=== PATIENT | female | born 1940 | race Caucasian/White ===

== ENCOUNTER 2017-08-06 11:30 | Outpatient (RCR) | payer MEDICARE, OTHER, SELFPAY ==
[2017-07-09 10:30] VITALS: BP 152/89; PULSE 90; RESP 18; TEMP 36.2; BMI 115.2
--- NOTE | 2017-07-09 13:08 | PCM.WC.HP ---
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 without evidence of necrosis Code(s): E08.621 - Diabetes mellitus due to underlying condition with foot ulcer; L97.519 - Non-pressure chronic ulcer of other part of right foot with unspecified severity (3) Infected ulcer of skin Status: Acute Current Visit: Yes Code(s): L98.499 - Non-pressure chronic ulcer of skin of other sites with unspecified severity; L08.9 - Local infection of the skin and subcutaneous tissue, unspecified (4) Edema of lower extremity Status: Acute Current Visit: Yes Code(s): R60.0 - Localized edema (5) Cellulitis and abscess of foot Status: Acute Current Visit: Yes Code(s): L03.119 - Cellulitis of unspecified part of limb; L02.619 - Cutaneous abscess of unspecified foot History of Present Illness Date of Service: 07/09/17 Chief Complaint: Follow-up right foot ulcer History of Wound: 76-year-old white female that has had a callus on the bottom of her right foot for 2 years. Has been having it pared down and monitored by podiatry. Last few months it is become infected and now a blister has appear going up towards her right great toe plantar side and she has a red streak going up her calf. Patient complains of severe pain in the leg and hard to walk on. Patient suffers from spinal stenosis is not very ambulatory and is extremely overweight she is diabetic and controlled. The abscess on the bottom of the foot is soft and fluctuant and will be I&D today with the wash of Hibiclens and then numbing with 1% with epi to the area I indeed with a #15 blade repaired and removed the abscess sac. Tolerated procedure well pack the area with iodoform gauze 1/2 inch. We will start her on oral antibiotics until cultures return of levofloxacin 751 p.o. daily and metronidazole 250 mg 1 p.o. 3 times daily ?10 days patient is to completely offload foot at this point. Patient will follow up next week with Dr. Vargas and then the following week she will return to me. Also has a growth on the left lateral lower leg that appears to be very friable and punctuated round raised fast-growing cancer that I was unable to remove because of the largeness of its circumference. 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 Galo in [place] also could follow. Past Medical History Past Medical History: Right foot DFU infected Allergies/Adverse Reactions: Allergies banana Allergy (Verified 07/09/17 11:15) Unknown biotin Adverse Reaction (Verified 07/09/17 11:15) Other wine Allergy (Uncoded 07/09/17 11:15) Unknown Home Medications: Ambulatory Orders Medication Instructions Recorded Eszopiclone [Lunesta] 2 mg PO QHS 07/09/17 Insulin Detemir [Levemir] 64 unit SQ QHS 07/09/17 Insulin Lispro [Humalog] 28 unit SQ DINNER 07/09/17 Insulin Lispro [Humalog] 55 unit SQ BREAKFAST 07/09/17 Warfarin [Coumadin ([facility])] 4 mg PO 07/09/17 Warfarin [Coumadin ([facility])] 6 mg PO 07/09/17 Lives: Spouse/ Significant Other Smoking Status: Never smoker Review of Systems Constitutional: Denies: Chills, Fever Eyes: Denies: Blurred vision, Drainage, Pain HEENT: Denies: Difficulty Hearing, Difficulty Swallowing, Sore Throat, Visual Changes Cardiovascular: Denies: Chest Pain, Palpitations, Syncope Respiratory: Denies: Cough, Shortness of Breath Gastrointestinal: Denies: Abdominal Pain, Nausea, Vomiting Genitourinary: Denies: Dysuria, Frequency Musculoskeletal: Denies: Joint Pain, Muscle pain Skin: Reports: Wounds - R Foot DFUwagner 2. Denies: Jaundice, Rash Neurological: Denies: Balance problems, Change in Speech, Difficulty swallowing, Focal weakness Psychiatric: Denies: Anxiety, Depression Endocrine: Denies: Change in Body Habitus Hematologic/ Lymphatic: Denies: Adenopathy - Physical Exam Vital Signs Temp Pulse Resp BP 97.1 F L 90 18 152/89 H 07/09/17 10:30 07/09/17 10:30 07/09/17 10:30 07/09/17 10:30 General: Oriented x3, Cooperative, Well developed HEENT: Atraumatic, PERRLA Oral: Moist Mucosa Neck: Supple, No JVD Lungs: Clear to auscultation, Normal air movement Cardiovascular: Regular rate, Regular Rhythm Abdomen: Bowel Sounds Present, Soft, Non Tender, No Hepato-splenomegaly Extremities: No clubbing, No edema Skin: - - R Foot DFU infected Wound Measurements and Assessment WC - Nurse 1 - General Ulcer Measurement Start: 07/09/17 10:28 Freq: Status: Active Protocol: Activity Type Activity Date Activity User E-Sign Co-Sign Detail Recorded Client Recorded Date Recorded By Document 07/09/17 10:30 [facility] [id number] 07/09/17 11:01 [facility] 07/09/17 10:30 Wound Center Nurse 1 [Ulcer Assessment] #2- LT CALF -Combined with other wound No -Current Size (cm) - Length 0.6 -Current Size (cm) - Width 0.7 -Current Size (cm) - Depth 0 -Total Square Cm 0.42 -Date of Last Picture (Recall this 07/09/17 field) -Photo Taken Yes -Tunneling No -Undermining/Tunneling No -Exudate Amt Small (1-33%) -Exudate Type Serous -Wound Margin Distinct, Outline Attached -Granulation Amt Large (67-100%) -Granulation Quality Hyper- granulation [place] -Slough/Fibrin No -Necrosis Amt None Present (0 %) -Structure Exposed N/A -Texture (Faby-wound Skin Appearance) Assessed -Moisture (Faby-wound Skin Appearance Dry/Scaly ) -Color (Faby-wound Skin Appearance) Assessed -Temperature (Faby-wound Skin No Abnormality Appearance) (Pt Warm) -Tenderness on Palpation (Faby-wound No Skin Appearance) -Ulcer Cleansing Rinsed/ Irrigated with Saline -Foul Odor after Cleansing No -Anesthetic Used 5% Lidocaine Gel #1- RT FOOT PLANTAR ASPECT -Combined with other wound No -Current Size (cm) - Length 0.1 -Current Size (cm) - Width 0.1 -Current Size (cm) - Depth 0.2 -Total Square Cm 0.01 -Date of Last Picture (Recall this 07/09/17 field) -Photo Taken Yes -Epithelialization None Present -Undermining/Tunneling No -Exudate Amt Small (1-33%) -Exudate Type Purulent -Granulation Amt None Present (0 %) -Slough/Fibrin Yes -Necrosis Amt Large (67-100%) -Necrotic Tissue Type Adherent Slough -Structure Exposed N/A -Texture (Faby-wound Skin Appearance) Callus Scarring -Moisture (Faby-wound Skin Appearance Dry/Scaly ) -Color (Faby-wound Skin Appearance) Assessed -Temperature (Faby-wound Skin No Abnormality Appearance) (Pt Warm) -Tenderness on Palpation (Faby-wound No Skin Appearance) -Ulcer Cleansing Rinsed/ Irrigated with Saline -Foul Odor after Cleansing No -Anesthetic Used 5% Lidocaine Gel [Edema Assessment] -Lower Limb Edema Present Yes -Right Calf (cm) 47 -Right Ankle (cm) 27.6 -Left Calf (cm) 44.6 -Left Ankle (cm) 27.1 WC - Nurse 2 - General Ulcer CM Notes Start: 07/09/17 10:28 Freq: Status: Active Protocol: Activity Type Activity Date Activity User E-Sign Co-Sign Detail Recorded Client Recorded Date Recorded By Document 07/09/17 11:39 MW [id number] 07/09/17 12:08 MW 07/09/17 11:39 Wound Center Nurse 2 [Procedure/Treatment] #2- LT CALF -Time 12:04 -Correct Patient Yes -Correct Side, Site, Position Yes -Correct Procedure Yes -Procedure Performed No -Type of Procedure Incision & Debridement -Clinical Debridement Subcutaneous -Post Debridement Size (cm) - Length 0.6 -Post Debridement Size (cm) - Width 0.7 -Post Debridement Size (cm) - Depth 0 -Total Square Cm 0.42 -Wound/Ulcer Outcome Not Healed -Ulcer Cleansing Not Cleansed -Foul Odor after Cleansing No -Bleeding Controlled with NA -Treatment Response Procedure Tolerated Well #1- RT FOOT PLANTAR ASPECT -Time 11:40 -Correct Patient Yes -Correct Side, Site, Position Yes -Correct Procedure Yes -Procedure Performed Yes -Type of Procedure Incision & Debridement -Clinical Debridement Subcutaneous -Post Debridement Size (cm) - Length 3.6 -Post Debridement Size (cm) - Width 0.7 -Post Debridement Size (cm) - Depth 0.7 -Total Square Cm 2.52 -Wound/Ulcer Outcome Not Healed -Ulcer Cleansing Rinsed/ Irrigated with Saline -Foul Odor after Cleansing No -Bioengineered Tissue No -Bleeding Controlled with Pressure -Treatment Response Procedure Tolerated Well [See Physician Procedure note for Specifics] Pain Scale: 0-10 Numeric [Pain] -Is Patient Pain Free? Yes Musculoskeletal: No Tenderness to Palpation of Joints or Extremities Lymphatic: No Cervical, Supraclavicular, or Inguinal Adenopathy Neurological: Cranial nerves II-XII grossly intact, Neuro grossly intact Psych/Mental Status: Normal Affect, Appropriate Debridement Note Post-Debridement Measurements/Treatment WC - Nurse 2 - General Ulcer CM Notes Start: 07/09/17 10:28 Freq: Status: Active Protocol: Activity Type Activity Date Activity User E-Sign Co-Sign Detail Recorded Client Recorded Date Recorded By Document 07/09/17 11:39 MW [id number] 07/09/17 12:08 MW 07/09/17 11:39 Wound Center Nurse 2 #2- LT CALF -Time 12:04 -Correct Patient Yes -Correct Side, Site, Position Yes -Correct Procedure Yes -Procedure Performed No -Type of Procedure Incision & Debridement -Clinical Debridement Subcutaneous -Post Debridement Size (cm) - Length 0.6 -Post Debridement Size (cm) - Width 0.7 -Post Debridement Size (cm) - Depth 0 -Total Square Cm 0.42 -Wound/Ulcer Outcome Not Healed -Ulcer Cleansing Not Cleansed -Foul Odor after Cleansing No -Bleeding Controlled with NA -Treatment Response Procedure Tolerated Well #1- RT FOOT PLANTAR ASPECT -Time 11:40 -Correct Patient Yes -Correct Side, Site, Position Yes -Correct Procedure Yes -Procedure Performed Yes -Type of Procedure Incision & Debridement -Clinical Debridement Subcutaneous -Post Debridement Size (cm) - Length 3.6 -Post Debridement Size (cm) - Width 0.7 -Post Debridement Size (cm) - Depth 0.7 -Total Square Cm 2.52 -Wound/Ulcer Outcome Not Healed -Ulcer Cleansing Rinsed/ Irrigated with Saline -Foul Odor after Cleansing No -Bioengineered Tissue No -Bleeding Controlled with Pressure -Treatment Response Procedure Tolerated Well Pain Scale: 0-10 Numeric Is Patient Pain Free? Yes Wound debrided: Right foot DFU Type of Debridement: Excisional debridement Anesthesia Used: 5% Lidocaine Gel Depth: Down to and including healthy tissue, in the subcutaneous layer, to muscle Percentage of wound debrided: 100 Instrument Used: #15 blade, Forceps - Nippers scissors Tissue Removed: Abscess sac devitalized tissue callus Amount of bleeding with debridement: Moderate Bleeding Controlled with: Compression and gauze Patient tolerated procedure well Right foot washed with Hibiclens numbed with lidocaine 1% with epi 15 blade incised to remove large abscess of the right forefoot plantar side of the foot. Tolerated well debrided upper blister with pus and discharge very odiferous. Bleeding under control and wound packed with iodoform gauze 1/2 inch and covered with gauze dressing to be offloaded. Operative Diagnosis: I&D of an abscess of the right foot Assessment/Plan c&S ulcer ,labs and x-ray Active Problems Diabetes 1.5, managed as type 2 (Acute) Diabetic ulcer of right foot associated with diabetes mellitus due to underlying condition (Acute) Infected ulcer of skin (Acute) Edema of lower extremity (Acute) Cellulitis and abscess of foot (Acute) Assessment: Foot DFU right. abscess right fooot. cellulitis. DM II uncontrolled. ?osteomylitis Plan: packing to the wound bed daily with 1/2 iodoform guaze. cover with thick guaze dressing and no weight bearing at all. foot x-ray to be done. prealbumin and cbc labs. cx results pending. start levofloxin 750 mg orally qd for 14 days. metronidazole 250 mg orally tid for 10 days. Follow up Tues with DR vargas then return in [facility] week to [facility] wound visit. L lat growth is cancer and needs to be removed at once by a sticker hand. Patient has her own in [facility] or [facility] in [place]
--- NOTE | 2017-07-09 13:19 | HP.PCM_ITS ---
(1) Diabetes 1.5, managed as type 2 Status: Acute Current Visit: Yes Code(s): E10.9 - Type 1 diabetes mellitus without complications (2) Diabetic ulcer of right foot associated with diabetes mellitus due to underlying condition Status: Acute Current Visit: Yes Qualifiers: Diabetic foot ulcer location: midfoot Non-pressure ulcer stage: with bone involvement without evidence of necrosis Qualified Code(s): E08.621 - Diabetes mellitus due to underlying condition with foot ulcer; L97.416 - Non- pressure chronic ulcer of right heel and midfoot with bone involvement without evidence of necrosis Code(s): E08.621 - Diabetes mellitus due to underlying condition with foot ulcer ; L97.519 - Non-pressure chronic ulcer of other part of right foot with unspecified severity (3) Infected ulcer of skin Status: Acute Current Visit: Yes Code(s): L98.499 - Non-pressure chronic ulcer of skin of other sites with unspecified severity; L08.9 - Local infection of the skin and subcutaneous tissue, unspecified (4) Edema of lower extremity Status: Acute Current Visit: Yes Code(s): R60.0 - Localized edema (5) Cellulitis and abscess of foot Status: Acute Current Visit: Yes Code(s): L03.119 - Cellulitis of unspecified part of limb; L02.619 - Cutaneous abscess of unspecified foot History of Present Illness Date of Service: 07/09/17 Chief Complaint: Follow-up right foot ulcer History of Wound: 76-year-old white female that has had a callus on the bottom of her right foot for 2 years. Has been having it pared down and monitored by podiatry. Last few months it is become infected and now a blister has appear going up towards her right great toe plantar side and she has a red streak going up her calf. Patient complains of severe pain in the leg and hard to walk on. Patient suffers from spinal stenosis is not very ambulatory and is extremely overweight she is diabetic and controlled. The abscess on the bottom of the foot is soft and fluctuant and will be I&D today with the wash of Hibiclens and then numbing with 1% with epi to the area I indeed with a #15 blade repaired and removed the abscess sac. Tolerated procedure well pack the area with iodoform gauze 1/2 inch. We will start her on oral antibiotics until cultures return of levofloxacin 751 p.o. daily and metronidazole 250 mg 1 p.o. 3 times daily ?10 days patient is to completely offload foot at this point. Patient will follow up next week with Dr. Vargas and then the following week she will return to me. Also has a growth on the left lateral lower leg that appears to be very friable and punctuated round raised fast-growing cancer that I was unable to remove because of the largeness of its circumference. 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 Galo in [place] also could follow. Past Medical History Past Medical History: Right foot DFU infected Allergies/Adverse Reactions: Allergies banana Allergy (Verified 07/09/17 11:15) Unknown biotin Adverse Reaction (Verified 07/09/17 11:15) Other wine Allergy (Uncoded 07/09/17 11:15) Unknown Home Medications: Ambulatory Orders Medication Instructions Recorded Eszopiclone [Lunesta] 2 mg PO QHS 07/09/17 Insulin Detemir [Levemir] 64 unit SQ QHS 07/09/17 Insulin Lispro [Humalog] 28 unit SQ DINNER 07/09/17 Insulin Lispro [Humalog] 55 unit SQ BREAKFAST 07/09/17 Warfarin [Coumadin (PBKC)] 4 mg PO 07/09/17 Warfarin [Coumadin (PBKC)] 6 mg PO 07/09/17 Lives: Spouse/ Significant Other Smoking Status: Never smoker Review of Systems Constitutional: Denies: Chills, Fever Eyes: Denies: Blurred vision, Drainage, Pain HEENT: Denies: Difficulty Hearing, Difficulty Swallowing, Sore Throat, Visual Changes Cardiovascular: Denies: Chest Pain, Palpitations, Syncope Respiratory: Denies: Cough, Shortness of Breath Gastrointestinal: Denies: Abdominal Pain, Nausea, Vomiting Genitourinary: Denies: Dysuria, Frequency Musculoskeletal: Denies: Joint Pain, Muscle pain Skin: Reports: Wounds - R Foot DFUwagner 2. Denies: Jaundice, Rash Neurological: Denies: Balance problems, Change in Speech, Difficulty swallowing , Focal weakness Psychiatric: Denies: Anxiety, Depression Endocrine: Denies: Change in Body Habitus Hematologic/ Lymphatic: Denies: Adenopathy - Physical Exam Vital Signs Temp Pulse Resp BP 97.1 F L 90 18 152/89 H 07/09/17 10:30 07/09/17 10:30 07/09/17 10:30 07/09/17 10:30 General: Oriented x3, Cooperative, Well developed HEENT: Atraumatic, PERRLA Oral: Moist Mucosa Neck: Supple, No JVD Lungs: Clear to auscultation, Normal air movement Cardiovascular: Regular rate, Regular Rhythm Abdomen: Bowel Sounds Present, Soft, Non Tender, No Hepato-splenomegaly Extremities: No clubbing, No edema Skin: - - R Foot DFU infected Wound Measurements and Assessment WC - Nurse 1 - General Ulcer Measurement Start: 07/09/17 10:28 Freq: Status: Active Protocol: Activity Type Activity Date Activity User E-Sign Co-Sign Detail Recorded Client Recorded Date Recorded By Document 07/09/17 10:30 [facility] [id number] 07/09/17 11:01 [facility] 07/09/17 10:30 Wound Center Nurse 1 [Ulcer Assessment] #2- LT CALF -Combined with other wound No -Current Size (cm) - Length 0.6 -Current Size (cm) - Width 0.7 -Current Size (cm) - Depth 0 -Total Square Cm 0.42 -Date of Last Picture (Recall this 07/09/17 field) -Photo Taken Yes -Tunneling No -Undermining/Tunneling No -Exudate Amt Small (1-33%) -Exudate Type Serous -Wound Margin Distinct, Outline Attached -Granulation Amt Large (67-100%) -Granulation Quality Hyper- granulation Baxley -Slough/Fibrin No -Necrosis Amt None Present (0 %) -Structure Exposed N/A -Texture (Faby-wound Skin Appearance) Assessed -Moisture (Faby-wound Skin Appearance Dry/Scaly ) -Color (Faby-wound Skin Appearance) Assessed -Temperature (Faby-wound Skin No Abnormality Appearance) (Pt Warm) -Tenderness on Palpation (Faby-wound No Skin Appearance) -Ulcer Cleansing Rinsed/ Irrigated with Saline -Foul Odor after Cleansing No -Anesthetic Used 5% Lidocaine Gel #1- RT FOOT PLANTAR ASPECT -Combined with other wound No -Current Size (cm) - Length 0.1 -Current Size (cm) - Width 0.1 -Current Size (cm) - Depth 0.2 -Total Square Cm 0.01 -Date of Last Picture (Recall this 07/09/17 field) -Photo Taken Yes -Epithelialization None Present -Undermining/Tunneling No -Exudate Amt Small (1-33%) -Exudate Type Purulent -Granulation Amt None Present (0 %) -Slough/Fibrin Yes -Necrosis Amt Large (67-100%) -Necrotic Tissue Type Adherent Slough -Structure Exposed N/A -Texture (Faby-wound Skin Appearance) Callus Scarring -Moisture (Faby-wound Skin Appearance Dry/Scaly ) -Color (Faby-wound Skin Appearance) Assessed -Temperature (Faby-wound Skin No Abnormality Appearance) (Pt Warm) -Tenderness on Palpation (Faby-wound No Skin Appearance) -Ulcer Cleansing Rinsed/ Irrigated with Saline -Foul Odor after Cleansing No -Anesthetic Used 5% Lidocaine Gel [Edema Assessment] -Lower Limb Edema Present Yes -Right Calf (cm) 47 -Right Ankle (cm) 27.6 -Left Calf (cm) 44.6 -Left Ankle (cm) 27.1 WC - Nurse 2 - General Ulcer CM Notes Start: 07/09/17 10:28 Freq: Status: Active Protocol: Activity Type Activity Date Activity User E-Sign Co-Sign Detail Recorded Client Recorded Date Recorded By Document 07/09/17 11:39 MW [id number] 07/09/17 12:08 MW 07/09/17 11:39 Wound Center Nurse 2 [Procedure/Treatment] #2- LT CALF -Time 12:04 -Correct Patient Yes -Correct Side, Site, Position Yes -Correct Procedure Yes -Procedure Performed No -Type of Procedure Incision & Debridement -Clinical Debridement Subcutaneous -Post Debridement Size (cm) - Length 0.6 -Post Debridement Size (cm) - Width 0.7 -Post Debridement Size (cm) - Depth 0 -Total Square Cm 0.42 -Wound/Ulcer Outcome Not Healed -Ulcer Cleansing Not Cleansed -Foul Odor after Cleansing No -Bleeding Controlled with NA -Treatment Response Procedure Tolerated Well #1- RT FOOT PLANTAR ASPECT -Time 11:40 -Correct Patient Yes -Correct Side, Site, Position Yes -Correct Procedure Yes -Procedure Performed Yes -Type of Procedure Incision & Debridement -Clinical Debridement Subcutaneous -Post Debridement Size (cm) - Length 3.6 -Post Debridement Size (cm) - Width 0.7 -Post Debridement Size (cm) - Depth 0.7 -Total Square Cm 2.52 -Wound/Ulcer Outcome Not Healed -Ulcer Cleansing Rinsed/ Irrigated with Saline -Foul Odor after Cleansing No -Bioengineered Tissue No -Bleeding Controlled with Pressure -Treatment Response Procedure Tolerated Well [See Physician Procedure note for Specifics] Pain Scale: 0-10 Numeric [Pain] -Is Patient Pain Free? Yes Musculoskeletal: No Tenderness to Palpation of Joints or Extremities Lymphatic: No Cervical, Supraclavicular, or Inguinal Adenopathy Neurological: Cranial nerves II-XII grossly intact, Neuro grossly intact Psych/Mental Status: Normal Affect, Appropriate Debridement Note Post-Debridement Measurements/Treatment WC - Nurse 2 - General Ulcer CM Notes Start: 07/09/17 10:28 Freq: Status: Active Protocol: Activity Type Activity Date Activity User E-Sign Co-Sign Detail Recorded Client Recorded Date Recorded By Document 07/09/17 11:39 MW [id number] 07/09/17 12:08 MW 07/09/17 11:39 Wound Center Nurse 2 #2- LT CALF -Time 12:04 -Correct Patient Yes -Correct Side, Site, Position Yes -Correct Procedure Yes -Procedure Performed No -Type of Procedure Incision & Debridement -Clinical Debridement Subcutaneous -Post Debridement Size (cm) - Length 0.6 -Post Debridement Size (cm) - Width 0.7 -Post Debridement Size (cm) - Depth 0 -Total Square Cm 0.42 -Wound/Ulcer Outcome Not Healed -Ulcer Cleansing Not Cleansed -Foul Odor after Cleansing No -Bleeding Controlled with NA -Treatment Response Procedure Tolerated Well #1- RT FOOT PLANTAR ASPECT -Time 11:40 -Correct Patient Yes -Correct Side, Site, Position Yes -Correct Procedure Yes -Procedure Performed Yes -Type of Procedure Incision & Debridement -Clinical Debridement Subcutaneous -Post Debridement Size (cm) - Length 3.6 -Post Debridement Size (cm) - Width 0.7 -Post Debridement Size (cm) - Depth 0.7 -Total Square Cm 2.52 -Wound/Ulcer Outcome Not Healed -Ulcer Cleansing Rinsed/ Irrigated with Saline -Foul Odor after Cleansing No -Bioengineered Tissue No -Bleeding Controlled with Pressure -Treatment Response Procedure Tolerated Well Pain Scale: 0-10 Numeric Is Patient Pain Free? Yes Wound debrided: Right foot DFU Type of Debridement: Excisional debridement Anesthesia Used: 5% Lidocaine Gel Depth: Down to and including healthy tissue, in the subcutaneous layer, to muscle Percentage of wound debrided: 100 Instrument Used: #15 blade, Forceps - Nippers scissors Tissue Removed: Abscess sac devitalized tissue callus Amount of bleeding with debridement: Moderate Bleeding Controlled with: Compression and gauze Patient tolerated procedure well Right foot washed with Hibiclens numbed with lidocaine 1% with epi 15 blade incised to remove large abscess of the right forefoot plantar side of the foot. Tolerated well debrided upper blister with pus and discharge very odiferous. Bleeding under control and wound packed with iodoform gauze 1/2 inch and covered with gauze dressing to be offloaded. Operative Diagnosis: I&D of an abscess of the right foot Assessment/Plan c&S ulcer ,labs and x-ray Active Problems Diabetes 1.5, managed as type 2 (Acute) Diabetic ulcer of right foot associated with diabetes mellitus due to underlying condition (Acute) Infected ulcer of skin (Acute) Edema of lower extremity (Acute) Cellulitis and abscess of foot (Acute) Assessment: Foot DFU right. abscess right fooot. cellulitis. DM II uncontrolled. ?osteomylitis Plan: packing to the wound bed daily with 1/2 iodoform guaze. cover with thick guaze dressing and no weight bearing at all. foot x-ray to be done. prealbumin and cbc labs. cx results pending. start levofloxin 750 mg orally qd for 14 days. metronidazole 250 mg orally tid for 10 days. Follow up Tues with DR vargas then return in [facility] week to [facility] wound visit. L lat growth is cancer and needs to be removed at once by a supervisor lending activities. Patient has her own in [place] or [place] in [place]
[2017-07-09 14:09] LABS: Absolute Lymphocyte Count 4.03 X10^3/ul (0.83-4.51); Absolute Neutrophil Count 11.5 X10^3/uL (2.0-7.7); Basophil# 0.05 X10^3/uL; Basophil% 0.3 % (0-1); Eosinophil# 0.15 X10^3/uL; Eosinophils% 0.9 % (0-5); Hematocrit 44.5 % (37-47); Hemoglobin 14.7 g/dl (12.0-15.0); Lymphocyte # 4.03 X10^3/ul (4.0); Lymphocyte % 24.1 % (19-41); Mean Corpuscular Hgb 29.5 pg (27.0-32.0); Mean Corpuscular Volume 89.2 fL (81-99); Mean Platelet Vol. 10.6 fl (6.2-12.0); Monocyte# 0.98 X10^3/uL; Monocyte% 5.9 % (0-10); Neutrophil # 11.48 X10^3/uL (2.7-7.7); Neutrophil % 68.6 % (47-70); Platelet Count 263 K/mm3 (150-450); RBC Distribution Width CV 15.4 % (11.6-14.6); RBC Distribution Width SD 49.1 fl (35.1-43.9); Red Blood Count 4.99 M/mm3 (4.2-5.4); White Blood Count 16.7 K/mm3 (4.4-11.0)
[2017-07-09 14:11] LABS: POSITIVE COUNT NO; POSITIVE DIFFERENTIAL NO; POSITIVE MORPHOLOGY NO
[2017-07-09 14:32] LABS: Prealbumin 25.2 mg/dL (20.0-40.0)
[2017-07-13 15:39] VITALS: BP 130/76; PULSE 78; RESP 18; TEMP 37; BMI 115.2
--- NOTE | 2017-07-13 16:33 | PCM.WC.PN ---
(1) Non-pressure chronic ulcer of other part of right foot with fat layer exposed Status: Acute Current Visit: Yes Code(s): L97.512 - Non-pressure chronic ulcer of other part of right foot with fat layer exposed (2) Type 2 diabetes mellitus with foot ulcer Status: Acute Current Visit: Yes Qualifiers: Diabetes mellitus terminologist insulin use: unspecified fci insulin use status Qualified Code(s): E11.621 - Type 2 diabetes mellitus with foot ulcer; L97.509 - Non-pressure chronic ulcer of other part of unspecified foot with unspecified severity Code(s): E11.621 - Type 2 diabetes mellitus with foot ulcer; L97.509 - Non-pressure chronic ulcer of other part of unspecified foot with unspecified severity (3) Type 2 diabetes mellitus with diabetic polyneuropathy Status: Chronic Current Visit: Yes Qualifiers: Diabetes mellitus fci insulin use: unspecified terminologist insulin use status Qualified Code(s): E11.42 - Type 2 diabetes mellitus with diabetic polyneuropathy Code(s): E11.42 - Type 2 diabetes mellitus with diabetic polyneuropathy Type of Wound Date of Service: 07/13/17 Chief Complaint: Follow-up right foot ulcer History of Wound: 76-year-old white female that has had a callus on the bottom of her right foot for 2 years. Has been having it pared down and monitored by podiatry. Last few months it is become infected and now a blister has appear going up towards her right great toe plantar side and she has a red streak going up her calf. Patient complains of severe pain in the leg and hard to walk on. Patient suffers from spinal stenosis is not very ambulatory and is extremely overweight she is diabetic and controlled. The abscess on the bottom of the foot is soft and fluctuant and will be I&D today with the wash of Hibiclens and then numbing with 1% with epi to the area I indeed with a #15 blade repaired and removed the abscess sac. Tolerated procedure well pack the area with iodoform gauze 1/2 inch. We will start her on oral antibiotics until cultures return of levofloxacin 751 p.o. daily and metronidazole 250 mg 1 p.o. 3 times daily ?10 days patient is to completely offload foot at this point. Patient will follow up next week with Dr. Serrano and then the following week she will return to me. Also has a growth on the left lateral lower leg that appears to be very friable and punctuated round raised fast-growing cancer that I was unable to remove because of the largeness of its circumference. 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 Galo in [place] also could follow. 07/13--Pt known to me from visits in my office as well as previous wound care visits at [facility] with recurrent ulceration of R forefoot (recently healed at [facility] wound center). Pt was seen last week with recurrent infected ulceration of R plantar foot. She is unsure how it re-opened. She has been taking Levaquin and Flagyl PO, being changed today to Augmentin by Varsha Serna CNP based on culture results (she is stopping Levaquin). Denies N/V/F/C. Appearance and measurements improved dramatically. Progress of Wound: improved. - Physical Exam Vital Signs Temp Pulse Resp BP 98.6 F 78 18 130/76 H 07/13/17 15:39 07/13/17 15:39 07/13/17 15:39 07/13/17 15:39 General: Alert, Oriented x3, Cooperative, No apparent distress Skin: Ulcer/ Wound - R plantar forefoot with no erythema, no malodor, no pus, no pain, no calor. No clinical signs of acute bacterial infection noted. See wound/edema assessment below. Wound Measurements and Assessment WC - Nurse 1 - General Ulcer Measurement Start: 07/09/17 10:28 Freq: Status: Active Protocol: Activity Type Activity Date Activity User E-Sign Co-Sign Detail Recorded Client Recorded Date Recorded By Document 07/13/17 15:39 [id number] 07/13/17 15:48 07/13/17 15:39 Wound Center Nurse 1 [Ulcer Assessment] #1- RT FOOT PLANTAR ASPECT -Combined with other wound No -Current Size (cm) - Length 0.8 -Current Size (cm) - Width 0.8 -Current Size (cm) - Depth 0.4 -Total Square Cm 0.64 -Photo Taken No -Epithelialization Small 1-33% -Tunneling No -Undermining/Tunneling No -Circular Undermining No -Exudate Amt Small (1-33%) -Exudate Type Serosanguineous -Wound Margin Flat & Intact -Granulation Amt Medium (34-66%) -Granulation Quality Red -Slough/Fibrin Yes -Necrosis Amt Small (1-33%) -Necrotic Tissue Type Adherent Slough -Structure Exposed N/A -Texture (Faby-wound Skin Appearance) Assessed Callus -Moisture (Faby-wound Skin Appearance Assessed ) Dry/Scaly -Color (Faby-wound Skin Appearance) Assessed -Temperature (Faby-wound Skin No Abnormality Appearance) (Pt Warm) -Tenderness on Palpation (Faby-wound No Skin Appearance) -Ulcer Cleansing Rinsed/ Irrigated with Saline -Foul Odor after Cleansing No -Anesthetic Used 4% Lidocaine Solution [Edema Assessment] -Lower Limb Edema Present Yes -Right Calf (cm) 45.6 -Right Ankle (cm) 26.3 WC - Nurse 2 - General Ulcer CM Notes Start: 07/09/17 10:28 Freq: Status: Active Protocol: Activity Type Activity Date Activity User E-Sign Co-Sign Detail Recorded Client Recorded Date Recorded By Document 07/13/17 16:03 MW [id number] 07/13/17 16:09 MW 07/13/17 16:03 Wound Center Nurse 2 [Procedure/Treatment] #1- RT FOOT PLANTAR ASPECT -Time 16:03 -Correct Patient Yes -Correct Side, Site, Position Yes -Correct Procedure Yes -Procedure Performed Yes -Type of Procedure Debridement -Clinical Debridement Subcutaneous -Post Debridement Size (cm) - Length 1.0 -Post Debridement Size (cm) - Width 0.7 -Post Debridement Size (cm) - Depth 0.5 -Total Square Cm 0.70 -Wound/Ulcer Outcome Not Healed -Ulcer Cleansing Rinsed/ Irrigated with Saline -Foul Odor after Cleansing No -Bioengineered Tissue No -Bleeding Controlled with Pressure -Treatment Response Procedure Tolerated Well [See Physician Procedure note for Specifics] Pain Scale: 0-10 Numeric [Pain] -Is Patient Pain Free? Yes Debridement Note Post-Debridement Measurements/Treatment WC - Nurse 2 - General Ulcer CM Notes Start: 07/09/17 10:28 Freq: Status: Active Protocol: Activity Type Activity Date Activity User E-Sign Co-Sign Detail Recorded Client Recorded Date Recorded By Document 07/09/17 11:39 MW [id number] 07/09/17 12:08 MW Document 07/13/17 16:03 MW [id number] 07/13/17 16:09 MW 03/02/18 03/06/18 11:39 16:03 Wound Center Nurse 2 #2- LT CALF -Time 12:04 -Correct Patient Yes -Correct Side, Site, Position Yes -Correct Procedure Yes -Procedure Performed No -Type of Procedure Incision & Debridement -Clinical Debridement Subcutaneous -Post Debridement Size (cm) - Length 0.6 -Post Debridement Size (cm) - Width 0.7 -Post Debridement Size (cm) - Depth 0 -Total Square Cm 0.42 -Wound/Ulcer Outcome Not Healed -Ulcer Cleansing Not Cleansed -Foul Odor after Cleansing No -Bleeding Controlled with NA -Treatment Response Procedure Tolerated Well #1- RT FOOT PLANTAR ASPECT -Time 11:40 16:03 -Correct Patient Yes Yes -Correct Side, Site, Position Yes Yes -Correct Procedure Yes Yes -Procedure Performed Yes Yes -Type of Procedure Incision & Debridement Debridement -Clinical Debridement Subcutaneous Subcutaneous -Post Debridement Size (cm) - Length 3.6 1.0 -Post Debridement Size (cm) - Width 0.7 0.7 -Post Debridement Size (cm) - Depth 0.7 0.5 -Total Square Cm 2.52 0.70 -Wound/Ulcer Outcome Not Healed Not Healed -Ulcer Cleansing Rinsed/ Rinsed/ Irrigated with Irrigated with Saline Saline -Foul Odor after Cleansing No No -Bioengineered Tissue No No -Bleeding Controlled with Pressure Pressure -Treatment Response Procedure Procedure Tolerated Well Tolerated Well Pain Scale: 0-10 Numeric Is Patient Pain Free? Yes Yes Wound debrided: R forefoot Laterality: Right Wound Grade/Stage: Rosales grade 1 full thickness DFU with no deep structures exposed Type of Debridement: Excisional debridement Anesthesia Used: 4% Lidocaine Solution Depth: Down to and including healthy tissue, in the subcutaneous layer Percentage of wound debrided: 100 Instrument Used: #15 blade Tissue Removed: fibrous slough, surrounding hyperkeratotic rim Severity: Fat Layer Exposed Amount of bleeding with debridement: Mild Bleeding Controlled with: Pressure, Compression and gauze Patient tolerated procedure well Assessment/Plan Active Problems Diabetes 1.5, managed as type 2 (Acute) Diabetic ulcer of right foot associated with diabetes mellitus due to underlying condition (Acute) Infected ulcer of skin (Acute) Edema of lower extremity (Acute) Cellulitis and abscess of foot (Acute) Non-pressure chronic ulcer of other part of right foot with fat layer exposed (Acute) Type 2 diabetes mellitus with foot ulcer (Acute) Type 2 diabetes mellitus with diabetic polyneuropathy (Chronic) Assessment: Foot DFU right. abscess right fooot. cellulitis. DM II uncontrolled. ?osteomylitis Plan: SQ/excisional debridement of R foot ulcer as above. Cont packing to the wound bed, decrease to every other day and swithc to rajinder. Cover with adaptic and change outer gauze dressing daily. No weight bearing at all. foot x-ray to be done -- pt had x-ray 2 months ago at [facility], nursing staff to confirm with Varsha whether or not this is sufficient. prealbumin and cbc labs pending. cx results aerobic done, anaerobic pending. atbx per Varsha Serna CNP. Return in 1 week to reg wound visit with Varsha Serna CNP. Monitor for recurrent signs of infection, and go to the ED with these. Call with questions.
--- NOTE | 2017-07-13 16:41 | PN.PCM_ITS ---
(1) Non-pressure chronic ulcer of other part of right foot with fat layer exposed Status: Acute Current Visit: Yes Code(s): L97.512 - Non-pressure chronic ulcer of other part of right foot with fat layer exposed (2) Type 2 diabetes mellitus with foot ulcer Status: Acute Current Visit: Yes Qualifiers: Diabetes mellitus terminal system operator insulin use: unspecified senior care insulin use status Qualified Code(s): E11.621 - Type 2 diabetes mellitus with foot ulcer; L97.509 - Non-pressure chronic ulcer of other part of unspecified foot with unspecified severity Code(s): E11.621 - Type 2 diabetes mellitus with foot ulcer; L97.509 - Non- pressure chronic ulcer of other part of unspecified foot with unspecified severity (3) Type 2 diabetes mellitus with diabetic polyneuropathy Status: Chronic Current Visit: Yes Qualifiers: Diabetes mellitus senior care insulin use: unspecified terminal system operator insulin use status Qualified Code(s): E11.42 - Type 2 diabetes mellitus with diabetic polyneuropathy Code(s): E11.42 - Type 2 diabetes mellitus with diabetic polyneuropathy Type of Wound Date of Service: 07/13/17 Chief Complaint: Follow-up right foot ulcer History of Wound: 76-year-old white female that has had a callus on the bottom of her right foot for 2 years. Has been having it pared down and monitored by podiatry. Last few months it is become infected and now a blister has appear going up towards her right great toe plantar side and she has a red streak going up her calf. Patient complains of severe pain in the leg and hard to walk on. Patient suffers from spinal stenosis is not very ambulatory and is extremely overweight she is diabetic and controlled. The abscess on the bottom of the foot is soft and fluctuant and will be I&D today with the wash of Hibiclens and then numbing with 1% with epi to the area I indeed with a #15 blade repaired and removed the abscess sac. Tolerated procedure well pack the area with iodoform gauze 1/2 inch. We will start her on oral antibiotics until cultures return of levofloxacin 751 p.o. daily and metronidazole 250 mg 1 p.o. 3 times daily ?10 days patient is to completely offload foot at this point. Patient will follow up next week with Dr. Serrano and then the following week she will return to me. Also has a growth on the left lateral lower leg that appears to be very friable and punctuated round raised fast-growing cancer that I was unable to remove because of the largeness of its circumference. 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 Galo in [place] also could follow. 07/13 --Pt known to me from visits in my office as well as previous wound care visits at [facility] with recurrent ulceration of R forefoot (recently healed at [facility] wound center). Pt was seen last week with recurrent infected ulceration of R plantar foot. She is unsure how it re-opened. She has been taking Levaquin and Flagyl PO, being changed today to Augmentin by Varsha Serna CNP based on culture results (she is stopping Levaquin). Denies N/V /F/C. Appearance and measurements improved dramatically. Progress of Wound: improved. - Physical Exam Vital Signs Temp Pulse Resp BP 98.6 F 78 18 130/76 H 07/13/17 15:39 07/13/17 15:39 07/13/17 15:39 07/13/17 15:39 General: Alert, Oriented x3, Cooperative, No apparent distress Skin: Ulcer/ Wound - R plantar forefoot with no erythema, no malodor, no pus, no pain, no calor. No clinical signs of acute bacterial infection noted. See wound/edema assessment below. Wound Measurements and Assessment WC - Nurse 1 - General Ulcer Measurement Start: 07/09/17 10:28 Freq: Status: Active Protocol: Activity Type Activity Date Activity User E-Sign Co-Sign Detail Recorded Client Recorded Date Recorded By Document 07/13/17 15:39 [id number] 07/13/17 15:48 07/13/17 15:39 Wound Center Nurse 1 [Ulcer Assessment] #1- RT FOOT PLANTAR ASPECT -Combined with other wound No -Current Size (cm) - Length 0.8 -Current Size (cm) - Width 0.8 -Current Size (cm) - Depth 0.4 -Total Square Cm 0.64 -Photo Taken No -Epithelialization Small 1-33% -Tunneling No -Undermining/Tunneling No -Circular Undermining No -Exudate Amt Small (1-33%) -Exudate Type Serosanguineous -Wound Margin Flat & Intact -Granulation Amt Medium (34-66%) -Granulation Quality Red -Slough/Fibrin Yes -Necrosis Amt Small (1-33%) -Necrotic Tissue Type Adherent Slough -Structure Exposed N/A -Texture (Faby-wound Skin Appearance) Assessed Callus -Moisture (Faby-wound Skin Appearance Assessed ) Dry/Scaly -Color (Faby-wound Skin Appearance) Assessed -Temperature (Faby-wound Skin No Abnormality Appearance) (Pt Warm) -Tenderness on Palpation (Faby-wound No Skin Appearance) -Ulcer Cleansing Rinsed/ Irrigated with Saline -Foul Odor after Cleansing No -Anesthetic Used 4% Lidocaine Solution [Edema Assessment] -Lower Limb Edema Present Yes -Right Calf (cm) 45.6 -Right Ankle (cm) 26.3 WC - Nurse 2 - General Ulcer CM Notes Start: 07/09/17 10:28 Freq: Status: Active Protocol: Activity Type Activity Date Activity User E-Sign Co-Sign Detail Recorded Client Recorded Date Recorded By Document 07/13/17 16:03 MW [id number] 07/13/17 16:09 MW 07/13/17 16:03 Wound Center Nurse 2 [Procedure/Treatment] #1- RT FOOT PLANTAR ASPECT -Time 16:03 -Correct Patient Yes -Correct Side, Site, Position Yes -Correct Procedure Yes -Procedure Performed Yes -Type of Procedure Debridement -Clinical Debridement Subcutaneous -Post Debridement Size (cm) - Length 1.0 -Post Debridement Size (cm) - Width 0.7 -Post Debridement Size (cm) - Depth 0.5 -Total Square Cm 0.70 -Wound/Ulcer Outcome Not Healed -Ulcer Cleansing Rinsed/ Irrigated with Saline -Foul Odor after Cleansing No -Bioengineered Tissue No -Bleeding Controlled with Pressure -Treatment Response Procedure Tolerated Well [See Physician Procedure note for Specifics] Pain Scale: 0-10 Numeric [Pain] -Is Patient Pain Free? Yes Debridement Note Post-Debridement Measurements/Treatment WC - Nurse 2 - General Ulcer CM Notes Start: 07/09/17 10:28 Freq: Status: Active Protocol: Activity Type Activity Date Activity User E-Sign Co-Sign Detail Recorded Client Recorded Date Recorded By Document 07/09/17 11:39 MW [id number] 07/09/17 12:08 MW Document 07/13/17 16:03 MW [id number] 07/13/17 16:09 MW 03/02/18 03/06/18 11:39 16:03 Wound Center Nurse 2 #2- LT CALF -Time 12:04 -Correct Patient Yes -Correct Side, Site, Position Yes -Correct Procedure Yes -Procedure Performed No -Type of Procedure Incision & Debridement -Clinical Debridement Subcutaneous -Post Debridement Size (cm) - Length 0.6 -Post Debridement Size (cm) - Width 0.7 -Post Debridement Size (cm) - Depth 0 -Total Square Cm 0.42 -Wound/Ulcer Outcome Not Healed -Ulcer Cleansing Not Cleansed -Foul Odor after Cleansing No -Bleeding Controlled with NA -Treatment Response Procedure Tolerated Well #1- RT FOOT PLANTAR ASPECT -Time 11:40 16:03 -Correct Patient Yes Yes -Correct Side, Site, Position Yes Yes -Correct Procedure Yes Yes -Procedure Performed Yes Yes -Type of Procedure Incision & Debridement Debridement -Clinical Debridement Subcutaneous Subcutaneous -Post Debridement Size (cm) - Length 3.6 1.0 -Post Debridement Size (cm) - Width 0.7 0.7 -Post Debridement Size (cm) - Depth 0.7 0.5 -Total Square Cm 2.52 0.70 -Wound/Ulcer Outcome Not Healed Not Healed -Ulcer Cleansing Rinsed/ Rinsed/ Irrigated with Irrigated with Saline Saline -Foul Odor after Cleansing No No -Bioengineered Tissue No No -Bleeding Controlled with Pressure Pressure -Treatment Response Procedure Procedure Tolerated Well Tolerated Well Pain Scale: 0-10 Numeric Is Patient Pain Free? Yes Yes Wound debrided: R forefoot Laterality: Right Wound Grade/Stage: Rosales grade 1 full thickness DFU with no deep structures exposed Type of Debridement: Excisional debridement Anesthesia Used: 4% Lidocaine Solution Depth: Down to and including healthy tissue, in the subcutaneous layer Percentage of wound debrided: 100 Instrument Used: #15 blade Tissue Removed: fibrous slough, surrounding hyperkeratotic rim Severity: Fat Layer Exposed Amount of bleeding with debridement: Mild Bleeding Controlled with: Pressure, Compression and gauze Patient tolerated procedure well Assessment/Plan Active Problems Diabetes 1.5, managed as type 2 (Acute) Diabetic ulcer of right foot associated with diabetes mellitus due to underlying condition (Acute) Infected ulcer of skin (Acute) Edema of lower extremity (Acute) Cellulitis and abscess of foot (Acute) Non-pressure chronic ulcer of other part of right foot with fat layer exposed ( Acute) Type 2 diabetes mellitus with foot ulcer (Acute) Type 2 diabetes mellitus with diabetic polyneuropathy (Chronic) Assessment: Foot DFU right. abscess right fooot. cellulitis. DM II uncontrolled. ?osteomylitis Plan: SQ/excisional debridement of R foot ulcer as above. Cont packing to the wound bed, decrease to every other day and swithc to rajinder. Cover with adaptic and change outer gauze dressing daily. No weight bearing at all. foot x-ray to be done -- pt had x-ray 2 months ago at [facility], nursing staff to confirm with Varsha whether or not this is sufficient. prealbumin and cbc labs pending. cx results aerobic done, anaerobic pending. atbx per Varsha Serna CNP. Return in 1 week to reg wound visit with Varsha Serna CNP. Monitor for recurrent signs of infection, and go to the ED with these. Call with questions.
[2017-07-23 10:58] VITALS: BP 171/93; PULSE 85; RESP 18; TEMP 36.3; BMI 115.2
--- NOTE | 2017-07-23 12:00 | PCM.WC.PN ---
(1) Diabetes 1.5, managed as type 2 Status: Acute Current Visit: Yes Code(s): E10.9 - Type 1 diabetes mellitus without complications (2) Diabetic ulcer of right foot associated with diabetes mellitus due to underlying condition Status: Acute Current Visit: Yes Qualifiers: Diabetic foot ulcer location: other Non-pressure ulcer stage: with fat layer exposed Qualified Code(s): E08.621 - Diabetes mellitus due to underlying condition with foot ulcer; L97.512 - Non-pressure chronic ulcer of other part of right foot with fat layer exposed Code(s): E08.621 - Diabetes mellitus due to underlying condition with foot ulcer; L97.519 - Non-pressure chronic ulcer of other part of right foot with unspecified severity (3) Infected ulcer of skin Status: Acute Current Visit: Yes Code(s): L98.499 - Non-pressure chronic ulcer of skin of other sites with unspecified severity; L08.9 - Local infection of the skin and subcutaneous tissue, unspecified (4) Edema of lower extremity Status: Acute Current Visit: Yes Code(s): R60.0 - Localized edema (5) Cellulitis and abscess of foot Status: Acute Current Visit: Yes Code(s): L03.119 - Cellulitis of unspecified part of limb; L02.619 - Cutaneous abscess of unspecified foot Type of Wound Date of Service: 07/23/17 Chief Complaint: Follow-up right foot ulcer History of Wound: 76-year-old white female that has had a callus on the bottom of her right foot for 2 years. Has been having it pared down and monitored by podiatry. Last few months it is become infected and now a blister has appear going up towards her right great toe plantar side and she has a red streak going up her calf. Patient complains of severe pain in the leg and hard to walk on. Patient suffers from spinal stenosis is not very ambulatory and is extremely overweight she is diabetic and controlled. The abscess on the bottom of the foot is soft and fluctuant and will be I&D today with the wash of Hibiclens and then numbing with 1% with epi to the area I indeed with a #15 blade repaired and removed the abscess sac. Tolerated procedure well pack the area with iodoform gauze 1/2 inch. We will start her on oral antibiotics until cultures return of levofloxacin 751 p.o. daily and metronidazole 250 mg 1 p.o. 3 times daily ?10 days patient is to completely offload foot at this point. Patient will follow up next week with Dr. Serrano and then the following week she will return to me. Also has a growth on the left lateral lower leg that appears to be very friable and punctuated round raised fast-growing cancer that I was unable to remove because of the largeness of its circumference. 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 Galo in [place] also could follow. 07/13--Pt known to me from visits in my office as well as previous wound care visits at [facility] with recurrent ulceration of R forefoot (recently healed at [facility] wound center). Pt was seen last week with recurrent infected ulceration of R plantar foot. She is unsure how it re-opened. She has been taking Levaquin and Flagyl PO, being changed today to Augmentin by Varsha Serna CNP based on culture results (she is stopping Levaquin). Denies N/V/F/C. Appearance and measurements improved dramatically. Progress of Wound: This week the ulcer is the third the size it previously had been when I first met her. No odor no redness. Unable to pack with the iodoform gauze. She had been changed to rajinder and doing well. has developed a callus again around the ulcer and pared it down. tolerating all well .Has developed severe thrush adn diarrhea from the augmentin. She was instructed to take schedule immodium 2 mg 2 ,3 x a day or 2 x a day to control the diarrhea but not constipate her. fluconazole 100 mg orally daily for isela oral thrush for 2 weeks ,may repeat if still there. - Physical Exam Vital Signs Temp Pulse Resp BP 97.3 F L 85 18 171/93 H 07/23/17 10:58 07/23/17 10:58 07/23/17 10:58 07/23/17 10:58 General: Oriented x3, Cooperative, Well developed HEENT: Atraumatic, PERRLA Oral: Moist Mucosa Neck: Supple, No JVD Lungs: Clear to auscultation, Normal air movement Cardiovascular: Regular rate, Regular Rhythm Abdomen: Bowel Sounds Present, Soft, Non Tender, No Hepato-splenomegaly Extremities: No clubbing, No edema Skin: - - R DFU Wound Measurements and Assessment WC - Nurse 1 - General Ulcer Measurement Start: 07/09/17 10:28 Freq: Status: Active Protocol: Activity Type Activity Date Activity User E-Sign Co-Sign Detail Recorded Client Recorded Date Recorded By Document 07/23/17 10:58 [id number] 07/23/17 11:02 07/23/17 10:58 Wound Center Nurse 1 [Ulcer Assessment] #3 left lateral LE -Combined with other wound No -Current Size (cm) - Length 0.5 -Current Size (cm) - Width 0.5 -Current Size (cm) - Depth 0.1 -Total Square Cm 0.25 -Date of Last Picture (Recall this 07/23/17 field) -Photo Taken Yes -Epithelialization None Present -Tunneling No -Undermining/Tunneling No -Circular Undermining No -Classification - Thickness Full Thickness without Exposed Support Structure -Exudate Amt Small (1-33%) -Exudate Type Serosanguineous -Wound Margin Distinct, Outline Attached -Granulation Amt None Present (0 %) -Granulation Quality N/A -Slough/Fibrin Yes -Necrosis Amt Large (67-100%) -Necrotic Tissue Type Eschar -Structure Exposed Fascia Fat Layer Exposed -Texture (Faby-wound Skin Appearance) Localized Edema -Moisture (Faby-wound Skin Appearance Dry/Scaly ) -Color (Faby-wound Skin Appearance) Erythema -Temperature (Faby-wound Skin No Abnormality Appearance) (Pt Warm) -Tenderness on Palpation (Faby-wound Yes Skin Appearance) -Ulcer Cleansing Rinsed/ Irrigated with Saline -Foul Odor after Cleansing No -Anesthetic Used 5% Lidocaine Gel #1- RT FOOT PLANTAR ASPECT -Combined with other wound No -Current Size (cm) - Length 0.8 -Current Size (cm) - Width 0.6 -Current Size (cm) - Depth 0.2 -Total Square Cm 0.48 -Photo Taken No -Epithelialization Small 1-33% -Tunneling No -Undermining/Tunneling No -Circular Undermining No -Classification - Thickness Full Thickness without Exposed Support Structure -Exudate Amt Small (1-33%) -Exudate Type Serosanguineous -Wound Margin Fibrotic Scar, Thickened Scar -Granulation Amt None Present (0 %) -Granulation Quality N/A -Slough/Fibrin Yes -Necrosis Amt Large (67-100%) -Necrotic Tissue Type Adherent Slough -Structure Exposed Fascia Fat Layer Exposed -Texture (Faby-wound Skin Appearance) Callus Scarring -Moisture (Faby-wound Skin Appearance Dry/Scaly ) -Color (Faby-wound Skin Appearance) No Abnormality Erythema -Temperature (Faby-wound Skin No Abnormality Appearance) (Pt Warm) -Tenderness on Palpation (Faby-wound No Skin Appearance) -Ulcer Cleansing Rinsed/ Irrigated with Saline -Foul Odor after Cleansing No -Anesthetic Used 5% Lidocaine Gel [Edema Assessment] -Lower Limb Edema Present Yes -Right Calf (cm) 49.8 -Right Ankle (cm) 26.0 -Left Calf (cm) 43.0 -Left Ankle (cm) 27.0 WC - Nurse 2 - General Ulcer CM Notes Start: 07/09/17 10:28 Freq: Status: Active Protocol: Activity Type Activity Date Activity User E-Sign Co-Sign Detail Recorded Client Recorded Date Recorded By Document 07/23/17 11:22 MW [id number] 07/23/17 11:30 MW 07/23/17 11:22 Wound Center Nurse 2 [Procedure/Treatment] #1- RT FOOT PLANTAR ASPECT -Time 11:23 -Correct Patient Yes -Correct Side, Site, Position Yes -Correct Procedure Yes -Procedure Performed Yes -Type of Procedure Debridement -Clinical Debridement Subcutaneous -Post Debridement Size (cm) - Length 1.0 -Post Debridement Size (cm) - Width 0.9 -Post Debridement Size (cm) - Depth 0.3 -Total Square Cm 0.90 -Wound/Ulcer Outcome Not Healed -Ulcer Cleansing Rinsed/ Irrigated with Saline -Foul Odor after Cleansing No -Bioengineered Tissue No -Bleeding Controlled with Pressure -Treatment Response Procedure Tolerated Well [See Physician Procedure note for Specifics] Pain Scale: 0-10 Numeric [Pain] -Is Patient Pain Free? Yes Musculoskeletal: No Tenderness to Palpation of Joints or Extremities Lymphatic: No Cervical, Supraclavicular, or Inguinal Adenopathy Neurological: Cranial nerves II-XII grossly intact, Neuro grossly intact Psych/Mental Status: Normal Affect, Appropriate Debridement Note Post-Debridement Measurements/Treatment WC - Nurse 2 - General Ulcer CM Notes Start: 07/09/17 10:28 Freq: Status: Active Protocol: Activity Type Activity Date Activity User E-Sign Co-Sign Detail Recorded Client Recorded Date Recorded By Document 07/09/17 11:39 MW [id number] 07/09/17 12:08 MW Document 07/13/17 16:03 MW [id number] 07/13/17 16:09 MW Document 07/23/17 11:22 MW [id number] 07/23/17 11:30 MW 07/09/17 07/13/17 07/23/17 11:39 16:03 11:22 Wound Center Nurse 2 #2- LT CALF -Time 12:04 -Correct Patient Yes -Correct Side, Site, Position Yes -Correct Procedure Yes -Procedure Performed No -Type of Procedure Incision & Debridement -Clinical Debridement Subcutaneous -Post Debridement Size (cm) - Length 0.6 -Post Debridement Size (cm) - Width 0.7 -Post Debridement Size (cm) - Depth 0 -Total Square Cm 0.42 -Wound/Ulcer Outcome Not Healed -Ulcer Cleansing Not Cleansed -Foul Odor after Cleansing No -Bleeding Controlled with NA -Treatment Response Procedure Tolerated Well #1- RT FOOT PLANTAR ASPECT -Time 11:40 16:03 11:23 -Correct Patient Yes Yes Yes -Correct Side, Site, Position Yes Yes Yes -Correct Procedure Yes Yes Yes -Procedure Performed Yes Yes Yes -Type of Procedure Incision & Debridement Debridement Debridement -Clinical Debridement Subcutaneous Subcutaneous Subcutaneous -Post Debridement Size (cm) - Length 3.6 1.0 1.0 -Post Debridement Size (cm) - Width 0.7 0.7 0.9 -Post Debridement Size (cm) - Depth 0.7 0.5 0.3 -Total Square Cm 2.52 0.70 0.90 -Wound/Ulcer Outcome Not Healed Not Healed Not Healed -Ulcer Cleansing Rinsed/ Rinsed/ Rinsed/ Irrigated with Irrigated with Irrigated with Saline Saline Saline -Foul Odor after Cleansing No No No -Bioengineered Tissue No No No -Bleeding Controlled with Pressure Pressure Pressure -Treatment Response Procedure Procedure Procedure Tolerated Well Tolerated Well Tolerated Well Pain Scale: 0-10 Numeric Is Patient Pain Free? Yes Yes Yes Wound debrided: R DFU Wound Grade/Stage: gerard 2 Type of Debridement: Excisional debridement Anesthesia Used: 5% Lidocaine Gel Depth: Down to and including healthy tissue, in the subcutaneous layer Percentage of wound debrided: 100 Instrument Used: 5mm curette Tissue Removed: Callus fibrin Severity: Limited To Skin Breakdown Amount of bleeding with debridement: Moderate Bleeding Controlled with: Compression and gauze Patient tolerated procedure well Assessment/Plan Active Problems Diabetes 1.5, managed as type 2 (Acute) Diabetic ulcer of right foot associated with diabetes mellitus due to underlying condition (Acute) Infected ulcer of skin (Acute) Edema of lower extremity (Acute) Cellulitis and abscess of foot (Acute) Non-pressure chronic ulcer of other part of right foot with fat layer exposed (Acute) Type 2 diabetes mellitus with foot ulcer (Acute) Type 2 diabetes mellitus with diabetic polyneuropathy (Chronic) Assessment: Foot DFU right. abscess right fooot. cellulitis. DM II uncontrolled. ?osteomylitis Plan: SQ/excisional debridement of R foot ulcer as above. Cont packing to the wound bed, decrease to every other day and swithc to rajinder. Cover with adaptic and change outer gauze dressing daily. No weight bearing at all. foot x-ray to be done -- pt had x-ray 2 months ago at [facility], nursing staff to confirm with Varsha whether or not this is sufficient. prealbumin and cbc labs pending. 2 new antibiotic therapy for anaerobe and bacteria. Return in 1 week. Monitor for recurrent signs of infection, and go to the ED with these. Call with questions.
--- NOTE | 2017-07-23 12:07 | PN.PCM_ITS ---
(1) Diabetes 1.5, managed as type 2 Status: Acute Current Visit: Yes Code(s): E10.9 - Type 1 diabetes mellitus without complications (2) Diabetic ulcer of right foot associated with diabetes mellitus due to underlying condition Status: Acute Current Visit: Yes Qualifiers: Diabetic foot ulcer location: other Non-pressure ulcer stage: with fat layer exposed Qualified Code(s): E08.621 - Diabetes mellitus due to underlying condition with foot ulcer; L97.512 - Non-pressure chronic ulcer of other part of right foot with fat layer exposed Code(s): E08.621 - Diabetes mellitus due to underlying condition with foot ulcer ; L97.519 - Non-pressure chronic ulcer of other part of right foot with unspecified severity (3) Infected ulcer of skin Status: Acute Current Visit: Yes Code(s): L98.499 - Non-pressure chronic ulcer of skin of other sites with unspecified severity; L08.9 - Local infection of the skin and subcutaneous tissue, unspecified (4) Edema of lower extremity Status: Acute Current Visit: Yes Code(s): R60.0 - Localized edema (5) Cellulitis and abscess of foot Status: Acute Current Visit: Yes Code(s): L03.119 - Cellulitis of unspecified part of limb; L02.619 - Cutaneous abscess of unspecified foot Type of Wound Date of Service: 07/23/17 Chief Complaint: Follow-up right foot ulcer History of Wound: 76-year-old white female that has had a callus on the bottom of her right foot for 2 years. Has been having it pared down and monitored by podiatry. Last few months it is become infected and now a blister has appear going up towards her right great toe plantar side and she has a red streak going up her calf. Patient complains of severe pain in the leg and hard to walk on. Patient suffers from spinal stenosis is not very ambulatory and is extremely overweight she is diabetic and controlled. The abscess on the bottom of the foot is soft and fluctuant and will be I&D today with the wash of Hibiclens and then numbing with 1% with epi to the area I indeed with a #15 blade repaired and removed the abscess sac. Tolerated procedure well pack the area with iodoform gauze 1/2 inch. We will start her on oral antibiotics until cultures return of levofloxacin 751 p.o. daily and metronidazole 250 mg 1 p.o. 3 times daily ?10 days patient is to completely offload foot at this point. Patient will follow up next week with Dr. Serrano and then the following week she will return to me. Also has a growth on the left lateral lower leg that appears to be very friable and punctuated round raised fast-growing cancer that I was unable to remove because of the largeness of its circumference. 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 Galo in [place] also could follow. 07/13 --Pt known to me from visits in my office as well as previous wound care visits at [facility] with recurrent ulceration of R forefoot (recently healed at [facility] wound center). Pt was seen last week with recurrent infected ulceration of R plantar foot. She is unsure how it re-opened. She has been taking Levaquin and Flagyl PO, being changed today to Augmentin by Varsha Serna CNP based on culture results (she is stopping Levaquin). Denies N/V /F/C. Appearance and measurements improved dramatically. Progress of Wound: This week the ulcer is the third the size it previously had been when I first met her. No odor no redness. Unable to pack with the iodoform gauze. She had been changed to rajinder and doing well. has developed a callus again around the ulcer and pared it down. tolerating all well .Has developed severe thrush adn diarrhea from the augmentin. She was instructed to take schedule immodium 2 mg 2 ,3 x a day or 2 x a day to control the diarrhea but not constipate her. fluconazole 100 mg orally daily for isela oral thrush for 2 weeks ,may repeat if still there. - Physical Exam Vital Signs Temp Pulse Resp BP 97.3 F L 85 18 171/93 H 07/23/17 10:58 07/23/17 10:58 07/23/17 10:58 07/23/17 10:58 General: Oriented x3, Cooperative, Well developed HEENT: Atraumatic, PERRLA Oral: Moist Mucosa Neck: Supple, No JVD Lungs: Clear to auscultation, Normal air movement Cardiovascular: Regular rate, Regular Rhythm Abdomen: Bowel Sounds Present, Soft, Non Tender, No Hepato-splenomegaly Extremities: No clubbing, No edema Skin: - - R DFU Wound Measurements and Assessment WC - Nurse 1 - General Ulcer Measurement Start: 07/09/17 10:28 Freq: Status: Active Protocol: Activity Type Activity Date Activity User E-Sign Co-Sign Detail Recorded Client Recorded Date Recorded By Document 07/23/17 10:58 [id number] 07/23/17 11:02 07/23/17 10:58 Wound Center Nurse 1 [Ulcer Assessment] #3 left lateral LE -Combined with other wound No -Current Size (cm) - Length 0.5 -Current Size (cm) - Width 0.5 -Current Size (cm) - Depth 0.1 -Total Square Cm 0.25 -Date of Last Picture (Recall this 07/23/17 field) -Photo Taken Yes -Epithelialization None Present -Tunneling No -Undermining/Tunneling No -Circular Undermining No -Classification - Thickness Full Thickness without Exposed Support Structure -Exudate Amt Small (1-33%) -Exudate Type Serosanguineous -Wound Margin Distinct, Outline Attached -Granulation Amt None Present (0 %) -Granulation Quality N/A -Slough/Fibrin Yes -Necrosis Amt Large (67-100%) -Necrotic Tissue Type Eschar -Structure Exposed Fascia Fat Layer Exposed -Texture (Faby-wound Skin Appearance) Localized Edema -Moisture (Faby-wound Skin Appearance Dry/Scaly ) -Color (Faby-wound Skin Appearance) Erythema -Temperature (Faby-wound Skin No Abnormality Appearance) (Pt Warm) -Tenderness on Palpation (Faby-wound Yes Skin Appearance) -Ulcer Cleansing Rinsed/ Irrigated with Saline -Foul Odor after Cleansing No -Anesthetic Used 5% Lidocaine Gel #1- RT FOOT PLANTAR ASPECT -Combined with other wound No -Current Size (cm) - Length 0.8 -Current Size (cm) - Width 0.6 -Current Size (cm) - Depth 0.2 -Total Square Cm 0.48 -Photo Taken No -Epithelialization Small 1-33% -Tunneling No -Undermining/Tunneling No -Circular Undermining No -Classification - Thickness Full Thickness without Exposed Support Structure -Exudate Amt Small (1-33%) -Exudate Type Serosanguineous -Wound Margin Fibrotic Scar, Thickened Scar -Granulation Amt None Present (0 %) -Granulation Quality N/A -Slough/Fibrin Yes -Necrosis Amt Large (67-100%) -Necrotic Tissue Type Adherent Slough -Structure Exposed Fascia Fat Layer Exposed -Texture (Faby-wound Skin Appearance) Callus Scarring -Moisture (Faby-wound Skin Appearance Dry/Scaly ) -Color (Faby-wound Skin Appearance) No Abnormality Erythema -Temperature (Faby-wound Skin No Abnormality Appearance) (Pt Warm) -Tenderness on Palpation (Faby-wound No Skin Appearance) -Ulcer Cleansing Rinsed/ Irrigated with Saline -Foul Odor after Cleansing No -Anesthetic Used 5% Lidocaine Gel [Edema Assessment] -Lower Limb Edema Present Yes -Right Calf (cm) 49.8 -Right Ankle (cm) 26.0 -Left Calf (cm) 43.0 -Left Ankle (cm) 27.0 WC - Nurse 2 - General Ulcer CM Notes Start: 07/09/17 10:28 Freq: Status: Active Protocol: Activity Type Activity Date Activity User E-Sign Co-Sign Detail Recorded Client Recorded Date Recorded By Document 07/23/17 11:22 MW [id number] 07/23/17 11:30 MW 07/23/17 11:22 Wound Center Nurse 2 [Procedure/Treatment] #1- RT FOOT PLANTAR ASPECT -Time 11:23 -Correct Patient Yes -Correct Side, Site, Position Yes -Correct Procedure Yes -Procedure Performed Yes -Type of Procedure Debridement -Clinical Debridement Subcutaneous -Post Debridement Size (cm) - Length 1.0 -Post Debridement Size (cm) - Width 0.9 -Post Debridement Size (cm) - Depth 0.3 -Total Square Cm 0.90 -Wound/Ulcer Outcome Not Healed -Ulcer Cleansing Rinsed/ Irrigated with Saline -Foul Odor after Cleansing No -Bioengineered Tissue No -Bleeding Controlled with Pressure -Treatment Response Procedure Tolerated Well [See Physician Procedure note for Specifics] Pain Scale: 0-10 Numeric [Pain] -Is Patient Pain Free? Yes Musculoskeletal: No Tenderness to Palpation of Joints or Extremities Lymphatic: No Cervical, Supraclavicular, or Inguinal Adenopathy Neurological: Cranial nerves II-XII grossly intact, Neuro grossly intact Psych/Mental Status: Normal Affect, Appropriate Debridement Note Post-Debridement Measurements/Treatment WC - Nurse 2 - General Ulcer CM Notes Start: 07/09/17 10:28 Freq: Status: Active Protocol: Activity Type Activity Date Activity User E-Sign Co-Sign Detail Recorded Client Recorded Date Recorded By Document 07/09/17 11:39 MW [id number] 07/09/17 12:08 MW Document 07/13/17 16:03 MW [id number] 07/13/17 16:09 MW Document 07/23/17 11:22 MW [id number] 07/23/17 11:30 MW 07/09/17 07/13/17 07/23/17 11:39 16:03 11:22 Wound Center Nurse 2 #2- LT CALF -Time 12:04 -Correct Patient Yes -Correct Side, Site, Position Yes -Correct Procedure Yes -Procedure Performed No -Type of Procedure Incision & Debridement -Clinical Debridement Subcutaneous -Post Debridement Size (cm) - Length 0.6 -Post Debridement Size (cm) - Width 0.7 -Post Debridement Size (cm) - Depth 0 -Total Square Cm 0.42 -Wound/Ulcer Outcome Not Healed -Ulcer Cleansing Not Cleansed -Foul Odor after Cleansing No -Bleeding Controlled with NA -Treatment Response Procedure Tolerated Well #1- RT FOOT PLANTAR ASPECT -Time 11:40 16:03 11:23 -Correct Patient Yes Yes Yes -Correct Side, Site, Position Yes Yes Yes -Correct Procedure Yes Yes Yes -Procedure Performed Yes Yes Yes -Type of Procedure Incision & Debridement Debridement Debridement -Clinical Debridement Subcutaneous Subcutaneous Subcutaneous -Post Debridement Size (cm) - Length 3.6 1.0 1.0 -Post Debridement Size (cm) - Width 0.7 0.7 0.9 -Post Debridement Size (cm) - Depth 0.7 0.5 0.3 -Total Square Cm 2.52 0.70 0.90 -Wound/Ulcer Outcome Not Healed Not Healed Not Healed -Ulcer Cleansing Rinsed/ Rinsed/ Rinsed/ Irrigated with Irrigated with Irrigated with Saline Saline Saline -Foul Odor after Cleansing No No No -Bioengineered Tissue No No No -Bleeding Controlled with Pressure Pressure Pressure -Treatment Response Procedure Procedure Procedure Tolerated Well Tolerated Well Tolerated Well Pain Scale: 0-10 Numeric Is Patient Pain Free? Yes Yes Yes Wound debrided: R DFU Wound Grade/Stage: gerard 2 Type of Debridement: Excisional debridement Anesthesia Used: 5% Lidocaine Gel Depth: Down to and including healthy tissue, in the subcutaneous layer Percentage of wound debrided: 100 Instrument Used: 5mm curette Tissue Removed: Callus fibrin Severity: Limited To Skin Breakdown Amount of bleeding with debridement: Moderate Bleeding Controlled with: Compression and gauze Patient tolerated procedure well Assessment/Plan Active Problems Diabetes 1.5, managed as type 2 (Acute) Diabetic ulcer of right foot associated with diabetes mellitus due to underlying condition (Acute) Infected ulcer of skin (Acute) Edema of lower extremity (Acute) Cellulitis and abscess of foot (Acute) Non-pressure chronic ulcer of other part of right foot with fat layer exposed ( Acute) Type 2 diabetes mellitus with foot ulcer (Acute) Type 2 diabetes mellitus with diabetic polyneuropathy (Chronic) Assessment: Foot DFU right. abscess right fooot. cellulitis. DM II uncontrolled. ?osteomylitis Plan: SQ/excisional debridement of R foot ulcer as above. Cont packing to the wound bed, decrease to every other day and swithc to rajinder. Cover with adaptic and change outer gauze dressing daily. No weight bearing at all. foot x-ray to be done -- pt had x-ray 2 months ago at [facility], nursing staff to confirm with Varsha whether or not this is sufficient. prealbumin and cbc labs pending. 2 new antibiotic therapy for anaerobe and bacteria. Return in 1 week. Monitor for recurrent signs of infection, and go to the ED with these. Call with questions.
[2017-07-30 10:32] VITALS: BP 163/92; PULSE 81; RESP 16; TEMP 36.2; BMI 115.2
--- NOTE | 2017-07-30 11:20 | PCM.WC.PN ---
(1) Diabetes 1.5, managed as type 2 Status: Acute Current Visit: Yes Code(s): E10.9 - Type 1 diabetes mellitus without complications (2) Diabetic ulcer of right foot associated with diabetes mellitus due to underlying condition Status: Acute Current Visit: Yes Qualifiers: Diabetic foot ulcer location: other Non-pressure ulcer stage: with fat layer exposed Qualified Code(s): E08.621 - Diabetes mellitus due to underlying condition with foot ulcer; L97.512 - Non-pressure chronic ulcer of other part of right foot with fat layer exposed Code(s): E08.621 - Diabetes mellitus due to underlying condition with foot ulcer; L97.519 - Non-pressure chronic ulcer of other part of right foot with unspecified severity (3) Infected ulcer of skin Status: Acute Current Visit: Yes Code(s): L98.499 - Non-pressure chronic ulcer of skin of other sites with unspecified severity; L08.9 - Local infection of the skin and subcutaneous tissue, unspecified (4) Edema of lower extremity Status: Acute Current Visit: Yes Code(s): R60.0 - Localized edema (5) Cellulitis and abscess of foot Status: Acute Current Visit: Yes Code(s): L03.119 - Cellulitis of unspecified part of limb; L02.619 - Cutaneous abscess of unspecified foot Type of Wound Date of Service: 07/30/17 Chief Complaint: Follow-up right foot ulcer History of Wound: 76-year-old white female that has had a callus on the bottom of her right foot for 2 years. Has been having it pared down and monitored by podiatry. Last few months it is become infected and now a blister has appear going up towards her right great toe plantar side and she has a red streak going up her calf. Patient complains of severe pain in the leg and hard to walk on. Patient suffers from spinal stenosis is not very ambulatory and is extremely overweight she is diabetic and controlled. The abscess on the bottom of the foot is soft and fluctuant and will be I&D today with the wash of Hibiclens and then numbing with 1% with epi to the area I indeed with a #15 blade repaired and removed the abscess sac. Tolerated procedure well pack the area with iodoform gauze 1/2 inch. We will start her on oral antibiotics until cultures return of levofloxacin 751 p.o. daily and metronidazole 250 mg 1 p.o. 3 times daily ?10 days patient is to completely offload foot at this point. Patient will follow up next week with Dr. Serrano and then the following week she will return to me. Also has a growth on the left lateral lower leg that appears to be very friable and punctuated round raised fast-growing cancer that I was unable to remove because of the largeness of its circumference. 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 Galo in [place] also could follow. 07/13--Pt known to me from visits in my office as well as previous wound care visits at [facility] with recurrent ulceration of R forefoot (recently healed at [facility] wound center). Pt was seen last week with recurrent infected ulceration of R plantar foot. She is unsure how it re-opened. She has been taking Levaquin and Flagyl PO, being changed today to Augmentin by Varsha Serna CNP based on culture results (she is stopping Levaquin). Denies N/V/F/C. Appearance and measurements improved dramatically. Progress of Wound: This week the ulcer is the third the size it previously had been when I first met her. No odor no redness. She had been changed to rajinder and doing well. We will now change her to promogran to finish healing her.The callus is pared down, tolerating all well . Discussed the interaction with the diflucan dand warfarin and she is on her last dose today. She was instructed to take schedule immodium 2 mg 2 ,3 x a day or 2 x a day to control the diarrhea but not constipate her - Physical Exam Vital Signs Temp Pulse Resp BP 97.1 F L 81 16 163/92 H 07/30/17 10:32 07/30/17 10:32 07/30/17 10:32 07/30/17 10:32 Wound Measurements and Assessment WC - Nurse 1 - General Ulcer Measurement Start: 07/09/17 10:28 Freq: Status: Active Protocol: Activity Type Activity Date Activity User E-Sign Co-Sign Detail Recorded Client Recorded Date Recorded By Document 07/30/17 10:32 [email or web address] [id number] 07/30/17 10:43 BMF 07/30/17 10:32 Wound Center Nurse 1 [Ulcer Assessment] #1- RT FOOT PLANTAR ASPECT -Combined with other wound No -Current Size (cm) - Length 0.9 -Current Size (cm) - Width 0.7 -Current Size (cm) - Depth 0.3 -Total Square Cm 0.63 -Photo Taken No -Epithelialization None Present -Tunneling No -Undermining/Tunneling No -Exudate Amt Small (1-33%) -Exudate Type Serous -Wound Margin Distinct, Outline Attached -Granulation Amt Large (67-100%) -Granulation Quality Pale Red -Slough/Fibrin No -Necrosis Amt None Present (0 %) -Texture (Faby-wound Skin Appearance) Callus Scarring -Moisture (Faby-wound Skin Appearance Dry/Scaly ) -Color (Faby-wound Skin Appearance) Assessed -Temperature (Faby-wound Skin No Abnormality Appearance) (Pt Warm) -Tenderness on Palpation (Faby-wound No Skin Appearance) -Ulcer Cleansing Rinsed/ Irrigated with Saline -Foul Odor after Cleansing No -Anesthetic Used 5% Lidocaine Gel WC - Nurse 2 - General Ulcer CM Notes Start: 07/09/17 10:28 Freq: Status: Active Protocol: Activity Type Activity Date Activity User E-Sign Co-Sign Detail Recorded Client Recorded Date Recorded By Document 07/30/17 10:51 MW [id number] 07/30/17 10:58 MW 07/30/17 10:51 Wound Center Nurse 2 [Procedure/Treatment] -Time 10:51 -Correct Patient Yes -Correct Side, Site, Position Yes -Correct Procedure Yes -Procedure Performed Yes -Type of Procedure Debridement -Clinical Debridement Subcutaneous -Post Debridement Size (cm) - Length 1.0 -Post Debridement Size (cm) - Width 0.8 -Post Debridement Size (cm) - Depth 0.1 -Total Square Cm 0.80 -Wound/Ulcer Outcome Not Healed -Ulcer Cleansing Rinsed/ Irrigated with Saline -Foul Odor after Cleansing No -Bioengineered Tissue No -Bleeding Controlled with Pressure -Treatment Response Procedure Tolerated Well [See Physician Procedure note for Specifics] Pain Scale: 0-10 Numeric [Pain] -Is Patient Pain Free? Yes Debridement Note Post-Debridement Measurements/Treatment WC - Nurse 2 - General Ulcer CM Notes Start: 07/09/17 10:28 Freq: Status: Active Protocol: Activity Type Activity Date Activity User E-Sign Co-Sign Detail Recorded Client Recorded Date Recorded By Document 07/09/17 11:39 MW [id number] 07/09/17 12:08 MW Document 07/13/17 16:03 MW [id number] 07/13/17 16:09 MW Document 07/23/17 11:22 MW [id number] 07/23/17 11:30 MW Document 07/30/17 10:51 MW [id number] 07/30/17 10:58 MW 07/09/17 07/13/17 07/23/17 11:39 16:03 11:22 Wound Center Nurse 2 #2- LT CALF -Time 12:04 -Correct Patient Yes -Correct Side, Site, Position Yes -Correct Procedure Yes -Procedure Performed No -Type of Procedure Incision & Debridement -Clinical Debridement Subcutaneous -Post Debridement Size (cm) - Length 0.6 -Post Debridement Size (cm) - Width 0.7 -Post Debridement Size (cm) - Depth 0 -Total Square Cm 0.42 -Wound/Ulcer Outcome Not Healed -Ulcer Cleansing Not Cleansed -Foul Odor after Cleansing No -Bleeding Controlled with NA -Treatment Response Procedure Tolerated Well #1- RT FOOT PLANTAR ASPECT -Time 11:40 16:03 11:23 -Correct Patient Yes Yes Yes -Correct Side, Site, Position Yes Yes Yes -Correct Procedure Yes Yes Yes -Procedure Performed Yes Yes Yes -Type of Procedure Incision & Debridement Debridement Debridement -Clinical Debridement Subcutaneous Subcutaneous Subcutaneous -Post Debridement Size (cm) - Length 3.6 1.0 1.0 -Post Debridement Size (cm) - Width 0.7 0.7 0.9 -Post Debridement Size (cm) - Depth 0.7 0.5 0.3 -Total Square Cm 2.52 0.70 0.90 -Wound/Ulcer Outcome Not Healed Not Healed Not Healed -Ulcer Cleansing Rinsed/ Rinsed/ Rinsed/ Irrigated with Irrigated with Irrigated with Saline Saline Saline -Foul Odor after Cleansing No No No -Bioengineered Tissue No No No -Bleeding Controlled with Pressure Pressure Pressure -Treatment Response Procedure Procedure Procedure Tolerated Well Tolerated Well Tolerated Well Pain Scale: 0-10 Numeric Is Patient Pain Free? Yes Yes Yes 07/30/17 10:51 Wound Center Nurse 2 #2- LT CALF -Time -Correct Patient -Correct Side, Site, Position -Correct Procedure -Procedure Performed -Type of Procedure -Clinical Debridement -Post Debridement Size (cm) - Length -Post Debridement Size (cm) - Width -Post Debridement Size (cm) - Depth -Total Square Cm -Wound/Ulcer Outcome -Ulcer Cleansing -Foul Odor after Cleansing -Bleeding Controlled with -Treatment Response #1- RT FOOT PLANTAR ASPECT -Time 10:51 -Correct Patient Yes -Correct Side, Site, Position Yes -Correct Procedure Yes -Procedure Performed Yes -Type of Procedure Debridement -Clinical Debridement Subcutaneous -Post Debridement Size (cm) - Length 1.0 -Post Debridement Size (cm) - Width 0.8 -Post Debridement Size (cm) - Depth 0.1 -Total Square Cm 0.80 -Wound/Ulcer Outcome Not Healed -Ulcer Cleansing Rinsed/ Irrigated with Saline -Foul Odor after Cleansing No -Bioengineered Tissue No -Bleeding Controlled with Pressure -Treatment Response Procedure Tolerated Well Pain Scale: 0-10 Numeric Is Patient Pain Free? Yes Assessment/Plan Active Problems Diabetes 1.5, managed as type 2 (Acute) Diabetic ulcer of right foot associated with diabetes mellitus due to underlying condition (Acute) Infected ulcer of skin (Acute) Edema of lower extremity (Acute) Cellulitis and abscess of foot (Acute) Non-pressure chronic ulcer of other part of right foot with fat layer exposed (Acute) Type 2 diabetes mellitus with foot ulcer (Acute) Type 2 diabetes mellitus with diabetic polyneuropathy (Chronic) Assessment: Foot DFU right. abscess right fooot. cellulitis. DM II uncontrolled. ?osteomylitis Plan: Wash the foot with Hibiclens. Promogran to base of ulcer moistened cover with Adaptic gauze and tape. Offload as much as possible. Follow-up in 1 week
--- NOTE | 2017-07-30 11:24 | PN.PCM_ITS ---
(1) Diabetes 1.5, managed as type 2 Status: Acute Current Visit: Yes Code(s): E10.9 - Type 1 diabetes mellitus without complications (2) Diabetic ulcer of right foot associated with diabetes mellitus due to underlying condition Status: Acute Current Visit: Yes Qualifiers: Diabetic foot ulcer location: other Non-pressure ulcer stage: with fat layer exposed Qualified Code(s): E08.621 - Diabetes mellitus due to underlying condition with foot ulcer; L97.512 - Non-pressure chronic ulcer of other part of right foot with fat layer exposed Code(s): E08.621 - Diabetes mellitus due to underlying condition with foot ulcer ; L97.519 - Non-pressure chronic ulcer of other part of right foot with unspecified severity (3) Infected ulcer of skin Status: Acute Current Visit: Yes Code(s): L98.499 - Non-pressure chronic ulcer of skin of other sites with unspecified severity; L08.9 - Local infection of the skin and subcutaneous tissue, unspecified (4) Edema of lower extremity Status: Acute Current Visit: Yes Code(s): R60.0 - Localized edema (5) Cellulitis and abscess of foot Status: Acute Current Visit: Yes Code(s): L03.119 - Cellulitis of unspecified part of limb; L02.619 - Cutaneous abscess of unspecified foot Type of Wound Date of Service: 07/30/17 Chief Complaint: Follow-up right foot ulcer History of Wound: 76-year-old white female that has had a callus on the bottom of her right foot for 2 years. Has been having it pared down and monitored by podiatry. Last few months it is become infected and now a blister has appear going up towards her right great toe plantar side and she has a red streak going up her calf. Patient complains of severe pain in the leg and hard to walk on. Patient suffers from spinal stenosis is not very ambulatory and is extremely overweight she is diabetic and controlled. The abscess on the bottom of the foot is soft and fluctuant and will be I&D today with the wash of Hibiclens and then numbing with 1% with epi to the area I indeed with a #15 blade repaired and removed the abscess sac. Tolerated procedure well pack the area with iodoform gauze 1/2 inch. We will start her on oral antibiotics until cultures return of levofloxacin 751 p.o. daily and metronidazole 250 mg 1 p.o. 3 times daily ?10 days patient is to completely offload foot at this point. Patient will follow up next week with Dr. Serrano and then the following week she will return to me. Also has a growth on the left lateral lower leg that appears to be very friable and punctuated round raised fast-growing cancer that I was unable to remove because of the largeness of its circumference. 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 Galo in [place] also could follow. 07/13 --Pt known to me from visits in my office as well as previous wound care visits at [facility] with recurrent ulceration of R forefoot (recently healed at [facility] wound center). Pt was seen last week with recurrent infected ulceration of R plantar foot. She is unsure how it re-opened. She has been taking Levaquin and Flagyl PO, being changed today to Augmentin by Varsha Serna CNP based on culture results (she is stopping Levaquin). Denies N/V /F/C. Appearance and measurements improved dramatically. Progress of Wound: This week the ulcer is the third the size it previously had been when I first met her. No odor no redness. She had been changed to rajinder and doing well. We will now change her to promogran to finish healing her.The callus is pared down, tolerating all well . Discussed the interaction with the diflucan dand warfarin and she is on her last dose today. She was instructed to take schedule immodium 2 mg 2 ,3 x a day or 2 x a day to control the diarrhea but not constipate her - Physical Exam Vital Signs Temp Pulse Resp BP 97.1 F L 81 16 163/92 H 07/30/17 10:32 07/30/17 10:32 07/30/17 10:32 07/30/17 10:32 Wound Measurements and Assessment WC - Nurse 1 - General Ulcer Measurement Start: 07/09/17 10:28 Freq: Status: Active Protocol: Activity Type Activity Date Activity User E-Sign Co-Sign Detail Recorded Client Recorded Date Recorded By Document 07/30/17 10:32 [facility] [id number] 07/30/17 10:43 BMF 07/30/17 10:32 Wound Center Nurse 1 [Ulcer Assessment] #1- RT FOOT PLANTAR ASPECT -Combined with other wound No -Current Size (cm) - Length 0.9 -Current Size (cm) - Width 0.7 -Current Size (cm) - Depth 0.3 -Total Square Cm 0.63 -Photo Taken No -Epithelialization None Present -Tunneling No -Undermining/Tunneling No -Exudate Amt Small (1-33%) -Exudate Type Serous -Wound Margin Distinct, Outline Attached -Granulation Amt Large (67-100%) -Granulation Quality Pale Red -Slough/Fibrin No -Necrosis Amt None Present (0 %) -Texture (Faby-wound Skin Appearance) Callus Scarring -Moisture (Faby-wound Skin Appearance Dry/Scaly ) -Color (Faby-wound Skin Appearance) Assessed -Temperature (Faby-wound Skin No Abnormality Appearance) (Pt Warm) -Tenderness on Palpation (Faby-wound No Skin Appearance) -Ulcer Cleansing Rinsed/ Irrigated with Saline -Foul Odor after Cleansing No -Anesthetic Used 5% Lidocaine Gel WC - Nurse 2 - General Ulcer CM Notes Start: 07/09/17 10:28 Freq: Status: Active Protocol: Activity Type Activity Date Activity User E-Sign Co-Sign Detail Recorded Client Recorded Date Recorded By Document 07/30/17 10:51 MW [id number] 07/30/17 10:58 MW 07/30/17 10:51 Wound Center Nurse 2 [Procedure/Treatment] -Time 10:51 -Correct Patient Yes -Correct Side, Site, Position Yes -Correct Procedure Yes -Procedure Performed Yes -Type of Procedure Debridement -Clinical Debridement Subcutaneous -Post Debridement Size (cm) - Length 1.0 -Post Debridement Size (cm) - Width 0.8 -Post Debridement Size (cm) - Depth 0.1 -Total Square Cm 0.80 -Wound/Ulcer Outcome Not Healed -Ulcer Cleansing Rinsed/ Irrigated with Saline -Foul Odor after Cleansing No -Bioengineered Tissue No -Bleeding Controlled with Pressure -Treatment Response Procedure Tolerated Well [See Physician Procedure note for Specifics] Pain Scale: 0-10 Numeric [Pain] -Is Patient Pain Free? Yes Debridement Note Post-Debridement Measurements/Treatment WC - Nurse 2 - General Ulcer CM Notes Start: 07/09/17 10:28 Freq: Status: Active Protocol: Activity Type Activity Date Activity User E-Sign Co-Sign Detail Recorded Client Recorded Date Recorded By Document 07/09/17 11:39 MW [id number] 07/09/17 12:08 MW Document 07/13/17 16:03 MW [id number] 07/13/17 16:09 MW Document 07/23/17 11:22 MW [id number] 07/23/17 11:30 MW Document 07/30/17 10:51 MW [id number] 07/30/17 10:58 MW 07/09/17 07/13/17 07/23/17 11:39 16:03 11:22 Wound Center Nurse 2 #2- LT CALF -Time 12:04 -Correct Patient Yes -Correct Side, Site, Position Yes -Correct Procedure Yes -Procedure Performed No -Type of Procedure Incision & Debridement -Clinical Debridement Subcutaneous -Post Debridement Size (cm) - Length 0.6 -Post Debridement Size (cm) - Width 0.7 -Post Debridement Size (cm) - Depth 0 -Total Square Cm 0.42 -Wound/Ulcer Outcome Not Healed -Ulcer Cleansing Not Cleansed -Foul Odor after Cleansing No -Bleeding Controlled with NA -Treatment Response Procedure Tolerated Well #1- RT FOOT PLANTAR ASPECT -Time 11:40 16:03 11:23 -Correct Patient Yes Yes Yes -Correct Side, Site, Position Yes Yes Yes -Correct Procedure Yes Yes Yes -Procedure Performed Yes Yes Yes -Type of Procedure Incision & Debridement Debridement Debridement -Clinical Debridement Subcutaneous Subcutaneous Subcutaneous -Post Debridement Size (cm) - Length 3.6 1.0 1.0 -Post Debridement Size (cm) - Width 0.7 0.7 0.9 -Post Debridement Size (cm) - Depth 0.7 0.5 0.3 -Total Square Cm 2.52 0.70 0.90 -Wound/Ulcer Outcome Not Healed Not Healed Not Healed -Ulcer Cleansing Rinsed/ Rinsed/ Rinsed/ Irrigated with Irrigated with Irrigated with Saline Saline Saline -Foul Odor after Cleansing No No No -Bioengineered Tissue No No No -Bleeding Controlled with Pressure Pressure Pressure -Treatment Response Procedure Procedure Procedure Tolerated Well Tolerated Well Tolerated Well Pain Scale: 0-10 Numeric Is Patient Pain Free? Yes Yes Yes 07/30/17 10:51 Wound Center Nurse 2 #2- LT CALF -Time -Correct Patient -Correct Side, Site, Position -Correct Procedure -Procedure Performed -Type of Procedure -Clinical Debridement -Post Debridement Size (cm) - Length -Post Debridement Size (cm) - Width -Post Debridement Size (cm) - Depth -Total Square Cm -Wound/Ulcer Outcome -Ulcer Cleansing -Foul Odor after Cleansing -Bleeding Controlled with -Treatment Response #1- RT FOOT PLANTAR ASPECT -Time 10:51 -Correct Patient Yes -Correct Side, Site, Position Yes -Correct Procedure Yes -Procedure Performed Yes -Type of Procedure Debridement -Clinical Debridement Subcutaneous -Post Debridement Size (cm) - Length 1.0 -Post Debridement Size (cm) - Width 0.8 -Post Debridement Size (cm) - Depth 0.1 -Total Square Cm 0.80 -Wound/Ulcer Outcome Not Healed -Ulcer Cleansing Rinsed/ Irrigated with Saline -Foul Odor after Cleansing No -Bioengineered Tissue No -Bleeding Controlled with Pressure -Treatment Response Procedure Tolerated Well Pain Scale: 0-10 Numeric Is Patient Pain Free? Yes Assessment/Plan Active Problems Diabetes 1.5, managed as type 2 (Acute) Diabetic ulcer of right foot associated with diabetes mellitus due to underlying condition (Acute) Infected ulcer of skin (Acute) Edema of lower extremity (Acute) Cellulitis and abscess of foot (Acute) Non-pressure chronic ulcer of other part of right foot with fat layer exposed ( Acute) Type 2 diabetes mellitus with foot ulcer (Acute) Type 2 diabetes mellitus with diabetic polyneuropathy (Chronic) Assessment: Foot DFU right. abscess right fooot. cellulitis. DM II uncontrolled. ?osteomylitis Plan: Wash the foot with Hibiclens. Promogran to base of ulcer moistened cover with Adaptic gauze and tape. Offload as much as possible. Follow-up in 1 week
[2017-08-06 12:25] VITALS: BP 149/86; PULSE 149; RESP 24; TEMP 36.7; BMI 115.2
--- NOTE | 2017-08-06 13:08 | PCM.WC.PN ---
(1) Diabetes 1.5, managed as type 2 Status: Acute Current Visit: Yes Code(s): E10.9 - Type 1 diabetes mellitus without complications (2) Diabetic ulcer of right foot associated with diabetes mellitus due to underlying condition Status: Acute Current Visit: Yes Qualifiers: Diabetic foot ulcer location: other Non-pressure ulcer stage: with fat layer exposed Qualified Code(s): E08.621 - Diabetes mellitus due to underlying condition with foot ulcer; L97.512 - Non-pressure chronic ulcer of other part of right foot with fat layer exposed Code(s): E08.621 - Diabetes mellitus due to underlying condition with foot ulcer; L97.519 - Non-pressure chronic ulcer of other part of right foot with unspecified severity (3) Infected ulcer of skin Status: Acute Current Visit: Yes Code(s): L98.499 - Non-pressure chronic ulcer of skin of other sites with unspecified severity; L08.9 - Local infection of the skin and subcutaneous tissue, unspecified (4) Edema of lower extremity Status: Acute Current Visit: Yes Code(s): R60.0 - Localized edema (5) Cellulitis and abscess of foot Status: Acute Current Visit: Yes Code(s): L03.119 - Cellulitis of unspecified part of limb; L02.619 - Cutaneous abscess of unspecified foot (6) Lumbar back pain with radiculopathy affecting right lower extremity Status: Acute Current Visit: Yes Code(s): M54.17 - Radiculopathy, lumbosacral region Type of Wound Date of Service: 08/06/17 Chief Complaint: Follow-up right foot ulcer History of Wound: 76-year-old white female that has had a callus on the bottom of her right foot for 2 years. Has been having it pared down and monitored by podiatry. Last few months it is become infected and now a blister has appear going up towards her right great toe plantar side and she has a red streak going up her calf. Patient complains of severe pain in the leg and hard to walk on. Patient suffers from spinal stenosis is not very ambulatory and is extremely overweight she is diabetic and controlled. The abscess on the bottom of the foot is soft and fluctuant and will be I&D today with the wash of Hibiclens and then numbing with 1% with epi to the area I indeed with a #15 blade repaired and removed the abscess sac. Tolerated procedure well pack the area with iodoform gauze 1/2 inch. We will start her on oral antibiotics until cultures return of levofloxacin 751 p.o. daily and metronidazole 250 mg 1 p.o. 3 times daily ?10 days patient is to completely offload foot at this point. Patient will follow up next week with Dr. Serrano and then the following week she will return to me. Also has a growth on the left lateral lower leg that appears to be very friable and punctuated round raised fast-growing cancer that I was unable to remove because of the largeness of its circumference. 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 Galo in [place] also could follow. 07/13--Pt known to me from visits in my office as well as previous wound care visits at [facility] with recurrent ulceration of R forefoot (recently healed at [facility] wound center). Pt was seen last week with recurrent infected ulceration of R plantar foot. She is unsure how it re-opened. She has been taking Levaquin and Flagyl PO, being changed today to Augmentin by Varsha Serna CNP based on culture results (she is stopping Levaquin). Denies N/V/F/C. Appearance and measurements improved dramatically. Progress of Wound: The ulcer this week is about the same size but flat no depth really she is still a 0.2 but very clean. Patient was taking a car drive for long period of time and developed sciatica and obviously has some lumbar spine pinched nerves on the right that affected the whole right leg. Patient is complaining of pain 8 out of 10 hard to walk she did go to the antibiotics and did receive her boot for her right leg. She is refusing to wear the boot because of the pain. Patient was prescribed some tramadol will run and orders on her in my office for her to get up and walk with the boot on. No odor no redness. We will now change her to promogran to finish healing her.The callus is pared down, tolerating all well . She went to the emergency room the other day and they checked her for blood clot in the right leg but did not pain medicate her or x-ray her back. Patient was checked on her INR and it was 7.3 though patient did not bleed very much at all on debridement. It could have been high because she had taken a lot of Advil prior to arrival at the hospital. - Physical Exam Vital Signs Temp Pulse Resp BP 98.1 F 149 H 24 H 149/86 H 08/06/17 12:25 08/06/17 12:25 08/06/17 12:25 08/06/17 12:25 General: Oriented x3, Cooperative, Well developed HEENT: Atraumatic, PERRLA Oral: Moist Mucosa Neck: Supple, No JVD Lungs: Clear to auscultation, Normal air movement Cardiovascular: Regular rate, Regular Rhythm Abdomen: Bowel Sounds Present, Soft, Non Tender, No Hepato-splenomegaly Extremities: No clubbing, No edema, - - Foot ulcer plantar side DFU Wound Measurements and Assessment WC - Nurse 1 - General Ulcer Measurement Start: 07/09/17 10:28 Freq: Status: Active Protocol: Activity Type Activity Date Activity User E-Sign Co-Sign Detail Recorded Client Recorded Date Recorded By Document 08/06/17 12:25 [id number] 08/06/17 12:37 MOOK 08/06/17 12:25 Wound Center Nurse 1 [Ulcer Assessment] #1- RT FOOT PLANTAR ASPECT -Combined with other wound No -Current Size (cm) - Length 1.0 -Current Size (cm) - Width 0.8 -Current Size (cm) - Depth 0.2 -Total Square Cm 0.80 -Date of Last Picture (Recall this 07/23/17 field) -Photo Taken No -Epithelialization None Present -Tunneling No -Undermining/Tunneling No -Circular Undermining No -Classification - Thickness Full Thickness without Exposed Support Structure -Exudate Amt Small (1-33%) -Exudate Type Serous -Wound Margin Distinct, Outline Attached -Granulation Amt Small (1-33%) -Granulation Quality Red -Slough/Fibrin Yes -Necrosis Amt None Present (0 %) -Necrotic Tissue Type Adherent Slough -Structure Exposed Fascia Fat Layer Exposed -Texture (Faby-wound Skin Appearance) Callus -Moisture (Faby-wound Skin Appearance No Abnormality ) -Color (Faby-wound Skin Appearance) No Abnormality -Temperature (Faby-wound Skin No Abnormality Appearance) (Pt Warm) -Tenderness on Palpation (Faby-wound No Skin Appearance) -Ulcer Cleansing Rinsed/ Irrigated with Saline -Foul Odor after Cleansing No -Anesthetic Used 5% Lidocaine Gel [Edema Assessment] -Lower Limb Edema Present Yes -Right Calf (cm) 45.5 -Right Ankle (cm) 25 WC - Nurse 2 - General Ulcer CM Notes Start: 07/09/17 10:28 Freq: Status: Active Protocol: Activity Type Activity Date Activity User E-Sign Co-Sign Detail Recorded Client Recorded Date Recorded By Document 08/06/17 12:50 MW [id number] 08/06/17 12:53 MW 08/06/17 12:50 Wound Center Nurse 2 [Procedure/Treatment] #1- RT FOOT PLANTAR ASPECT -Time 12:50 -Correct Patient Yes -Correct Side, Site, Position Yes -Correct Procedure Yes -Procedure Performed Yes -Type of Procedure Debridement -Clinical Debridement Subcutaneous -Post Debridement Size (cm) - Length 1.0 -Post Debridement Size (cm) - Width 0.9 -Post Debridement Size (cm) - Depth 0.2 -Total Square Cm 0.90 -Wound/Ulcer Outcome Not Healed -Ulcer Cleansing Rinsed/ Irrigated with Saline -Foul Odor after Cleansing No -Bioengineered Tissue No -Bleeding Controlled with Pressure -Treatment Response Procedure Tolerated Well [See Physician Procedure note for Specifics] Pain Scale: 0-10 Numeric [Pain] -Is Patient Pain Free? Yes Musculoskeletal: No Tenderness to Palpation of Joints or Extremities Lymphatic: No Cervical, Supraclavicular, or Inguinal Adenopathy Neurological: Cranial nerves II-XII grossly intact, Neuro grossly intact Psych/Mental Status: Normal Affect, Appropriate, Alert and oriented to time, place, person, mood and affect Debridement Note Post-Debridement Measurements/Treatment WC - Nurse 2 - General Ulcer CM Notes Start: 07/09/17 10:28 Freq: Status: Active Protocol: Activity Type Activity Date Activity User E-Sign Co-Sign Detail Recorded Client Recorded Date Recorded By Document 07/09/17 11:39 MW [id number] 07/09/17 12:08 MW Document 07/13/17 16:03 MW [id number] 07/13/17 16:09 MW Document 07/23/17 11:22 MW [id number] 07/23/17 11:30 MW Document 07/30/17 10:51 MW [id number] 07/30/17 10:58 MW Document 08/06/17 12:50 MW [id number] 08/06/17 12:53 MW 03/06/2707/13/17 07/23/17 11:39 16:03 11:22 Wound Center Nurse 2 #2- LT CALF -Time 12:04 -Correct Patient Yes -Correct Side, Site, Position Yes -Correct Procedure Yes -Procedure Performed No -Type of Procedure Incision & Debridement -Clinical Debridement Subcutaneous -Post Debridement Size (cm) - Length 0.6 -Post Debridement Size (cm) - Width 0.7 -Post Debridement Size (cm) - Depth 0 -Total Square Cm 0.42 -Wound/Ulcer Outcome Not Healed -Ulcer Cleansing Not Cleansed -Foul Odor after Cleansing No -Bleeding Controlled with NA -Treatment Response Procedure Tolerated Well #1- RT FOOT PLANTAR ASPECT -Time 11:40 16:03 11:23 -Correct Patient Yes Yes Yes -Correct Side, Site, Position Yes Yes Yes -Correct Procedure Yes Yes Yes -Procedure Performed Yes Yes Yes -Type of Procedure Incision & Debridement Debridement Debridement -Clinical Debridement Subcutaneous Subcutaneous Subcutaneous -Post Debridement Size (cm) - Length 3.6 1.0 1.0 -Post Debridement Size (cm) - Width 0.7 0.7 0.9 -Post Debridement Size (cm) - Depth 0.7 0.5 0.3 -Total Square Cm 2.52 0.70 0.90 -Wound/Ulcer Outcome Not Healed Not Healed Not Healed -Ulcer Cleansing Rinsed/ Rinsed/ Rinsed/ Irrigated with Irrigated with Irrigated with Saline Saline Saline -Foul Odor after Cleansing No No No -Bioengineered Tissue No No No -Bleeding Controlled with Pressure Pressure Pressure -Treatment Response Procedure Procedure Procedure Tolerated Well Tolerated Well Tolerated Well Pain Scale: 0-10 Numeric Is Patient Pain Free? Yes Yes Yes 07/30/17 08/06/17 10:51 12:50 Wound Center Nurse 2 #2- LT CALF -Time -Correct Patient -Correct Side, Site, Position -Correct Procedure -Procedure Performed -Type of Procedure -Clinical Debridement -Post Debridement Size (cm) - Length -Post Debridement Size (cm) - Width -Post Debridement Size (cm) - Depth -Total Square Cm -Wound/Ulcer Outcome -Ulcer Cleansing -Foul Odor after Cleansing -Bleeding Controlled with -Treatment Response #1- RT FOOT PLANTAR ASPECT -Time 10:51 12:50 -Correct Patient Yes Yes -Correct Side, Site, Position Yes Yes -Correct Procedure Yes Yes -Procedure Performed Yes Yes -Type of Procedure Debridement Debridement -Clinical Debridement Subcutaneous Subcutaneous -Post Debridement Size (cm) - Length 1.0 1.0 -Post Debridement Size (cm) - Width 0.8 0.9 -Post Debridement Size (cm) - Depth 0.1 0.2 -Total Square Cm 0.80 0.90 -Wound/Ulcer Outcome Not Healed Not Healed -Ulcer Cleansing Rinsed/ Rinsed/ Irrigated with Irrigated with Saline Saline -Foul Odor after Cleansing No No -Bioengineered Tissue No No -Bleeding Controlled with Pressure Pressure -Treatment Response Procedure Procedure Tolerated Well Tolerated Well Pain Scale: 0-10 Numeric Is Patient Pain Free? Yes Yes Wound debrided: DFU right foot Type of Debridement: Excisional debridement Anesthesia Used: 5% Lidocaine Gel Depth: Down to and including healthy tissue, in the subcutaneous layer Percentage of wound debrided: 100 Instrument Used: 5mm curette Tissue Removed: fibrin and callus Severity: Limited To Skin Breakdown Amount of bleeding with debridement: Mild Bleeding Controlled with: Compression and gauze Patient tolerated procedure well Assessment/Plan Active Problems Diabetes 1.5, managed as type 2 (Acute) Diabetic ulcer of right foot associated with diabetes mellitus due to underlying condition (Acute) Infected ulcer of skin (Acute) Edema of lower extremity (Acute) Cellulitis and abscess of foot (Acute) Non-pressure chronic ulcer of other part of right foot with fat layer exposed (Acute) Type 2 diabetes mellitus with foot ulcer (Acute) Type 2 diabetes mellitus with diabetic polyneuropathy (Chronic) Lumbar back pain with radiculopathy affecting right lower extremity (Acute) Assessment: Foot DFU right. abscess right fooot. cellulitis. DM II uncontrolled. ?osteomylitis Plan: Wash the foot with Hibiclens. Promogran to base of ulcer moistened cover with Adaptic gauze and tape. Offload as much as possible wear the boot when up walking. use the tramadol for the pain as needed. Follow-up in 1 week
--- NOTE | 2017-08-06 13:14 | PN.PCM_ITS ---
(1) Diabetes 1.5, managed as type 2 Status: Acute Current Visit: Yes Code(s): E10.9 - Type 1 diabetes mellitus without complications (2) Diabetic ulcer of right foot associated with diabetes mellitus due to underlying condition Status: Acute Current Visit: Yes Qualifiers: Diabetic foot ulcer location: other Non-pressure ulcer stage: with fat layer exposed Qualified Code(s): E08.621 - Diabetes mellitus due to underlying condition with foot ulcer; L97.512 - Non-pressure chronic ulcer of other part of right foot with fat layer exposed Code(s): E08.621 - Diabetes mellitus due to underlying condition with foot ulcer ; L97.519 - Non-pressure chronic ulcer of other part of right foot with unspecified severity (3) Infected ulcer of skin Status: Acute Current Visit: Yes Code(s): L98.499 - Non-pressure chronic ulcer of skin of other sites with unspecified severity; L08.9 - Local infection of the skin and subcutaneous tissue, unspecified (4) Edema of lower extremity Status: Acute Current Visit: Yes Code(s): R60.0 - Localized edema (5) Cellulitis and abscess of foot Status: Acute Current Visit: Yes Code(s): L03.119 - Cellulitis of unspecified part of limb; L02.619 - Cutaneous abscess of unspecified foot (6) Lumbar back pain with radiculopathy affecting right lower extremity Status: Acute Current Visit: Yes Code(s): M54.17 - Radiculopathy, lumbosacral region Type of Wound Date of Service: 08/06/17 Chief Complaint: Follow-up right foot ulcer History of Wound: 76-year-old white female that has had a callus on the bottom of her right foot for 2 years. Has been having it pared down and monitored by podiatry. Last few months it is become infected and now a blister has appear going up towards her right great toe plantar side and she has a red streak going up her calf. Patient complains of severe pain in the leg and hard to walk on. Patient suffers from spinal stenosis is not very ambulatory and is extremely overweight she is diabetic and controlled. The abscess on the bottom of the foot is soft and fluctuant and will be I&D today with the wash of Hibiclens and then numbing with 1% with epi to the area I indeed with a #15 blade repaired and removed the abscess sac. Tolerated procedure well pack the area with iodoform gauze 1/2 inch. We will start her on oral antibiotics until cultures return of levofloxacin 751 p.o. daily and metronidazole 250 mg 1 p.o. 3 times daily ?10 days patient is to completely offload foot at this point. Patient will follow up next week with Dr. Serrano and then the following week she will return to me. Also has a growth on the left lateral lower leg that appears to be very friable and punctuated round raised fast-growing cancer that I was unable to remove because of the largeness of its circumference. 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 07/13 --Pt known to me from visits in my office as well as previous wound care visits at [facility] with recurrent ulceration of R forefoot (recently healed at [facility] wound center). Pt was seen last week with recurrent infected ulceration of R plantar foot. She is unsure how it re-opened. She has been taking Levaquin and Flagyl PO, being changed today to Augmentin by Varsha Serna CNP based on culture results (she is stopping Levaquin). Denies N/V /F/C. Appearance and measurements improved dramatically. Progress of Wound: The ulcer this week is about the same size but flat no depth really she is still a 0.2 but very clean. Patient was taking a car drive for long period of time and developed sciatica and obviously has some lumbar spine pinched nerves on the right that affected the whole right leg. Patient is complaining of pain 8 out of 10 hard to walk she did go to the antibiotics and did receive her boot for her right leg. She is refusing to wear the boot because of the pain. Patient was prescribed some tramadol will run and orders on her in my office for her to get up and walk with the boot on. No odor no redness. We will now change her to promogran to finish healing her.The callus is pared down, tolerating all well . She went to the emergency room the other day and they checked her for blood clot in the right leg but did not pain medicate her or x-ray her back. Patient was checked on her INR and it was 7.3 though patient did not bleed very much at all on debridement. It could have been high because she had taken a lot of Advil prior to arrival at the hospital. - Physical Exam Vital Signs Temp Pulse Resp BP 98.1 F 149 H 24 H 149/86 H 08/06/17 12:25 08/06/17 12:25 08/06/17 12:25 08/06/17 12:25 General: Oriented x3, Cooperative, Well developed HEENT: Atraumatic, PERRLA Oral: Moist Mucosa Neck: Supple, No JVD Lungs: Clear to auscultation, Normal air movement Cardiovascular: Regular rate, Regular Rhythm Abdomen: Bowel Sounds Present, Soft, Non Tender, No Hepato-splenomegaly Extremities: No clubbing, No edema, - - Foot ulcer plantar side DFU Wound Measurements and Assessment WC - Nurse 1 - General Ulcer Measurement Start: 07/09/17 10:28 Freq: Status: Active Protocol: Activity Type Activity Date Activity User E-Sign Co-Sign Detail Recorded Client Recorded Date Recorded By Document 08/06/17 12:25 [id number] 08/06/17 12:37 MOOK 08/06/17 12:25 Wound Center Nurse 1 [Ulcer Assessment] #1- RT FOOT PLANTAR ASPECT -Combined with other wound No -Current Size (cm) - Length 1.0 -Current Size (cm) - Width 0.8 -Current Size (cm) - Depth 0.2 -Total Square Cm 0.80 -Date of Last Picture (Recall this 07/23/17 field) -Photo Taken No -Epithelialization None Present -Tunneling No -Undermining/Tunneling No -Circular Undermining No -Classification - Thickness Full Thickness without Exposed Support Structure -Exudate Amt Small (1-33%) -Exudate Type Serous -Wound Margin Distinct, Outline Attached -Granulation Amt Small (1-33%) -Granulation Quality Red -Slough/Fibrin Yes -Necrosis Amt None Present (0 %) -Necrotic Tissue Type Adherent Slough -Structure Exposed Fascia Fat Layer Exposed -Texture (Faby-wound Skin Appearance) Callus -Moisture (Faby-wound Skin Appearance No Abnormality ) -Color (Faby-wound Skin Appearance) No Abnormality -Temperature (Faby-wound Skin No Abnormality Appearance) (Pt Warm) -Tenderness on Palpation (Faby-wound No Skin Appearance) -Ulcer Cleansing Rinsed/ Irrigated with Saline -Foul Odor after Cleansing No -Anesthetic Used 5% Lidocaine Gel [Edema Assessment] -Lower Limb Edema Present Yes -Right Calf (cm) 45.5 -Right Ankle (cm) 25 WC - Nurse 2 - General Ulcer CM Notes Start: 07/09/17 10:28 Freq: Status: Active Protocol: Activity Type Activity Date Activity User E-Sign Co-Sign Detail Recorded Client Recorded Date Recorded By Document 08/06/17 12:50 MW [id number] 08/06/17 12:53 MW 08/06/17 12:50 Wound Center Nurse 2 [Procedure/Treatment] #1- RT FOOT PLANTAR ASPECT -Time 12:50 -Correct Patient Yes -Correct Side, Site, Position Yes -Correct Procedure Yes -Procedure Performed Yes -Type of Procedure Debridement -Clinical Debridement Subcutaneous -Post Debridement Size (cm) - Length 1.0 -Post Debridement Size (cm) - Width 0.9 -Post Debridement Size (cm) - Depth 0.2 -Total Square Cm 0.90 -Wound/Ulcer Outcome Not Healed -Ulcer Cleansing Rinsed/ Irrigated with Saline -Foul Odor after Cleansing No -Bioengineered Tissue No -Bleeding Controlled with Pressure -Treatment Response Procedure Tolerated Well [See Physician Procedure note for Specifics] Pain Scale: 0-10 Numeric [Pain] -Is Patient Pain Free? Yes Musculoskeletal: No Tenderness to Palpation of Joints or Extremities Lymphatic: No Cervical, Supraclavicular, or Inguinal Adenopathy Neurological: Cranial nerves II-XII grossly intact, Neuro grossly intact Psych/Mental Status: Normal Affect, Appropriate, Alert and oriented to time, place, person, mood and affect Debridement Note Post-Debridement Measurements/Treatment WC - Nurse 2 - General Ulcer CM Notes Start: 07/09/17 10:28 Freq: Status: Active Protocol: Activity Type Activity Date Activity User E-Sign Co-Sign Detail Recorded Client Recorded Date Recorded By Document 07/09/17 11:39 MW [id number] 07/09/17 12:08 MW Document 07/13/17 16:03 MW [id number] 07/13/17 16:09 MW Document 07/23/17 11:22 MW [id number] 07/23/17 11:30 MW Document 07/30/17 10:51 MW [id number] 07/30/17 10:58 MW Document 08/06/17 12:50 MW [id number] 08/06/17 12:53 MW 03/06/2707/13/17 07/23/17 11:39 16:03 11:22 Wound Center Nurse 2 #2- LT CALF -Time 12:04 -Correct Patient Yes -Correct Side, Site, Position Yes -Correct Procedure Yes -Procedure Performed No -Type of Procedure Incision & Debridement -Clinical Debridement Subcutaneous -Post Debridement Size (cm) - Length 0.6 -Post Debridement Size (cm) - Width 0.7 -Post Debridement Size (cm) - Depth 0 -Total Square Cm 0.42 -Wound/Ulcer Outcome Not Healed -Ulcer Cleansing Not Cleansed -Foul Odor after Cleansing No -Bleeding Controlled with NA -Treatment Response Procedure Tolerated Well #1- RT FOOT PLANTAR ASPECT -Time 11:40 16:03 11:23 -Correct Patient Yes Yes Yes -Correct Side, Site, Position Yes Yes Yes -Correct Procedure Yes Yes Yes -Procedure Performed Yes Yes Yes -Type of Procedure Incision & Debridement Debridement Debridement -Clinical Debridement Subcutaneous Subcutaneous Subcutaneous -Post Debridement Size (cm) - Length 3.6 1.0 1.0 -Post Debridement Size (cm) - Width 0.7 0.7 0.9 -Post Debridement Size (cm) - Depth 0.7 0.5 0.3 -Total Square Cm 2.52 0.70 0.90 -Wound/Ulcer Outcome Not Healed Not Healed Not Healed -Ulcer Cleansing Rinsed/ Rinsed/ Rinsed/ Irrigated with Irrigated with Irrigated with Saline Saline Saline -Foul Odor after Cleansing No No No -Bioengineered Tissue No No No -Bleeding Controlled with Pressure Pressure Pressure -Treatment Response Procedure Procedure Procedure Tolerated Well Tolerated Well Tolerated Well Pain Scale: 0-10 Numeric Is Patient Pain Free? Yes Yes Yes 07/30/17 08/06/17 10:51 12:50 Wound Center Nurse 2 #2- LT CALF -Time -Correct Patient -Correct Side, Site, Position -Correct Procedure -Procedure Performed -Type of Procedure -Clinical Debridement -Post Debridement Size (cm) - Length -Post Debridement Size (cm) - Width -Post Debridement Size (cm) - Depth -Total Square Cm -Wound/Ulcer Outcome -Ulcer Cleansing -Foul Odor after Cleansing -Bleeding Controlled with -Treatment Response #1- RT FOOT PLANTAR ASPECT -Time 10:51 12:50 -Correct Patient Yes Yes -Correct Side, Site, Position Yes Yes -Correct Procedure Yes Yes -Procedure Performed Yes Yes -Type of Procedure Debridement Debridement -Clinical Debridement Subcutaneous Subcutaneous -Post Debridement Size (cm) - Length 1.0 1.0 -Post Debridement Size (cm) - Width 0.8 0.9 -Post Debridement Size (cm) - Depth 0.1 0.2 -Total Square Cm 0.80 0.90 -Wound/Ulcer Outcome Not Healed Not Healed -Ulcer Cleansing Rinsed/ Rinsed/ Irrigated with Irrigated with Saline Saline -Foul Odor after Cleansing No No -Bioengineered Tissue No No -Bleeding Controlled with Pressure Pressure -Treatment Response Procedure Procedure Tolerated Well Tolerated Well Pain Scale: 0-10 Numeric Is Patient Pain Free? Yes Yes Wound debrided: DFU right foot Type of Debridement: Excisional debridement Anesthesia Used: 5% Lidocaine Gel Depth: Down to and including healthy tissue, in the subcutaneous layer Percentage of wound debrided: 100 Instrument Used: 5mm curette Tissue Removed: fibrin and callus Severity: Limited To Skin Breakdown Amount of bleeding with debridement: Mild Bleeding Controlled with: Compression and gauze Patient tolerated procedure well Assessment/Plan Active Problems Diabetes 1.5, managed as type 2 (Acute) Diabetic ulcer of right foot associated with diabetes mellitus due to underlying condition (Acute) Infected ulcer of skin (Acute) Edema of lower extremity (Acute) Cellulitis and abscess of foot (Acute) Non-pressure chronic ulcer of other part of right foot with fat layer exposed ( Acute) Type 2 diabetes mellitus with foot ulcer (Acute) Type 2 diabetes mellitus with diabetic polyneuropathy (Chronic) Lumbar back pain with radiculopathy affecting right lower extremity (Acute) Assessment: Foot DFU right. abscess right fooot. cellulitis. DM II uncontrolled. ?osteomylitis Plan: Wash the foot with Hibiclens. Promogran to base of ulcer moistened cover with Adaptic gauze and tape. Offload as much as possible wear the boot when up walking. use the tramadol for the pain as needed. Follow-up in 1 week
== END 2017-08-07 23:59 ==
LOC: WC 11:30
PROVIDERS: Visit Provider Nurse Practitioner
DX: E13.621 Other specified diabetes mellitus with foot ulcer (principal); L97.416 Non-pressure chronic ulcer of right heel and midfoot with bone involvement without evidence of necrosis; L08.9 Local infection of the skin and subcutaneous tissue, unspecified; R60.0 Localized edema; L84 Corns and callosities; Z79.4 Long term (current) use of insulin; Z79.01 Long term (current) use of anticoagulants; Z79.899 Other long term (current) drug therapy; E13.65 Other specified diabetes mellitus with hyperglycemia; B37.0 Candidal stomatitis; M54.16 Radiculopathy, lumbar region
CPT/HCPCS: 10060; 11042; 84134; 85025; 87070; 87075; 87077; 87186; 87205; 99203; G0463

== ENCOUNTER 2017-08-27 13:00 | Outpatient (RCR) | payer MEDICARE, OTHER, SELFPAY ==
[2017-08-08 01:05] VITALS: PULSE 149; RESP 24; TEMP 36.7
[2017-08-13 11:30] VITALS: BP 158/85; PULSE 81; RESP 18; TEMP 36.3
--- NOTE | 2017-08-13 13:09 | PCM.WC.PN ---
(1) Diabetic ulcer of right foot associated with diabetes mellitus due to underlying condition Status: Acute Current Visit: Yes Qualifiers: Diabetic foot ulcer location: midfoot Code(s): E08.621 - Diabetes mellitus due to underlying condition with foot ulcer; L97.519 - Non-pressure chronic ulcer of other part of right foot with unspecified severity (2) Edema of lower extremity Status: Acute Current Visit: Yes Code(s): R60.0 - Localized edema (3) Infected ulcer of skin Status: Acute Current Visit: Yes Code(s): L98.499 - Non-pressure chronic ulcer of skin of other sites with unspecified severity; L08.9 - Local infection of the skin and subcutaneous tissue, unspecified Type of Wound Date of Service: 08/13/17 Chief Complaint: Follow-up right foot ulcer History of Wound: 76-year-old white female that has had a callus on the bottom of her right foot for 2 years. Has been having it pared down and monitored by podiatry. Last few months it is become infected and now a blister has appear going up towards her right great toe plantar side and she has a red streak going up her calf. Patient complains of severe pain in the leg and hard to walk on. Patient suffers from spinal stenosis is not very ambulatory and is extremely overweight she is diabetic and controlled. The abscess on the bottom of the foot is soft and fluctuant and will be I&D today with the wash of Hibiclens and then numbing with 1% with epi to the area I indeed with a #15 blade repaired and removed the abscess sac. Tolerated procedure well pack the area with iodoform gauze 1/2 inch. We will start her on oral antibiotics until cultures return of levofloxacin 751 p.o. daily and metronidazole 250 mg 1 p.o. 3 times daily ?10 days patient is to completely offload foot at this point. Patient will follow up next week with Dr. Serrano and then the following week she will return to me. Also has a growth on the left lateral lower leg that appears to be very friable and punctuated round raised fast-growing cancer that I was unable to remove because of the largeness of its circumference. 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 07/13--Pt known to me from visits in my office as well as previous wound care visits at [facility] with recurrent ulceration of R forefoot (recently healed at [facility] wound center). Pt was seen last week with recurrent infected ulceration of R plantar foot. She is unsure how it re-opened. She has been taking Levaquin and Flagyl PO, being changed today to Augmentin by Varsha Serna CNP based on culture results (she is stopping Levaquin). Denies N/V/F/C. Appearance and measurements improved dramatically. Progress of Wound: The ulcer this week is about the same size but flat no depth really she is still a 0.2 but very clean. Still getting fitted for proper boot for her right leg. Patient was prescribed some tramadol will run and orders on her in my office for her to get up and walk with the boot on. No odor no redness. We will now change her to promogran to finish healing her.The callus is pared down, tolerating all well . We are applying for epi fix for the foot. - Physical Exam Vital Signs Temp Pulse Resp BP 97.3 F L 81 18 158/85 H 08/13/17 11:30 08/13/17 11:30 08/13/17 11:30 08/13/17 11:30 General: Oriented x3, Cooperative, Well developed HEENT: Atraumatic, PERRLA Oral: Moist Mucosa Neck: Supple, No JVD Lungs: Clear to auscultation, Normal air movement Cardiovascular: Regular rate, Regular Rhythm Abdomen: Bowel Sounds Present, Soft, Non Tender, No Hepato-splenomegaly Extremities: No clubbing, No edema Skin: Ulcer/ Wound - Foot Wound Measurements and Assessment WC - Nurse 1 - General Ulcer Measurement Start: 08/13/17 11:30 Freq: Status: Active Protocol: Activity Type Activity Date Activity User E-Sign Co-Sign Detail Recorded Client Recorded Date Recorded By Document 08/13/17 11:30 TM [id number] 08/13/17 11:33 08/13/17 11:30 Wound Center Nurse 1 [Ulcer Assessment] #1- RT FOOT PLANTAR ASPECT -Combined with other wound No -Current Size (cm) - Length 0.9 -Current Size (cm) - Width 0.5 -Current Size (cm) - Depth 0.2 -Total Square Cm 0.45 -Photo Taken No -Epithelialization Small 1-33% -Tunneling No -Undermining/Tunneling No -Circular Undermining No -Classification - Thickness Full Thickness without Exposed Support Structure -Exudate Amt Small (1-33%) -Exudate Type Serosanguineous -Wound Margin Distinct, Outline Attached -Granulation Amt Medium (34-66%) -Granulation Quality Pale [place] -Slough/Fibrin Yes -Necrosis Amt Medium (34-66%) -Necrotic Tissue Type Adherent Slough -Structure Exposed Fascia Fat Layer Exposed -Texture (Faby-wound Skin Appearance) Callus Scarring -Moisture (Faby-wound Skin Appearance Maceration ) -Color (Faby-wound Skin Appearance) Erythema -Temperature (Faby-wound Skin No Abnormality Appearance) (Pt Warm) -Tenderness on Palpation (Faby-wound No Skin Appearance) -Ulcer Cleansing Rinsed/ Irrigated with Saline -Foul Odor after Cleansing No -Anesthetic Used 5% Lidocaine Gel [Edema Assessment] -Lower Limb Edema Present Yes -Right Calf (cm) 44.5 -Right Ankle (cm) 25.5 WC - Nurse 2 - General Ulcer CM Notes Start: 08/13/17 11:30 Freq: Status: Active Protocol: Activity Type Activity Date Activity User E-Sign Co-Sign Detail Recorded Client Recorded Date Recorded By Document 08/13/17 12:03 MW [id number] 08/13/17 12:10 MW 08/13/17 12:03 Wound Center Nurse 2 [Procedure/Treatment] #1- RT FOOT PLANTAR ASPECT -Time 12:04 -Correct Patient Yes -Correct Side, Site, Position Yes -Correct Procedure Yes -Procedure Performed Yes -Type of Procedure Debridement -Clinical Debridement Subcutaneous -Post Debridement Size (cm) - Length 1.0 -Post Debridement Size (cm) - Width 1.0 -Post Debridement Size (cm) - Depth 0.2 -Total Square Cm 1.00 -Wound/Ulcer Outcome Not Healed -Ulcer Cleansing Rinsed/ Irrigated with Saline -Foul Odor after Cleansing No -Bioengineered Tissue No -Bleeding Controlled with Pressure -Treatment Response Procedure Tolerated Well [See Physician Procedure note for Specifics] Pain Scale: 0-10 Numeric [Pain] -Is Patient Pain Free? Yes Musculoskeletal: No Tenderness to Palpation of Joints or Extremities Lymphatic: No Cervical, Supraclavicular, or Inguinal Adenopathy Neurological: Cranial nerves II-XII grossly intact, Neuro grossly intact Psych/Mental Status: Normal Affect, Appropriate, Alert and oriented to time, place, person, mood and affect Debridement Note Post-Debridement Measurements/Treatment WC - Nurse 2 - General Ulcer CM Notes Start: 08/13/17 11:30 Freq: Status: Active Protocol: Activity Type Activity Date Activity User E-Sign Co-Sign Detail Recorded Client Recorded Date Recorded By Document 08/13/17 12:03 MW [id number] 08/13/17 12:10 MW 08/13/17 12:03 Wound Center Nurse 2 #1- RT FOOT PLANTAR ASPECT -Time 12:04 -Correct Patient Yes -Correct Side, Site, Position Yes -Correct Procedure Yes -Procedure Performed Yes -Type of Procedure Debridement -Clinical Debridement Subcutaneous -Post Debridement Size (cm) - Length 1.0 -Post Debridement Size (cm) - Width 1.0 -Post Debridement Size (cm) - Depth 0.2 -Total Square Cm 1.00 -Wound/Ulcer Outcome Not Healed -Ulcer Cleansing Rinsed/ Irrigated with Saline -Foul Odor after Cleansing No -Bioengineered Tissue No -Bleeding Controlled with Pressure -Treatment Response Procedure Tolerated Well Pain Scale: 0-10 Numeric Is Patient Pain Free? Yes Wound debrided: Right DFU Type of Debridement: Excisional debridement Anesthesia Used: 5% Lidocaine Gel Depth: Down to and including healthy tissue, in the subcutaneous layer Percentage of wound debrided: 100 Instrument Used: 3mm curette Severity: Limited To Skin Breakdown Amount of bleeding with debridement: Mild Bleeding Controlled with: Compression and gauze Patient tolerated procedure well Assessment/Plan Active Problems Diabetic ulcer of right foot associated with diabetes mellitus due to underlying condition (Acute) Infected ulcer of skin (Acute) Edema of lower extremity (Acute) Assessment: Foot DFU right. abscess right fooot. cellulitis. DM II uncontrolled. ?osteomylitis Plan: Wash the foot with Hibiclens. Promogran to base of ulcer moistened cover with Adaptic gauze and tape. Apply for epi fix for foot. Offload as much as possible wear the boot when up walking. use the tramadol for the pain as needed. Follow-up in 1 week
--- NOTE | 2017-08-13 13:13 | PN.PCM_ITS ---
(1) Diabetic ulcer of right foot associated with diabetes mellitus due to underlying condition Status: Acute Current Visit: Yes Qualifiers: Diabetic foot ulcer location: midfoot Code(s): E08.621 - Diabetes mellitus due to underlying condition with foot ulcer ; L97.519 - Non-pressure chronic ulcer of other part of right foot with unspecified severity (2) Edema of lower extremity Status: Acute Current Visit: Yes Code(s): R60.0 - Localized edema (3) Infected ulcer of skin Status: Acute Current Visit: Yes Code(s): L98.499 - Non-pressure chronic ulcer of skin of other sites with unspecified severity; L08.9 - Local infection of the skin and subcutaneous tissue, unspecified Type of Wound Date of Service: 08/13/17 Chief Complaint: Follow-up right foot ulcer History of Wound: 76-year-old white female that has had a callus on the bottom of her right foot for 2 years. Has been having it pared down and monitored by podiatry. Last few months it is become infected and now a blister has appear going up towards her right great toe plantar side and she has a red streak going up her calf. Patient complains of severe pain in the leg and hard to walk on. Patient suffers from spinal stenosis is not very ambulatory and is extremely overweight she is diabetic and controlled. The abscess on the bottom of the foot is soft and fluctuant and will be I&D today with the wash of Hibiclens and then numbing with 1% with epi to the area I indeed with a #15 blade repaired and removed the abscess sac. Tolerated procedure well pack the area with iodoform gauze 1/2 inch. We will start her on oral antibiotics until cultures return of levofloxacin 751 p.o. daily and metronidazole 250 mg 1 p.o. 3 times daily ?10 days patient is to completely offload foot at this point. Patient will follow up next week with Dr. Serrano and then the following week she will return to me. Also has a growth on the left lateral lower leg that appears to be very friable and punctuated round raised fast-growing cancer that I was unable to remove because of the largeness of its circumference. 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 Galo in [place] also could follow. 07/13 --Pt known to me from visits in my office as well as previous wound care visits at [facility] with recurrent ulceration of R forefoot (recently healed at [facility] wound center). Pt was seen last week with recurrent infected ulceration of R plantar foot. She is unsure how it re-opened. She has been taking Levaquin and Flagyl PO, being changed today to Augmentin by Varsha Serna CNP based on culture results (she is stopping Levaquin). Denies N/V /F/C. Appearance and measurements improved dramatically. Progress of Wound: The ulcer this week is about the same size but flat no depth really she is still a 0.2 but very clean. Still getting fitted for proper boot for her right leg. Patient was prescribed some tramadol will run and orders on her in my office for her to get up and walk with the boot on. No odor no redness. We will now change her to promogran to finish healing her.The callus is pared down, tolerating all well . We are applying for epi fix for the foot. - Physical Exam Vital Signs Temp Pulse Resp BP 97.3 F L 81 18 158/85 H 08/13/17 11:30 08/13/17 11:30 08/13/17 11:30 08/13/17 11:30 General: Oriented x3, Cooperative, Well developed HEENT: Atraumatic, PERRLA Oral: Moist Mucosa Neck: Supple, No JVD Lungs: Clear to auscultation, Normal air movement Cardiovascular: Regular rate, Regular Rhythm Abdomen: Bowel Sounds Present, Soft, Non Tender, No Hepato-splenomegaly Extremities: No clubbing, No edema Skin: Ulcer/ Wound - Foot Wound Measurements and Assessment WC - Nurse 1 - General Ulcer Measurement Start: 08/13/17 11:30 Freq: Status: Active Protocol: Activity Type Activity Date Activity User E-Sign Co-Sign Detail Recorded Client Recorded Date Recorded By Document 08/13/17 11:30 TM [id number] 08/13/17 11:33 08/13/17 11:30 Wound Center Nurse 1 [Ulcer Assessment] #1- RT FOOT PLANTAR ASPECT -Combined with other wound No -Current Size (cm) - Length 0.9 -Current Size (cm) - Width 0.5 -Current Size (cm) - Depth 0.2 -Total Square Cm 0.45 -Photo Taken No -Epithelialization Small 1-33% -Tunneling No -Undermining/Tunneling No -Circular Undermining No -Classification - Thickness Full Thickness without Exposed Support Structure -Exudate Amt Small (1-33%) -Exudate Type Serosanguineous -Wound Margin Distinct, Outline Attached -Granulation Amt Medium (34-66%) -Granulation Quality Pale [place] -Slough/Fibrin Yes -Necrosis Amt Medium (34-66%) -Necrotic Tissue Type Adherent Slough -Structure Exposed Fascia Fat Layer Exposed -Texture (Faby-wound Skin Appearance) Callus Scarring -Moisture (Faby-wound Skin Appearance Maceration ) -Color (Faby-wound Skin Appearance) Erythema -Temperature (Faby-wound Skin No Abnormality Appearance) (Pt Warm) -Tenderness on Palpation (Faby-wound No Skin Appearance) -Ulcer Cleansing Rinsed/ Irrigated with Saline -Foul Odor after Cleansing No -Anesthetic Used 5% Lidocaine Gel [Edema Assessment] -Lower Limb Edema Present Yes -Right Calf (cm) 44.5 -Right Ankle (cm) 25.5 WC - Nurse 2 - General Ulcer CM Notes Start: 08/13/17 11:30 Freq: Status: Active Protocol: Activity Type Activity Date Activity User E-Sign Co-Sign Detail Recorded Client Recorded Date Recorded By Document 08/13/17 12:03 MW [id number] 08/13/17 12:10 MW 08/13/17 12:03 Wound Center Nurse 2 [Procedure/Treatment] #1- RT FOOT PLANTAR ASPECT -Time 12:04 -Correct Patient Yes -Correct Side, Site, Position Yes -Correct Procedure Yes -Procedure Performed Yes -Type of Procedure Debridement -Clinical Debridement Subcutaneous -Post Debridement Size (cm) - Length 1.0 -Post Debridement Size (cm) - Width 1.0 -Post Debridement Size (cm) - Depth 0.2 -Total Square Cm 1.00 -Wound/Ulcer Outcome Not Healed -Ulcer Cleansing Rinsed/ Irrigated with Saline -Foul Odor after Cleansing No -Bioengineered Tissue No -Bleeding Controlled with Pressure -Treatment Response Procedure Tolerated Well [See Physician Procedure note for Specifics] Pain Scale: 0-10 Numeric [Pain] -Is Patient Pain Free? Yes Musculoskeletal: No Tenderness to Palpation of Joints or Extremities Lymphatic: No Cervical, Supraclavicular, or Inguinal Adenopathy Neurological: Cranial nerves II-XII grossly intact, Neuro grossly intact Psych/Mental Status: Normal Affect, Appropriate, Alert and oriented to time, place, person, mood and affect Debridement Note Post-Debridement Measurements/Treatment WC - Nurse 2 - General Ulcer CM Notes Start: 08/13/17 11:30 Freq: Status: Active Protocol: Activity Type Activity Date Activity User E-Sign Co-Sign Detail Recorded Client Recorded Date Recorded By Document 08/13/17 12:03 MW [id number] 08/13/17 12:10 MW 08/13/17 12:03 Wound Center Nurse 2 #1- RT FOOT PLANTAR ASPECT -Time 12:04 -Correct Patient Yes -Correct Side, Site, Position Yes -Correct Procedure Yes -Procedure Performed Yes -Type of Procedure Debridement -Clinical Debridement Subcutaneous -Post Debridement Size (cm) - Length 1.0 -Post Debridement Size (cm) - Width 1.0 -Post Debridement Size (cm) - Depth 0.2 -Total Square Cm 1.00 -Wound/Ulcer Outcome Not Healed -Ulcer Cleansing Rinsed/ Irrigated with Saline -Foul Odor after Cleansing No -Bioengineered Tissue No -Bleeding Controlled with Pressure -Treatment Response Procedure Tolerated Well Pain Scale: 0-10 Numeric Is Patient Pain Free? Yes Wound debrided: Right DFU Type of Debridement: Excisional debridement Anesthesia Used: 5% Lidocaine Gel Depth: Down to and including healthy tissue, in the subcutaneous layer Percentage of wound debrided: 100 Instrument Used: 3mm curette Severity: Limited To Skin Breakdown Amount of bleeding with debridement: Mild Bleeding Controlled with: Compression and gauze Patient tolerated procedure well Assessment/Plan Active Problems Diabetic ulcer of right foot associated with diabetes mellitus due to underlying condition (Acute) Infected ulcer of skin (Acute) Edema of lower extremity (Acute) Assessment: Foot DFU right. abscess right fooot. cellulitis. DM II uncontrolled. ?osteomylitis Plan: Wash the foot with Hibiclens. Promogran to base of ulcer moistened cover with Adaptic gauze and tape. Apply for epi fix for foot. Offload as much as possible wear the boot when up walking. use the tramadol for the pain as needed. Follow-up in 1 week
[2017-08-20 12:24] VITALS: BP 148/97; PULSE 90; RESP 20; TEMP 36.7
--- NOTE | 2017-08-20 14:26 | PCM.WC.PN ---
(1) Diabetic ulcer of right foot associated with diabetes mellitus due to underlying condition Status: Acute Current Visit: Yes Qualifiers: Diabetic foot ulcer location: midfoot Code(s): E08.621 - Diabetes mellitus due to underlying condition with foot ulcer; L97.519 - Non-pressure chronic ulcer of other part of right foot with unspecified severity (2) Edema of lower extremity Status: Acute Current Visit: Yes Code(s): R60.0 - Localized edema (3) Infected ulcer of skin Status: Acute Current Visit: Yes Code(s): L98.499 - Non-pressure chronic ulcer of skin of other sites with unspecified severity; L08.9 - Local infection of the skin and subcutaneous tissue, unspecified Type of Wound Date of Service: 08/20/17 Chief Complaint: Follow-up right foot ulcer History of Wound: 76-year-old white female that has had a callus on the bottom of her right foot for 2 years. Has been having it pared down and monitored by podiatry. Last few months it is become infected and now a blister has appear going up towards her right great toe plantar side and she has a red streak going up her calf. Patient complains of severe pain in the leg and hard to walk on. Patient suffers from spinal stenosis is not very ambulatory and is extremely overweight she is diabetic and controlled. The abscess on the bottom of the foot is soft and fluctuant and will be I&D today with the wash of Hibiclens and then numbing with 1% with epi to the area I indeed with a #15 blade repaired and removed the abscess sac. Tolerated procedure well pack the area with iodoform gauze 1/2 inch. We will start her on oral antibiotics until cultures return of levofloxacin 751 p.o. daily and metronidazole 250 mg 1 p.o. 3 times daily ?10 days patient is to completely offload foot at this point. Patient will follow up next week with Dr. Serrano and then the following week she will return to me. Also has a growth on the left lateral lower leg that appears to be very friable and punctuated round raised fast-growing cancer that I was unable to remove because of the largeness of its circumference. 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 Galo in [place] also could follow. 07/13--Pt known to me from visits in my office as well as previous wound care visits at [facility] with recurrent ulceration of R forefoot (recently healed at [facility] wound center). Pt was seen last week with recurrent infected ulceration of R plantar foot. She is unsure how it re-opened. She has been taking Levaquin and Flagyl PO, being changed today to Augmentin by Vasrha Serna CNP based on culture results (she is stopping Levaquin). Denies N/V/F/C. Appearance and measurements improved dramatically. Progress of Wound: The ulcer this week is about the same size but flat no depth really she is still a 0.2 but very clean. Still getting fitted for proper boot for her right leg. Patient was prescribed some tramadol will run and orders on her in my office for her to get up and walk with the boot on. No odor no redness. We will now change her to promogran to finish healing her.The callus is pared down, tolerating all well . The fix #1 applied to right foot DFU - Physical Exam Vital Signs Temp Pulse Resp BP 98.0 F 90 20 H 148/97 H 08/20/17 12:24 08/20/17 12:24 08/20/17 12:24 08/20/17 12:24 General: Oriented x3, Cooperative, Well developed HEENT: Atraumatic, PERRLA Oral: Moist Mucosa Neck: Supple, No JVD Lungs: Clear to auscultation, Normal air movement Cardiovascular: Regular rate, Regular Rhythm Abdomen: Bowel Sounds Present, Soft, Non Tender, No Hepato-splenomegaly Extremities: No clubbing, No edema Skin: Ulcer/ Wound - Right foot DFU Wound Measurements and Assessment WC - Nurse 1 - General Ulcer Measurement Start: 08/13/17 11:30 Freq: Status: Active Protocol: Activity Type Activity Date Activity User E-Sign Co-Sign Detail Recorded Client Recorded Date Recorded By Document 08/20/17 12:24 DV [id number] 08/20/17 12:27 DV 08/20/17 12:24 Wound Center Nurse 1 [Ulcer Assessment] #1- RT FOOT PLANTAR ASPECT -Combined with other wound No -Current Size (cm) - Length 1.0 -Current Size (cm) - Width 0.5 -Current Size (cm) - Depth 0.2 -Total Square Cm 0.50 -Photo Taken No -Epithelialization None Present -Tunneling No -Undermining/Tunneling No -Circular Undermining No -Classification - Thickness Full Thickness without Exposed Support Structure -Exudate Amt Small (1-33%) -Exudate Type Serosanguineous -Wound Margin Distinct, Outline Attached -Granulation Amt None Present (0 %) -Granulation Quality N/A -Slough/Fibrin Yes -Necrosis Amt Small (1-33%) -Necrotic Tissue Type Adherent Slough -Structure Exposed None/Limited to Skin Breakdown -Texture (Faby-wound Skin Appearance) Assessed -Moisture (Faby-wound Skin Appearance Assessed ) Weeping -Color (Faby-wound Skin Appearance) Assessed Erythema -Temperature (Faby-wound Skin No Abnormality Appearance) (Pt Warm) -Ulcer Cleansing Rinsed/ Irrigated with Saline -Foul Odor after Cleansing No -Anesthetic Used 5% Lidocaine Gel WC - Nurse 2 - General Ulcer CM Notes Start: 08/13/17 11:30 Freq: Status: Active Protocol: Activity Type Activity Date Activity User E-Sign Co-Sign Detail Recorded Client Recorded Date Recorded By Document 08/20/17 12:45 MW [id number] 08/20/17 12:58 MW 08/20/17 12:45 Wound Center Nurse 2 [Procedure/Treatment] -Time 12:46 -Correct Patient Yes -Correct Side, Site, Position Yes -Correct Procedure Yes -Procedure Performed Yes -Type of Procedure Debridement -Clinical Debridement Subcutaneous -Post Debridement Size (cm) - Length 1.0 -Post Debridement Size (cm) - Width 1.0 -Post Debridement Size (cm) - Depth 0.1 -Total Square Cm 1.00 -Wound/Ulcer Outcome Not Healed -Ulcer Cleansing Rinsed/ Irrigated with Saline -Foul Odor after Cleansing No -Bioengineered Tissue Yes -Type of bioengineered Tissue EPIFIX -Expiration Date 05/10/22 -Product Lot Number [id number] -Percent Used 100 -Saline Lot Number [id number] -Bleeding Controlled with Pressure -Treatment Response Procedure Tolerated Well [See Physician Procedure note for Specifics] Pain Scale: 0-10 Numeric [Pain] -Is Patient Pain Free? Yes Musculoskeletal: No Tenderness to Palpation of Joints or Extremities Lymphatic: No Cervical, Supraclavicular, or Inguinal Adenopathy Neurological: Cranial nerves II-XII grossly intact, Neuro grossly intact Psych/Mental Status: Normal Affect, Appropriate Debridement Note Post-Debridement Measurements/Treatment - Nurse 2 - General Ulcer CM Notes Start: 08/13/17 11:30 Freq: Status: Active Protocol: Activity Type Activity Date Activity User E-Sign Co-Sign Detail Recorded Client Recorded Date Recorded By Document 08/13/17 12:03 MW [id number] 08/13/17 12:10 MW Document 08/20/17 12:45 MW [id number] 08/20/17 12:58 MW 08/13/17 08/20/17 12:03 12:45 Wound Center Nurse 2 #1- RT FOOT PLANTAR ASPECT -Time 12:04 12:46 -Correct Patient Yes Yes -Correct Side, Site, Position Yes Yes -Correct Procedure Yes Yes -Procedure Performed Yes Yes -Type of Procedure Debridement Debridement -Clinical Debridement Subcutaneous Subcutaneous -Post Debridement Size (cm) - Length 1.0 1.0 -Post Debridement Size (cm) - Width 1.0 1.0 -Post Debridement Size (cm) - Depth 0.2 0.1 -Total Square Cm 1.00 1.00 -Wound/Ulcer Outcome Not Healed Not Healed -Ulcer Cleansing Rinsed/ Rinsed/ Irrigated with Irrigated with Saline Saline -Foul Odor after Cleansing No No -Bioengineered Tissue No Yes -Type of bioengineered Tissue EPIFIX -Expiration Date 05/10/22 -Product Lot Number [id number] -Percent Used 100 -Saline Lot Number [id number] -Bleeding Controlled with Pressure Pressure -Treatment Response Procedure Procedure Tolerated Well Tolerated Well Pain Scale: 0-10 Numeric Is Patient Pain Free? Yes Yes Wound debrided: DFU Type of Debridement: Excisional debridement Anesthesia Used: 5% Lidocaine Gel Depth: Down to and including healthy tissue, in the subcutaneous layer Percentage of wound debrided: 100 Instrument Used: 5mm curette, #15 blade, Forceps, - - Uppers Tissue Removed: Callus and fibrin Severity: Limited To Skin Breakdown Amount of bleeding with debridement: Moderate Bleeding Controlled with: Compression and gauze Patient tolerated procedure well Assessment/Plan Active Problems Diabetic ulcer of right foot associated with diabetes mellitus due to underlying condition (Acute) Infected ulcer of skin (Acute) Edema of lower extremity (Acute) Assessment: Foot DFU right. abscess right fooot. cellulitis. DM II uncontrolled. ?osteomylitis Plan: Fix #1 applied leave dressing alone unless is to change the outer dressing. Offload as much as possible wear the boot when up walking. use the tramadol for the pain as needed. Follow-up in 1 week
--- NOTE | 2017-08-20 14:32 | PN.PCM_ITS ---
(1) Diabetic ulcer of right foot associated with diabetes mellitus due to underlying condition Status: Acute Current Visit: Yes Qualifiers: Diabetic foot ulcer location: midfoot Code(s): E08.621 - Diabetes mellitus due to underlying condition with foot ulcer ; L97.519 - Non-pressure chronic ulcer of other part of right foot with unspecified severity (2) Edema of lower extremity Status: Acute Current Visit: Yes Code(s): R60.0 - Localized edema (3) Infected ulcer of skin Status: Acute Current Visit: Yes Code(s): L98.499 - Non-pressure chronic ulcer of skin of other sites with unspecified severity; L08.9 - Local infection of the skin and subcutaneous tissue, unspecified Type of Wound Date of Service: 08/20/17 Chief Complaint: Follow-up right foot ulcer History of Wound: 76-year-old white female that has had a callus on the bottom of her right foot for 2 years. Has been having it pared down and monitored by podiatry. Last few months it is become infected and now a blister has appear going up towards her right great toe plantar side and she has a red streak going up her calf. Patient complains of severe pain in the leg and hard to walk on. Patient suffers from spinal stenosis is not very ambulatory and is extremely overweight she is diabetic and controlled. The abscess on the bottom of the foot is soft and fluctuant and will be I&D today with the wash of Hibiclens and then numbing with 1% with epi to the area I indeed with a #15 blade repaired and removed the abscess sac. Tolerated procedure well pack the area with iodoform gauze 1/2 inch. We will start her on oral antibiotics until cultures return of levofloxacin 751 p.o. daily and metronidazole 250 mg 1 p.o. 3 times daily ?10 days patient is to completely offload foot at this point. Patient will follow up next week with Dr. Serrano and then the following week she will return to me. Also has a growth on the left lateral lower leg that appears to be very friable and punctuated round raised fast-growing cancer that I was unable to remove because of the largeness of its circumference. 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 07/13 --Pt known to me from visits in my office as well as previous wound care visits at [facility] with recurrent ulceration of R forefoot (recently healed at [facility] wound center). Pt was seen last week with recurrent infected ulceration of R plantar foot. She is unsure how it re-opened. She has been taking Levaquin and Flagyl PO, being changed today to Augmentin by Varsha Serna CNP based on culture results (she is stopping Levaquin). Denies N/V /F/C. Appearance and measurements improved dramatically. Progress of Wound: The ulcer this week is about the same size but flat no depth really she is still a 0.2 but very clean. Still getting fitted for proper boot for her right leg. Patient was prescribed some tramadol will run and orders on her in my office for her to get up and walk with the boot on. No odor no redness. We will now change her to promogran to finish healing her.The callus is pared down, tolerating all well . The fix #1 applied to right foot DFU - Physical Exam Vital Signs Temp Pulse Resp BP 98.0 F 90 20 H 148/97 H 08/20/17 12:24 08/20/17 12:24 08/20/17 12:24 08/20/17 12:24 General: Oriented x3, Cooperative, Well developed HEENT: Atraumatic, PERRLA Oral: Moist Mucosa Neck: Supple, No JVD Lungs: Clear to auscultation, Normal air movement Cardiovascular: Regular rate, Regular Rhythm Abdomen: Bowel Sounds Present, Soft, Non Tender, No Hepato-splenomegaly Extremities: No clubbing, No edema Skin: Ulcer/ Wound - Right foot DFU Wound Measurements and Assessment WC - Nurse 1 - General Ulcer Measurement Start: 08/13/17 11:30 Freq: Status: Active Protocol: Activity Type Activity Date Activity User E-Sign Co-Sign Detail Recorded Client Recorded Date Recorded By Document 08/20/17 12:24 DV [id number] 08/20/17 12:27 DV 08/20/17 12:24 Wound Center Nurse 1 [Ulcer Assessment] #1- RT FOOT PLANTAR ASPECT -Combined with other wound No -Current Size (cm) - Length 1.0 -Current Size (cm) - Width 0.5 -Current Size (cm) - Depth 0.2 -Total Square Cm 0.50 -Photo Taken No -Epithelialization None Present -Tunneling No -Undermining/Tunneling No -Circular Undermining No -Classification - Thickness Full Thickness without Exposed Support Structure -Exudate Amt Small (1-33%) -Exudate Type Serosanguineous -Wound Margin Distinct, Outline Attached -Granulation Amt None Present (0 %) -Granulation Quality N/A -Slough/Fibrin Yes -Necrosis Amt Small (1-33%) -Necrotic Tissue Type Adherent Slough -Structure Exposed None/Limited to Skin Breakdown -Texture (Faby-wound Skin Appearance) Assessed -Moisture (Faby-wound Skin Appearance Assessed ) Weeping -Color (Faby-wound Skin Appearance) Assessed Erythema -Temperature (Faby-wound Skin No Abnormality Appearance) (Pt Warm) -Ulcer Cleansing Rinsed/ Irrigated with Saline -Foul Odor after Cleansing No -Anesthetic Used 5% Lidocaine Gel WC - Nurse 2 - General Ulcer CM Notes Start: 08/13/17 11:30 Freq: Status: Active Protocol: Activity Type Activity Date Activity User E-Sign Co-Sign Detail Recorded Client Recorded Date Recorded By Document 08/20/17 12:45 MW [id number] 08/20/17 12:58 MW 08/20/17 12:45 Wound Center Nurse 2 [Procedure/Treatment] -Time 12:46 -Correct Patient Yes -Correct Side, Site, Position Yes -Correct Procedure Yes -Procedure Performed Yes -Type of Procedure Debridement -Clinical Debridement Subcutaneous -Post Debridement Size (cm) - Length 1.0 -Post Debridement Size (cm) - Width 1.0 -Post Debridement Size (cm) - Depth 0.1 -Total Square Cm 1.00 -Wound/Ulcer Outcome Not Healed -Ulcer Cleansing Rinsed/ Irrigated with Saline -Foul Odor after Cleansing No -Bioengineered Tissue Yes -Type of bioengineered Tissue EPIFIX -Expiration Date 05/10/22 -Product Lot Number [id number] -Percent Used 100 -Saline Lot Number [id number] -Bleeding Controlled with Pressure -Treatment Response Procedure Tolerated Well [See Physician Procedure note for Specifics] Pain Scale: 0-10 Numeric [Pain] -Is Patient Pain Free? Yes Musculoskeletal: No Tenderness to Palpation of Joints or Extremities Lymphatic: No Cervical, Supraclavicular, or Inguinal Adenopathy Neurological: Cranial nerves II-XII grossly intact, Neuro grossly intact Psych/Mental Status: Normal Affect, Appropriate Debridement Note Post-Debridement Measurements/Treatment - Nurse 2 - General Ulcer CM Notes Start: 08/13/17 11:30 Freq: Status: Active Protocol: Activity Type Activity Date Activity User E-Sign Co-Sign Detail Recorded Client Recorded Date Recorded By Document 08/13/17 12:03 MW [id number] 08/13/17 12:10 MW Document 08/20/17 12:45 MW [id number] 08/20/17 12:58 MW 08/13/17 08/20/17 12:03 12:45 Wound Center Nurse 2 #1- RT FOOT PLANTAR ASPECT -Time 12:04 12:46 -Correct Patient Yes Yes -Correct Side, Site, Position Yes Yes -Correct Procedure Yes Yes -Procedure Performed Yes Yes -Type of Procedure Debridement Debridement -Clinical Debridement Subcutaneous Subcutaneous -Post Debridement Size (cm) - Length 1.0 1.0 -Post Debridement Size (cm) - Width 1.0 1.0 -Post Debridement Size (cm) - Depth 0.2 0.1 -Total Square Cm 1.00 1.00 -Wound/Ulcer Outcome Not Healed Not Healed -Ulcer Cleansing Rinsed/ Rinsed/ Irrigated with Irrigated with Saline Saline -Foul Odor after Cleansing No No -Bioengineered Tissue No Yes -Type of bioengineered Tissue EPIFIX -Expiration Date 05/10/22 -Product Lot Number [id number] -Percent Used 100 -Saline Lot Number [id number] -Bleeding Controlled with Pressure Pressure -Treatment Response Procedure Procedure Tolerated Well Tolerated Well Pain Scale: 0-10 Numeric Is Patient Pain Free? Yes Yes Wound debrided: DFU Type of Debridement: Excisional debridement Anesthesia Used: 5% Lidocaine Gel Depth: Down to and including healthy tissue, in the subcutaneous layer Percentage of wound debrided: 100 Instrument Used: 5mm curette, #15 blade, Forceps, - - Uppers Tissue Removed: Callus and fibrin Severity: Limited To Skin Breakdown Amount of bleeding with debridement: Moderate Bleeding Controlled with: Compression and gauze Patient tolerated procedure well Assessment/Plan Active Problems Diabetic ulcer of right foot associated with diabetes mellitus due to underlying condition (Acute) Infected ulcer of skin (Acute) Edema of lower extremity (Acute) Assessment: Foot DFU right. abscess right fooot. cellulitis. DM II uncontrolled. ?osteomylitis Plan: Fix #1 applied leave dressing alone unless is to change the outer dressing. Offload as much as possible wear the boot when up walking. use the tramadol for the pain as needed. Follow-up in 1 week
[2017-08-27 12:50] VITALS: BP 150/99; PULSE 91; RESP 16; TEMP 36.2
--- NOTE | 2017-08-27 13:31 | PCM.WC.PN ---
(1) Diabetic ulcer of right foot associated with diabetes mellitus due to underlying condition Status: Acute Current Visit: Yes Qualifiers: Diabetic foot ulcer location: midfoot Code(s): E08.621 - Diabetes mellitus due to underlying condition with foot ulcer; L97.519 - Non-pressure chronic ulcer of other part of right foot with unspecified severity (2) Edema of lower extremity Status: Acute Current Visit: Yes Code(s): R60.0 - Localized edema (3) Infected ulcer of skin Status: Acute Current Visit: Yes Code(s): L98.499 - Non-pressure chronic ulcer of skin of other sites with unspecified severity; L08.9 - Local infection of the skin and subcutaneous tissue, unspecified Type of Wound Date of Service: 08/27/17 Chief Complaint: Follow-up right foot ulcer History of Wound: 76-year-old white female that has had a callus on the bottom of her right foot for 2 years. Has been having it pared down and monitored by podiatry. Last few months it is become infected and now a blister has appear going up towards her right great toe plantar side and she has a red streak going up her calf. Patient complains of severe pain in the leg and hard to walk on. Patient suffers from spinal stenosis is not very ambulatory and is extremely overweight she is diabetic and controlled. The abscess on the bottom of the foot is soft and fluctuant and will be I&D today with the wash of Hibiclens and then numbing with 1% with epi to the area I indeed with a #15 blade repaired and removed the abscess sac. Tolerated procedure well pack the area with iodoform gauze 1/2 inch. We will start her on oral antibiotics until cultures return of levofloxacin 751 p.o. daily and metronidazole 250 mg 1 p.o. 3 times daily ?10 days patient is to completely offload foot at this point. Patient will follow up next week with Dr. Serrano and then the following week she will return to me. Also has a growth on the left lateral lower leg that appears to be very friable and punctuated round raised fast-growing cancer that I was unable to remove because of the largeness of its circumference. 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 07/13--Pt known to me from visits in my office as well as previous wound care visits at [facility] with recurrent ulceration of R forefoot (recently healed at [facility] wound center). Pt was seen last week with recurrent infected ulceration of R plantar foot. She is unsure how it re-opened. She has been taking Levaquin and Flagyl PO, being changed today to Augmentin by Varsha Serna CNP based on culture results (she is stopping Levaquin). Denies N/V/F/C. Appearance and measurements improved dramatically. Progress of Wound: The ulcer this week is less than half the size from last week. Still developing a callus around the ulcer that has to be pared down with a 15 blade. Still getting fitted for proper boot for her right leg. Patient was prescribed some tramadol will run and orders on her in my office for her to get up and walk with the boot on. No odor no rednness. The fix #2 applied to right foot DFU - Physical Exam Vital Signs Temp Pulse Resp BP 97.1 F L 91 16 150/99 H 08/27/17 12:50 08/27/17 12:50 08/27/17 12:50 08/27/17 12:50 General: Oriented x3, Cooperative, Well developed HEENT: Atraumatic, PERRLA Oral: Moist Mucosa Neck: Supple, No JVD Lungs: Clear to auscultation, Normal air movement Cardiovascular: Regular rate, Regular Rhythm Abdomen: Bowel Sounds Present, Soft, Non Tender, No Hepato-splenomegaly Extremities: No clubbing, No edema, - - Right foot DFU Wound Measurements and Assessment WC - Nurse 1 - General Ulcer Measurement Start: 08/13/17 11:30 Freq: Status: Active Protocol: Activity Type Activity Date Activity User E-Sign Co-Sign Detail Recorded Client Recorded Date Recorded By Document 08/27/17 12:50 [facility] [id number] 08/27/17 13:01 [facility] 08/27/17 12:50 Wound Center Nurse 1 [Ulcer Assessment] #1- RT FOOT PLANTAR ASPECT -Combined with other wound No -Current Size (cm) - Length 0.7 -Current Size (cm) - Width 0.5 -Current Size (cm) - Depth 0.3 -Total Square Cm 0.35 -Photo Taken No -Epithelialization Small 1-33% -Tunneling No -Undermining/Tunneling No -Circular Undermining No -Exudate Amt Large (67-100%) -Exudate Type Serosanguineous -Wound Margin Distinct, Outline Attached -Granulation Amt Large (67-100%) -Granulation Quality Red -Slough/Fibrin Yes -Necrosis Amt None Present (0 %) -Necrotic Tissue Type Eschar -Texture (Faby-wound Skin Appearance) Callus Scarring -Moisture (Faby-wound Skin Appearance Dry/Scaly ) -Color (Faby-wound Skin Appearance) Assessed Palor -Temperature (Faby-wound Skin No Abnormality Appearance) (Pt Warm) -Tenderness on Palpation (Faby-wound No Skin Appearance) -Ulcer Cleansing Rinsed/ Irrigated with Saline -Foul Odor after Cleansing No -Anesthetic Used 5% Lidocaine Gel WC - Nurse 2 - General Ulcer CM Notes Start: 08/13/17 11:30 Freq: Status: Active Protocol: Activity Type Activity Date Activity User E-Sign Co-Sign Detail Recorded Client Recorded Date Recorded By Document 08/27/17 13:16 MW [id number] 08/27/17 13:27 MW 08/27/17 13:16 Wound Center Nurse 2 [Procedure/Treatment] -Time 13:17 -Correct Patient Yes -Correct Side, Site, Position Yes -Correct Procedure Yes -Procedure Performed Yes -Type of Procedure Debridement -Clinical Debridement Subcutaneous -Post Debridement Size (cm) - Length 0.4 -Post Debridement Size (cm) - Width 0.3 -Post Debridement Size (cm) - Depth 0.2 -Total Square Cm 0.12 -Wound/Ulcer Outcome Not Healed -Ulcer Cleansing Rinsed/ Irrigated with Saline -Foul Odor after Cleansing No -Bioengineered Tissue Yes -Type of bioengineered Tissue EPIFIX -Expiration Date 05/10/22 -Product Lot Number [id number] -Percent Used 100 -Saline Lot Number [id number] -Bleeding Controlled with Pressure -Treatment Response Procedure Tolerated Well [See Physician Procedure note for Specifics] Pain Scale: 0-10 Numeric [Pain] -Is Patient Pain Free? Yes Musculoskeletal: No Tenderness to Palpation of Joints or Extremities Lymphatic: No Cervical, Supraclavicular, or Inguinal Adenopathy Neurological: Cranial nerves II-XII grossly intact, Neuro grossly intact Psych/Mental Status: Normal Affect, Appropriate, Alert and oriented to time, place, person, mood and affect Debridement Note Post-Debridement Measurements/Treatment WC - Nurse 2 - General Ulcer CM Notes Start: 08/13/17 11:30 Freq: Status: Active Protocol: Activity Type Activity Date Activity User E-Sign Co-Sign Detail Recorded Client Recorded Date Recorded By Document 08/13/17 12:03 MW [id number] 08/13/17 12:10 MW Document 08/20/17 12:45 MW [id number] 08/20/17 12:58 MW Document 08/27/17 13:16 MW [id number] 08/27/17 13:27 MW 08/13/17 08/20/17 08/27/17 12:03 12:45 13:16 Wound Center Nurse 2 #1- RT FOOT PLANTAR ASPECT -Time 12:04 12:46 13:17 -Correct Patient Yes Yes Yes -Correct Side, Site, Position Yes Yes Yes -Correct Procedure Yes Yes Yes -Procedure Performed Yes Yes Yes -Type of Procedure Debridement Debridement Debridement -Clinical Debridement Subcutaneous Subcutaneous Subcutaneous -Post Debridement Size (cm) - Length 1.0 1.0 0.4 -Post Debridement Size (cm) - Width 1.0 1.0 0.3 -Post Debridement Size (cm) - Depth 0.2 0.1 0.2 -Total Square Cm 1.00 1.00 0.12 -Wound/Ulcer Outcome Not Healed Not Healed Not Healed -Ulcer Cleansing Rinsed/ Rinsed/ Rinsed/ Irrigated with Irrigated with Irrigated with Saline Saline Saline -Foul Odor after Cleansing No No No -Bioengineered Tissue No Yes Yes -Type of bioengineered Tissue EPIFIX EPIFIX -Expiration Date 05/10/22 05/10/22 -Product Lot Number [id number] -Percent Used 100 100 -Saline Lot Number [id number] -Bleeding Controlled with Pressure Pressure Pressure -Treatment Response Procedure Procedure Procedure Tolerated Well Tolerated Well Tolerated Well Pain Scale: 0-10 Numeric Is Patient Pain Free? Yes Yes Yes Wound debrided: DFU Type of Debridement: Excisional debridement Anesthesia Used: 5% Lidocaine Gel Depth: Down to and including healthy tissue, in the subcutaneous layer Percentage of wound debrided: 100 Instrument Used: 3mm curette, #15 blade Tissue Removed: Callus and fibrin Severity: Limited To Skin Breakdown Amount of bleeding with debridement: Moderate Bleeding Controlled with: Compression and gauze Patient tolerated procedure well Assessment/Plan Active Problems Diabetic ulcer of right foot associated with diabetes mellitus due to underlying condition (Acute) Infected ulcer of skin (Acute) Edema of lower extremity (Acute) Assessment: Foot DFU right. abscess right fooot. cellulitis. DM II uncontrolled. ?osteomylitis Plan: Fix #2 applied leave dressing alone for 1 week. And start using her gel Adaptic gauze dressing. Low up in 2 weeks. Offload as much as possible wear the boot when up walking. use the tramadol for the pain as needed
--- NOTE | 2017-08-27 13:36 | PN.PCM_ITS ---
(1) Diabetic ulcer of right foot associated with diabetes mellitus due to underlying condition Status: Acute Current Visit: Yes Qualifiers: Diabetic foot ulcer location: midfoot Code(s): E08.621 - Diabetes mellitus due to underlying condition with foot ulcer ; L97.519 - Non-pressure chronic ulcer of other part of right foot with unspecified severity (2) Edema of lower extremity Status: Acute Current Visit: Yes Code(s): R60.0 - Localized edema (3) Infected ulcer of skin Status: Acute Current Visit: Yes Code(s): L98.499 - Non-pressure chronic ulcer of skin of other sites with unspecified severity; L08.9 - Local infection of the skin and subcutaneous tissue, unspecified Type of Wound Date of Service: 08/27/17 Chief Complaint: Follow-up right foot ulcer History of Wound: 76-year-old white female that has had a callus on the bottom of her right foot for 2 years. Has been having it pared down and monitored by podiatry. Last few months it is become infected and now a blister has appear going up towards her right great toe plantar side and she has a red streak going up her calf. Patient complains of severe pain in the leg and hard to walk on. Patient suffers from spinal stenosis is not very ambulatory and is extremely overweight she is diabetic and controlled. The abscess on the bottom of the foot is soft and fluctuant and will be I&D today with the wash of Hibiclens and then numbing with 1% with epi to the area I indeed with a #15 blade repaired and removed the abscess sac. Tolerated procedure well pack the area with iodoform gauze 1/2 inch. We will start her on oral antibiotics until cultures return of levofloxacin 751 p.o. daily and metronidazole 250 mg 1 p.o. 3 times daily ?10 days patient is to completely offload foot at this point. Patient will follow up next week with Dr. Serrano and then the following week she will return to me. Also has a growth on the left lateral lower leg that appears to be very friable and punctuated round raised fast-growing cancer that I was unable to remove because of the largeness of its circumference. 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 Galo in [place] also could follow. 07/13 --Pt known to me from visits in my office as well as previous wound care visits at [facility] with recurrent ulceration of R forefoot (recently healed at [facility] wound center). Pt was seen last week with recurrent infected ulceration of R plantar foot. She is unsure how it re-opened. She has been taking Levaquin and Flagyl PO, being changed today to Augmentin by Varsha Serna CNP based on culture results (she is stopping Levaquin). Denies N/V /F/C. Appearance and measurements improved dramatically. Progress of Wound: The ulcer this week is less than half the size from last week. Still developing a callus around the ulcer that has to be pared down with a 15 blade. Still getting fitted for proper boot for her right leg. Patient was prescribed some tramadol will run and orders on her in my office for her to get up and walk with the boot on. No odor no rednness. The fix #2 applied to right foot DFU - Physical Exam Vital Signs Temp Pulse Resp BP 97.1 F L 91 16 150/99 H 08/27/17 12:50 08/27/17 12:50 08/27/17 12:50 08/27/17 12:50 General: Oriented x3, Cooperative, Well developed HEENT: Atraumatic, PERRLA Oral: Moist Mucosa Neck: Supple, No JVD Lungs: Clear to auscultation, Normal air movement Cardiovascular: Regular rate, Regular Rhythm Abdomen: Bowel Sounds Present, Soft, Non Tender, No Hepato-splenomegaly Extremities: No clubbing, No edema, - - Right foot DFU Wound Measurements and Assessment WC - Nurse 1 - General Ulcer Measurement Start: 08/13/17 11:30 Freq: Status: Active Protocol: Activity Type Activity Date Activity User E-Sign Co-Sign Detail Recorded Client Recorded Date Recorded By Document 08/27/17 12:50 [facility] [id number] 08/27/17 13:01 [facility] 08/27/17 12:50 Wound Center Nurse 1 [Ulcer Assessment] #1- RT FOOT PLANTAR ASPECT -Combined with other wound No -Current Size (cm) - Length 0.7 -Current Size (cm) - Width 0.5 -Current Size (cm) - Depth 0.3 -Total Square Cm 0.35 -Photo Taken No -Epithelialization Small 1-33% -Tunneling No -Undermining/Tunneling No -Circular Undermining No -Exudate Amt Large (67-100%) -Exudate Type Serosanguineous -Wound Margin Distinct, Outline Attached -Granulation Amt Large (67-100%) -Granulation Quality Red -Slough/Fibrin Yes -Necrosis Amt None Present (0 %) -Necrotic Tissue Type Eschar -Texture (Faby-wound Skin Appearance) Callus Scarring -Moisture (Faby-wound Skin Appearance Dry/Scaly ) -Color (Faby-wound Skin Appearance) Assessed Palor -Temperature (Faby-wound Skin No Abnormality Appearance) (Pt Warm) -Tenderness on Palpation (Faby-wound No Skin Appearance) -Ulcer Cleansing Rinsed/ Irrigated with Saline -Foul Odor after Cleansing No -Anesthetic Used 5% Lidocaine Gel WC - Nurse 2 - General Ulcer CM Notes Start: 08/13/17 11:30 Freq: Status: Active Protocol: Activity Type Activity Date Activity User E-Sign Co-Sign Detail Recorded Client Recorded Date Recorded By Document 08/27/17 13:16 MW [id number] 08/27/17 13:27 MW 08/27/17 13:16 Wound Center Nurse 2 [Procedure/Treatment] -Time 13:17 -Correct Patient Yes -Correct Side, Site, Position Yes -Correct Procedure Yes -Procedure Performed Yes -Type of Procedure Debridement -Clinical Debridement Subcutaneous -Post Debridement Size (cm) - Length 0.4 -Post Debridement Size (cm) - Width 0.3 -Post Debridement Size (cm) - Depth 0.2 -Total Square Cm 0.12 -Wound/Ulcer Outcome Not Healed -Ulcer Cleansing Rinsed/ Irrigated with Saline -Foul Odor after Cleansing No -Bioengineered Tissue Yes -Type of bioengineered Tissue EPIFIX -Expiration Date 05/10/22 -Product Lot Number [id number] -Percent Used 100 -Saline Lot Number [id number] -Bleeding Controlled with Pressure -Treatment Response Procedure Tolerated Well [See Physician Procedure note for Specifics] Pain Scale: 0-10 Numeric [Pain] -Is Patient Pain Free? Yes Musculoskeletal: No Tenderness to Palpation of Joints or Extremities Lymphatic: No Cervical, Supraclavicular, or Inguinal Adenopathy Neurological: Cranial nerves II-XII grossly intact, Neuro grossly intact Psych/Mental Status: Normal Affect, Appropriate, Alert and oriented to time, place, person, mood and affect Debridement Note Post-Debridement Measurements/Treatment WC - Nurse 2 - General Ulcer CM Notes Start: 08/13/17 11:30 Freq: Status: Active Protocol: Activity Type Activity Date Activity User E-Sign Co-Sign Detail Recorded Client Recorded Date Recorded By Document 08/13/17 12:03 MW [id number] 08/13/17 12:10 MW Document 08/20/17 12:45 MW [id number] 08/20/17 12:58 MW Document 08/27/17 13:16 MW [id number] 08/27/17 13:27 MW 08/13/17 08/20/17 08/27/17 12:03 12:45 13:16 Wound Center Nurse 2 #1- RT FOOT PLANTAR ASPECT -Time 12:04 12:46 13:17 -Correct Patient Yes Yes Yes -Correct Side, Site, Position Yes Yes Yes -Correct Procedure Yes Yes Yes -Procedure Performed Yes Yes Yes -Type of Procedure Debridement Debridement Debridement -Clinical Debridement Subcutaneous Subcutaneous Subcutaneous -Post Debridement Size (cm) - Length 1.0 1.0 0.4 -Post Debridement Size (cm) - Width 1.0 1.0 0.3 -Post Debridement Size (cm) - Depth 0.2 0.1 0.2 -Total Square Cm 1.00 1.00 0.12 -Wound/Ulcer Outcome Not Healed Not Healed Not Healed -Ulcer Cleansing Rinsed/ Rinsed/ Rinsed/ Irrigated with Irrigated with Irrigated with Saline Saline Saline -Foul Odor after Cleansing No No No -Bioengineered Tissue No Yes Yes -Type of bioengineered Tissue EPIFIX EPIFIX -Expiration Date 05/10/22 05/10/22 -Product Lot Number [id number] -Percent Used 100 100 -Saline Lot Number [id number] -Bleeding Controlled with Pressure Pressure Pressure -Treatment Response Procedure Procedure Procedure Tolerated Well Tolerated Well Tolerated Well Pain Scale: 0-10 Numeric Is Patient Pain Free? Yes Yes Yes Wound debrided: DFU Type of Debridement: Excisional debridement Anesthesia Used: 5% Lidocaine Gel Depth: Down to and including healthy tissue, in the subcutaneous layer Percentage of wound debrided: 100 Instrument Used: 3mm curette, #15 blade Tissue Removed: Callus and fibrin Severity: Limited To Skin Breakdown Amount of bleeding with debridement: Moderate Bleeding Controlled with: Compression and gauze Patient tolerated procedure well Assessment/Plan Active Problems Diabetic ulcer of right foot associated with diabetes mellitus due to underlying condition (Acute) Infected ulcer of skin (Acute) Edema of lower extremity (Acute) Assessment: Foot DFU right. abscess right fooot. cellulitis. DM II uncontrolled. ?osteomylitis Plan: Fix #2 applied leave dressing alone for 1 week. And start using her gel Adaptic gauze dressing. Low up in 2 weeks. Offload as much as possible wear the boot when up walking. use the tramadol for the pain as needed
== END 2017-09-06 23:59 ==
LOC: WC 13:00
PROVIDERS: Visit Provider Nurse Practitioner
DX: E11.621 Type 2 diabetes mellitus with foot ulcer (principal); R60.0 Localized edema; L08.9 Local infection of the skin and subcutaneous tissue, unspecified; L97.511 Non-pressure chronic ulcer of other part of right foot limited to breakdown of skin; E11.65 Type 2 diabetes mellitus with hyperglycemia
CPT/HCPCS: 11042; 15271; 15275; Q4131

== ENCOUNTER 2017-10-01 13:00 | Outpatient (RCR) | payer MEDICARE, OTHER, SELFPAY ==
[2017-09-07 00:51] VITALS: PULSE 91; RESP 16; TEMP 36.2
[2017-09-10 13:13] VITALS: BP 157/74; PULSE 79; RESP 16; TEMP 36.1
--- NOTE | 2017-09-10 14:35 | PCM.WC.PN ---
(1) Cellulitis and abscess of foot Status: Acute Current Visit: No Code(s): L03.119 - Cellulitis of unspecified part of limb; L02.619 - Cutaneous abscess of unspecified foot (2) Diabetes 1.5, managed as type 2 Status: Acute Current Visit: Yes Code(s): E10.9 - Type 1 diabetes mellitus without complications (3) Diabetic ulcer of right foot associated with diabetes mellitus due to underlying condition Status: Acute Current Visit: Yes Code(s): E08.621 - Diabetes mellitus due to underlying condition with foot ulcer; L97.519 - Non-pressure chronic ulcer of other part of right foot with unspecified severity (4) Edema of lower extremity Status: Acute Current Visit: Yes Code(s): R60.0 - Localized edema (5) Infected ulcer of skin Status: Acute Current Visit: Yes Code(s): L98.499 - Non-pressure chronic ulcer of skin of other sites with unspecified severity; L08.9 - Local infection of the skin and subcutaneous tissue, unspecified (6) Lumbar back pain with radiculopathy affecting right lower extremity Status: Acute Current Visit: Yes Code(s): M54.17 - Radiculopathy, lumbosacral region (7) Type 2 diabetes mellitus with foot ulcer Status: Acute Current Visit: Yes Code(s): E11.621 - Type 2 diabetes mellitus with foot ulcer; L97.509 - Non-pressure chronic ulcer of other part of unspecified foot with unspecified severity Type of Wound Date of Service: 09/10/17 Chief Complaint: Follow-up right foot ulcer History of Wound: 76-year-old white female that has had a callus on the bottom of her right foot for 2 years. Has been having it pared down and monitored by podiatry. Last few months it is become infected and now a blister has appear going up towards her right great toe plantar side and she has a red streak going up her calf. Patient complains of severe pain in the leg and hard to walk on. Patient suffers from spinal stenosis is not very ambulatory and is extremely overweight she is diabetic and controlled. The abscess on the bottom of the foot is soft and fluctuant and will be I&D today with the wash of Hibiclens and then numbing with 1% with epi to the area I indeed with a #15 blade repaired and removed the abscess sac. Tolerated procedure well pack the area with iodoform gauze 1/2 inch. We will start her on oral antibiotics until cultures return of levofloxacin 751 p.o. daily and metronidazole 250 mg 1 p.o. 3 times daily ?10 days patient is to completely offload foot at this point. Patient will follow up next week with Dr. Serrano and then the following week she will return to me. Also has a growth on the left lateral lower leg that appears to be very friable and punctuated round raised fast-growing cancer that I was unable to remove because of the largeness of its circumference. 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 07/13--Pt known to me from visits in my office as well as previous wound care visits at [facility] with recurrent ulceration of R forefoot (recently healed at [facility] wound center). Pt was seen last week with recurrent infected ulceration of R plantar foot. She is unsure how it re-opened. She has been taking Levaquin and Flagyl PO, being changed today to Augmentin by Varsha Serna CNP based on culture results (she is stopping Levaquin). Denies N/V/F/C. Appearance and measurements improved dramatically. Progress of Wound: The ulcer this week is callused and still has some depth. Paring down around the callus a good 0.3 mm brings the wound more flat. Bleeding was very prominent use surgery gel to control. Applied epi fix #3 to the ulcer. Will try using flatfoot shoe that we can adjust to get her more offloaded off that top of the foot. She still has an appointment Wednesday for the boot that they have been playing around with that never fits her calf. r Patient was prescribed some tramadol developed a urinary tract infection when she takes it and is no longer able to take tramadol. - Physical Exam Vital Signs Temp Pulse Resp BP 96.9 F L 79 16 157/74 H 09/10/17 13:13 09/10/17 13:13 09/10/17 13:13 09/10/17 13:13 General: Oriented x3, Cooperative, Well developed HEENT: Atraumatic, PERRLA Oral: Moist Mucosa Neck: Supple, No JVD Lungs: Clear to auscultation, Normal air movement Cardiovascular: Regular rate, Regular Rhythm Abdomen: Bowel Sounds Present, Soft, Non Tender, No Hepato-splenomegaly Extremities: No clubbing, No edema, - - Foot DFU Wound Measurements and Assessment WC - Nurse 1 - General Ulcer Measurement Start: 09/10/17 13:13 Freq: Status: Active Protocol: Activity Type Activity Date Activity User E-Sign Co-Sign Detail Recorded Client Recorded Date Recorded By Document 09/10/17 13:13 [facility] [id number] 09/10/17 13:22 [facility] 09/10/17 13:13 Wound Center Nurse 1 [Ulcer Assessment] #1- RT FOOT PLANTAR ASPECT -Combined with other wound No -Current Size (cm) - Length 0.8 -Current Size (cm) - Width 0.3 -Current Size (cm) - Depth 0.2 -Total Square Cm 0.24 -Photo Taken No -Epithelialization None Present -Tunneling No -Undermining/Tunneling No -Circular Undermining No -Exudate Amt Small (1-33%) -Exudate Type Serous -Wound Margin Distinct, Outline Attached -Granulation Amt Large (67-100%) -Granulation Quality [place] -Slough/Fibrin No -Necrosis Amt None Present (0 %) -Texture (Faby-wound Skin Appearance) Callus -Moisture (Faby-wound Skin Appearance Maceration ) -Color (Faby-wound Skin Appearance) Palor -Temperature (Faby-wound Skin No Abnormality Appearance) (Pt Warm) -Tenderness on Palpation (Faby-wound No Skin Appearance) -Ulcer Cleansing Rinsed/ Irrigated with Saline -Foul Odor after Cleansing No -Anesthetic Used 5% Lidocaine Gel Musculoskeletal: No Tenderness to Palpation of Joints or Extremities Lymphatic: No Cervical, Supraclavicular, or Inguinal Adenopathy Neurological: Cranial nerves II-XII grossly intact, Neuro grossly intact Psych/Mental Status: Normal Affect, Appropriate, Alert and oriented to time, place, person, mood and affect Debridement Note Wound debrided: Right foot ulcer Type of Debridement: Excisional debridement Anesthesia Used: 5% Lidocaine Gel Depth: Down to and including healthy tissue, in the subcutaneous layer Percentage of wound debrided: 100 Instrument Used: 7mm curette, #15 blade, - - nippers Tissue Removed: Callus and fibrin Severity: Limited To Skin Breakdown Amount of bleeding with debridement: Moderate Bleeding Controlled with: Gel Foam Patient tolerated procedure well Assessment/Plan Active Problems Diabetes 1.5, managed as type 2 (Acute) Diabetic ulcer of right foot associated with diabetes mellitus due to underlying condition (Acute) Infected ulcer of skin (Acute) Edema of lower extremity (Acute) Type 2 diabetes mellitus with foot ulcer (Acute) Lumbar back pain with radiculopathy affecting right lower extremity (Acute) Assessment: Foot DFU right. abscess right fooot. cellulitis. DM II uncontrolled. ?osteomylitis Plan: Fix #3applied leave dressing alone for. Offload as much as possible wear the boot when up walking. Stopped the tramadol use. Follow-up in 1 week
--- NOTE | 2017-09-10 14:42 | PN.PCM_ITS ---
(1) Cellulitis and abscess of foot Status: Acute Current Visit: No Code(s): L03.119 - Cellulitis of unspecified part of limb; L02.619 - Cutaneous abscess of unspecified foot (2) Diabetes 1.5, managed as type 2 Status: Acute Current Visit: Yes Code(s): E10.9 - Type 1 diabetes mellitus without complications (3) Diabetic ulcer of right foot associated with diabetes mellitus due to underlying condition Status: Acute Current Visit: Yes Code(s): E08.621 - Diabetes mellitus due to underlying condition with foot ulcer; L97.519 - Non-pressure chronic ulcer of other part of right foot with unspecified severity (4) Edema of lower extremity Status: Acute Current Visit: Yes Code(s): R60.0 - Localized edema (5) Infected ulcer of skin Status: Acute Current Visit: Yes Code(s): L98.499 - Non-pressure chronic ulcer of skin of other sites with unspecified severity; L08.9 - Local infection of the skin and subcutaneous tissue, unspecified (6) Lumbar back pain with radiculopathy affecting right lower extremity Status: Acute Current Visit: Yes Code(s): M54.17 - Radiculopathy, lumbosacral region (7) Type 2 diabetes mellitus with foot ulcer Status: Acute Current Visit: Yes Code(s): E11.621 - Type 2 diabetes mellitus with foot ulcer; L97.509 - Non-pressure chronic ulcer of other part of unspecified foot with unspecified severity Type of Wound Date of Service: 09/10/17 Chief Complaint: Follow-up right foot ulcer History of Wound: 76-year-old white female that has had a callus on the bottom of her right foot for 2 years. Has been having it pared down and monitored by podiatry. Last few months it is become infected and now a blister has appear going up towards her right great toe plantar side and she has a red streak going up her calf. Patient complains of severe pain in the leg and hard to walk on. Patient suffers from spinal stenosis is not very ambulatory and is extremely overweight she is diabetic and controlled. The abscess on the bottom of the foot is soft and fluctuant and will be I&D today with the wash of Hibiclens and then numbing with 1% with epi to the area I indeed with a #15 blade repaired and removed the abscess sac. Tolerated procedure well pack the area with iodoform gauze 1/2 inch. We will start her on oral antibiotics until cultures return of levofloxacin 751 p.o. daily and metronidazole 250 mg 1 p.o. 3 times daily ?10 days patient is to completely offload foot at this point. Patient will follow up next week with Dr. Serrano and then the following week she will return to me. Also has a growth on the left lateral lower leg that appears to be very friable and punctuated round raised fast-growing cancer that I was unable to remove because of the largeness of its circumference. 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 07/13 --Pt known to me from visits in my office as well as previous wound care visits at [facility] with recurrent ulceration of R forefoot (recently healed at [facility] wound center). Pt was seen last week with recurrent infected ulceration of R plantar foot. She is unsure how it re-opened. She has been taking Levaquin and Flagyl PO, being changed today to Augmentin by Varsha Serna CNP based on culture results (she is stopping Levaquin). Denies N/V /F/C. Appearance and measurements improved dramatically. Progress of Wound: The ulcer this week is callused and still has some depth. Paring down around the callus a good 0.3 mm brings the wound more flat. Bleeding was very prominent use surgery gel to control. Applied epi fix #3 to the ulcer. Will try using flatfoot shoe that we can adjust to get her more offloaded off that top of the foot. She still has an appointment Wednesday for the boot that they have been playing around with that never fits her calf. r Patient was prescribed some tramadol developed a urinary tract infection when she takes it and is no longer able to take tramadol. - Physical Exam Vital Signs Temp Pulse Resp BP 96.9 F L 79 16 157/74 H 09/10/17 13:13 09/10/17 13:13 09/10/17 13:13 09/10/17 13:13 General: Oriented x3, Cooperative, Well developed HEENT: Atraumatic, PERRLA Oral: Moist Mucosa Neck: Supple, No JVD Lungs: Clear to auscultation, Normal air movement Cardiovascular: Regular rate, Regular Rhythm Abdomen: Bowel Sounds Present, Soft, Non Tender, No Hepato-splenomegaly Extremities: No clubbing, No edema, - - Foot DFU Wound Measurements and Assessment WC - Nurse 1 - General Ulcer Measurement Start: 09/10/17 13:13 Freq: Status: Active Protocol: Activity Type Activity Date Activity User E-Sign Co-Sign Detail Recorded Client Recorded Date Recorded By Document 09/10/17 13:13 [facility] [id number] 09/10/17 13:22 [facility] 09/10/17 13:13 Wound Center Nurse 1 [Ulcer Assessment] #1- RT FOOT PLANTAR ASPECT -Combined with other wound No -Current Size (cm) - Length 0.8 -Current Size (cm) - Width 0.3 -Current Size (cm) - Depth 0.2 -Total Square Cm 0.24 -Photo Taken No -Epithelialization None Present -Tunneling No -Undermining/Tunneling No -Circular Undermining No -Exudate Amt Small (1-33%) -Exudate Type Serous -Wound Margin Distinct, Outline Attached -Granulation Amt Large (67-100%) -Granulation Quality [place] -Slough/Fibrin No -Necrosis Amt None Present (0 %) -Texture (Faby-wound Skin Appearance) Callus -Moisture (Faby-wound Skin Appearance Maceration ) -Color (Faby-wound Skin Appearance) Palor -Temperature (Faby-wound Skin No Abnormality Appearance) (Pt Warm) -Tenderness on Palpation (Faby-wound No Skin Appearance) -Ulcer Cleansing Rinsed/ Irrigated with Saline -Foul Odor after Cleansing No -Anesthetic Used 5% Lidocaine Gel Musculoskeletal: No Tenderness to Palpation of Joints or Extremities Lymphatic: No Cervical, Supraclavicular, or Inguinal Adenopathy Neurological: Cranial nerves II-XII grossly intact, Neuro grossly intact Psych/Mental Status: Normal Affect, Appropriate, Alert and oriented to time, place, person, mood and affect Debridement Note Wound debrided: Right foot ulcer Type of Debridement: Excisional debridement Anesthesia Used: 5% Lidocaine Gel Depth: Down to and including healthy tissue, in the subcutaneous layer Percentage of wound debrided: 100 Instrument Used: 7mm curette, #15 blade, - - nippers Tissue Removed: Callus and fibrin Severity: Limited To Skin Breakdown Amount of bleeding with debridement: Moderate Bleeding Controlled with: Gel Foam Patient tolerated procedure well Assessment/Plan Active Problems Diabetes 1.5, managed as type 2 (Acute) Diabetic ulcer of right foot associated with diabetes mellitus due to underlying condition (Acute) Infected ulcer of skin (Acute) Edema of lower extremity (Acute) Type 2 diabetes mellitus with foot ulcer (Acute) Lumbar back pain with radiculopathy affecting right lower extremity (Acute) Assessment: Foot DFU right. abscess right fooot. cellulitis. DM II uncontrolled. ?osteomylitis Plan: Fix #3applied leave dressing alone for. Offload as much as possible wear the boot when up walking. Stopped the tramadol use. Follow-up in 1 week
[2017-09-17 13:35] VITALS: BP 167/89; PULSE 81; RESP 18; TEMP 5318.8; TEMP 9606
--- NOTE | 2017-09-17 15:11 | PCM.WC.PN ---
(1) Ulcer of right foot with fat layer exposed Status: Chronic Current Visit: Yes Code(s): L97.512 - Non-pressure chronic ulcer of other part of right foot with fat layer exposed (2) Hammer toe of right foot Status: Chronic Current Visit: Yes Code(s): M20.41 - Other hammer toe(s) (acquired), right foot (3) Edema of lower extremity Status: Chronic Current Visit: Yes Code(s): R60.0 - Localized edema (4) Type 2 diabetes mellitus with diabetic polyneuropathy Status: Chronic Current Visit: Yes Qualifiers: Diabetes mellitus nursing home insulin use: unspecified nursing home insulin use status Qualified Code(s): E11.42 - Type 2 diabetes mellitus with diabetic polyneuropathy Code(s): E11.42 - Type 2 diabetes mellitus with diabetic polyneuropathy Type of Wound Date of Service: 09/17/17 Chief Complaint: Follow-up right foot ulcer History of Wound: 76-year-old white female that has had a callus on the bottom of her right foot for 2 years. She reports her current wound has been present for about 3 months. She was not able to tolerate her cam walker boot previously provided to take pressure off of this wound site. She now wears a diabetic shoe with protective liner. Her she was very tight and she has extreme pain each time she puts her shoe on. She denies fever, chill, nausea, vomiting. She has multiple sclerosis and spinal stenosis which contribute to gait impairments and ongoing pain. She had a previous infection and was treated with Levaquin and Flagyl and later Augmentin. This has resolved. She denies redness or odor. She is with her today. She had an issue with her previous nutritional supplement because of the vitamin K and her Coumadin use. She asked if there are other nutritional supplements that do not have vitamin K. She is currently being treated for urinary tract infection (e.coli). She denies new wounds or drainage today. Progress of Wound: The ulcer this week is callused and still has some depth. Paring down around the callus a good 0.3 mm brings the wound more flat. Bleeding was very prominent use surgery gel to control. Applied epi fix #3 to the ulcer. Will try using flatfoot shoe that we can adjust to get her more offloaded off that top of the foot. She still has an appointment Wednesday for the boot that they have been playing around with that never fits her calf. r Patient was prescribed some tramadol developed a urinary tract infection when she takes it and is no longer able to take tramadol. - Physical Exam Vital Signs Temp Pulse Resp BP 9606 F H 81 18 167/89 H 09/17/17 13:35 09/17/17 13:35 09/17/17 13:35 09/17/17 13:35 General: Alert, Oriented x3, Cooperative HEENT: Atraumatic Extremities: No cyanosis, Capillary Refill Less than 3 Seconds, No Calf Tenderness - Negative [place] and Aguiar sign bilateral, Diminished Peripheral Pulses, Edema Skin: Ulcer/ Wound - No purulence, no erythema, streaking, no odor, no acute infection. There is significant maceration to the subsecond metatarsal head ulcer site of the right foot with centralize granulation tissue and spares intermixed fibrous tissue. There is no exposed bone or capsule noted., - - The skin is atrophic and hairless right lower extremity Wound Measurements and Assessment WC - Nurse 1 - General Ulcer Measurement Start: 09/10/17 13:13 Freq: Status: Active Protocol: Activity Type Activity Date Activity User E-Sign Co-Sign Detail Recorded Client Recorded Date Recorded By Document 09/17/17 13:35 [id number] 09/17/17 13:39 09/17/17 13:35 Wound Center Nurse 1 [Ulcer Assessment] #1- RT FOOT PLANTAR ASPECT -Combined with other wound No -Current Size (cm) - Length 3.0 -Current Size (cm) - Width 2.0 -Current Size (cm) - Depth 0.3 -Total Square Cm 6.00 -Photo Taken No -Epithelialization None Present -Tunneling No -Undermining/Tunneling Yes -Undermining/Tunneling Starts (O' 5 clock) -Undermining/Tunneling Ends (O'clock) 12 -Maximum Distance (cm) 0.4 -Circular Undermining No -Classification - Thickness Full Thickness without Exposed Support Structure -Exudate Amt Medium (34-66%) -Exudate Type Serosanguineous -Wound Margin Indistinct, Non -Visible -Granulation Amt None Present (0 %) -Granulation Quality N/A -Slough/Fibrin Yes -Necrosis Amt Large (67-100%) -Necrotic Tissue Type Eschar -Structure Exposed Fascia Fat Layer Exposed -Texture (Faby-wound Skin Appearance) Friable Localized Edema Scarring -Moisture (Faby-wound Skin Appearance Maceration ) -Color (Faby-wound Skin Appearance) No Abnormality -Temperature (Faby-wound Skin No Abnormality Appearance) (Pt Warm) -Tenderness on Palpation (Faby-wound No Skin Appearance) -Ulcer Cleansing Rinsed/ Irrigated with Saline -Foul Odor after Cleansing No -Anesthetic Used 4% Lidocaine Solution [Edema Assessment] -Lower Limb Edema Present Yes -Right Calf (cm) 40.0 -Right Ankle (cm) 26.0 WC - Nurse 2 - General Ulcer CM Notes Start: 09/10/17 13:13 Freq: Status: Active Protocol: Activity Type Activity Date Activity User E-Sign Co-Sign Detail Recorded Client Recorded Date Recorded By Document 09/17/17 14:04 [id number] 09/17/17 14:28 09/17/17 14:04 Wound Center Nurse 2 [Procedure/Treatment] #1- RT FOOT PLANTAR ASPECT -Time 14:05 -Correct Patient Yes -Correct Side, Site, Position Yes -Correct Procedure Yes -Procedure Performed Yes -Type of Procedure Debridement -Clinical Debridement Subcutaneous -Post Debridement Size (cm) - Length 3.1 -Post Debridement Size (cm) - Width 2.1 -Post Debridement Size (cm) - Depth 0.3 -Total Square Cm 6.51 -Wound/Ulcer Outcome Not Healed -Ulcer Cleansing Rinsed/ Irrigated with Saline -Foul Odor after Cleansing No -Bioengineered Tissue Yes -Type of bioengineered Tissue EPIFIX -Expiration Date 07/08/22 -Product Lot Number [id number] -Percent Used 100 -Saline Lot Number [id number] -Topical Lidocaine (%) 4 -Bleeding Controlled with Pressure -Treatment Response Procedure Tolerated Well [See Physician Procedure note for Specifics] Pain Scale: 0-10 Numeric [Pain] -Is Patient Pain Free? Yes Musculoskeletal: No Tenderness to Palpation of Joints or Extremities, Muscle Wasting, Tenderness - Mild wound manipulation pain, - - Dorsal contraction of lesser toes remains rigid to the right foot with very prominent second metatarsal head. The compartments of the right lower extremity remain soft. Neurological: - - Lack of epicritic sensation light touch right lower extremity Psych/Mental Status: Normal Affect, Appropriate Debridement Note Post-Debridement Measurements/Treatment WC - Nurse 2 - General Ulcer CM Notes Start: 09/10/17 13:13 Freq: Status: Active Protocol: Activity Type Activity Date Activity User E-Sign Co-Sign Detail Recorded Client Recorded Date Recorded By Document 09/17/17 14:04 [id number] 09/17/17 14:28 09/17/17 14:04 Wound Center Nurse 2 #1- RT FOOT PLANTAR ASPECT -Time 14:05 -Correct Patient Yes -Correct Side, Site, Position Yes -Correct Procedure Yes -Procedure Performed Yes -Type of Procedure Debridement -Clinical Debridement Subcutaneous -Post Debridement Size (cm) - Length 3.1 -Post Debridement Size (cm) - Width 2.1 -Post Debridement Size (cm) - Depth 0.3 -Total Square Cm 6.51 -Wound/Ulcer Outcome Not Healed -Ulcer Cleansing Rinsed/ Irrigated with Saline -Foul Odor after Cleansing No -Bioengineered Tissue Yes -Type of bioengineered Tissue EPIFIX -Expiration Date 07/08/22 -Product Lot Number [id number] -Percent Used 100 -Saline Lot Number [id number] -Topical Lidocaine (%) 4 -Bleeding Controlled with Pressure -Treatment Response Procedure Tolerated Well Pain Scale: 0-10 Numeric Is Patient Pain Free? Yes Wound debrided: sub 2 metatarsal head Laterality: Right Wound Grade/Stage: grade 1 Type of Debridement: Excisional debridement Anesthesia Used: 5% Lidocaine Gel Depth: in the subcutaneous layer Percentage of wound debrided: 100 Instrument Used: #15 blade Tissue Removed: fibrous, devitalized subcutaneous, biofilm, slough, callous Severity: Fat Layer Exposed Amount of bleeding with debridement: Mild Bleeding Controlled with: Pressure Patient tolerated procedure well Assessment/Plan Active Problems Diabetes 1.5, managed as type 2 (Acute) Diabetic ulcer of right foot associated with diabetes mellitus due to underlying condition (Acute) Infected ulcer of skin (Acute) Edema of lower extremity (Chronic) Type 2 diabetes mellitus with foot ulcer (Acute) Type 2 diabetes mellitus with diabetic polyneuropathy (Chronic) Lumbar back pain with radiculopathy affecting right lower extremity (Acute) Hammer toe of right foot (Chronic) Ulcer of right foot with fat layer exposed (Chronic) Assessment: Foot DFU right - grade 1. abscess right foot - resolved. cellulitis - resolved. DM II uncontrolled with neuropathy. Right foot hammertoe. Suspected malnutrition. Plan: I reviewed and discussed her case today with the patient and her . I reviewed her previous wound care center notes. Her ulcer site was debrided as noted in the clinical panel. Pressure was applied to maintain hemostasis. Her fourth epi fix was applied today according to standard protocol. The indications, and anticipated healing time and management were discussed in detail. Verbal consent was obtained and she tolerated this well. This was secured in place with Steri-Strips and wound veil. A secondary dressing was applied. We discussed the need for improved compliance with offloading to move towards wound healing. She has not been able tolerate a cam walker in the past. I offered her a prescription for an offloading surgical shoe with dual density Plastizote liners with accommodative pockets. To continue to use the walker and avoid placing pressure on her forefoot. Her daughter is mailing her offloading device and she wants to try that first. I recommended the patient bring this in for evaluation to make sure it is appropriate. I recommended an advanced nutritional supplement, Yomi which is not complete obtain vitamin K. A prescription was provided. She was reassured there are no signs of acute infection. To return to the wound care center 1 week or call sooner if she has any questions or concerns. I answered all her questions. She defers a shower bag prescription today.
--- NOTE | 2017-09-17 15:18 | PN.PCM_ITS ---
(1) Ulcer of right foot with fat layer exposed Status: Chronic Current Visit: Yes Code(s): L97.512 - Non-pressure chronic ulcer of other part of right foot with fat layer exposed (2) Hammer toe of right foot Status: Chronic Current Visit: Yes Code(s): M20.41 - Other hammer toe(s) ( acquired), right foot (3) Edema of lower extremity Status: Chronic Current Visit: Yes Code(s): R60.0 - Localized edema (4) Type 2 diabetes mellitus with diabetic polyneuropathy Status: Chronic Current Visit: Yes Qualifiers: Diabetes mellitus termite inspector insulin use: unspecified intermediate insulin use status Qualified Code(s): E11.42 - Type 2 diabetes mellitus with diabetic polyneuropathy Code(s): E11.42 - Type 2 diabetes mellitus with diabetic polyneuropathy Type of Wound Date of Service: 09/17/17 Chief Complaint: Follow-up right foot ulcer History of Wound: 76-year-old white female that has had a callus on the bottom of her right foot for 2 years. She reports her current wound has been present for about 3 months. She was not able to tolerate her cam walker boot previously provided to take pressure off of this wound site. She now wears a diabetic shoe with protective liner. Her she was very tight and she has extreme pain each time she puts her shoe on. She denies fever, chill, nausea, vomiting. She has multiple sclerosis and spinal stenosis which contribute to gait impairments and ongoing pain. She had a previous infection and was treated with Levaquin and Flagyl and later Augmentin. This has resolved. She denies redness or odor. She is with her today. She had an issue with her previous nutritional supplement because of the vitamin K and her Coumadin use. She asked if there are other nutritional supplements that do not have vitamin K. She is currently being treated for urinary tract infection (e.coli) . She denies new wounds or drainage today. Progress of Wound: The ulcer this week is callused and still has some depth. Paring down around the callus a good 0.3 mm brings the wound more flat. Bleeding was very prominent use surgery gel to control. Applied epi fix #3 to the ulcer. Will try using flatfoot shoe that we can adjust to get her more offloaded off that top of the foot. She still has an appointment Wednesday for the boot that they have been playing around with that never fits her calf. r Patient was prescribed some tramadol developed a urinary tract infection when she takes it and is no longer able to take tramadol. - Physical Exam Vital Signs Temp Pulse Resp BP 9606 F H 81 18 167/89 H 09/17/17 13:35 09/17/17 13:35 09/17/17 13:35 09/17/17 13:35 General: Alert, Oriented x3, Cooperative HEENT: Atraumatic Extremities: No cyanosis, Capillary Refill Less than 3 Seconds, No Calf Tenderness - Negative [place] and Aguiar sign bilateral, Diminished Peripheral Pulses, Edema Skin: Ulcer/ Wound - No purulence, no erythema, streaking, no odor, no acute infection. There is significant maceration to the subsecond metatarsal head ulcer site of the right foot with centralize granulation tissue and spares intermixed fibrous tissue. There is no exposed bone or capsule noted., - - The skin is atrophic and hairless right lower extremity Wound Measurements and Assessment WC - Nurse 1 - General Ulcer Measurement Start: 09/10/17 13:13 Freq: Status: Active Protocol: Activity Type Activity Date Activity User E-Sign Co-Sign Detail Recorded Client Recorded Date Recorded By Document 09/17/17 13:35 [id number] 09/17/17 13:39 09/17/17 13:35 Wound Center Nurse 1 [Ulcer Assessment] #1- RT FOOT PLANTAR ASPECT -Combined with other wound No -Current Size (cm) - Length 3.0 -Current Size (cm) - Width 2.0 -Current Size (cm) - Depth 0.3 -Total Square Cm 6.00 -Photo Taken No -Epithelialization None Present -Tunneling No -Undermining/Tunneling Yes -Undermining/Tunneling Starts (O' 5 clock) -Undermining/Tunneling Ends (O'clock) 12 -Maximum Distance (cm) 0.4 -Circular Undermining No -Classification - Thickness Full Thickness without Exposed Support Structure -Exudate Amt Medium (34-66%) -Exudate Type Serosanguineous -Wound Margin Indistinct, Non -Visible -Granulation Amt None Present (0 %) -Granulation Quality N/A -Slough/Fibrin Yes -Necrosis Amt Large (67-100%) -Necrotic Tissue Type Eschar -Structure Exposed Fascia Fat Layer Exposed -Texture (Faby-wound Skin Appearance) Friable Localized Edema Scarring -Moisture (Faby-wound Skin Appearance Maceration ) -Color (Faby-wound Skin Appearance) No Abnormality -Temperature (Faby-wound Skin No Abnormality Appearance) (Pt Warm) -Tenderness on Palpation (Faby-wound No Skin Appearance) -Ulcer Cleansing Rinsed/ Irrigated with Saline -Foul Odor after Cleansing No -Anesthetic Used 4% Lidocaine Solution [Edema Assessment] -Lower Limb Edema Present Yes -Right Calf (cm) 40.0 -Right Ankle (cm) 26.0 WC - Nurse 2 - General Ulcer CM Notes Start: 09/10/17 13:13 Freq: Status: Active Protocol: Activity Type Activity Date Activity User E-Sign Co-Sign Detail Recorded Client Recorded Date Recorded By Document 09/17/17 14:04 [id number] 09/17/17 14:28 09/17/17 14:04 Wound Center Nurse 2 [Procedure/Treatment] #1- RT FOOT PLANTAR ASPECT -Time 14:05 -Correct Patient Yes -Correct Side, Site, Position Yes -Correct Procedure Yes -Procedure Performed Yes -Type of Procedure Debridement -Clinical Debridement Subcutaneous -Post Debridement Size (cm) - Length 3.1 -Post Debridement Size (cm) - Width 2.1 -Post Debridement Size (cm) - Depth 0.3 -Total Square Cm 6.51 -Wound/Ulcer Outcome Not Healed -Ulcer Cleansing Rinsed/ Irrigated with Saline -Foul Odor after Cleansing No -Bioengineered Tissue Yes -Type of bioengineered Tissue EPIFIX -Expiration Date 07/08/22 -Product Lot Number [id number] -Percent Used 100 -Saline Lot Number [id number] -Topical Lidocaine (%) 4 -Bleeding Controlled with Pressure -Treatment Response Procedure Tolerated Well [See Physician Procedure note for Specifics] Pain Scale: 0-10 Numeric [Pain] -Is Patient Pain Free? Yes Musculoskeletal: No Tenderness to Palpation of Joints or Extremities, Muscle Wasting, Tenderness - Mild wound manipulation pain, - - Dorsal contraction of lesser toes remains rigid to the right foot with very prominent second metatarsal head. The compartments of the right lower extremity remain soft. Neurological: - - Lack of epicritic sensation light touch right lower extremity Psych/Mental Status: Normal Affect, Appropriate Debridement Note Post-Debridement Measurements/Treatment WC - Nurse 2 - General Ulcer CM Notes Start: 09/10/17 13:13 Freq: Status: Active Protocol: Activity Type Activity Date Activity User E-Sign Co-Sign Detail Recorded Client Recorded Date Recorded By Document 09/17/17 14:04 [id number] 09/17/17 14:28 09/17/17 14:04 Wound Center Nurse 2 #1- RT FOOT PLANTAR ASPECT -Time 14:05 -Correct Patient Yes -Correct Side, Site, Position Yes -Correct Procedure Yes -Procedure Performed Yes -Type of Procedure Debridement -Clinical Debridement Subcutaneous -Post Debridement Size (cm) - Length 3.1 -Post Debridement Size (cm) - Width 2.1 -Post Debridement Size (cm) - Depth 0.3 -Total Square Cm 6.51 -Wound/Ulcer Outcome Not Healed -Ulcer Cleansing Rinsed/ Irrigated with Saline -Foul Odor after Cleansing No -Bioengineered Tissue Yes -Type of bioengineered Tissue EPIFIX -Expiration Date 07/08/22 -Product Lot Number [id number] -Percent Used 100 -Saline Lot Number [id number] -Topical Lidocaine (%) 4 -Bleeding Controlled with Pressure -Treatment Response Procedure Tolerated Well Pain Scale: 0-10 Numeric Is Patient Pain Free? Yes Wound debrided: sub 2 metatarsal head Laterality: Right Wound Grade/Stage: grade 1 Type of Debridement: Excisional debridement Anesthesia Used: 5% Lidocaine Gel Depth: in the subcutaneous layer Percentage of wound debrided: 100 Instrument Used: #15 blade Tissue Removed: fibrous, devitalized subcutaneous, biofilm, slough, callous Severity: Fat Layer Exposed Amount of bleeding with debridement: Mild Bleeding Controlled with: Pressure Patient tolerated procedure well Assessment/Plan Active Problems Diabetes 1.5, managed as type 2 (Acute) Diabetic ulcer of right foot associated with diabetes mellitus due to underlying condition (Acute) Infected ulcer of skin (Acute) Edema of lower extremity (Chronic) Type 2 diabetes mellitus with foot ulcer (Acute) Type 2 diabetes mellitus with diabetic polyneuropathy (Chronic) Lumbar back pain with radiculopathy affecting right lower extremity (Acute) Hammer toe of right foot (Chronic) Ulcer of right foot with fat layer exposed (Chronic) Assessment: Foot DFU right - grade 1. abscess right foot - resolved. cellulitis - resolved. DM II uncontrolled with neuropathy. Right foot hammertoe. Suspected malnutrition. Plan: I reviewed and discussed her case today with the patient and her . I reviewed her previous wound care center notes. Her ulcer site was debrided as noted in the clinical panel. Pressure was applied to maintain hemostasis. Her fourth epi fix was applied today according to standard protocol. The indications, and anticipated healing time and management were discussed in detail. Verbal consent was obtained and she tolerated this well. This was secured in place with Steri-Strips and wound veil. A secondary dressing was applied. We discussed the need for improved compliance with offloading to move towards wound healing. She has not been able tolerate a cam walker in the past. I offered her a prescription for an offloading surgical shoe with dual density Plastizote liners with accommodative pockets. To continue to use the walker and avoid placing pressure on her forefoot. Her daughter is mailing her offloading device and she wants to try that first. I recommended the patient bring this in for evaluation to make sure it is appropriate. I recommended an advanced nutritional supplement, Yomi which is not complete obtain vitamin K. A prescription was provided. She was reassured there are no signs of acute infection. To return to the wound care center 1 week or call sooner if she has any questions or concerns. I answered all her questions. She defers a shower bag prescription today.
[2017-09-24 14:06] VITALS: BP 148/71; PULSE 80; RESP 18; TEMP 36.4
--- NOTE | 2017-09-27 10:05 | PCM.WC.PN ---
(1) Cellulitis and abscess of foot Status: Acute Code(s): L03.119 - Cellulitis of unspecified part of limb; L02.619 - Cutaneous abscess of unspecified foot (2) Diabetes 1.5, managed as type 2 Status: Acute Code(s): E10.9 - Type 1 diabetes mellitus without complications (3) Diabetic ulcer of right foot associated with diabetes mellitus due to underlying condition Status: Acute Code(s): E08.621 - Diabetes mellitus due to underlying condition with foot ulcer; L97.519 - Non-pressure chronic ulcer of other part of right foot with unspecified severity (4) Edema of lower extremity Status: Chronic Code(s): R60.0 - Localized edema (5) Infected ulcer of skin Status: Acute Code(s): L98.499 - Non-pressure chronic ulcer of skin of other sites with unspecified severity; L08.9 - Local infection of the skin and subcutaneous tissue, unspecified (6) Lumbar back pain with radiculopathy affecting right lower extremity Status: Chronic Code(s): M54.17 - Radiculopathy, lumbosacral region (7) Type 2 diabetes mellitus with foot ulcer Status: Chronic Code(s): E11.621 - Type 2 diabetes mellitus with foot ulcer; L97.509 - Non-pressure chronic ulcer of other part of unspecified foot with unspecified severity (8) Multiple sclerosis Status: Chronic Code(s): G35 - Multiple sclerosis Type of Wound Date of Service: 10/01/17 Chief Complaint: Follow-up right foot ulcer History of Wound: 76-year-old white female that has had a callus on the bottom of her right foot for 2 years. She reports her current wound has been present for about 3 months. She was not able to tolerate her cam walker boot previously provided to take pressure off of this wound site. She now wears a diabetic shoe with protective liner. Her she was very tight and she has extreme pain each time she puts her shoe on. She denies fever, chill, nausea, vomiting. She has multiple sclerosis and spinal stenosis which contribute to gait impairments and ongoing pain. She had a previous infection and was treated with Levaquin and Flagyl and later Augmentin. This has resolved. She denies redness or odor. She is with her today. She had an issue with her previous nutritional supplement because of the vitamin K and her Coumadin use. She asked if there are other nutritional supplements that do not have vitamin K. She is currently being treated for urinary tract infection (e.coli). She denies new wounds or drainage today. Progress of Wound: The ulcer this week is callused and still has some depth. Paring down around the callus a good 0.3 mm brings the wound more flat. Bleeding was very prominent use surgery gel to control. Applied epi fix #4 to the ulcer. Will try using flatfoot shoe that we can adjust to get her more offloaded off that top of the foot. She still has an appointment Wednesday for the boot that they have been playing around with that never fits her calf. r Patient was prescribed some tramadol developed a urinary tract infection when she takes it and is no longer able to take tramadol. Patient has MS and has a lot of comorbities whick makes her heal slowly - Physical Exam Vital Signs Temp Pulse Resp BP 97.5 F L 80 18 148/71 H 09/24/17 14:06 09/24/17 14:06 09/24/17 14:06 09/24/17 14:06 General: Oriented x3, Cooperative, Well developed HEENT: Atraumatic, PERRLA Oral: Moist Mucosa Neck: Supple, No JVD Lungs: Clear to auscultation, Normal air movement Cardiovascular: Regular rate, Regular Rhythm Abdomen: Bowel Sounds Present, Soft, Non Tender, No Hepato-splenomegaly Extremities: No clubbing, No edema, - - L foot callus and open ulcer Skin: Ulcer/ Wound Wound Measurements and Assessment WC - Nurse 1 - General Ulcer Measurement Start: 09/10/17 13:13 Freq: Status: Active Protocol: Activity Type Activity Date Activity User E-Sign Co-Sign Detail Recorded Client Recorded Date Recorded By Document 09/24/17 14:06 MOOK [id number] 09/24/17 14:20 MOOK 09/24/17 14:06 Wound Center Nurse 1 [Ulcer Assessment] #1- RT FOOT PLANTAR ASPECT -Combined with other wound No -Current Size (cm) - Length 0.7 -Current Size (cm) - Width 0.3 -Current Size (cm) - Depth 0.1 -Total Square Cm 0.21 -Date of Last Picture (Recall this 09/24/17 field) -Photo Taken Yes -Epithelialization None Present -Tunneling No -Undermining/Tunneling No -Circular Undermining No -Classification - Thickness Full Thickness without Exposed Support Structure -Exudate Amt Small (1-33%) -Exudate Type Serosanguineous -Wound Margin Distinct, Outline Attached -Granulation Amt None Present (0 %) -Granulation Quality N/A -Slough/Fibrin Yes -Necrosis Amt None Present (0 %) -Necrotic Tissue Type Adherent Slough -Structure Exposed Fascia Fat Layer Exposed -Texture (Faby-wound Skin Appearance) Callus -Moisture (Faby-wound Skin Appearance Maceration ) -Color (Faby-wound Skin Appearance) No Abnormality -Temperature (Faby-wound Skin No Abnormality Appearance) (Pt Warm) -Tenderness on Palpation (Faby-wound No Skin Appearance) -Ulcer Cleansing Rinsed/ Irrigated with Saline -Foul Odor after Cleansing No -Anesthetic Used 4% Lidocaine Solution WC - Nurse 2 - General Ulcer CM Notes Start: 09/10/17 13:13 Freq: Status: Active Protocol: Activity Type Activity Date Activity User E-Sign Co-Sign Detail Recorded Client Recorded Date Recorded By Document 09/24/17 14:53 [id number] 09/24/17 15:01 09/24/17 14:53 Wound Center Nurse 2 [Procedure/Treatment] -Time 14:53 -Correct Patient Yes -Correct Side, Site, Position Yes -Correct Procedure Yes -Procedure Performed Yes -Type of Procedure Debridement -Clinical Debridement Subcutaneous -Post Debridement Size (cm) - Length 0.8 -Post Debridement Size (cm) - Width 0.3 -Post Debridement Size (cm) - Depth 0.2 -Total Square Cm 0.24 -Wound/Ulcer Outcome Not Healed -Ulcer Cleansing Rinsed/ Irrigated with Saline -Foul Odor after Cleansing No -Bioengineered Tissue Yes -Type of bioengineered Tissue EPIFIX -Expiration Date 05/12/22 -Product Lot Number [id number] -Percent Used 100 -Saline Lot Number [id number] -Topical Lidocaine (%) 4 -Lidocaine (ml) 5 -Bleeding Controlled with NA -Treatment Response Procedure Tolerated Well [See Physician Procedure note for Specifics] Pain Scale: 0-10 Numeric [Pain] -Is Patient Pain Free? Yes Musculoskeletal: No Tenderness to Palpation of Joints or Extremities Lymphatic: No Cervical, Supraclavicular, or Inguinal Adenopathy Neurological: Cranial nerves II-XII grossly intact, Neuro grossly intact Psych/Mental Status: Normal Affect, Appropriate Debridement Note Post-Debridement Measurements/Treatment WC - Nurse 2 - General Ulcer CM Notes Start: 09/10/17 13:13 Freq: Status: Active Protocol: Activity Type Activity Date Activity User E-Sign Co-Sign Detail Recorded Client Recorded Date Recorded By Document 09/17/17 14:04 TM [id number] 09/17/17 14:28 Document 09/24/17 14:53 [id number] 09/24/17 15:01 09/17/17 09/24/17 14:04 14:53 Wound Center Nurse 2 #1- RT FOOT PLANTAR ASPECT -Time 14:05 14:53 -Correct Patient Yes Yes -Correct Side, Site, Position Yes Yes -Correct Procedure Yes Yes -Procedure Performed Yes Yes -Type of Procedure Debridement Debridement -Clinical Debridement Subcutaneous Subcutaneous -Post Debridement Size (cm) - Length 3.1 0.8 -Post Debridement Size (cm) - Width 2.1 0.3 -Post Debridement Size (cm) - Depth 0.3 0.2 -Total Square Cm 6.51 0.24 -Wound/Ulcer Outcome Not Healed Not Healed -Ulcer Cleansing Rinsed/ Rinsed/ Irrigated with Irrigated with Saline Saline -Foul Odor after Cleansing No No -Bioengineered Tissue Yes Yes -Type of bioengineered Tissue EPIFIX EPIFIX -Expiration Date 07/08/22 05/12/22 -Product Lot Number [id number] -Percent Used 100 100 -Saline Lot Number [id number] -Topical Lidocaine (%) 4 4 -Lidocaine (ml) 5 -Bleeding Controlled with Pressure NA -Treatment Response Procedure Procedure Tolerated Well Tolerated Well Pain Scale: 0-10 Numeric Is Patient Pain Free? Yes Yes Wound debrided: L DFU Wound Grade/Stage: mikael 2 Type of Debridement: Excisional debridement Anesthesia Used: 5% Lidocaine Gel Depth: Down to and including healthy tissue Percentage of wound debrided: 100 Instrument Used: 7mm curette, #15 blade Tissue Removed: callus and fibrin Severity: Limited To Skin Breakdown Amount of bleeding with debridement: Moderate Bleeding Controlled with: Compression and gauze Patient tolerated procedure well Assessment/Plan Assessment: Foot DFU right - grade 2. abscess right foot - resolved. cellulitis - resolved. DM II uncontrolled with neuropathy. Right foot hammertoe. Suspected malnutrition. Plan: I reviewed and discussed her case today with the patient and her . I reviewed her previous wound care center notes. Her ulcer site was debrided as noted in the clinical panel. Pressure was applied to maintain hemostasis. Her 5th epi fix was applied today according to standard protocol. The indications, and anticipated healing time and management were discussed in detail. Verbal consent was obtained and she tolerated this well. This was secured in place with Steri-Strips and wound veil. A secondary dressing was applied. They have obtained a special shoe to help with offloading of the area and it is making a difference the callus is so much better . We discussed the need for improved compliance with offloading to move towards wound healing. She has not been able tolerate a cam walker in the past. To continue to use the walker and avoid placing pressure on her forefoot. I recommended the patient bring this in for evaluation to make sure it is appropriate. I recommended an advanced nutritional supplement, Yomi which is not complete obtain vitamin K. A prescription was provided. She was reassured there are no signs of acute infection. To return to the wound care center 1 week or call sooner if she has any questions or concerns. I answered all her questions. She defers a shower bag prescription today.
--- NOTE | 2017-09-27 10:16 | PN.PCM_ITS ---
(1) Cellulitis and abscess of foot Status: Acute Code(s): L03.119 - Cellulitis of unspecified part of limb; L02.619 - Cutaneous abscess of unspecified foot (2) Diabetes 1.5, managed as type 2 Status: Acute Code(s): E10.9 - Type 1 diabetes mellitus without complications (3) Diabetic ulcer of right foot associated with diabetes mellitus due to underlying condition Status: Acute Code(s): E08.621 - Diabetes mellitus due to underlying condition with foot ulcer; L97.519 - Non-pressure chronic ulcer of other part of right foot with unspecified severity (4) Edema of lower extremity Status: Chronic Code(s): R60.0 - Localized edema (5) Infected ulcer of skin Status: Acute Code(s): L98.499 - Non-pressure chronic ulcer of skin of other sites with unspecified severity; L08.9 - Local infection of the skin and subcutaneous tissue, unspecified (6) Lumbar back pain with radiculopathy affecting right lower extremity Status: Chronic Code(s): M54.17 - Radiculopathy, lumbosacral region (7) Type 2 diabetes mellitus with foot ulcer Status: Chronic Code(s): E11.621 - Type 2 diabetes mellitus with foot ulcer; L97.509 - Non-pressure chronic ulcer of other part of unspecified foot with unspecified severity (8) Multiple sclerosis Status: Chronic Code(s): G35 - Multiple sclerosis Type of Wound Date of Service: 10/01/17 Chief Complaint: Follow-up right foot ulcer History of Wound: 76-year-old white female that has had a callus on the bottom of her right foot for 2 years. She reports her current wound has been present for about 3 months. She was not able to tolerate her cam walker boot previously provided to take pressure off of this wound site. She now wears a diabetic shoe with protective liner. Her she was very tight and she has extreme pain each time she puts her shoe on. She denies fever, chill, nausea, vomiting. She has multiple sclerosis and spinal stenosis which contribute to gait impairments and ongoing pain. She had a previous infection and was treated with Levaquin and Flagyl and later Augmentin. This has resolved. She denies redness or odor. She is with her today. She had an issue with her previous nutritional supplement because of the vitamin K and her Coumadin use. She asked if there are other nutritional supplements that do not have vitamin K. She is currently being treated for urinary tract infection (e.coli) . She denies new wounds or drainage today. Progress of Wound: The ulcer this week is callused and still has some depth. Paring down around the callus a good 0.3 mm brings the wound more flat. Bleeding was very prominent use surgery gel to control. Applied epi fix #4 to the ulcer. Will try using flatfoot shoe that we can adjust to get her more offloaded off that top of the foot. She still has an appointment Wednesday for the boot that they have been playing around with that never fits her calf. r Patient was prescribed some tramadol developed a urinary tract infection when she takes it and is no longer able to take tramadol. Patient has MS and has a lot of comorbities whick makes her heal slowly - Physical Exam Vital Signs Temp Pulse Resp BP 97.5 F L 80 18 148/71 H 09/24/17 14:06 09/24/17 14:06 09/24/17 14:06 09/24/17 14:06 General: Oriented x3, Cooperative, Well developed HEENT: Atraumatic, PERRLA Oral: Moist Mucosa Neck: Supple, No JVD Lungs: Clear to auscultation, Normal air movement Cardiovascular: Regular rate, Regular Rhythm Abdomen: Bowel Sounds Present, Soft, Non Tender, No Hepato-splenomegaly Extremities: No clubbing, No edema, - - L foot callus and open ulcer Skin: Ulcer/ Wound Wound Measurements and Assessment WC - Nurse 1 - General Ulcer Measurement Start: 09/10/17 13:13 Freq: Status: Active Protocol: Activity Type Activity Date Activity User E-Sign Co-Sign Detail Recorded Client Recorded Date Recorded By Document 09/24/17 14:06 MOOK [id number] 09/24/17 14:20 MOOK 09/24/17 14:06 Wound Center Nurse 1 [Ulcer Assessment] #1- RT FOOT PLANTAR ASPECT -Combined with other wound No -Current Size (cm) - Length 0.7 -Current Size (cm) - Width 0.3 -Current Size (cm) - Depth 0.1 -Total Square Cm 0.21 -Date of Last Picture (Recall this 09/24/17 field) -Photo Taken Yes -Epithelialization None Present -Tunneling No -Undermining/Tunneling No -Circular Undermining No -Classification - Thickness Full Thickness without Exposed Support Structure -Exudate Amt Small (1-33%) -Exudate Type Serosanguineous -Wound Margin Distinct, Outline Attached -Granulation Amt None Present (0 %) -Granulation Quality N/A -Slough/Fibrin Yes -Necrosis Amt None Present (0 %) -Necrotic Tissue Type Adherent Slough -Structure Exposed Fascia Fat Layer Exposed -Texture (Faby-wound Skin Appearance) Callus -Moisture (Faby-wound Skin Appearance Maceration ) -Color (Faby-wound Skin Appearance) No Abnormality -Temperature (Faby-wound Skin No Abnormality Appearance) (Pt Warm) -Tenderness on Palpation (Faby-wound No Skin Appearance) -Ulcer Cleansing Rinsed/ Irrigated with Saline -Foul Odor after Cleansing No -Anesthetic Used 4% Lidocaine Solution WC - Nurse 2 - General Ulcer CM Notes Start: 09/10/17 13:13 Freq: Status: Active Protocol: Activity Type Activity Date Activity User E-Sign Co-Sign Detail Recorded Client Recorded Date Recorded By Document 09/24/17 14:53 [id number] 09/24/17 15:01 09/24/17 14:53 Wound Center Nurse 2 [Procedure/Treatment] -Time 14:53 -Correct Patient Yes -Correct Side, Site, Position Yes -Correct Procedure Yes -Procedure Performed Yes -Type of Procedure Debridement -Clinical Debridement Subcutaneous -Post Debridement Size (cm) - Length 0.8 -Post Debridement Size (cm) - Width 0.3 -Post Debridement Size (cm) - Depth 0.2 -Total Square Cm 0.24 -Wound/Ulcer Outcome Not Healed -Ulcer Cleansing Rinsed/ Irrigated with Saline -Foul Odor after Cleansing No -Bioengineered Tissue Yes -Type of bioengineered Tissue EPIFIX -Expiration Date 05/12/22 -Product Lot Number [id number] -Percent Used 100 -Saline Lot Number [id number] -Topical Lidocaine (%) 4 -Lidocaine (ml) 5 -Bleeding Controlled with NA -Treatment Response Procedure Tolerated Well [See Physician Procedure note for Specifics] Pain Scale: 0-10 Numeric [Pain] -Is Patient Pain Free? Yes Musculoskeletal: No Tenderness to Palpation of Joints or Extremities Lymphatic: No Cervical, Supraclavicular, or Inguinal Adenopathy Neurological: Cranial nerves II-XII grossly intact, Neuro grossly intact Psych/Mental Status: Normal Affect, Appropriate Debridement Note Post-Debridement Measurements/Treatment WC - Nurse 2 - General Ulcer CM Notes Start: 09/10/17 13:13 Freq: Status: Active Protocol: Activity Type Activity Date Activity User E-Sign Co-Sign Detail Recorded Client Recorded Date Recorded By Document 09/17/17 14:04 TM [id number] 09/17/17 14:28 Document 09/24/17 14:53 [id number] 09/24/17 15:01 09/17/17 09/24/17 14:04 14:53 Wound Center Nurse 2 #1- RT FOOT PLANTAR ASPECT -Time 14:05 14:53 -Correct Patient Yes Yes -Correct Side, Site, Position Yes Yes -Correct Procedure Yes Yes -Procedure Performed Yes Yes -Type of Procedure Debridement Debridement -Clinical Debridement Subcutaneous Subcutaneous -Post Debridement Size (cm) - Length 3.1 0.8 -Post Debridement Size (cm) - Width 2.1 0.3 -Post Debridement Size (cm) - Depth 0.3 0.2 -Total Square Cm 6.51 0.24 -Wound/Ulcer Outcome Not Healed Not Healed -Ulcer Cleansing Rinsed/ Rinsed/ Irrigated with Irrigated with Saline Saline -Foul Odor after Cleansing No No -Bioengineered Tissue Yes Yes -Type of bioengineered Tissue EPIFIX EPIFIX -Expiration Date 07/08/22 05/12/22 -Product Lot Number [id number] -Percent Used 100 100 -Saline Lot Number [id number] -Topical Lidocaine (%) 4 4 -Lidocaine (ml) 5 -Bleeding Controlled with Pressure NA -Treatment Response Procedure Procedure Tolerated Well Tolerated Well Pain Scale: 0-10 Numeric Is Patient Pain Free? Yes Yes Wound debrided: L DFU Wound Grade/Stage: mikael 2 Type of Debridement: Excisional debridement Anesthesia Used: 5% Lidocaine Gel Depth: Down to and including healthy tissue Percentage of wound debrided: 100 Instrument Used: 7mm curette, #15 blade Tissue Removed: callus and fibrin Severity: Limited To Skin Breakdown Amount of bleeding with debridement: Moderate Bleeding Controlled with: Compression and gauze Patient tolerated procedure well Assessment/Plan Assessment: Foot DFU right - grade 2. abscess right foot - resolved. cellulitis - resolved. DM II uncontrolled with neuropathy. Right foot hammertoe. Suspected malnutrition. Plan: I reviewed and discussed her case today with the patient and her . I reviewed her previous wound care center notes. Her ulcer site was debrided as noted in the clinical panel. Pressure was applied to maintain hemostasis. Her 5th epi fix was applied today according to standard protocol. The indications, and anticipated healing time and management were discussed in detail. Verbal consent was obtained and she tolerated this well. This was secured in place with Steri-Strips and wound veil. A secondary dressing was applied. They have obtained a special shoe to help with offloading of the area and it is making a difference the callus is so much better . We discussed the need for improved compliance with offloading to move towards wound healing. She has not been able tolerate a cam walker in the past. To continue to use the walker and avoid placing pressure on her forefoot. I recommended the patient bring this in for evaluation to make sure it is appropriate. I recommended an advanced nutritional supplement, Yomi which is not complete obtain vitamin K. A prescription was provided. She was reassured there are no signs of acute infection. To return to the wound care center 1 week or call sooner if she has any questions or concerns. I answered all her questions. She defers a shower bag prescription today.
[2017-10-01 13:20] VITALS: BP 149/79; PULSE 91; RESP 20; TEMP 36.6
--- NOTE | 2017-10-01 14:52 | PCM.WC.PN ---
(1) Cellulitis and abscess of foot Status: Acute Current Visit: Yes Code(s): L03.119 - Cellulitis of unspecified part of limb; L02.619 - Cutaneous abscess of unspecified foot (2) Diabetes 1.5, managed as type 2 Status: Acute Current Visit: Yes Code(s): E10.9 - Type 1 diabetes mellitus without complications (3) Diabetic ulcer of right foot associated with diabetes mellitus due to underlying condition Status: Acute Current Visit: Yes Code(s): E08.621 - Diabetes mellitus due to underlying condition with foot ulcer; L97.519 - Non-pressure chronic ulcer of other part of right foot with unspecified severity (4) Edema of lower extremity Status: Chronic Current Visit: Yes Code(s): R60.0 - Localized edema (5) Infected ulcer of skin Status: Acute Current Visit: Yes Code(s): L98.499 - Non-pressure chronic ulcer of skin of other sites with unspecified severity; L08.9 - Local infection of the skin and subcutaneous tissue, unspecified (6) Lumbar back pain with radiculopathy affecting right lower extremity Status: Chronic Current Visit: Yes Code(s): M54.17 - Radiculopathy, lumbosacral region (7) Type 2 diabetes mellitus with foot ulcer Status: Chronic Current Visit: Yes Code(s): E11.621 - Type 2 diabetes mellitus with foot ulcer; L97.509 - Non-pressure chronic ulcer of other part of unspecified foot with unspecified severity (8) Multiple sclerosis Status: Chronic Current Visit: Yes Code(s): G35 - Multiple sclerosis Type of Wound Date of Service: 10/01/17 Chief Complaint: Follow-up right foot ulcer History of Wound: 76-year-old white female that has had a callus on the bottom of her right foot for 2 years. She reports her current wound has been present for about 3 months. She was not able to tolerate her cam walker boot previously provided to take pressure off of this wound site. She now wears a diabetic shoe with protective liner. Her she was very tight and she has extreme pain each time she puts her shoe on. She denies fever, chill, nausea, vomiting. She has multiple sclerosis and spinal stenosis which contribute to gait impairments and ongoing pain. She had a previous infection and was treated with Levaquin and Flagyl and later Augmentin. This has resolved. She denies redness or odor. She is with her today. She had an issue with her previous nutritional supplement because of the vitamin K and her Coumadin use. She asked if there are other nutritional supplements that do not have vitamin K. She is currently being treated for urinary tract infection (e.coli). She denies new wounds or drainage today. Progress of Wound: The ulcer this week is callused and small with some depth. Paring down around the callus a good 0.3 mm brings the wound more flat. Epi-fix this week we will go back to Promogran to finish her off. Has bought a Darco shoe that the has offloaded by taking out certain areas in the sole of her foot to make a indentation we tried to get him to open up more of a hole so she has less pressure and callus building. She has MS and her comorbidities makes it very difficult to treat her only because she is unable to tolerate most treatments and medications. - Physical Exam Vital Signs Temp Pulse Resp BP 97.8 F 91 20 H 149/79 H 10/01/17 13:20 10/01/17 13:20 10/01/17 13:20 10/01/17 13:20 General: Oriented x3, Cooperative, Well developed HEENT: Atraumatic, PERRLA Oral: Moist Mucosa Neck: Supple, No JVD Lungs: Clear to auscultation, Normal air movement Cardiovascular: Regular rate, Regular Rhythm Abdomen: Bowel Sounds Present, Soft, Non Tender, No Hepato-splenomegaly Extremities: No clubbing, No edema, - - Right foot DFU Wound Measurements and Assessment WC - Nurse 1 - General Ulcer Measurement Start: 09/10/17 13:13 Freq: Status: Active Protocol: Activity Type Activity Date Activity User E-Sign Co-Sign Detail Recorded Client Recorded Date Recorded By Document 10/01/17 13:20 [id number] 10/01/17 13:36 MOOK 10/01/17 13:20 Wound Center Nurse 1 [Ulcer Assessment] #1- RT FOOT PLANTAR ASPECT -Combined with other wound No -Current Size (cm) - Length 0.6 -Current Size (cm) - Width 0.1 -Current Size (cm) - Depth 0.3 -Total Square Cm 0.06 -Date of Last Picture (Recall this 10/01/17 field) -Photo Taken Yes -Epithelialization None Present -Tunneling No -Undermining/Tunneling No -Circular Undermining No -Classification - Thickness Full Thickness without Exposed Support Structure -Exudate Amt Small (1-33%) -Exudate Type Serosanguineous -Wound Margin Distinct, Outline Attached -Granulation Amt None Present (0 %) -Granulation Quality N/A -Slough/Fibrin Yes -Necrosis Amt None Present (0 %) -Necrotic Tissue Type Adherent Slough -Structure Exposed Fascia Fat Layer Exposed -Texture (Faby-wound Skin Appearance) Callus -Moisture (Faby-wound Skin Appearance Maceration ) -Color (Faby-wound Skin Appearance) No Abnormality -Temperature (Faby-wound Skin No Abnormality Appearance) (Pt Warm) -Tenderness on Palpation (Faby-wound No Skin Appearance) -Ulcer Cleansing Rinsed/ Irrigated with Saline -Foul Odor after Cleansing No -Anesthetic Used 4% Lidocaine Solution 5% Lidocaine Gel [Edema Assessment] -Lower Limb Edema Present NA WC - Nurse 2 - General Ulcer CM Notes Start: 09/10/17 13:13 Freq: Status: Active Protocol: Activity Type Activity Date Activity User E-Sign Co-Sign Detail Recorded Client Recorded Date Recorded By Document 10/01/17 14:21 DV [id number] 10/01/17 14:26 DV 10/01/17 14:21 Wound Center Nurse 2 [Procedure/Treatment] #1- RT FOOT PLANTAR ASPECT -Time 14:22 -Correct Patient Yes -Correct Side, Site, Position Yes -Correct Procedure Yes -Procedure Performed Yes -Type of Procedure Debridement -Clinical Debridement Subcutaneous -Post Debridement Size (cm) - Length 0.7 -Post Debridement Size (cm) - Width 0.3 -Post Debridement Size (cm) - Depth 0.2 -Total Square Cm 0.21 -Wound/Ulcer Outcome Not Healed -Ulcer Cleansing Rinsed/ Irrigated with Saline -Foul Odor after Cleansing No -Bioengineered Tissue No -Bleeding Controlled with Pressure -Treatment Response Procedure Tolerated Well [See Physician Procedure note for Specifics] Pain Scale: 0-10 Numeric [Pain] -Is Patient Pain Free? Yes Musculoskeletal: No Tenderness to Palpation of Joints or Extremities Lymphatic: No Cervical, Supraclavicular, or Inguinal Adenopathy Neurological: Cranial nerves II-XII grossly intact, Neuro grossly intact Psych/Mental Status: Normal Affect, Appropriate Debridement Note Post-Debridement Measurements/Treatment WC - Nurse 2 - General Ulcer CM Notes Start: 09/10/17 13:13 Freq: Status: Active Protocol: Activity Type Activity Date Activity User E-Sign Co-Sign Detail Recorded Client Recorded Date Recorded By Document 09/17/17 14:04 TM [id number] 09/17/17 14:28 TM Document 09/24/17 14:53 JS [id number] 09/24/17 15:01 JS Document 10/01/17 14:21 DV [id number] 10/01/17 14:26 DV 09/17/17 09/24/17 10/01/17 14:04 14:53 14:21 Wound Center Nurse 2 #1- RT FOOT PLANTAR ASPECT -Time 14:05 14:53 14:22 -Correct Patient Yes Yes Yes -Correct Side, Site, Position Yes Yes Yes -Correct Procedure Yes Yes Yes -Procedure Performed Yes Yes Yes -Type of Procedure Debridement Debridement Debridement -Clinical Debridement Subcutaneous Subcutaneous Subcutaneous -Post Debridement Size (cm) - Length 3.1 0.8 0.7 -Post Debridement Size (cm) - Width 2.1 0.3 0.3 -Post Debridement Size (cm) - Depth 0.3 0.2 0.2 -Total Square Cm 6.51 0.24 0.21 -Wound/Ulcer Outcome Not Healed Not Healed Not Healed -Ulcer Cleansing Rinsed/ Rinsed/ Rinsed/ Irrigated with Irrigated with Irrigated with Saline Saline Saline -Foul Odor after Cleansing No No No -Bioengineered Tissue Yes Yes No -Type of bioengineered Tissue EPIFIX EPIFIX -Expiration Date 07/08/22 05/12/22 -Product Lot Number [id number] -Percent Used 100 100 -Saline Lot Number [id number] -Topical Lidocaine (%) 4 4 -Lidocaine (ml) 5 -Bleeding Controlled with Pressure NA Pressure -Treatment Response Procedure Procedure Procedure Tolerated Well Tolerated Well Tolerated Well Pain Scale: 0-10 Numeric Is Patient Pain Free? Yes Yes Yes Wound debrided: Foot DFU Laterality: Right Type of Debridement: Excisional debridement Anesthesia Used: 5% Lidocaine Gel Depth: Down to and including healthy tissue, in the subcutaneous layer Percentage of wound debrided: 100 Instrument Used: 5mm curette Tissue Removed: Callus and fibrin Severity: Limited To Skin Breakdown Amount of bleeding with debridement: Mild Bleeding Controlled with: Compression and gauze Patient tolerated procedure well Assessment/Plan Active Problems Diabetes 1.5, managed as type 2 (Acute) Diabetic ulcer of right foot associated with diabetes mellitus due to underlying condition (Acute) Infected ulcer of skin (Acute) Edema of lower extremity (Chronic) Cellulitis and abscess of foot (Acute) Type 2 diabetes mellitus with foot ulcer (Chronic) Lumbar back pain with radiculopathy affecting right lower extremity (Chronic) Multiple sclerosis (Chronic) Assessment: Foot DFU right - grade 2. abscess right foot - resolved. cellulitis - resolved. DM II uncontrolled with neuropathy. Right foot hammertoe. Suspected malnutrition. MS. Plan: Promogran to the ulcer on the bottom of the foot moistened with Adaptic and gauze and tape. Darco shoe with increased area offloading. Follow up 1 week
--- NOTE | 2017-10-01 15:00 | PN.PCM_ITS ---
(1) Cellulitis and abscess of foot Status: Acute Current Visit: Yes Code(s): L03.119 - Cellulitis of unspecified part of limb; L02.619 - Cutaneous abscess of unspecified foot (2) Diabetes 1.5, managed as type 2 Status: Acute Current Visit: Yes Code(s): E10.9 - Type 1 diabetes mellitus without complications (3) Diabetic ulcer of right foot associated with diabetes mellitus due to underlying condition Status: Acute Current Visit: Yes Code(s): E08.621 - Diabetes mellitus due to underlying condition with foot ulcer; L97.519 - Non-pressure chronic ulcer of other part of right foot with unspecified severity (4) Edema of lower extremity Status: Chronic Current Visit: Yes Code(s): R60.0 - Localized edema (5) Infected ulcer of skin Status: Acute Current Visit: Yes Code(s): L98.499 - Non-pressure chronic ulcer of skin of other sites with unspecified severity; L08.9 - Local infection of the skin and subcutaneous tissue, unspecified (6) Lumbar back pain with radiculopathy affecting right lower extremity Status: Chronic Current Visit: Yes Code(s): M54.17 - Radiculopathy, lumbosacral region (7) Type 2 diabetes mellitus with foot ulcer Status: Chronic Current Visit: Yes Code(s): E11.621 - Type 2 diabetes mellitus with foot ulcer; L97.509 - Non-pressure chronic ulcer of other part of unspecified foot with unspecified severity (8) Multiple sclerosis Status: Chronic Current Visit: Yes Code(s): G35 - Multiple sclerosis Type of Wound Date of Service: 10/01/17 Chief Complaint: Follow-up right foot ulcer History of Wound: 76-year-old white female that has had a callus on the bottom of her right foot for 2 years. She reports her current wound has been present for about 3 months. She was not able to tolerate her cam walker boot previously provided to take pressure off of this wound site. She now wears a diabetic shoe with protective liner. Her she was very tight and she has extreme pain each time she puts her shoe on. She denies fever, chill, nausea, vomiting. She has multiple sclerosis and spinal stenosis which contribute to gait impairments and ongoing pain. She had a previous infection and was treated with Levaquin and Flagyl and later Augmentin. This has resolved. She denies redness or odor. She is with her today. She had an issue with her previous nutritional supplement because of the vitamin K and her Coumadin use. She asked if there are other nutritional supplements that do not have vitamin K. She is currently being treated for urinary tract infection (e.coli) . She denies new wounds or drainage today. Progress of Wound: The ulcer this week is callused and small with some depth. Paring down around the callus a good 0.3 mm brings the wound more flat. Epi- fix this week we will go back to Promogran to finish her off. Has bought a Darco shoe that the has offloaded by taking out certain areas in the sole of her foot to make a indentation we tried to get him to open up more of a hole so she has less pressure and callus building. She has MS and her comorbidities makes it very difficult to treat her only because she is unable to tolerate most treatments and medications. - Physical Exam Vital Signs Temp Pulse Resp BP 97.8 F 91 20 H 149/79 H 10/01/17 13:20 10/01/17 13:20 10/01/17 13:20 10/01/17 13:20 General: Oriented x3, Cooperative, Well developed HEENT: Atraumatic, PERRLA Oral: Moist Mucosa Neck: Supple, No JVD Lungs: Clear to auscultation, Normal air movement Cardiovascular: Regular rate, Regular Rhythm Abdomen: Bowel Sounds Present, Soft, Non Tender, No Hepato-splenomegaly Extremities: No clubbing, No edema, - - Right foot DFU Wound Measurements and Assessment WC - Nurse 1 - General Ulcer Measurement Start: 09/10/17 13:13 Freq: Status: Active Protocol: Activity Type Activity Date Activity User E-Sign Co-Sign Detail Recorded Client Recorded Date Recorded By Document 10/01/17 13:20 [id number] 10/01/17 13:36 MOOK 10/01/17 13:20 Wound Center Nurse 1 [Ulcer Assessment] #1- RT FOOT PLANTAR ASPECT -Combined with other wound No -Current Size (cm) - Length 0.6 -Current Size (cm) - Width 0.1 -Current Size (cm) - Depth 0.3 -Total Square Cm 0.06 -Date of Last Picture (Recall this 10/01/17 field) -Photo Taken Yes -Epithelialization None Present -Tunneling No -Undermining/Tunneling No -Circular Undermining No -Classification - Thickness Full Thickness without Exposed Support Structure -Exudate Amt Small (1-33%) -Exudate Type Serosanguineous -Wound Margin Distinct, Outline Attached -Granulation Amt None Present (0 %) -Granulation Quality N/A -Slough/Fibrin Yes -Necrosis Amt None Present (0 %) -Necrotic Tissue Type Adherent Slough -Structure Exposed Fascia Fat Layer Exposed -Texture (Faby-wound Skin Appearance) Callus -Moisture (Faby-wound Skin Appearance Maceration ) -Color (Faby-wound Skin Appearance) No Abnormality -Temperature (Faby-wound Skin No Abnormality Appearance) (Pt Warm) -Tenderness on Palpation (Faby-wound No Skin Appearance) -Ulcer Cleansing Rinsed/ Irrigated with Saline -Foul Odor after Cleansing No -Anesthetic Used 4% Lidocaine Solution 5% Lidocaine Gel [Edema Assessment] -Lower Limb Edema Present NA WC - Nurse 2 - General Ulcer CM Notes Start: 09/10/17 13:13 Freq: Status: Active Protocol: Activity Type Activity Date Activity User E-Sign Co-Sign Detail Recorded Client Recorded Date Recorded By Document 10/01/17 14:21 DV [id number] 10/01/17 14:26 DV 10/01/17 14:21 Wound Center Nurse 2 [Procedure/Treatment] #1- RT FOOT PLANTAR ASPECT -Time 14:22 -Correct Patient Yes -Correct Side, Site, Position Yes -Correct Procedure Yes -Procedure Performed Yes -Type of Procedure Debridement -Clinical Debridement Subcutaneous -Post Debridement Size (cm) - Length 0.7 -Post Debridement Size (cm) - Width 0.3 -Post Debridement Size (cm) - Depth 0.2 -Total Square Cm 0.21 -Wound/Ulcer Outcome Not Healed -Ulcer Cleansing Rinsed/ Irrigated with Saline -Foul Odor after Cleansing No -Bioengineered Tissue No -Bleeding Controlled with Pressure -Treatment Response Procedure Tolerated Well [See Physician Procedure note for Specifics] Pain Scale: 0-10 Numeric [Pain] -Is Patient Pain Free? Yes Musculoskeletal: No Tenderness to Palpation of Joints or Extremities Lymphatic: No Cervical, Supraclavicular, or Inguinal Adenopathy Neurological: Cranial nerves II-XII grossly intact, Neuro grossly intact Psych/Mental Status: Normal Affect, Appropriate Debridement Note Post-Debridement Measurements/Treatment WC - Nurse 2 - General Ulcer CM Notes Start: 09/10/17 13:13 Freq: Status: Active Protocol: Activity Type Activity Date Activity User E-Sign Co-Sign Detail Recorded Client Recorded Date Recorded By Document 09/17/17 14:04 TM [id number] 09/17/17 14:28 TM Document 09/24/17 14:53 JS [id number] 09/24/17 15:01 JS Document 10/01/17 14:21 DV [id number] 10/01/17 14:26 DV 09/17/17 09/24/17 10/01/17 14:04 14:53 14:21 Wound Center Nurse 2 #1- RT FOOT PLANTAR ASPECT -Time 14:05 14:53 14:22 -Correct Patient Yes Yes Yes -Correct Side, Site, Position Yes Yes Yes -Correct Procedure Yes Yes Yes -Procedure Performed Yes Yes Yes -Type of Procedure Debridement Debridement Debridement -Clinical Debridement Subcutaneous Subcutaneous Subcutaneous -Post Debridement Size (cm) - Length 3.1 0.8 0.7 -Post Debridement Size (cm) - Width 2.1 0.3 0.3 -Post Debridement Size (cm) - Depth 0.3 0.2 0.2 -Total Square Cm 6.51 0.24 0.21 -Wound/Ulcer Outcome Not Healed Not Healed Not Healed -Ulcer Cleansing Rinsed/ Rinsed/ Rinsed/ Irrigated with Irrigated with Irrigated with Saline Saline Saline -Foul Odor after Cleansing No No No -Bioengineered Tissue Yes Yes No -Type of bioengineered Tissue EPIFIX EPIFIX -Expiration Date 07/08/22 05/12/22 -Product Lot Number [id number] -Percent Used 100 100 -Saline Lot Number [id number] -Topical Lidocaine (%) 4 4 -Lidocaine (ml) 5 -Bleeding Controlled with Pressure NA Pressure -Treatment Response Procedure Procedure Procedure Tolerated Well Tolerated Well Tolerated Well Pain Scale: 0-10 Numeric Is Patient Pain Free? Yes Yes Yes Wound debrided: Foot DFU Laterality: Right Type of Debridement: Excisional debridement Anesthesia Used: 5% Lidocaine Gel Depth: Down to and including healthy tissue, in the subcutaneous layer Percentage of wound debrided: 100 Instrument Used: 5mm curette Tissue Removed: Callus and fibrin Severity: Limited To Skin Breakdown Amount of bleeding with debridement: Mild Bleeding Controlled with: Compression and gauze Patient tolerated procedure well Assessment/Plan Active Problems Diabetes 1.5, managed as type 2 (Acute) Diabetic ulcer of right foot associated with diabetes mellitus due to underlying condition (Acute) Infected ulcer of skin (Acute) Edema of lower extremity (Chronic) Cellulitis and abscess of foot (Acute) Type 2 diabetes mellitus with foot ulcer (Chronic) Lumbar back pain with radiculopathy affecting right lower extremity (Chronic) Multiple sclerosis (Chronic) Assessment: Foot DFU right - grade 2. abscess right foot - resolved. cellulitis - resolved. DM II uncontrolled with neuropathy. Right foot hammertoe. Suspected malnutrition. MS. Plan: Promogran to the ulcer on the bottom of the foot moistened with Adaptic and gauze and tape. Darco shoe with increased area offloading. Follow up 1 week
== END 2017-10-07 23:59 ==
LOC: WC 13:00
PROVIDERS: Visit Provider Nurse Practitioner
DX: E11.621 Type 2 diabetes mellitus with foot ulcer (principal); M54.17 Radiculopathy, lumbosacral region; R60.0 Localized edema; L08.9 Local infection of the skin and subcutaneous tissue, unspecified; L97.511 Non-pressure chronic ulcer of other part of right foot limited to breakdown of skin; E11.65 Type 2 diabetes mellitus with hyperglycemia; M20.41 Other hammer toe(s) (acquired), right foot; E11.42 Type 2 diabetes mellitus with diabetic polyneuropathy; L84 Corns and callosities; G35 Multiple sclerosis
CPT/HCPCS: 11042; 15275; Q4131

== ENCOUNTER 2017-10-29 11:30 | Outpatient (RCR) | payer MEDICARE, OTHER, SELFPAY ==
[2017-10-08 00:44] VITALS: BP 149/79; PULSE 91; RESP 20; TEMP 36.6
[2017-10-08 11:43] VITALS: BP 156/89; PULSE 81; RESP 20; TEMP 35.6
--- NOTE | 2017-10-08 13:55 | PCM.WC.PN ---
(1) Cellulitis and abscess of foot Status: Acute Current Visit: No Code(s): L03.119 - Cellulitis of unspecified part of limb; L02.619 - Cutaneous abscess of unspecified foot (2) Diabetes 1.5, managed as type 2 Status: Acute Current Visit: Yes Code(s): E10.9 - Type 1 diabetes mellitus without complications (3) Diabetic ulcer of right foot associated with diabetes mellitus due to underlying condition Status: Acute Current Visit: Yes Code(s): E08.621 - Diabetes mellitus due to underlying condition with foot ulcer; L97.519 - Non-pressure chronic ulcer of other part of right foot with unspecified severity (4) Infected ulcer of skin Status: Acute Current Visit: No Code(s): L98.499 - Non-pressure chronic ulcer of skin of other sites with unspecified severity; L08.9 - Local infection of the skin and subcutaneous tissue, unspecified (5) Edema of lower extremity Status: Chronic Current Visit: Yes Code(s): R60.0 - Localized edema (6) Hammer toe of right foot Status: Chronic Current Visit: Yes Code(s): M20.41 - Other hammer toe(s) (acquired), right foot (7) Lumbar back pain with radiculopathy affecting right lower extremity Status: Chronic Current Visit: Yes Code(s): M54.17 - Radiculopathy, lumbosacral region Type of Wound Date of Service: 10/08/17 Chief Complaint: Follow-up right foot ulcer History of Wound: 76-year-old white female that has had a callus on the bottom of her right foot for 2 years. She reports her current wound has been present for about 3 months. She was not able to tolerate her cam walker boot previously provided to take pressure off of this wound site. She now wears a diabetic shoe with protective liner. Her she was very tight and she has extreme pain each time she puts her shoe on. She denies fever, chill, nausea, vomiting. She has multiple sclerosis and spinal stenosis which contribute to gait impairments and ongoing pain. She had a previous infection and was treated with Levaquin and Flagyl and later Augmentin. This has resolved. She denies redness or odor. She is with her today. She had an issue with her previous nutritional supplement because of the vitamin K and her Coumadin use. She asked if there are other nutritional supplements that do not have vitamin K. She is currently being treated for urinary tract infection (e.coli). She denies new wounds or drainage today. Progress of Wound: The ulcer this week is callused and small with some depth. Paring down around the callus a good 0.3 mm brings the wound more flat.Re started Promogran to finish her off. Has bought a Darco shoe that the has offloaded by taking out certain areas in the sole of her foot to make a indentation we tried to get him to open up more of a hole so she has less pressure and callus building. Week we applied stasis pads double thickness on either side of the ulcer to give her more room for offloading. She has MS and her comorbidities makes it very difficult to treat her only because she is unable to tolerate most treatments and medications. - Physical Exam Vital Signs Temp Pulse Resp BP 96.0 F L 81 20 H 156/89 H 10/08/17 11:43 10/08/17 11:43 10/08/17 11:43 10/08/17 11:43 General: Oriented x3, Cooperative, Well developed HEENT: Atraumatic, PERRLA Oral: Moist Mucosa Neck: Supple, No JVD Lungs: Clear to auscultation, Normal air movement Cardiovascular: Regular rate, Regular Rhythm Abdomen: Bowel Sounds Present, Soft, Non Tender, No Hepato-splenomegaly Extremities: No clubbing, No edema, - - Foot ulcer Wound Measurements and Assessment WC - Nurse 1 - General Ulcer Measurement Start: 10/08/17 11:26 Freq: Status: Active Protocol: Activity Type Activity Date Activity User E-Sign Co-Sign Detail Recorded Client Recorded Date Recorded By Document 10/08/17 11:43 [id number] 10/08/17 11:56 MOOK 10/08/17 11:43 Wound Center Nurse 1 [Ulcer Assessment] #1- RT FOOT PLANTAR ASPECT -Combined with other wound No -Current Size (cm) - Length 0.9 -Current Size (cm) - Width 0.4 -Current Size (cm) - Depth 0.3 -Total Square Cm 0.36 -Date of Last Picture (Recall this 10/08/17 field) -Photo Taken Yes -Epithelialization None Present -Tunneling No -Undermining/Tunneling No -Circular Undermining No -Classification - Thickness Full Thickness without Exposed Support Structure -Exudate Amt Small (1-33%) -Exudate Type Serosanguineous -Wound Margin Distinct, Outline Attached -Granulation Amt None Present (0 %) -Granulation Quality N/A -Slough/Fibrin Yes -Necrosis Amt None Present (0 %) -Necrotic Tissue Type Adherent Slough -Structure Exposed Fascia Fat Layer Exposed -Texture (Faby-wound Skin Appearance) Callus -Moisture (Afby-wound Skin Appearance Maceration ) -Color (Faby-wound Skin Appearance) No Abnormality -Temperature (Faby-wound Skin No Abnormality Appearance) (Pt Warm) -Tenderness on Palpation (Faby-wound No Skin Appearance) -Ulcer Cleansing Rinsed/ Irrigated with Saline -Foul Odor after Cleansing No -Anesthetic Used 4% Lidocaine Solution [Edema Assessment] -Lower Limb Edema Present Yes -Right Calf (cm) 47.0 -Right Ankle (cm) 26.5 WC - Nurse 2 - General Ulcer CM Notes Start: 10/08/17 11:26 Freq: Status: Active Protocol: Activity Type Activity Date Activity User E-Sign Co-Sign Detail Recorded Client Recorded Date Recorded By Document 10/08/17 12:32 FRANCESCA [id number] 10/08/17 12:36 FRANCESCA 10/08/17 12:32 Wound Center Nurse 2 [Procedure/Treatment] #1- RT FOOT PLANTAR ASPECT -Time 12:32 -Correct Patient Yes -Correct Side, Site, Position Yes -Correct Procedure Yes -Procedure Performed Yes -Type of Procedure Debridement -Clinical Debridement Subcutaneous -Post Debridement Size (cm) - Length 0.8 -Post Debridement Size (cm) - Width 0.2 -Post Debridement Size (cm) - Depth 0.2 -Total Square Cm 0.16 -Wound/Ulcer Outcome Not Healed -Ulcer Cleansing Rinsed/ Irrigated with Saline -Foul Odor after Cleansing No -Bioengineered Tissue No -Bleeding Controlled with Pressure -Treatment Response Procedure Tolerated Well [See Physician Procedure note for Specifics] Pain Scale: 0-10 Numeric [Pain] -Is Patient Pain Free? Yes Musculoskeletal: No Tenderness to Palpation of Joints or Extremities Lymphatic: No Cervical, Supraclavicular, or Inguinal Adenopathy Neurological: Cranial nerves II-XII grossly intact, Neuro grossly intact Psych/Mental Status: Normal Affect, Appropriate Debridement Note Post-Debridement Measurements/Treatment WC - Nurse 2 - General Ulcer CM Notes Start: 10/08/17 11:26 Freq: Status: Active Protocol: Activity Type Activity Date Activity User E-Sign Co-Sign Detail Recorded Client Recorded Date Recorded By Document 10/08/17 12:32 FRANCESCA [id number] 10/08/17 12:36 FRANCESCA 10/08/17 12:32 Wound Center Nurse 2 #1- RT FOOT PLANTAR ASPECT -Time 12:32 -Correct Patient Yes -Correct Side, Site, Position Yes -Correct Procedure Yes -Procedure Performed Yes -Type of Procedure Debridement -Clinical Debridement Subcutaneous -Post Debridement Size (cm) - Length 0.8 -Post Debridement Size (cm) - Width 0.2 -Post Debridement Size (cm) - Depth 0.2 -Total Square Cm 0.16 -Wound/Ulcer Outcome Not Healed -Ulcer Cleansing Rinsed/ Irrigated with Saline -Foul Odor after Cleansing No -Bioengineered Tissue No -Bleeding Controlled with Pressure -Treatment Response Procedure Tolerated Well Pain Scale: 0-10 Numeric Is Patient Pain Free? Yes Wound debrided: Foot ulcer Laterality: Right Type of Debridement: Excisional debridement Anesthesia Used: 5% Lidocaine Gel Depth: Down to and including healthy tissue, in the subcutaneous layer Percentage of wound debrided: 100 Instrument Used: 5mm curette, - - nippers Tissue Removed: callus fibrin Severity: Limited To Skin Breakdown Amount of bleeding with debridement: Mild Bleeding Controlled with: Compression and gauze Patient tolerated procedure well Assessment/Plan Active Problems Diabetes 1.5, managed as type 2 (Acute) Diabetic ulcer of right foot associated with diabetes mellitus due to underlying condition (Acute) Edema of lower extremity (Chronic) Lumbar back pain with radiculopathy affecting right lower extremity (Chronic) Hammer toe of right foot (Chronic) Assessment: Foot DFU right - grade 2. abscess right foot - resolved. cellulitis - resolved. DM II uncontrolled with neuropathy. Right foot hammertoe. Suspected malnutrition. MS. Plan: Promogran to the ulcer on the bottom of the foot moistened with Adaptic and gauze and tape stasis pads around edge double thickness. Darco shoe with increased area offloading. Follow up 1 week
--- NOTE | 2017-10-08 13:59 | PN.PCM_ITS ---
(1) Cellulitis and abscess of foot Status: Acute Current Visit: No Code(s): L03.119 - Cellulitis of unspecified part of limb; L02.619 - Cutaneous abscess of unspecified foot (2) Diabetes 1.5, managed as type 2 Status: Acute Current Visit: Yes Code(s): E10.9 - Type 1 diabetes mellitus without complications (3) Diabetic ulcer of right foot associated with diabetes mellitus due to underlying condition Status: Acute Current Visit: Yes Code(s): E08.621 - Diabetes mellitus due to underlying condition with foot ulcer; L97.519 - Non-pressure chronic ulcer of other part of right foot with unspecified severity (4) Infected ulcer of skin Status: Acute Current Visit: No Code(s): L98.499 - Non-pressure chronic ulcer of skin of other sites with unspecified severity; L08.9 - Local infection of the skin and subcutaneous tissue, unspecified (5) Edema of lower extremity Status: Chronic Current Visit: Yes Code(s): R60.0 - Localized edema (6) Hammer toe of right foot Status: Chronic Current Visit: Yes Code(s): M20.41 - Other hammer toe(s) ( acquired), right foot (7) Lumbar back pain with radiculopathy affecting right lower extremity Status: Chronic Current Visit: Yes Code(s): M54.17 - Radiculopathy, lumbosacral region Type of Wound Date of Service: 10/08/17 Chief Complaint: Follow-up right foot ulcer History of Wound: 76-year-old white female that has had a callus on the bottom of her right foot for 2 years. She reports her current wound has been present for about 3 months. She was not able to tolerate her cam walker boot previously provided to take pressure off of this wound site. She now wears a diabetic shoe with protective liner. Her she was very tight and she has extreme pain each time she puts her shoe on. She denies fever, chill, nausea, vomiting. She has multiple sclerosis and spinal stenosis which contribute to gait impairments and ongoing pain. She had a previous infection and was treated with Levaquin and Flagyl and later Augmentin. This has resolved. She denies redness or odor. She is with her today. She had an issue with her previous nutritional supplement because of the vitamin K and her Coumadin use. She asked if there are other nutritional supplements that do not have vitamin K. She is currently being treated for urinary tract infection (e.coli) . She denies new wounds or drainage today. Progress of Wound: The ulcer this week is callused and small with some depth. Paring down around the callus a good 0.3 mm brings the wound more flat.Re started Promogran to finish her off. Has bought a Darco shoe that the has offloaded by taking out certain areas in the sole of her foot to make a indentation we tried to get him to open up more of a hole so she has less pressure and callus building. Week we applied stasis pads double thickness on either side of the ulcer to give her more room for offloading. She has MS and her comorbidities makes it very difficult to treat her only because she is unable to tolerate most treatments and medications. - Physical Exam Vital Signs Temp Pulse Resp BP 96.0 F L 81 20 H 156/89 H 10/08/17 11:43 10/08/17 11:43 10/08/17 11:43 10/08/17 11:43 General: Oriented x3, Cooperative, Well developed HEENT: Atraumatic, PERRLA Oral: Moist Mucosa Neck: Supple, No JVD Lungs: Clear to auscultation, Normal air movement Cardiovascular: Regular rate, Regular Rhythm Abdomen: Bowel Sounds Present, Soft, Non Tender, No Hepato-splenomegaly Extremities: No clubbing, No edema, - - Foot ulcer Wound Measurements and Assessment WC - Nurse 1 - General Ulcer Measurement Start: 10/08/17 11:26 Freq: Status: Active Protocol: Activity Type Activity Date Activity User E-Sign Co-Sign Detail Recorded Client Recorded Date Recorded By Document 10/08/17 11:43 [id number] 10/08/17 11:56 MOOK 10/08/17 11:43 Wound Center Nurse 1 [Ulcer Assessment] #1- RT FOOT PLANTAR ASPECT -Combined with other wound No -Current Size (cm) - Length 0.9 -Current Size (cm) - Width 0.4 -Current Size (cm) - Depth 0.3 -Total Square Cm 0.36 -Date of Last Picture (Recall this 10/08/17 field) -Photo Taken Yes -Epithelialization None Present -Tunneling No -Undermining/Tunneling No -Circular Undermining No -Classification - Thickness Full Thickness without Exposed Support Structure -Exudate Amt Small (1-33%) -Exudate Type Serosanguineous -Wound Margin Distinct, Outline Attached -Granulation Amt None Present (0 %) -Granulation Quality N/A -Slough/Fibrin Yes -Necrosis Amt None Present (0 %) -Necrotic Tissue Type Adherent Slough -Structure Exposed Fascia Fat Layer Exposed -Texture (Faby-wound Skin Appearance) Callus -Moisture (Faby-wound Skin Appearance Maceration ) -Color (Faby-wound Skin Appearance) No Abnormality -Temperature (Faby-wound Skin No Abnormality Appearance) (Pt Warm) -Tenderness on Palpation (Faby-wound No Skin Appearance) -Ulcer Cleansing Rinsed/ Irrigated with Saline -Foul Odor after Cleansing No -Anesthetic Used 4% Lidocaine Solution [Edema Assessment] -Lower Limb Edema Present Yes -Right Calf (cm) 47.0 -Right Ankle (cm) 26.5 WC - Nurse 2 - General Ulcer CM Notes Start: 10/08/17 11:26 Freq: Status: Active Protocol: Activity Type Activity Date Activity User E-Sign Co-Sign Detail Recorded Client Recorded Date Recorded By Document 10/08/17 12:32 [email or web address] [id number] 10/08/17 12:36 FRANCESCA 10/08/17 12:32 Wound Center Nurse 2 [Procedure/Treatment] #1- RT FOOT PLANTAR ASPECT -Time 12:32 -Correct Patient Yes -Correct Side, Site, Position Yes -Correct Procedure Yes -Procedure Performed Yes -Type of Procedure Debridement -Clinical Debridement Subcutaneous -Post Debridement Size (cm) - Length 0.8 -Post Debridement Size (cm) - Width 0.2 -Post Debridement Size (cm) - Depth 0.2 -Total Square Cm 0.16 -Wound/Ulcer Outcome Not Healed -Ulcer Cleansing Rinsed/ Irrigated with Saline -Foul Odor after Cleansing No -Bioengineered Tissue No -Bleeding Controlled with Pressure -Treatment Response Procedure Tolerated Well [See Physician Procedure note for Specifics] Pain Scale: 0-10 Numeric [Pain] -Is Patient Pain Free? Yes Musculoskeletal: No Tenderness to Palpation of Joints or Extremities Lymphatic: No Cervical, Supraclavicular, or Inguinal Adenopathy Neurological: Cranial nerves II-XII grossly intact, Neuro grossly intact Psych/Mental Status: Normal Affect, Appropriate Debridement Note Post-Debridement Measurements/Treatment WC - Nurse 2 - General Ulcer CM Notes Start: 10/08/17 11:26 Freq: Status: Active Protocol: Activity Type Activity Date Activity User E-Sign Co-Sign Detail Recorded Client Recorded Date Recorded By Document 10/08/17 12:32 [email or web address] [id number] 10/08/17 12:36 FRANCESCA 10/08/17 12:32 Wound Center Nurse 2 #1- RT FOOT PLANTAR ASPECT -Time 12:32 -Correct Patient Yes -Correct Side, Site, Position Yes -Correct Procedure Yes -Procedure Performed Yes -Type of Procedure Debridement -Clinical Debridement Subcutaneous -Post Debridement Size (cm) - Length 0.8 -Post Debridement Size (cm) - Width 0.2 -Post Debridement Size (cm) - Depth 0.2 -Total Square Cm 0.16 -Wound/Ulcer Outcome Not Healed -Ulcer Cleansing Rinsed/ Irrigated with Saline -Foul Odor after Cleansing No -Bioengineered Tissue No -Bleeding Controlled with Pressure -Treatment Response Procedure Tolerated Well Pain Scale: 0-10 Numeric Is Patient Pain Free? Yes Wound debrided: Foot ulcer Laterality: Right Type of Debridement: Excisional debridement Anesthesia Used: 5% Lidocaine Gel Depth: Down to and including healthy tissue, in the subcutaneous layer Percentage of wound debrided: 100 Instrument Used: 5mm curette, - - nippers Tissue Removed: callus fibrin Severity: Limited To Skin Breakdown Amount of bleeding with debridement: Mild Bleeding Controlled with: Compression and gauze Patient tolerated procedure well Assessment/Plan Active Problems Diabetes 1.5, managed as type 2 (Acute) Diabetic ulcer of right foot associated with diabetes mellitus due to underlying condition (Acute) Edema of lower extremity (Chronic) Lumbar back pain with radiculopathy affecting right lower extremity (Chronic) Hammer toe of right foot (Chronic) Assessment: Foot DFU right - grade 2. abscess right foot - resolved. cellulitis - resolved. DM II uncontrolled with neuropathy. Right foot hammertoe. Suspected malnutrition. MS. Plan: Promogran to the ulcer on the bottom of the foot moistened with Adaptic and gauze and tape stasis pads around edge double thickness. Darco shoe with increased area offloading. Follow up 1 week
[2017-10-29 12:18] VITALS: BP 149/75; PULSE 84; RESP 20; TEMP 36.1
--- NOTE | 2017-10-29 14:16 | PCM.WC.PN ---
(1) Cellulitis and abscess of foot Status: Acute Current Visit: No Code(s): L03.119 - Cellulitis of unspecified part of limb; L02.619 - Cutaneous abscess of unspecified foot (2) Diabetes 1.5, managed as type 2 Status: Acute Current Visit: Yes Code(s): E10.9 - Type 1 diabetes mellitus without complications (3) Diabetic ulcer of right foot associated with diabetes mellitus due to underlying condition Status: Acute Current Visit: Yes Code(s): E08.621 - Diabetes mellitus due to underlying condition with foot ulcer; L97.519 - Non-pressure chronic ulcer of other part of right foot with unspecified severity (4) Infected ulcer of skin Status: Acute Current Visit: No Code(s): L98.499 - Non-pressure chronic ulcer of skin of other sites with unspecified severity; L08.9 - Local infection of the skin and subcutaneous tissue, unspecified (5) Edema of lower extremity Status: Chronic Current Visit: Yes Code(s): R60.0 - Localized edema (6) Hammer toe of right foot Status: Chronic Current Visit: Yes Code(s): M20.41 - Other hammer toe(s) (acquired), right foot (7) Lumbar back pain with radiculopathy affecting right lower extremity Status: Chronic Current Visit: Yes Code(s): M54.17 - Radiculopathy, lumbosacral region Type of Wound Date of Service: 10/29/17 Chief Complaint: Follow-up right foot ulcer History of Wound: 76-year-old white female that has had a callus on the bottom of her right foot for 2 years. She reports her current wound has been present for about 3 months. She was not able to tolerate her cam walker boot previously provided to take pressure off of this wound site. She now wears a diabetic shoe with protective liner. Her she was very tight and she has extreme pain each time she puts her shoe on. She denies fever, chill, nausea, vomiting. She has multiple sclerosis and spinal stenosis which contribute to gait impairments and ongoing pain. She had a previous infection and was treated with Levaquin and Flagyl and later Augmentin. This has resolved. She denies redness or odor. She is with her today. She had an issue with her previous nutritional supplement because of the vitamin K and her Coumadin use. She asked if there are other nutritional supplements that do not have vitamin K. She is currently being treated for urinary tract infection (e.coli). She denies new wounds or drainage today. Progress of Wound: May we debrided some of the callus that has formed than usual because of her special shoe. The ulcer itself has healed and he has a small thin epithelialization occurring patient can continue Promogran at home and continue wearing the shoe special shoe and I suggested buying a microfine grader to keep her callus and check at home. Patient is to follow-up with Dr. Gumaro Muñiz for any further problems patient was also advised to follow-up with a educational therapist up at [place] for her hydradenitis - Physical Exam Vital Signs Temp Pulse Resp BP 96.9 F L 84 20 H 149/75 H 10/29/17 12:18 10/29/17 12:18 10/29/17 12:18 10/29/17 12:18 General: Oriented x3, Cooperative, Well developed HEENT: Atraumatic, PERRLA Oral: Moist Mucosa Neck: Supple, No JVD Lungs: Clear to auscultation, Normal air movement Cardiovascular: Regular rate, Regular Rhythm Abdomen: Bowel Sounds Present, Soft, Non Tender, No Hepato-splenomegaly Extremities: No clubbing, No edema Skin: Ulcer/ Wound - Foot ulcer Wound Measurements and Assessment WC - Nurse 1 - General Ulcer Measurement Start: 10/08/17 11:26 Freq: Status: Active Protocol: Activity Type Activity Date Activity User E-Sign Co-Sign Detail Recorded Client Recorded Date Recorded By Document 10/29/17 12:18 DL [id number] 10/29/17 12:25 DL 10/29/17 12:18 Wound Center Nurse 1 [Ulcer Assessment] #1- RT FOOT PLANTAR ASPECT -Current Size (cm) - Length 0.7 -Current Size (cm) - Width 0.3 -Current Size (cm) - Depth 0.3 -Total Square Cm 0.21 -Photo Taken No -Exudate Amt Small (1-33%) -Exudate Type Serosanguineous -Wound Margin Thickened -Granulation Amt Small (1-33%) -Granulation Quality Red -Necrosis Amt Small (1-33%) -Necrotic Tissue Type Adherent Slough -Structure Exposed N/A -Texture (Faby-wound Skin Appearance) Callus -Moisture (Faby-wound Skin Appearance Dry/Scaly ) -Color (Faby-wound Skin Appearance) No Abnormality -Temperature (Faby-wound Skin No Abnormality Appearance) (Pt Warm) -Ulcer Cleansing Rinsed/ Irrigated with Saline -Foul Odor after Cleansing No -Anesthetic Used 4% Lidocaine Solution - Nurse 2 - General Ulcer CM Notes Start: 10/08/17 11:26 Freq: Status: Active Protocol: Activity Type Activity Date Activity User E-Sign Co-Sign Detail Recorded Client Recorded Date Recorded By Document 10/29/17 12:35 DV [id number] 10/29/17 12:43 DV 10/29/17 12:35 Wound Center Nurse 2 [Procedure/Treatment] -Time 12:36 -Correct Patient Yes -Correct Side, Site, Position Yes -Correct Procedure Yes -Procedure Performed Yes -Type of Procedure Debridement -Clinical Debridement Subcutaneous -Post Debridement Size (cm) - Length 0.6 -Post Debridement Size (cm) - Width 0.4 -Post Debridement Size (cm) - Depth 0.1 -Total Square Cm 0.24 -Wound/Ulcer Outcome Not Healed -Ulcer Cleansing Rinsed/ Irrigated with Saline -Foul Odor after Cleansing No -Bioengineered Tissue No -Bleeding Controlled with Pressure -Treatment Response Procedure Tolerated Well [See Physician Procedure note for Specifics] Pain Scale: 0-10 Numeric [Pain] -Is Patient Pain Free? Yes Musculoskeletal: No Tenderness to Palpation of Joints or Extremities Lymphatic: No Cervical, Supraclavicular, or Inguinal Adenopathy Neurological: Cranial nerves II-XII grossly intact, Neuro grossly intact Psych/Mental Status: Normal Affect, Appropriate Debridement Note Post-Debridement Measurements/Treatment - Nurse 2 - General Ulcer CM Notes Start: 10/08/17 11:26 Freq: Status: Active Protocol: Activity Type Activity Date Activity User E-Sign Co-Sign Detail Recorded Client Recorded Date Recorded By Document 10/08/17 12:32 [id number] 10/08/17 12:36 Document 10/29/17 12:35 [id number] 10/29/17 12:43 DV 10/08/17 10/29/17 12:32 12:35 Wound Center Nurse 2 #1- RT FOOT PLANTAR ASPECT -Time 12:32 12:36 -Correct Patient Yes Yes -Correct Side, Site, Position Yes Yes -Correct Procedure Yes Yes -Procedure Performed Yes Yes -Type of Procedure Debridement Debridement -Clinical Debridement Subcutaneous Subcutaneous -Post Debridement Size (cm) - Length 0.8 0.6 -Post Debridement Size (cm) - Width 0.2 0.4 -Post Debridement Size (cm) - Depth 0.2 0.1 -Total Square Cm 0.16 0.24 -Wound/Ulcer Outcome Not Healed Not Healed -Ulcer Cleansing Rinsed/ Rinsed/ Irrigated with Irrigated with Saline Saline -Foul Odor after Cleansing No No -Bioengineered Tissue No No -Bleeding Controlled with Pressure Pressure -Treatment Response Procedure Procedure Tolerated Well Tolerated Well Pain Scale: 0-10 Numeric Is Patient Pain Free? Yes Yes Wound debrided: Foot ulcer Type of Debridement: Excisional debridement Anesthesia Used: 5% Lidocaine Gel Depth: Down to and including healthy tissue Percentage of wound debrided: 100 Instrument Used: 3mm curette, - - nippers Tissue Removed: Callus Severity: Limited To Skin Breakdown Amount of bleeding with debridement: None Bleeding Controlled with: Pressure Patient tolerated procedure well Assessment/Plan Active Problems Diabetes 1.5, managed as type 2 (Acute) Diabetic ulcer of right foot associated with diabetes mellitus due to underlying condition (Acute) Edema of lower extremity (Chronic) Lumbar back pain with radiculopathy affecting right lower extremity (Chronic) Hammer toe of right foot (Chronic) Assessment: Foot DFU right - grade 2. abscess right foot - resolved. cellulitis - resolved. DM II uncontrolled with neuropathy. Right foot hammertoe. Suspected malnutrition. MS. Plan: Discharge from the wound center follow-up as needed. 2 new using the Darco shoe with increased area offloading
--- NOTE | 2017-10-29 14:19 | PN.PCM_ITS ---
(1) Cellulitis and abscess of foot Status: Acute Current Visit: No Code(s): L03.119 - Cellulitis of unspecified part of limb; L02.619 - Cutaneous abscess of unspecified foot (2) Diabetes 1.5, managed as type 2 Status: Acute Current Visit: Yes Code(s): E10.9 - Type 1 diabetes mellitus without complications (3) Diabetic ulcer of right foot associated with diabetes mellitus due to underlying condition Status: Acute Current Visit: Yes Code(s): E08.621 - Diabetes mellitus due to underlying condition with foot ulcer; L97.519 - Non-pressure chronic ulcer of other part of right foot with unspecified severity (4) Infected ulcer of skin Status: Acute Current Visit: No Code(s): L98.499 - Non-pressure chronic ulcer of skin of other sites with unspecified severity; L08.9 - Local infection of the skin and subcutaneous tissue, unspecified (5) Edema of lower extremity Status: Chronic Current Visit: Yes Code(s): R60.0 - Localized edema (6) Hammer toe of right foot Status: Chronic Current Visit: Yes Code(s): M20.41 - Other hammer toe(s) ( acquired), right foot (7) Lumbar back pain with radiculopathy affecting right lower extremity Status: Chronic Current Visit: Yes Code(s): M54.17 - Radiculopathy, lumbosacral region Type of Wound Date of Service: 10/29/17 Chief Complaint: Follow-up right foot ulcer History of Wound: 76-year-old white female that has had a callus on the bottom of her right foot for 2 years. She reports her current wound has been present for about 3 months. She was not able to tolerate her cam walker boot previously provided to take pressure off of this wound site. She now wears a diabetic shoe with protective liner. Her she was very tight and she has extreme pain each time she puts her shoe on. She denies fever, chill, nausea, vomiting. She has multiple sclerosis and spinal stenosis which contribute to gait impairments and ongoing pain. She had a previous infection and was treated with Levaquin and Flagyl and later Augmentin. This has resolved. She denies redness or odor. She is with her today. She had an issue with her previous nutritional supplement because of the vitamin K and her Coumadin use. She asked if there are other nutritional supplements that do not have vitamin K. She is currently being treated for urinary tract infection (e.coli) . She denies new wounds or drainage today. Progress of Wound: May we debrided some of the callus that has formed than usual because of her special shoe. The ulcer itself has healed and he has a small thin epithelialization occurring patient can continue Promogran at home and continue wearing the shoe special shoe and I suggested buying a microfine grader to keep her callus and check at home. Patient is to follow-up with Dr. Gumaro Muñiz for any further problems patient was also advised to follow-up with a calender supervisor up at [place] for her hydradenitis - Physical Exam Vital Signs Temp Pulse Resp BP 96.9 F L 84 20 H 149/75 H 10/29/17 12:18 10/29/17 12:18 10/29/17 12:18 10/29/17 12:18 General: Oriented x3, Cooperative, Well developed HEENT: Atraumatic, PERRLA Oral: Moist Mucosa Neck: Supple, No JVD Lungs: Clear to auscultation, Normal air movement Cardiovascular: Regular rate, Regular Rhythm Abdomen: Bowel Sounds Present, Soft, Non Tender, No Hepato-splenomegaly Extremities: No clubbing, No edema Skin: Ulcer/ Wound - Foot ulcer Wound Measurements and Assessment WC - Nurse 1 - General Ulcer Measurement Start: 10/08/17 11:26 Freq: Status: Active Protocol: Activity Type Activity Date Activity User E-Sign Co-Sign Detail Recorded Client Recorded Date Recorded By Document 10/29/17 12:18 DL [id number] 10/29/17 12:25 DL 10/29/17 12:18 Wound Center Nurse 1 [Ulcer Assessment] #1- RT FOOT PLANTAR ASPECT -Current Size (cm) - Length 0.7 -Current Size (cm) - Width 0.3 -Current Size (cm) - Depth 0.3 -Total Square Cm 0.21 -Photo Taken No -Exudate Amt Small (1-33%) -Exudate Type Serosanguineous -Wound Margin Thickened -Granulation Amt Small (1-33%) -Granulation Quality Red -Necrosis Amt Small (1-33%) -Necrotic Tissue Type Adherent Slough -Structure Exposed N/A -Texture (Faby-wound Skin Appearance) Callus -Moisture (Faby-wound Skin Appearance Dry/Scaly ) -Color (Faby-wound Skin Appearance) No Abnormality -Temperature (Faby-wound Skin No Abnormality Appearance) (Pt Warm) -Ulcer Cleansing Rinsed/ Irrigated with Saline -Foul Odor after Cleansing No -Anesthetic Used 4% Lidocaine Solution - Nurse 2 - General Ulcer CM Notes Start: 10/08/17 11:26 Freq: Status: Active Protocol: Activity Type Activity Date Activity User E-Sign Co-Sign Detail Recorded Client Recorded Date Recorded By Document 10/29/17 12:35 DV [id number] 10/29/17 12:43 DV 10/29/17 12:35 Wound Center Nurse 2 [Procedure/Treatment] -Time 12:36 -Correct Patient Yes -Correct Side, Site, Position Yes -Correct Procedure Yes -Procedure Performed Yes -Type of Procedure Debridement -Clinical Debridement Subcutaneous -Post Debridement Size (cm) - Length 0.6 -Post Debridement Size (cm) - Width 0.4 -Post Debridement Size (cm) - Depth 0.1 -Total Square Cm 0.24 -Wound/Ulcer Outcome Not Healed -Ulcer Cleansing Rinsed/ Irrigated with Saline -Foul Odor after Cleansing No -Bioengineered Tissue No -Bleeding Controlled with Pressure -Treatment Response Procedure Tolerated Well [See Physician Procedure note for Specifics] Pain Scale: 0-10 Numeric [Pain] -Is Patient Pain Free? Yes Musculoskeletal: No Tenderness to Palpation of Joints or Extremities Lymphatic: No Cervical, Supraclavicular, or Inguinal Adenopathy Neurological: Cranial nerves II-XII grossly intact, Neuro grossly intact Psych/Mental Status: Normal Affect, Appropriate Debridement Note Post-Debridement Measurements/Treatment - Nurse 2 - General Ulcer CM Notes Start: 10/08/17 11:26 Freq: Status: Active Protocol: Activity Type Activity Date Activity User E-Sign Co-Sign Detail Recorded Client Recorded Date Recorded By Document 10/08/17 12:32 [id number] 10/08/17 12:36 Document 10/29/17 12:35 [id number] 10/29/17 12:43 DV 10/08/17 10/29/17 12:32 12:35 Wound Center Nurse 2 #1- RT FOOT PLANTAR ASPECT -Time 12:32 12:36 -Correct Patient Yes Yes -Correct Side, Site, Position Yes Yes -Correct Procedure Yes Yes -Procedure Performed Yes Yes -Type of Procedure Debridement Debridement -Clinical Debridement Subcutaneous Subcutaneous -Post Debridement Size (cm) - Length 0.8 0.6 -Post Debridement Size (cm) - Width 0.2 0.4 -Post Debridement Size (cm) - Depth 0.2 0.1 -Total Square Cm 0.16 0.24 -Wound/Ulcer Outcome Not Healed Not Healed -Ulcer Cleansing Rinsed/ Rinsed/ Irrigated with Irrigated with Saline Saline -Foul Odor after Cleansing No No -Bioengineered Tissue No No -Bleeding Controlled with Pressure Pressure -Treatment Response Procedure Procedure Tolerated Well Tolerated Well Pain Scale: 0-10 Numeric Is Patient Pain Free? Yes Yes Wound debrided: Foot ulcer Type of Debridement: Excisional debridement Anesthesia Used: 5% Lidocaine Gel Depth: Down to and including healthy tissue Percentage of wound debrided: 100 Instrument Used: 3mm curette, - - nippers Tissue Removed: Callus Severity: Limited To Skin Breakdown Amount of bleeding with debridement: None Bleeding Controlled with: Pressure Patient tolerated procedure well Assessment/Plan Active Problems Diabetes 1.5, managed as type 2 (Acute) Diabetic ulcer of right foot associated with diabetes mellitus due to underlying condition (Acute) Edema of lower extremity (Chronic) Lumbar back pain with radiculopathy affecting right lower extremity (Chronic) Hammer toe of right foot (Chronic) Assessment: Foot DFU right - grade 2. abscess right foot - resolved. cellulitis - resolved. DM II uncontrolled with neuropathy. Right foot hammertoe. Suspected malnutrition. MS. Plan: Discharge from the wound center follow-up as needed. 2 new using the Darco shoe with increased area offloading
== END 2017-11-06 23:59 ==
LOC: WC 11:30
PROVIDERS: Visit Provider Nurse Practitioner
DX: E11.621 Type 2 diabetes mellitus with foot ulcer (principal); E11.65 Type 2 diabetes mellitus with hyperglycemia; R60.0 Localized edema; M20.41 Other hammer toe(s) (acquired), right foot; L97.511 Non-pressure chronic ulcer of other part of right foot limited to breakdown of skin; M54.17 Radiculopathy, lumbosacral region; G35 Multiple sclerosis; E11.40 Type 2 diabetes mellitus with diabetic neuropathy, unspecified
CPT/HCPCS: 11042; 99212; G0463

== ENCOUNTER → 2017-11-29 13:44 | Outpatient (CLI) | payer MEDICARE, OTHER, SELFPAY ==
--- NOTE | 2017-11-29 14:10 | RAD_ITS ---
STUDY: X-RAY - RIGHT FOOT CLINICAL: Female, 76 years old. Soft tissue ulcer. TECHNIQUE: 3 view(s) of the foot. COMPARISON: None. FINDINGS: No acute fracture, dislocation, or focal destructive process of the bones. Severe diffuse demineralization. Moderate hallux valgus. Degenerative changes of the first metatarsophalangeal joint. Chronic subluxations of the second and third metatarsal phalangeal joints. Diffuse soft tissue swelling. RAD/Foot min 3 Views IMPRESSION: Degenerative changes. No acute fractures, dislocations, or focal destructive lesions of the bones. Electronically Signed: Tutu Cox MD at 19:47 EDT , Service support ,
[2017-11-29 14:54] LABS: Basophil# 0.06 X10^3/uL; Basophil% 0.4 % (0-1); Eosinophil# 0.22 X10^3/uL; Eosinophils% 1.6 % (0-5); Hematocrit 43.7 % (37-47); Hemoglobin 14.1 g/dl (12.0-15.0); Lymphocyte % 32.6 % (19-41); Mean Corp Hgb Conc 32.3 g/gl (32-36); Mean Corpuscular Hgb 29.2 pg (27.0-32.0); Mean Corpuscular Volume 90.5 fL (81-99); Mean Platelet Vol. 10.6 fl (6.2-12.0); Monocyte# 0.79 X10^3/uL; Monocyte% 5.9 % (0-10); Neutrophil # 8.01 X10^3/uL (2.7-7.7); Neutrophil % 59.4 % (47-70); Platelet Count 238 K/mm3 (150-450); RBC Distribution Width CV 14.2 % (11.6-14.6); Red Blood Count 4.83 M/mm3 (4.2-5.4); White Blood Count 13.5 K/mm3 (4.4-11.0)
[2017-11-29 15:03] LABS: POSITIVE COUNT NO; POSITIVE DIFFERENTIAL NO; POSITIVE MORPHOLOGY NO
[2017-11-29 15:14] LABS: Anion Gap 11 (5-15); BUN 14 mg/dL (7-18); BUN/Creat Ratio 16.2 RATIO (10-20); Calcium,Total 9.3 mg/dL (8.5-10.1); Chloride 103 mmol/L (98-107); Creatinine, Serum 0.87 mg/dL (0.55-1.02); EST Glomerular Filtration Rate 68 mL/min (>60); Est Glom Filt Rate - Afr Amer 82 mL/min (>60); Glucose 223 mg/dL (74-106); Potassium 4.4 mmol/L (3.5-5.1); Sodium Level 140 mmol/L (136-145)
[2017-11-29 15:24] LABS: Hemoglobin A1c 9.3 % (4.2-6.3)
[2017-11-29 20:19] LABS: M R Staph aureus DNA By PCR Negative (Negative); Probe Check PASS; Staph aureus DNA By PCR POSITIVE (Negative)
== END ==
PROVIDERS: Visit Provider Podiatrist
DX: E11.9 Type 2 diabetes mellitus without complications (principal); M86.9 Osteomyelitis, unspecified; L97.512 Non-pressure chronic ulcer of other part of right foot with fat layer exposed; M20.41 Other hammer toe(s) (acquired), right foot
CPT/HCPCS: 36415; 73630; 80048; 83036; 85025; 87070; 87205; 87640

== ENCOUNTER 2018-03-04 11:06 | Outpatient (RCR) | payer MEDICARE, OTHER, SELFPAY ==
[2018-03-04 11:24] VITALS: BP 152/78; PULSE 81; RESP 16; TEMP 36.3
--- NOTE | 2018-03-04 12:35 | PN.PCM_ITS ---
(1) Diabetes 1.5, managed as type 2 Status: Acute Current Visit: Yes Code(s): E10.9 - Type 1 diabetes mellitus without complications (2) Diabetic ulcer of right foot associated with diabetes mellitus due to underlying condition Status: Acute Current Visit: Yes Code(s): E08.621 - Diabetes mellitus due to underlying condition with foot ulcer; L97.519 - Non-pressure chronic ulcer of other part of right foot with unspecified severity (3) Hammer toe of right foot Status: Chronic Current Visit: Yes Code(s): M20.41 - Other hammer toe(s) (acquired), right foot (4) Multiple sclerosis Status: Chronic Current Visit: Yes Code(s): G35 - Multiple sclerosis (5) Type 2 diabetes mellitus with diabetic polyneuropathy Status: Chronic Current Visit: Yes Code(s): E11.42 - Type 2 diabetes mellitus with diabetic polyneuropathy (6) Type 2 diabetes mellitus with foot ulcer Status: Chronic Current Visit: Yes Code(s): E11.621 - Type 2 diabetes mellitus with foot ulcer; L97.509 - Non-pressure chronic ulcer of other part of unspecified foot with unspecified severity (7) Ulcer of right foot with fat layer exposed Status: Chronic Current Visit: No Code(s): L97.512 - Non-pressure chronic ulcer of other part of right foot with fat layer exposed Type of Wound Chief Complaint: Follow-up right foot ulcer History of Wound: 76-year-old white female that has had a callus on the bottom of her right foot for 2 years. She reports her current wound has been present for about 3 months. She was not able to tolerate her cam walker boot previously provided to take pressure off of this wound site. She now wears a diabetic shoe with protective liner. Her she was very tight and she has extreme pain each time she puts her shoe on. She denies fever, chill, nausea, vomiting. She has multiple sclerosis and spinal stenosis which contribute to gait impairments and ongoing pain. She had a previous infection in December sepsis from a urinary tract infection typical with MS patients. She denies redness or odor. She is with her today. She had an issue with her previous nutritional supplement because of the vitamin K and her Coumadin use. She asked if there are other nutritional supplements that do not have vitamin K. The ulcer today is punctuated with callus and then clean open tissue coming out. Try to nitro sticks the the punctuated skin area and using nippers will clear up some of the callus. Applied aperture padding to the inner side of the ulcer where she develops like a crease and a valley there. Patient has not been wearing her offloading shoes because she feels unstable on them so we have suggested may be a's wrapping the foot to the ankle to give her ankle more stability. This should be worn during the day and off at night. Progress of Wound: As stated above the became concerned after he noticed that it was not getting better and he felt like it was getting worse. - Physical Exam Vital Signs Temp Pulse Resp BP 97.4 F L 81 16 152/78 H 03/04/18 11:24 03/04/18 11:24 03/04/18 11:24 03/04/18 11:24 General: Oriented x3, Cooperative, Well developed HEENT: Atraumatic, PERRLA Oral: Moist Mucosa Neck: Supple, No JVD Lungs: Clear to auscultation, Normal air movement Cardiovascular: Regular rate, Regular Rhythm Abdomen: Bowel Sounds Present, Soft, Non Tender, No Hepato-splenomegaly Extremities: No clubbing, No edema, - - Right foot DFU Wound Measurements and Assessment WC - Nurse 1 - General Ulcer Measurement Start: 03/04/18 11:24 Freq: Status: Active Protocol: Activity Type Activity Date Activity User E-Sign Co-Sign Detail Recorded Client Recorded Date Recorded By Document 03/04/18 11:24 [facility] [id number] 03/04/18 11:38 [facility] 03/04/18 11:24 Wound Center Nurse 1 [Ulcer Assessment] #4- RT FOOT PLANTAR ASPECT -Combined with other wound No -Current Size (cm) - Length 0.9 -Current Size (cm) - Width 0.6 -Current Size (cm) - Depth 0.4 -Total Square Cm 0.54 -Date of Last Picture (Recall this 03/04/18 field) -Photo Taken Yes -Epithelialization None Present -Tunneling No -Undermining/Tunneling Yes -Undermining/Tunneling Starts (O' 1 clock) -Undermining/Tunneling Ends (O'clock) 4 -Maximum Distance (cm) 0.5 -Circular Undermining No -Exudate Amt Small (1-33%) -Exudate Type Serous -Wound Margin Thickened & Rolled Under -Granulation Amt Small (1-33%) -Granulation Quality Red -Slough/Fibrin Yes -Necrosis Amt Large (67-100%) -Necrotic Tissue Type Adherent Slough -Texture (Faby-wound Skin Appearance) Callus Scarring -Moisture (Faby-wound Skin Appearance Dry/Scaly ) -Color (Faby-wound Skin Appearance) Assessed -Temperature (Faby-wound Skin No Abnormality Appearance) (Pt Warm) -Tenderness on Palpation (Faby-wound No Skin Appearance) -Ulcer Cleansing Rinsed/ Irrigated with Saline -Foul Odor after Cleansing No -Anesthetic Used 5% Lidocaine Gel [Edema Assessment] -Lower Limb Edema Present Yes -Right Calf (cm) 45.4 -Right Ankle (cm) 26 WC - Nurse 2 - General Ulcer CM Notes Start: 03/04/18 11:24 Freq: Status: Active Protocol: Activity Type Activity Date Activity User E-Sign Co-Sign Detail Recorded Client Recorded Date Recorded By Document 03/04/18 11:49 MW [id number] 03/04/18 12:03 MW 03/04/18 11:49 Wound Center Nurse 2 [Procedure/Treatment] #4- RT FOOT PLANTAR ASPECT -Time 11:50 -Correct Patient Yes -Correct Side, Site, Position Yes -Correct Procedure Yes -Procedure Performed Yes -Type of Procedure Debridement -Clinical Debridement Subcutaneous -Post Debridement Size (cm) - Length 0.5 -Post Debridement Size (cm) - Width 0.8 -Post Debridement Size (cm) - Depth 0.2 -Total Square Cm 0.40 -Wound/Ulcer Outcome Not Healed -Ulcer Cleansing Wound Cleanser -Foul Odor after Cleansing No -Bioengineered Tissue No -Bleeding Controlled with Pressure Silver Nitrate -Treatment Response Procedure Tolerated Well [See Physician Procedure note for Specifics] Pain Scale: 0-10 Numeric [Pain] -Is Patient Pain Free? Yes Musculoskeletal: No Tenderness to Palpation of Joints or Extremities Lymphatic: No Cervical, Supraclavicular, or Inguinal Adenopathy Neurological: Cranial nerves II-XII grossly intact, Neuro grossly intact Psych/Mental Status: Normal Affect, Appropriate Debridement Note Post-Debridement Measurements/Treatment WC - Nurse 2 - General Ulcer CM Notes Start: 03/04/18 11:24 Freq: Status: Active Protocol: Activity Type Activity Date Activity User E-Sign Co-Sign Detail Recorded Client Recorded Date Recorded By Document 03/04/18 11:49 MW [id number] 03/04/18 12:03 MW 03/04/18 11:49 Wound Center Nurse 2 #4- RT FOOT PLANTAR ASPECT -Time 11:50 -Correct Patient Yes -Correct Side, Site, Position Yes -Correct Procedure Yes -Procedure Performed Yes -Type of Procedure Debridement -Clinical Debridement Subcutaneous -Post Debridement Size (cm) - Length 0.5 -Post Debridement Size (cm) - Width 0.8 -Post Debridement Size (cm) - Depth 0.2 -Total Square Cm 0.40 -Wound/Ulcer Outcome Not Healed -Ulcer Cleansing Wound Cleanser -Foul Odor after Cleansing No -Bioengineered Tissue No -Bleeding Controlled with Pressure Silver Nitrate -Treatment Response Procedure Tolerated Well Pain Scale: 0-10 Numeric Is Patient Pain Free? Yes Wound debrided: DFU Laterality: Right Wound Grade/Stage: Stage III Type of Debridement: Excisional debridement Anesthesia Used: 5% Lidocaine Gel Depth: Down to and including healthy tissue, in the subcutaneous layer Percentage of wound debrided: 100 Instrument Used: 7mm curette, - - Nippers Tissue Removed: Fibrin and callus Severity: Limited To Skin Breakdown Amount of bleeding with debridement: Mild Bleeding Controlled with: Compression and gauze Patient tolerated procedure well Assessment/Plan Active Problems Diabetes 1.5, managed as type 2 (Acute) Diabetic ulcer of right foot associated with diabetes mellitus due to underlying condition (Acute) Type 2 diabetes mellitus with foot ulcer (Chronic) Type 2 diabetes mellitus with diabetic polyneuropathy (Chronic) Hammer toe of right foot (Chronic) Multiple sclerosis (Chronic) Assessment: Foot DFU right - grade 2. MS. DM II uncontrolled with neuropathy. Right foot hammertoe. Suspected malnutrition. Plan: wash right foot with Hibiclens.'s Then Starting Wednesday Pl., Promogran in the wound base cover with gauze aperture on the inner perimeter of the ulcer. Cover with gauze and Jony wrap 4 inch foot to mid calf. Continue to wear her Darco shoe. Follow up 1 week
== END 2018-03-09 23:59 ==
LOC: WC 11:06
PROVIDERS: Family Provider Family Medicine; PCP Family Medicine; Visit Provider Nurse Practitioner
DX: E11.621 Type 2 diabetes mellitus with foot ulcer (principal); E11.42 Type 2 diabetes mellitus with diabetic polyneuropathy; G35 Multiple sclerosis; M20.41 Other hammer toe(s) (acquired), right foot; L84 Corns and callosities; E11.65 Type 2 diabetes mellitus with hyperglycemia; L97.511 Non-pressure chronic ulcer of other part of right foot limited to breakdown of skin
CPT/HCPCS: 11042; 99213; G0463

== ENCOUNTER 2018-04-08 11:00 | Outpatient (RCR) | payer MEDICARE, OTHER, SELFPAY ==
[2018-03-10 02:08] VITALS: BP 152/78; PULSE 81; RESP 16; TEMP 36.3
[2018-03-11 11:27] VITALS: BP 161/80; PULSE 83; RESP 18; TEMP 36.7
--- NOTE | 2018-03-11 12:26 | PCM.WC.PN ---
(1) Diabetes 1.5, managed as type 2 Status: Acute Current Visit: No Code(s): E10.9 - Type 1 diabetes mellitus without complications (2) Diabetic ulcer of right foot associated with diabetes mellitus due to underlying condition Status: Acute Current Visit: Yes Qualifiers: Diabetic foot ulcer location: midfoot Non-pressure ulcer stage: with fat layer exposed Qualified Code(s): E08.621 - Diabetes mellitus due to underlying condition with foot ulcer; L97.412 - Non-pressure chronic ulcer of right heel and midfoot with fat layer exposed Code(s): E08.621 - Diabetes mellitus due to underlying condition with foot ulcer; L97.519 - Non-pressure chronic ulcer of other part of right foot with unspecified severity (3) Non-pressure chronic ulcer of other part of right foot with fat layer exposed Status: Acute Current Visit: Yes Code(s): L97.512 - Non-pressure chronic ulcer of other part of right foot with fat layer exposed (4) Edema of lower extremity Status: Chronic Current Visit: Yes Code(s): R60.0 - Localized edema (5) Hammer toe of right foot Status: Chronic Current Visit: Yes Code(s): M20.41 - Other hammer toe(s) (acquired), right foot (6) Multiple sclerosis Status: Chronic Current Visit: Yes Code(s): G35 - Multiple sclerosis (7) Type 2 diabetes mellitus with diabetic polyneuropathy Status: Chronic Current Visit: Yes Code(s): E11.42 - Type 2 diabetes mellitus with diabetic polyneuropathy (8) Ulcer of right foot with fat layer exposed Status: Acute Current Visit: Yes Code(s): L97.512 - Non-pressure chronic ulcer of other part of right foot with fat layer exposed Type of Wound Chief Complaint: Follow-up right foot ulcer History of Wound: 76-year-old white female that has had a callus on the bottom of her right foot for 2 years. She reports her current wound has been present for about 3 months. She was not able to tolerate her cam walker boot previously provided to take pressure off of this wound site. She now wears a diabetic shoe with protective liner. Her she was very tight and she has extreme pain each time she puts her shoe on. She denies fever, chill, nausea, vomiting. She has multiple sclerosis and spinal stenosis which contribute to gait impairments and ongoing pain. She had a previous infection in December sepsis from a urinary tract infection typical with MS patients. She denies redness or odor. She is with her today. She had an issue with her previous nutritional supplement because of the vitamin K and her Coumadin use. She asked if there are other nutritional supplements that do not have vitamin K. The ulcer today is punctuated with callus and then clean open tissue coming out. Try to nitro sticks the the punctuated skin area and using nippers will clear up some of the callus. Applied aperture padding to the inner side of the ulcer where she develops like a crease and a valley there. Patient has not been wearing her offloading shoes because she feels unstable on them so we have suggested may be a's wrapping the foot to the ankle to give her ankle more stability. This should be worn during the day and off at night. Progress of Wound: The ulcer on the bottom of the right foot looks much better. Pared down the callus its developed. The ulcer is clean. Patient did get her new shoe and they are going to cut out that one section so she can offload. Complains of pain on top of her foot I suggested a ABD on top of the foot so the strap does not cut into the foot. - Physical Exam Vital Signs Temp Pulse Resp BP 98.0 F 83 18 161/80 H 03/11/18 11:27 03/11/18 11:27 03/11/18 11:27 03/11/18 11:27 General: Oriented x3, Cooperative, Well developed HEENT: Atraumatic, PERRLA Oral: Moist Mucosa Neck: Supple, No JVD Lungs: Clear to auscultation, Normal air movement Cardiovascular: Regular rate, Regular Rhythm Abdomen: Bowel Sounds Present, Soft, Non Tender, No Hepato-splenomegaly Extremities: No clubbing, No edema Skin: - - Right foot ulcer Wound Measurements and Assessment WC - Nurse 1 - General Ulcer Measurement Start: 03/11/18 11:26 Freq: Status: Active Protocol: Activity Type Activity Date Activity User E-Sign Co-Sign Detail Recorded Client Recorded Date Recorded By Document 03/11/18 11:27 AN [id number] 03/11/18 11:42 AN 03/11/18 11:27 Wound Center Nurse 1 [Ulcer Assessment] #4- RT FOOT PLANTAR ASPECT -Combined with other wound No -Current Size (cm) - Length 0.4 -Current Size (cm) - Width 0.5 -Current Size (cm) - Depth 0.1 -Total Square Cm 0.20 -Date of Last Picture (Recall this 03/04/18 field) -Photo Taken No -Epithelialization None Present -Tunneling No -Undermining/Tunneling No -Circular Undermining No -Classification - Thickness Full Thickness without Exposed Support Structure -Change in Wound Grade/Stage No Query Text:If change please identify the Stage/Grade in the comment (ie. S2 G3) -Exudate Amt Small (1-33%) -Exudate Type Serosanguineous -Wound Margin Distinct, Outline Attached -Granulation Amt None Present (0 %) -Granulation Quality N/A -Slough/Fibrin Yes -Necrosis Amt None Present (0 %) -Necrotic Tissue Type Adherent Slough -Structure Exposed None/Limited to Skin Breakdown -Texture (Faby-wound Skin Appearance) Callus -Color (Faby-wound Skin Appearance) No Abnormality -Temperature (Faby-wound Skin No Abnormality Appearance) (Pt Warm) -Tenderness on Palpation (Faby-wound No Skin Appearance) -Ulcer Cleansing Rinsed/ Irrigated with Saline -Foul Odor after Cleansing No -Anesthetic Used 5% Lidocaine Gel [Edema Assessment] -Lower Limb Edema Present No WC - Nurse 2 - General Ulcer CM Notes Start: 03/11/18 11:26 Freq: Status: Active Protocol: Activity Type Activity Date Activity User E-Sign Co-Sign Detail Recorded Client Recorded Date Recorded By Document 03/11/18 12:01 MW [id number] 03/11/18 12:07 MW 03/11/18 12:01 Wound Center Nurse 2 [Procedure/Treatment] #4- RT FOOT PLANTAR ASPECT -Time 12:01 -Correct Patient Yes -Correct Side, Site, Position Yes -Correct Procedure Yes -Procedure Performed Yes -Type of Procedure Debridement -Clinical Debridement Subcutaneous -Post Debridement Size (cm) - Length 0.4 -Post Debridement Size (cm) - Width 0.7 -Post Debridement Size (cm) - Depth 0.1 -Total Square Cm 0.28 -Wound/Ulcer Outcome Not Healed -Ulcer Cleansing Rinsed/ Irrigated with Saline -Foul Odor after Cleansing No -Bioengineered Tissue No -Bleeding Controlled with Pressure -Treatment Response Procedure Tolerated Well [See Physician Procedure note for Specifics] Pain Scale: 0-10 Numeric [Pain] -Is Patient Pain Free? Yes Musculoskeletal: No Tenderness to Palpation of Joints or Extremities Lymphatic: No Cervical, Supraclavicular, or Inguinal Adenopathy Neurological: Cranial nerves II-XII grossly intact, Neuro grossly intact Psych/Mental Status: Normal Affect, Appropriate Debridement Note Post-Debridement Measurements/Treatment WC - Nurse 2 - General Ulcer CM Notes Start: 03/11/18 11:26 Freq: Status: Active Protocol: Activity Type Activity Date Activity User E-Sign Co-Sign Detail Recorded Client Recorded Date Recorded By Document 03/11/18 12:01 MW [id number] 03/11/18 12:07 MW 03/11/18 12:01 Wound Center Nurse 2 #4- RT FOOT PLANTAR ASPECT -Time 12:01 -Correct Patient Yes -Correct Side, Site, Position Yes -Correct Procedure Yes -Procedure Performed Yes -Type of Procedure Debridement -Clinical Debridement Subcutaneous -Post Debridement Size (cm) - Length 0.4 -Post Debridement Size (cm) - Width 0.7 -Post Debridement Size (cm) - Depth 0.1 -Total Square Cm 0.28 -Wound/Ulcer Outcome Not Healed -Ulcer Cleansing Rinsed/ Irrigated with Saline -Foul Odor after Cleansing No -Bioengineered Tissue No -Bleeding Controlled with Pressure -Treatment Response Procedure Tolerated Well Pain Scale: 0-10 Numeric Is Patient Pain Free? Yes Wound debrided: Right foot DFU Type of Debridement: Excisional debridement Anesthesia Used: 4% Lidocaine Solution Percentage of wound debrided: 100 Instrument Used: 7mm curette, #15 blade Tissue Removed: Callus and fibrin Severity: Limited To Skin Breakdown Amount of bleeding with debridement: Moderate Bleeding Controlled with: Compression and gauze Patient tolerated procedure well Assessment/Plan Active Problems Diabetic ulcer of right foot associated with diabetes mellitus due to underlying condition (Acute) Edema of lower extremity (Chronic) Non-pressure chronic ulcer of other part of right foot with fat layer exposed (Acute) Type 2 diabetes mellitus with diabetic polyneuropathy (Chronic) Hammer toe of right foot (Chronic) Ulcer of right foot with fat layer exposed (Acute) Multiple sclerosis (Chronic) Assessment: Foot DFU right - grade 2. MS. DM II uncontrolled with neuropathy. Right foot hammertoe. Suspected malnutrition. Plan: wash right foot with Hibiclens.'s Then Start Promogran in the wound base cover with gauze aperture on the inner perimeter of the ulcer every other day. Cover with gauze abd to top of foot. Continue to wear her Darco shoe. Follow up 1 week
[2018-03-18 11:18] VITALS: BP 168/97; PULSE 83; RESP 18; TEMP 36.4
--- NOTE | 2018-03-18 12:13 | PN.PCM_ITS ---
(1) Diabetes 1.5, managed as type 2 Status: Acute Current Visit: No Code(s): E10.9 - Type 1 diabetes mellitus without complications (2) Diabetic ulcer of right foot associated with diabetes mellitus due to underlying condition Status: Acute Current Visit: Yes Qualifiers: Diabetic foot ulcer location: midfoot Non-pressure ulcer stage: with fat layer exposed Qualified Code(s): E08.621 - Diabetes mellitus due to underlying condition with foot ulcer; L97.412 - Non-pressure chronic ulcer of right heel and midfoot with fat layer exposed Code(s): E08.621 - Diabetes mellitus due to underlying condition with foot ulcer; L97.519 - Non-pressure chronic ulcer of other part of right foot with unspecified severity (3) Non-pressure chronic ulcer of other part of right foot with fat layer exposed Status: Acute Current Visit: Yes Code(s): L97.512 - Non-pressure chronic ulcer of other part of right foot with fat layer exposed (4) Edema of lower extremity Status: Chronic Current Visit: Yes Code(s): R60.0 - Localized edema (5) Hammer toe of right foot Status: Chronic Current Visit: Yes Code(s): M20.41 - Other hammer toe(s) (acquired), right foot (6) Multiple sclerosis Status: Chronic Current Visit: Yes Code(s): G35 - Multiple sclerosis (7) Type 2 diabetes mellitus with diabetic polyneuropathy Status: Chronic Current Visit: Yes Code(s): E11.42 - Type 2 diabetes mellitus with diabetic polyneuropathy (8) Ulcer of right foot with fat layer exposed Status: Acute Current Visit: Yes Code(s): L97.512 - Non-pressure chronic ulcer of other part of right foot with fat layer exposed Type of Wound Chief Complaint: Follow-up right foot ulcer History of Wound: 76-year-old white female that has had a callus on the bottom of her right foot for 2 years. She reports her current wound has been present for about 3 months. She was not able to tolerate her cam walker boot previously provided to take pressure off of this wound site. She now wears a diabetic shoe with protective liner. Her she was very tight and she has extreme pain each time she puts her shoe on. She denies fever, chill, nausea, vomiting. She has multiple sclerosis and spinal stenosis which contribute to gait impairments and ongoing pain. She had a previous infection in December sepsis from a urinary tract infection typical with MS patients. She denies redness or odor. She is with her today. She had an issue with her previous nutritional supplement because of the vitamin K and her Coumadin use. She asked if there are other nutritional supplements that do not have vitamin K. The ulcer today is punctuated with callus and then clean open tissue coming out. Try to nitro sticks the the punctuated skin area and using nippers will clear up some of the callus. Applied aperture padding to the inner side of the ulcer where she develops like a crease and a valley there. Patient has not been wearing her offloading shoes because she feels unstable on them so we have suggested may be a's wrapping the foot to the ankle to give her ankle more stability. This should be worn during the day and off at night. Progress of Wound: The ulcer on the bottom of the right foot looks much better. Pared down the callus its developed. The ulcer is clean. Patient did get her new shoe and they are going to cut out that one section so she can offload. Complains of pain on top of her foot I suggested a ABD on top of the foot so the strap does not cut into the foot. - Physical Exam Vital Signs Temp Pulse Resp BP 97.5 F L 83 18 168/97 H 03/18/18 11:18 03/18/18 11:18 03/18/18 11:18 03/18/18 11:18 General: Oriented x3, Cooperative, Well developed HEENT: Atraumatic, PERRLA Oral: Moist Mucosa Neck: Supple, No JVD Lungs: Clear to auscultation, Normal air movement Cardiovascular: Regular rate, Regular Rhythm Abdomen: Bowel Sounds Present, Soft, Non Tender, No Hepato-splenomegaly Extremities: No clubbing, No edema Skin: Ulcer/ Wound - Right foot DFU ulcer Wound Measurements and Assessment WC - Nurse 1 - General Ulcer Measurement Start: 03/11/18 11:26 Freq: Status: Active Protocol: Activity Type Activity Date Activity User E-Sign Co-Sign Detail Recorded Client Recorded Date Recorded By Document 03/18/18 11:18 [facility] [id number] 03/18/18 11:22 [facility] 03/18/18 11:18 Wound Center Nurse 1 [Ulcer Assessment] #4- RT FOOT PLANTAR ASPECT -Combined with other wound No -Current Size (cm) - Length 0.3 -Current Size (cm) - Width 0.6 -Current Size (cm) - Depth 0.2 -Total Square Cm 0.18 -Photo Taken No -Epithelialization None Present -Tunneling No -Undermining/Tunneling No -Circular Undermining No -Exudate Amt Small (1-33%) -Exudate Type Serosanguineous -Wound Margin Distinct, Outline Attached -Granulation Amt Large (67-100%) -Granulation Quality [place] -Slough/Fibrin No -Necrosis Amt None Present (0 %) -Texture (Faby-wound Skin Appearance) Callus Scarring -Moisture (Faby-wound Skin Appearance Dry/Scaly ) -Color (Faby-wound Skin Appearance) Assessed -Temperature (Faby-wound Skin No Abnormality Appearance) (Pt Warm) -Tenderness on Palpation (Faby-wound No Skin Appearance) -Ulcer Cleansing Rinsed/ Irrigated with Saline -Anesthetic Used 5% Lidocaine Gel WC - Nurse 2 - General Ulcer CM Notes Start: 03/11/18 11:26 Freq: Status: Active Protocol: Activity Type Activity Date Activity User E-Sign Co-Sign Detail Recorded Client Recorded Date Recorded By Document 03/18/18 11:38 MW [id number] 03/18/18 11:47 MW 03/18/18 11:38 Wound Center Nurse 2 [Procedure/Treatment] -Time 11:38 -Correct Patient Yes -Correct Side, Site, Position Yes -Correct Procedure Yes -Procedure Performed Yes -Type of Procedure Debridement -Clinical Debridement Subcutaneous -Post Debridement Size (cm) - Length 0.9 -Post Debridement Size (cm) - Width 1.0 -Post Debridement Size (cm) - Depth 0.1 -Total Square Cm 0.90 -Wound/Ulcer Outcome Not Healed -Ulcer Cleansing Rinsed/ Irrigated with Saline -Foul Odor after Cleansing No -Bioengineered Tissue No -Bleeding Controlled with Pressure -Treatment Response Procedure Tolerated Well [See Physician Procedure note for Specifics] Pain Scale: 0-10 Numeric [Pain] -Is Patient Pain Free? Yes Musculoskeletal: No Tenderness to Palpation of Joints or Extremities Lymphatic: No Cervical, Supraclavicular, or Inguinal Adenopathy Neurological: Cranial nerves II-XII grossly intact, Neuro grossly intact Psych/Mental Status: Normal Affect, Appropriate Debridement Note Post-Debridement Measurements/Treatment WC - Nurse 2 - General Ulcer CM Notes Start: 03/11/18 11:26 Freq: Status: Active Protocol: Activity Type Activity Date Activity User E-Sign Co-Sign Detail Recorded Client Recorded Date Recorded By Document 03/11/18 12:01 MW [id number] 03/11/18 12:07 MW Document 03/18/18 11:38 MW [id number] 03/18/18 11:47 MW 03/11/18 03/18/18 12:01 11:38 Wound Center Nurse 2 #4- RT FOOT PLANTAR ASPECT -Time 12:01 11:38 -Correct Patient Yes Yes -Correct Side, Site, Position Yes Yes -Correct Procedure Yes Yes -Procedure Performed Yes Yes -Type of Procedure Debridement Debridement -Clinical Debridement Subcutaneous Subcutaneous -Post Debridement Size (cm) - Length 0.4 0.9 -Post Debridement Size (cm) - Width 0.7 1.0 -Post Debridement Size (cm) - Depth 0.1 0.1 -Total Square Cm 0.28 0.90 -Wound/Ulcer Outcome Not Healed Not Healed -Ulcer Cleansing Rinsed/ Rinsed/ Irrigated with Irrigated with Saline Saline -Foul Odor after Cleansing No No -Bioengineered Tissue No No -Bleeding Controlled with Pressure Pressure -Treatment Response Procedure Procedure Tolerated Well Tolerated Well Pain Scale: 0-10 Numeric Is Patient Pain Free? Yes Yes Laterality: Right Type of Debridement: Excisional debridement Anesthesia Used: 5% Lidocaine Gel Depth: Down to and including healthy tissue Percentage of wound debrided: 100 Instrument Used: 7mm curette, #15 blade Tissue Removed: Fibrin and callus Severity: Limited To Skin Breakdown Amount of bleeding with debridement: Mild Bleeding Controlled with: Compression and gauze Assessment/Plan Active Problems Diabetic ulcer of right foot associated with diabetes mellitus due to underlying condition (Acute) Edema of lower extremity (Chronic) Non-pressure chronic ulcer of other part of right foot with fat layer exposed (Acute) Type 2 diabetes mellitus with diabetic polyneuropathy (Chronic) Hammer toe of right foot (Chronic) Ulcer of right foot with fat layer exposed (Acute) Multiple sclerosis (Chronic) Assessment: Foot DFU right - grade 2. MS. DM II uncontrolled with neuropathy. Right foot hammertoe. Suspected malnutrition. Plan: wash right foot with Hibiclens.'s Then Start Promogran in the wound base cover with gauze aperture on the inner perimeter of the ulcer every other day. Cover with gauze abd to top of foot. Continue to wear her Darco shoe. Follow up 1 week
[2018-03-25 10:48] VITALS: BP 170/69; PULSE 80; RESP 18; TEMP 36.3
--- NOTE | 2018-03-25 11:22 | PCM.WC.PN ---
(1) Diabetes 1.5, managed as type 2 Status: Chronic Current Visit: Yes Code(s): E10.9 - Type 1 diabetes mellitus without complications (2) Diabetic ulcer of right foot associated with diabetes mellitus due to underlying condition Status: Acute Current Visit: Yes Qualifiers: Diabetic foot ulcer location: midfoot Non-pressure ulcer stage: with fat layer exposed Qualified Code(s): E08.621 - Diabetes mellitus due to underlying condition with foot ulcer; L97.412 - Non-pressure chronic ulcer of right heel and midfoot with fat layer exposed Code(s): E08.621 - Diabetes mellitus due to underlying condition with foot ulcer; L97.519 - Non-pressure chronic ulcer of other part of right foot with unspecified severity (3) Non-pressure chronic ulcer of other part of right foot with fat layer exposed Status: Acute Current Visit: Yes Code(s): L97.512 - Non-pressure chronic ulcer of other part of right foot with fat layer exposed (4) Edema of lower extremity Status: Chronic Current Visit: Yes Code(s): R60.0 - Localized edema (5) Hammer toe of right foot Status: Chronic Current Visit: Yes Code(s): M20.41 - Other hammer toe(s) (acquired), right foot (6) Multiple sclerosis Status: Chronic Current Visit: Yes Code(s): G35 - Multiple sclerosis (7) Type 2 diabetes mellitus with diabetic polyneuropathy Status: Chronic Current Visit: Yes Code(s): E11.42 - Type 2 diabetes mellitus with diabetic polyneuropathy (8) Ulcer of right foot with fat layer exposed Status: Acute Current Visit: Yes Code(s): L97.512 - Non-pressure chronic ulcer of other part of right foot with fat layer exposed Type of Wound Chief Complaint: Follow-up right foot ulcer History of Wound: 76-year-old white female that has had a callus on the bottom of her right foot for 2 years. She reports her current wound has been present for about 3 months. She was not able to tolerate her cam walker boot previously provided to take pressure off of this wound site. She now wears a diabetic shoe with protective liner. Her she was very tight and she has extreme pain each time she puts her shoe on. She denies fever, chill, nausea, vomiting. She has multiple sclerosis and spinal stenosis which contribute to gait impairments and ongoing pain. She had a previous infection in December sepsis from a urinary tract infection typical with MS patients. She denies redness or odor. She is with her today. She had an issue with her previous nutritional supplement because of the vitamin K and her Coumadin use. She asked if there are other nutritional supplements that do not have vitamin K. The ulcer today is punctuated with callus and then clean open tissue coming out. Try to nitro sticks the the punctuated skin area and using nippers will clear up some of the callus. Applied aperture padding to the inner side of the ulcer where she develops like a crease and a valley there. Patient has not been wearing her offloading shoes because she feels unstable on them so we have suggested may be a's wrapping the foot to the ankle to give her ankle more stability. This should be worn during the day and off at night. Progress of Wound: The ulcer on the bottom of the right foot looks much better. Pared down the callus its developed. The ulcer is clean. Patient did get her new shoe and they are going to cut out that one section so she can offload. Complains of pain on top of her foot I suggested a ABD on top of the foot so the strap does not cut into the foot. - Physical Exam Vital Signs Temp Pulse Resp BP 97.3 F L 80 18 170/69 H 03/25/18 10:48 03/25/18 10:48 03/25/18 10:48 03/25/18 10:48 General: Oriented x3, Cooperative, Well developed HEENT: Atraumatic, PERRLA Oral: Moist Mucosa Neck: Supple, No JVD Lungs: Clear to auscultation, Normal air movement Cardiovascular: Regular rate, Regular Rhythm Abdomen: Bowel Sounds Present, Soft, Non Tender, No Hepato-splenomegaly Extremities: No clubbing, No edema Skin: Ulcer/ Wound - Diabetic foot ulcer Wound Measurements and Assessment WC - Nurse 1 - General Ulcer Measurement Start: 03/11/18 11:26 Freq: Status: Active Protocol: Activity Type Activity Date Activity User E-Sign Co-Sign Detail Recorded Client Recorded Date Recorded By Document 03/25/18 10:48 [id number] 03/25/18 10:56 03/25/18 10:48 Wound Center Nurse 1 [Ulcer Assessment] #4- RT FOOT PLANTAR ASPECT -Combined with other wound No -Current Size (cm) - Length 1.2 -Current Size (cm) - Width 2 -Current Size (cm) - Depth 0.2 -Total Square Cm 2.4 -Photo Taken No -Tunneling No -Undermining/Tunneling No -Circular Undermining No -Exudate Amt Small (1-33%) -Exudate Type Serosanguineous -Wound Margin Distinct, Outline Attached -Granulation Amt Medium (34-66%) -Granulation Quality Red -Slough/Fibrin Yes -Necrosis Amt None Present (0 %) -Necrotic Tissue Type Adherent Slough -Structure Exposed None/Limited to Skin Breakdown -Texture (Faby-wound Skin Appearance) Callus -Moisture (Faby-wound Skin Appearance No Abnormality ) Assessed -Color (Faby-wound Skin Appearance) No Abnormality Assessed -Temperature (Faby-wound Skin No Abnormality Appearance) (Pt Warm) -Tenderness on Palpation (Faby-wound No Skin Appearance) -Ulcer Cleansing Rinsed/ Irrigated with Saline -Foul Odor after Cleansing No -Anesthetic Used 4% Lidocaine Solution [Edema Assessment] -Lower Limb Edema Present NA WC - Nurse 2 - General Ulcer CM Notes Start: 03/11/18 11:26 Freq: Status: Active Protocol: Activity Type Activity Date Activity User E-Sign Co-Sign Detail Recorded Client Recorded Date Recorded By Document 03/25/18 11:09 MW [id number] 03/25/18 11:13 MW 03/25/18 11:09 Wound Center Nurse 2 [Procedure/Treatment] #4- RT FOOT PLANTAR ASPECT -Time 11:09 -Correct Patient Yes -Correct Side, Site, Position Yes -Correct Procedure Yes -Procedure Performed Yes -Type of Procedure Debridement -Clinical Debridement Subcutaneous -Post Debridement Size (cm) - Length 0.5 -Post Debridement Size (cm) - Width 0.4 -Post Debridement Size (cm) - Depth 0.1 -Total Square Cm 0.20 -Wound/Ulcer Outcome Not Healed -Ulcer Cleansing Rinsed/ Irrigated with Saline -Foul Odor after Cleansing No -Bioengineered Tissue No -Bleeding Controlled with Pressure -Treatment Response Procedure Tolerated Well [See Physician Procedure note for Specifics] Pain Scale: 0-10 Numeric [Pain] -Is Patient Pain Free? Yes Musculoskeletal: No Tenderness to Palpation of Joints or Extremities Lymphatic: No Cervical, Supraclavicular, or Inguinal Adenopathy Neurological: Cranial nerves II-XII grossly intact, Neuro grossly intact Psych/Mental Status: Normal Affect, Appropriate Debridement Note Post-Debridement Measurements/Treatment WC - Nurse 2 - General Ulcer CM Notes Start: 03/11/18 11:26 Freq: Status: Active Protocol: Activity Type Activity Date Activity User E-Sign Co-Sign Detail Recorded Client Recorded Date Recorded By Document 03/11/18 12:01 MW [id number] 03/11/18 12:07 MW Document 03/18/18 11:38 MW [id number] 03/18/18 11:47 MW Document 03/25/18 11:09 MW [id number] 03/25/18 11:13 MW 03/11/18 03/18/18 03/25/18 12:01 11:38 11:09 Wound Center Nurse 2 #4- RT FOOT PLANTAR ASPECT -Time 12:01 11:38 11:09 -Correct Patient Yes Yes Yes -Correct Side, Site, Position Yes Yes Yes -Correct Procedure Yes Yes Yes -Procedure Performed Yes Yes Yes -Type of Procedure Debridement Debridement Debridement -Clinical Debridement Subcutaneous Subcutaneous Subcutaneous -Post Debridement Size (cm) - Length 0.4 0.9 0.5 -Post Debridement Size (cm) - Width 0.7 1.0 0.4 -Post Debridement Size (cm) - Depth 0.1 0.1 0.1 -Total Square Cm 0.28 0.90 0.20 -Wound/Ulcer Outcome Not Healed Not Healed Not Healed -Ulcer Cleansing Rinsed/ Rinsed/ Rinsed/ Irrigated with Irrigated with Irrigated with Saline Saline Saline -Foul Odor after Cleansing No No No -Bioengineered Tissue No No No -Bleeding Controlled with Pressure Pressure Pressure -Treatment Response Procedure Procedure Procedure Tolerated Well Tolerated Well Tolerated Well Pain Scale: 0-10 Numeric Is Patient Pain Free? Yes Yes Yes Wound debrided: Diabetic foot ulcer Laterality: Right Anesthesia Used: 5% Lidocaine Gel Depth: Down to and including healthy tissue, in the subcutaneous layer Percentage of wound debrided: 100 Instrument Used: 7mm curette, #15 blade Tissue Removed: Callus and fibrin Severity: Limited To Skin Breakdown Amount of bleeding with debridement: Mild Bleeding Controlled with: Pressure Assessment/Plan Active Problems Diabetes 1.5, managed as type 2 (Chronic) Diabetic ulcer of right foot associated with diabetes mellitus due to underlying condition (Acute) Edema of lower extremity (Chronic) Non-pressure chronic ulcer of other part of right foot with fat layer exposed (Acute) Type 2 diabetes mellitus with diabetic polyneuropathy (Chronic) Hammer toe of right foot (Chronic) Ulcer of right foot with fat layer exposed (Acute) Multiple sclerosis (Chronic) Assessment: Foot DFU right - grade 2. MS. DM II uncontrolled with neuropathy. Right foot hammertoe. Suspected malnutrition. Plan: wash right foot with Hibiclens.'s Then Start Promogran in the wound base cover with gauze aperture on the inner perimeter of the ulcer every other day. Cover with gauze abd to top of foot. Continue to wear her Darco shoe. Follow up 2 week
[2018-04-08 10:58] VITALS: BP 151/78; PULSE 86; RESP 18; TEMP 36.3
--- NOTE | 2018-04-08 12:13 | PCM.WC.PN ---
(1) Diabetes 1.5, managed as type 2 Status: Chronic Current Visit: Yes Code(s): E10.9 - Type 1 diabetes mellitus without complications (2) Diabetic ulcer of right foot associated with diabetes mellitus due to underlying condition Status: Acute Current Visit: Yes Qualifiers: Diabetic foot ulcer location: midfoot Non-pressure ulcer stage: with fat layer exposed Qualified Code(s): E08.621 - Diabetes mellitus due to underlying condition with foot ulcer; L97.412 - Non-pressure chronic ulcer of right heel and midfoot with fat layer exposed Code(s): E08.621 - Diabetes mellitus due to underlying condition with foot ulcer; L97.519 - Non-pressure chronic ulcer of other part of right foot with unspecified severity (3) Non-pressure chronic ulcer of other part of right foot with fat layer exposed Status: Acute Current Visit: Yes Code(s): L97.512 - Non-pressure chronic ulcer of other part of right foot with fat layer exposed (4) Edema of lower extremity Status: Chronic Current Visit: Yes Code(s): R60.0 - Localized edema (5) Hammer toe of right foot Status: Chronic Current Visit: Yes Code(s): M20.41 - Other hammer toe(s) (acquired), right foot (6) Multiple sclerosis Status: Chronic Current Visit: Yes Code(s): G35 - Multiple sclerosis (7) Type 2 diabetes mellitus with diabetic polyneuropathy Status: Chronic Current Visit: Yes Code(s): E11.42 - Type 2 diabetes mellitus with diabetic polyneuropathy (8) Ulcer of right foot with fat layer exposed Status: Acute Current Visit: Yes Code(s): L97.512 - Non-pressure chronic ulcer of other part of right foot with fat layer exposed Type of Wound Chief Complaint: Follow-up right foot ulcer History of Wound: 76-year-old white female that has had a callus on the bottom of her right foot for 2 years. She reports her current wound has been present for about 3 months. She was not able to tolerate her cam walker boot previously provided to take pressure off of this wound site. She now wears a diabetic shoe with protective liner. Her she was very tight and she has extreme pain each time she puts her shoe on. She denies fever, chill, nausea, vomiting. She has multiple sclerosis and spinal stenosis which contribute to gait impairments and ongoing pain. She had a previous infection in December sepsis from a urinary tract infection typical with MS patients. She denies redness or odor. She is with her today. She had an issue with her previous nutritional supplement because of the vitamin K and her Coumadin use. She asked if there are other nutritional supplements that do not have vitamin K. The ulcer today is punctuated with callus and then clean open tissue coming out. Try to nitro sticks the the punctuated skin area and using nippers will clear up some of the callus. Applied aperture padding to the inner side of the ulcer where she develops like a crease and a valley there. Patient has not been wearing her offloading shoes because she feels unstable on them so we have suggested may be a's wrapping the foot to the ankle to give her ankle more stability. This should be worn during the day and off at night. Progress of Wound: The ulcer on the bottom of the right foot looks much better. Pared down the callus its developed. The ulcer is clean. And mostly healed. Patient did get her new shoe and they are going to cut out that one section so she can offload. Complains of pain on top of her foot I suggested a ABD on top of the foot so the strap does not cut into the foot. - Physical Exam Vital Signs Temp Pulse Resp BP 97.3 F L 86 18 151/78 H 04/08/18 10:58 04/08/18 10:58 04/08/18 10:58 04/08/18 10:58 General: Oriented x3, Cooperative, Well developed HEENT: Atraumatic, PERRLA Oral: Moist Mucosa Neck: Supple, No JVD Lungs: Clear to auscultation, Normal air movement Cardiovascular: Regular rate, Regular Rhythm Abdomen: Bowel Sounds Present, Soft, Non Tender, No Hepato-splenomegaly Extremities: No clubbing, No edema, - - Right foot DFU ulcer Wound Measurements and Assessment WC - Nurse 1 - General Ulcer Measurement Start: 03/11/18 11:26 Freq: Status: Active Protocol: Activity Type Activity Date Activity User E-Sign Co-Sign Detail Recorded Client Recorded Date Recorded By Document 04/08/18 10:58 [id number] 04/08/18 11:00 04/08/18 10:58 Wound Center Nurse 1 [Ulcer Assessment] #4- RT FOOT PLANTAR ASPECT -Combined with other wound No -Current Size (cm) - Length 1 -Current Size (cm) - Width 1.1 -Current Size (cm) - Depth 0.1 -Total Square Cm 1.1 -Photo Taken No -Epithelialization None Present -Tunneling No -Undermining/Tunneling No -Circular Undermining No -Exudate Amt None Present (0 %) -Wound Margin Thickened -Granulation Amt None Present (0 %) -Granulation Quality N/A -Slough/Fibrin No -Necrosis Amt Small (1-33%) -Necrotic Tissue Type Eschar -Structure Exposed None/Limited to Skin Breakdown -Texture (Faby-wound Skin Appearance) Callus -Moisture (Faby-wound Skin Appearance Assessed ) -Color (Faby-wound Skin Appearance) Assessed -Temperature (Faby-wound Skin No Abnormality Appearance) (Pt Warm) -Tenderness on Palpation (Faby-wound No Skin Appearance) -Ulcer Cleansing Rinsed/ Irrigated with Saline -Foul Odor after Cleansing No -Anesthetic Used 5% Lidocaine Gel [Edema Assessment] -Lower Limb Edema Present NA WC - Nurse 2 - General Ulcer CM Notes Start: 03/11/18 11:26 Freq: Status: Active Protocol: Activity Type Activity Date Activity User E-Sign Co-Sign Detail Recorded Client Recorded Date Recorded By Document 04/08/18 11:27 MW [id number] 04/08/18 11:33 MW 04/08/18 11:27 Wound Center Nurse 2 [Procedure/Treatment] #4- RT FOOT PLANTAR ASPECT -Time 11:28 -Correct Patient Yes -Correct Side, Site, Position Yes -Correct Procedure Yes -Procedure Performed Yes -Type of Procedure Debridement -Clinical Debridement Subcutaneous -Post Debridement Size (cm) - Length 0.3 -Post Debridement Size (cm) - Width 0.3 -Post Debridement Size (cm) - Depth 0.2 -Total Square Cm 0.09 -Wound/Ulcer Outcome Not Healed -Ulcer Cleansing Rinsed/ Irrigated with Saline -Foul Odor after Cleansing No -Bioengineered Tissue No -Bleeding Controlled with Pressure -Other felt pad to lateral side of ulcer -Offloading Yes -Type of Offloading Surgical Shoe [See Physician Procedure note for Specifics] Pain Scale: 0-10 Numeric [Pain] -Is Patient Pain Free? Yes Musculoskeletal: No Tenderness to Palpation of Joints or Extremities Lymphatic: No Cervical, Supraclavicular, or Inguinal Adenopathy Neurological: Cranial nerves II-XII grossly intact, Neuro grossly intact Psych/Mental Status: Normal Affect, Appropriate Debridement Note Post-Debridement Measurements/Treatment WC - Nurse 2 - General Ulcer CM Notes Start: 03/11/18 11:26 Freq: Status: Active Protocol: Activity Type Activity Date Activity User E-Sign Co-Sign Detail Recorded Client Recorded Date Recorded By Document 03/11/18 12:01 MW [id number] 03/11/18 12:07 MW Document 03/18/18 11:38 MW [id number] 03/18/18 11:47 MW Document 03/25/18 11:09 MW [id number] 03/25/18 11:13 MW Document 04/08/18 11:27 MW [id number] 04/08/18 11:33 MW 03/11/18 03/18/18 03/25/18 12:01 11:38 11:09 Wound Center Nurse 2 #4- RT FOOT PLANTAR ASPECT -Time 12:01 11:38 11:09 -Correct Patient Yes Yes Yes -Correct Side, Site, Position Yes Yes Yes -Correct Procedure Yes Yes Yes -Procedure Performed Yes Yes Yes -Type of Procedure Debridement Debridement Debridement -Clinical Debridement Subcutaneous Subcutaneous Subcutaneous -Post Debridement Size (cm) - Length 0.4 0.9 0.5 -Post Debridement Size (cm) - Width 0.7 1.0 0.4 -Post Debridement Size (cm) - Depth 0.1 0.1 0.1 -Total Square Cm 0.28 0.90 0.20 -Wound/Ulcer Outcome Not Healed Not Healed Not Healed -Ulcer Cleansing Rinsed/ Rinsed/ Rinsed/ Irrigated with Irrigated with Irrigated with Saline Saline Saline -Foul Odor after Cleansing No No No -Bioengineered Tissue No No No -Bleeding Controlled with Pressure Pressure Pressure -Other -Offloading -Type of Offloading -Treatment Response Procedure Procedure Procedure Tolerated Well Tolerated Well Tolerated Well Pain Scale: 0-10 Numeric Is Patient Pain Free? Yes Yes Yes 04/08/18 11:27 Wound Center Nurse 2 #4- RT FOOT PLANTAR ASPECT -Time 11:28 -Correct Patient Yes -Correct Side, Site, Position Yes -Correct Procedure Yes -Procedure Performed Yes -Type of Procedure Debridement -Clinical Debridement Subcutaneous -Post Debridement Size (cm) - Length 0.3 -Post Debridement Size (cm) - Width 0.3 -Post Debridement Size (cm) - Depth 0.2 -Total Square Cm 0.09 -Wound/Ulcer Outcome Not Healed -Ulcer Cleansing Rinsed/ Irrigated with Saline -Foul Odor after Cleansing No -Bioengineered Tissue No -Bleeding Controlled with Pressure -Other felt pad to lateral side of ulcer -Offloading Yes -Type of Offloading Surgical Shoe -Treatment Response Pain Scale: 0-10 Numeric Is Patient Pain Free? Yes Wound debrided: Right foot DFU ulcer Type of Debridement: Excisional debridement Anesthesia Used: 5% Lidocaine Gel Depth: Down to and including healthy tissue, in the subcutaneous layer Instrument Used: 3mm curette, - - Nippers Tissue Removed: Callus and fibrin Assessment/Plan Active Problems Diabetes 1.5, managed as type 2 (Chronic) Diabetic ulcer of right foot associated with diabetes mellitus due to underlying condition (Acute) Edema of lower extremity (Chronic) Non-pressure chronic ulcer of other part of right foot with fat layer exposed (Acute) Type 2 diabetes mellitus with diabetic polyneuropathy (Chronic) Hammer toe of right foot (Chronic) Ulcer of right foot with fat layer exposed (Acute) Multiple sclerosis (Chronic) Assessment: Foot DFU right - grade 2. MS. DM II uncontrolled with neuropathy. Right foot hammertoe. Suspected malnutrition. Plan: wash right foot with Hibiclens.'s Then Start Promogran in the wound base cover ball of foot wilth thick pad with gauze on the inner perimeter of the ulcer every other day. Cover with gauze abd to top of foot. Continue to wear her Darco shoe. Follow up 1 week
== END 2018-04-08 23:59 ==
LOC: WC 11:00
PROVIDERS: Family Provider Family Medicine; PCP Family Medicine; Visit Provider Nurse Practitioner
DX: E11.621 Type 2 diabetes mellitus with foot ulcer (principal); M20.41 Other hammer toe(s) (acquired), right foot; G35 Multiple sclerosis; E11.42 Type 2 diabetes mellitus with diabetic polyneuropathy; L97.511 Non-pressure chronic ulcer of other part of right foot limited to breakdown of skin
CPT/HCPCS: 11042

== ENCOUNTER 2018-04-29 11:30 | Outpatient (RCR) | payer MEDICARE, OTHER, SELFPAY ==
[2018-04-09 01:41] VITALS: BP 151/78; PULSE 86; RESP 18; TEMP 36.3
[2018-04-15 11:21] VITALS: BP 137/111; PULSE 93; RESP 16; TEMP 36
--- NOTE | 2018-04-15 12:40 | PN.PCM_ITS ---
(1) Diabetic ulcer of right foot associated with diabetes mellitus due to underlying condition Status: Chronic Current Visit: Yes Qualifiers: Code(s): E08.621 - Diabetes mellitus due to underlying condition with foot ulcer; L97.519 - Non-pressure chronic ulcer of other part of right foot with unspecified severity (2) Non-pressure chronic ulcer of other part of right foot with fat layer exposed Status: Chronic Current Visit: Yes Code(s): L97.512 - Non-pressure chronic ulcer of other part of right foot with fat layer exposed (3) Ulcer of right foot with fat layer exposed Status: Acute Current Visit: Yes Code(s): L97.512 - Non-pressure chronic ulcer of other part of right foot with fat layer exposed (4) Diabetes 1.5, managed as type 2 Status: Chronic Current Visit: Yes Code(s): E10.9 - Type 1 diabetes mellitus without complications (5) Edema of lower extremity Status: Chronic Current Visit: Yes Code(s): R60.0 - Localized edema (6) Hammer toe of right foot Status: Chronic Current Visit: Yes Code(s): M20.41 - Other hammer toe(s) (acquired), right foot (7) Lumbar back pain with radiculopathy affecting right lower extremity Status: Chronic Current Visit: Yes Code(s): M54.17 - Radiculopathy, lumbosacral region (8) Multiple sclerosis Status: Chronic Current Visit: Yes Code(s): G35 - Multiple sclerosis Type of Wound Chief Complaint: Follow-up right foot ulcer History of Wound: 76-year-old white female that has had a callus on the bottom of her right foot for 2 years. She reports her current wound has been present for about 3 months. She was not able to tolerate her cam walker boot previously provided to take pressure off of this wound site. She now wears a diabetic shoe with protective liner. Her she was very tight and she has extreme pain each time she puts her shoe on. She denies fever, chill, nausea, vomiting. She has multiple sclerosis and spinal stenosis which contribute to gait impairments and ongoing pain. She had a previous infection in December sepsis from a urinary tract infection typical with MS patients. She denies redness or odor. She is with her today. She had an issue with her previous nutritional supplement because of the vitamin K and her Coumadin use. She asked if there are other nutritional supplements that do not have vitamin K. The ulcer today is punctuated with callus and then clean open tissue coming out. Try to nitro sticks the the punctuated skin area and using nippers will clear up some of the callus. Applied aperture padding to the inner side of the ulcer where she dev elops like a crease and a valley there. Patient has not been wearing her offloading shoes because she feels unstable on them so we have suggested may be a's wrapping the foot to the ankle to give her ankle more stability. This should be worn during the day and off at night. Progress of Wound: The ulcer on the bottom of the right foot looks much better. Pared down the callus its developed. The ulcer is clean. And mostly healed. Patient did get her new shoe and they are going to cut out that one section so she can offload. Complains of pain on top of her foot I suggested a ABD on top of the foot so the strap does not cut into the foot. - Physical Exam Vital Signs Temp Pulse Resp BP 96.8 F L 93 16 137/111 H 04/15/18 11:21 04/15/18 11:21 04/15/18 11:21 04/15/18 11:21 General: Oriented x3, Cooperative, Well developed HEENT: Atraumatic, PERRLA Oral: Moist Mucosa Neck: Supple, No JVD Lungs: Clear to auscultation, Normal air movement Cardiovascular: Regular rate, Regular Rhythm Abdomen: Bowel Sounds Present, Soft, Non Tender, No Hepato-splenomegaly Extremities: No clubbing, No edema, - Wound Measurements and Assessment WC - Nurse 1 - General Ulcer Measurement Start: 04/15/18 11:21 Freq: Status: Active Protocol: Activity Type Activity Date Activity User E-Sign Co-Sign Detail Recorded Client Recorded Date Recorded By Document 04/15/18 11:21 [facility] [id number] 04/15/18 11:30 [facility] 04/15/18 11:21 Wound Center Nurse 1 [Ulcer Assessment] #4- RT FOOT PLANTAR ASPECT -Combined with other wound No -Current Size (cm) - Length 0.1 -Current Size (cm) - Width 0.1 -Current Size (cm) - Depth 0.1 -Total Square Cm 0.01 -Photo Taken No -Tunneling No -Undermining/Tunneling No -Circular Undermining No -Exudate Amt Small (1-33%) -Exudate Type Serosanguineous -Texture (Faby-wound Skin Appearance) Callus Scarring -Moisture (Faby-wound Skin Appearance Dry/Scaly ) -Color (Faby-wound Skin Appearance) Assessed -Temperature (Faby-wound Skin No Abnormality Appearance) (Pt Warm) -Tenderness on Palpation (Faby-wound No Skin Appearance) -Ulcer Cleansing Rinsed/ Irrigated with Saline -Foul Odor after Cleansing No -Anesthetic Used 4% Lidocaine Solution - Nurse 2 - General Ulcer CM Notes Start: 04/15/18 11:21 Freq: Status: Active Protocol: Activity Type Activity Date Activity User E-Sign Co-Sign Detail Recorded Client Recorded Date Recorded By Document 04/15/18 11:51 MW [id number] 04/15/18 11:57 MW 04/15/18 11:51 Wound Center Nurse 2 [Procedure/Treatment] -Time 11:51 -Correct Patient Yes -Correct Side, Site, Position Yes -Correct Procedure Yes -Procedure Performed Yes -Type of Procedure Debridement -Clinical Debridement Subcutaneous -Post Debridement Size (cm) - Length 0.5 -Post Debridement Size (cm) - Width 0.7 -Post Debridement Size (cm) - Depth 0.1 -Total Square Cm 0.35 -Wound/Ulcer Outcome Not Healed -Ulcer Cleansing Rinsed/ Irrigated with Saline -Foul Odor after Cleansing No -Bioengineered Tissue No -Bleeding Controlled with Pressure -Other FELT PAD AROUND WOUND -Offloading Yes -Treatment Response Procedure Tolerated Well [See Physician Procedure note for Specifics] Pain Scale: 0-10 Numeric [Pain] -Is Patient Pain Free? Yes Musculoskeletal: No Tenderness to Palpation of Joints or Extremities Lymphatic: No Cervical, Supraclavicular, or Inguinal Adenopathy Neurological: Cranial nerves II-XII grossly intact, Neuro grossly intact Psych/Mental Status: Normal Affect, Appropriate Debridement Note Post-Debridement Measurements/Treatment - Nurse 2 - General Ulcer CM Notes Start: 04/15/18 11:21 Freq: Status: Active Protocol: Activity Type Activity Date Activity User E-Sign Co-Sign Detail Recorded Client Recorded Date Recorded By Document 04/15/18 11:51 MW [id number] 04/15/18 11:57 MW 04/15/18 11:51 Wound Center Nurse 2 #4- RT FOOT PLANTAR ASPECT -Time 11:51 -Correct Patient Yes -Correct Side, Site, Position Yes -Correct Procedure Yes -Procedure Performed Yes -Type of Procedure Debridement -Clinical Debridement Subcutaneous -Post Debridement Size (cm) - Length 0.5 -Post Debridement Size (cm) - Width 0.7 -Post Debridement Size (cm) - Depth 0.1 -Total Square Cm 0.35 -Wound/Ulcer Outcome Not Healed -Ulcer Cleansing Rinsed/ Irrigated with Saline -Foul Odor after Cleansing No -Bioengineered Tissue No -Bleeding Controlled with Pressure -Other FELT PAD AROUND WOUND -Offloading Yes -Treatment Response Procedure Tolerated Well Pain Scale: 0-10 Numeric Is Patient Pain Free? Yes Wound debrided: Right foot DFU Type of Debridement: Excisional debridement Anesthesia Used: 5% Lidocaine Gel Depth: Down to and including healthy tissue, in the subcutaneous layer Percentage of wound debrided: 100 Instrument Used: 7mm curette, #15 blade Tissue Removed: Callus and fibrin Severity: Limited To Skin Breakdown Amount of bleeding with debridement: Mild Bleeding Controlled with: Compression and gauze Patient tolerated procedure well Assessment/Plan Active Problems Diabetes 1.5, managed as type 2 (Chronic) Diabetic ulcer of right foot associated with diabetes mellitus due to underlying condition (Chronic) Edema of lower extremity (Chronic) Non-pressure chronic ulcer of other part of right foot with fat layer exposed (Chronic) Lumbar back pain with radiculopathy affecting right lower extremity (Chronic) Hammer toe of right foot (Chronic) Ulcer of right foot with fat layer exposed (Acute) Multiple sclerosis (Chronic) Assessment: Foot DFU right - grade 2. MS. DM II uncontrolled with neuropathy. Right foot hammertoe. Suspected malnutrition. Plan: wash right foot with Hibiclens.'s Then Start Promogran in the wound base cover ball of foot wilth thick pad with gauze on the inner perimeter of the ulcer every other day. Cover with gauze abd to top of foot. Continue to wear her Darco shoe. Follow up 1 week
--- NOTE | 2018-04-29 11:50 | PCM.WC.PN ---
(1) Diabetic ulcer of right foot associated with diabetes mellitus due to underlying condition Status: Chronic Current Visit: Yes Qualifiers: Code(s): E08.621 - Diabetes mellitus due to underlying condition with foot ulcer; L97.519 - Non-pressure chronic ulcer of other part of right foot with unspecified severity (2) Non-pressure chronic ulcer of other part of right foot with fat layer exposed Status: Chronic Current Visit: Yes Code(s): L97.512 - Non-pressure chronic ulcer of other part of right foot with fat layer exposed (3) Ulcer of right foot with fat layer exposed Status: Acute Current Visit: Yes Code(s): L97.512 - Non-pressure chronic ulcer of other part of right foot with fat layer exposed (4) Diabetes 1.5, managed as type 2 Status: Chronic Current Visit: Yes Code(s): E10.9 - Type 1 diabetes mellitus without complications (5) Edema of lower extremity Status: Chronic Current Visit: Yes Code(s): R60.0 - Localized edema (6) Hammer toe of right foot Status: Chronic Current Visit: Yes Code(s): M20.41 - Other hammer toe(s) (acquired), right foot (7) Lumbar back pain with radiculopathy affecting right lower extremity Status: Chronic Current Visit: Yes Code(s): M54.17 - Radiculopathy, lumbosacral region (8) Multiple sclerosis Status: Chronic Current Visit: Yes Code(s): G35 - Multiple sclerosis Type of Wound Chief Complaint: Follow-up right foot ulcer History of Wound: 76-year-old white female that has had a callus on the bottom of her right foot for 2 years. She reports her current wound has been present for about 3 months. She was not able to tolerate her cam walker boot previously provided to take pressure off of this wound site. She now wears a diabetic shoe with protective liner. Her she was very tight and she has extreme pain each time she puts her shoe on. She denies fever, chill, nausea, vomiting. She has multiple sclerosis and spinal stenosis which contribute to gait impairments and ongoing pain. She had a previous infection in December sepsis from a urinary tract infection typical with MS patients. She denies redness or odor. She is with her today. She had an issue with her previous nutritional supplement because of the vitamin K and her Coumadin use. She asked if there are other nutritional supplements that do not have vitamin K. The ulcer today is punctuated with callus and then clean open tissue coming out. Try to nitro sticks the the punctuated skin area and using nippers will clear up some of the callus. Applied aperture padding to the inner side of the ulcer where she develops like a crease and a valley there. Patient has not been wearing her offloading shoes because she feels unstable on them so we have suggested may be a's wrapping the foot to the ankle to give her ankle more stability. This should be worn during the day and off at night. Progress of Wound: The ulcer on the bottom of the right foot looks much better. Pared down the callus its developed. The ulcer is clean. And mostly healed. Patient did get her new shoe and they are going to cut out that one section so she can offload. Complains of pain on top of her foot I suggested a ABD on top of the foot so the strap does not cut into the foot. - Physical Exam Vital Signs Temp Pulse Resp BP 96.8 F L 93 16 137/111 H 04/15/18 11:21 04/15/18 11:21 04/15/18 11:21 04/15/18 11:21 Wound Measurements and Assessment WC - Nurse 1 - General Ulcer Measurement Start: 04/15/18 11:21 Freq: Status: Active Protocol: Activity Type Activity Date Activity User E-Sign Co-Sign Detail Recorded Client Recorded Date Recorded By Document 04/29/18 11:26 [facility] [id number] 04/29/18 11:34 [facility] 04/29/18 11:26 Wound Center Nurse 1 [Ulcer Assessment] #4- RT FOOT PLANTAR ASPECT -Combined with other wound No -Current Size (cm) - Length 0.1 -Current Size (cm) - Width 0.1 -Current Size (cm) - Depth 0.2 -Total Square Cm 0.01 -Photo Taken No -Epithelialization None Present -Tunneling No -Undermining/Tunneling No -Circular Undermining No -Exudate Amt Small (1-33%) -Exudate Type Serosanguineous -Wound Margin Distinct, Outline Attached -Granulation Amt None Present (0 %) -Slough/Fibrin Yes -Necrosis Amt Large (67-100%) -Necrotic Tissue Type Adherent Slough -Texture (Faby-wound Skin Appearance) Callus Scarring -Moisture (Faby-wound Skin Appearance Dry/Scaly ) -Color (Faby-wound Skin Appearance) Assessed -Temperature (Faby-wound Skin No Abnormality Appearance) (Pt Warm) -Tenderness on Palpation (Faby-wound No Skin Appearance) -Ulcer Cleansing Rinsed/ Irrigated with Saline -Foul Odor after Cleansing No -Anesthetic Used 5% Lidocaine Gel - Nurse 2 - General Ulcer Notes Start: 04/15/18 11:21 Freq: Status: Active Protocol: Activity Type Activity Date Activity User E-Sign Co-Sign Detail Recorded Client Recorded Date Recorded By Document 04/29/18 11:43 MW [id number] 04/29/18 11:44 MW 04/29/18 11:43 Wound Center Nurse 2 [Procedure/Treatment] -Time 11:43 -Correct Patient Yes -Correct Side, Site, Position Yes -Correct Procedure Yes -Procedure Performed No -Wound/Ulcer Outcome Healed- Epithelialized -Ulcer Cleansing Rinsed/ Irrigated with Saline -Foul Odor after Cleansing No -Bioengineered Tissue No -Bleeding Controlled with NA -Offloading No -Treatment Response Procedure Tolerated Well [See Physician Procedure note for Specifics] Pain Scale: 0-10 Numeric [Pain] -Is Patient Pain Free? Yes Debridement Note Post-Debridement Measurements/Treatment - Nurse 2 - General Ulcer Notes Start: 04/15/18 11:21 Freq: Status: Active Protocol: Activity Type Activity Date Activity User E-Sign Co-Sign Detail Recorded Client Recorded Date Recorded By Document 04/15/18 11:51 MW [id number] 04/15/18 11:57 MW Document 04/29/18 11:43 MW [id number] 04/29/18 11:44 MW 04/15/18 04/29/18 11:51 11:43 Wound Center Nurse 2 #4- RT FOOT PLANTAR ASPECT -Time 11:51 11:43 -Correct Patient Yes Yes -Correct Side, Site, Position Yes Yes -Correct Procedure Yes Yes -Procedure Performed Yes No -Type of Procedure Debridement -Clinical Debridement Subcutaneous -Post Debridement Size (cm) - Length 0.5 -Post Debridement Size (cm) - Width 0.7 -Post Debridement Size (cm) - Depth 0.1 -Total Square Cm 0.35 -Wound/Ulcer Outcome Not Healed Healed- Epithelialized -Ulcer Cleansing Rinsed/ Rinsed/ Irrigated with Irrigated with Saline Saline -Foul Odor after Cleansing No No -Bioengineered Tissue No No -Bleeding Controlled with Pressure NA -Other FELT PAD AROUND WOUND -Offloading Yes No -Treatment Response Procedure Procedure Tolerated Well Tolerated Well Pain Scale: 0-10 Numeric Is Patient Pain Free? Yes Yes Assessment/Plan Active Problems Diabetes 1.5, managed as type 2 (Chronic) Diabetic ulcer of right foot associated with diabetes mellitus due to underlying condition (Chronic) Edema of lower extremity (Chronic) Non-pressure chronic ulcer of other part of right foot with fat layer exposed (Chronic) Lumbar back pain with radiculopathy affecting right lower extremity (Chronic) Hammer toe of right foot (Chronic) Ulcer of right foot with fat layer exposed (Acute) Multiple sclerosis (Chronic) Assessment: Foot DFU right - grade 2. MS. DM II uncontrolled with neuropathy. Right foot hammertoe. Suspected malnutrition. Plan: wash right foot with Hibiclens.'s Then Start Promogran in the wound base cover ball of foot wilth thick pad with gauze on the inner perimeter of the ulcer every other day. Cover with gauze abd to top of foot. Continue to wear her Darco shoe. Follow up 1 week
--- NOTE | 2018-04-29 12:11 | PN.PCM_ITS ---
(1) Diabetic ulcer of right foot associated with diabetes mellitus due to underlying condition Status: Chronic Current Visit: Yes Qualifiers: Code(s): E08.621 - Diabetes mellitus due to underlying condition with foot ulcer; L97.519 - Non-pressure chronic ulcer of other part of right foot with unspecified severity (2) Non-pressure chronic ulcer of other part of right foot with fat layer exposed Status: Chronic Current Visit: Yes Code(s): L97.512 - Non-pressure chronic ulcer of other part of right foot with fat layer exposed (3) Ulcer of right foot with fat layer exposed Status: Acute Current Visit: Yes Code(s): L97.512 - Non-pressure chronic ulcer of other part of right foot with fat layer exposed (4) Diabetes 1.5, managed as type 2 Status: Chronic Current Visit: Yes Code(s): E10.9 - Type 1 diabetes mellitus without complications (5) Edema of lower extremity Status: Chronic Current Visit: Yes Code(s): R60.0 - Localized edema (6) Hammer toe of right foot Status: Chronic Current Visit: Yes Code(s): M20.41 - Other hammer toe(s) (acquired), right foot (7) Lumbar back pain with radiculopathy affecting right lower extremity Status: Chronic Current Visit: Yes Code(s): M54.17 - Radiculopathy, lumbosacral region (8) Multiple sclerosis Status: Chronic Current Visit: Yes Code(s): G35 - Multiple sclerosis Type of Wound Chief Complaint: Follow-up right foot ulcer History of Wound: 76-year-old white female that has had a callus on the bottom of her right foot for 2 years. She reports her current wound has been present for about 3 months. She was not able to tolerate her cam walker boot previously provided to take pressure off of this wound site. She now wears a diabetic shoe with protective liner. Her she was very tight and she has extreme pain each time she puts her shoe on. She denies fever, chill, nausea, vomiting. She has multiple sclerosis and spinal stenosis which contribute to gait impairments and ongoing pain. She had a previous infection in December sepsis from a urinary tract infection typical with MS patients. She denies redness or odor. She is with her today. She had an issue with her previous nutritional supplement because of the vitamin K and her Coumadin use. She asked if there are other nutritional supplements that do not have vitamin K. The ulcer today is punctuated with callus and then clean open tissue coming out. Try to nitro sticks the the punctuated skin area and using nippers will clear up some of the callus. Applied aperture padding to the inner side of the ulcer where she dev elops like a crease and a valley there. Patient has not been wearing her offloading shoes because she feels unstable on them so we have suggested may be a's wrapping the foot to the ankle to give her ankle more stability. This should be worn during the day and off at night. Progress of Wound: The ulcer on the bottom of the right foot looks much better. Pared down the callus its developed. The ulcer is clean. And mostly healed. Patient did get her new shoe and they are going to cut out that one section so she can offload. Complains of pain on top of her foot I suggested a ABD on top of the foot so the strap does not cut into the foot. - Physical Exam Vital Signs Temp Pulse Resp BP 96.8 F L 93 16 137/111 H 04/15/18 11:21 04/15/18 11:21 04/15/18 11:21 04/15/18 11:21 Wound Measurements and Assessment WC - Nurse 1 - General Ulcer Measurement Start: 04/15/18 11:21 Freq: Status: Active Protocol: Activity Type Activity Date Activity User E-Sign Co-Sign Detail Recorded Client Recorded Date Recorded By Document 04/29/18 11:26 [facility] [id number] 04/29/18 11:34 [facility] 04/29/18 11:26 Wound Center Nurse 1 [Ulcer Assessment] #4- RT FOOT PLANTAR ASPECT -Combined with other wound No -Current Size (cm) - Length 0.1 -Current Size (cm) - Width 0.1 -Current Size (cm) - Depth 0.2 -Total Square Cm 0.01 -Photo Taken No -Epithelialization None Present -Tunneling No -Undermining/Tunneling No -Circular Undermining No -Exudate Amt Small (1-33%) -Exudate Type Serosanguineous -Wound Margin Distinct, Outline Attached -Granulation Amt None Present (0 %) -Slough/Fibrin Yes -Necrosis Amt Large (67-100%) -Necrotic Tissue Type Adherent Slough -Texture (Faby-wound Skin Appearance) Callus Scarring -Moisture (Faby-wound Skin Appearance Dry/Scaly ) -Color (Faby-wound Skin Appearance) Assessed -Temperature (Faby-wound Skin No Abnormality Appearance) (Pt Warm) -Tenderness on Palpation (Faby-wound No Skin Appearance) -Ulcer Cleansing Rinsed/ Irrigated with Saline -Foul Odor after Cleansing No -Anesthetic Used 5% Lidocaine Gel - Nurse 2 - General Ulcer Notes Start: 04/15/18 11:21 Freq: Status: Active Protocol: Activity Type Activity Date Activity User E-Sign Co-Sign Detail Recorded Client Recorded Date Recorded By Document 04/29/18 11:43 MW [id number] 04/29/18 11:44 MW 04/29/18 11:43 Wound Center Nurse 2 [Procedure/Treatment] -Time 11:43 -Correct Patient Yes -Correct Side, Site, Position Yes -Correct Procedure Yes -Procedure Performed No -Wound/Ulcer Outcome Healed- Epithelialized -Ulcer Cleansing Rinsed/ Irrigated with Saline -Foul Odor after Cleansing No -Bioengineered Tissue No -Bleeding Controlled with NA -Offloading No -Treatment Response Procedure Tolerated Well [See Physician Procedure note for Specifics] Pain Scale: 0-10 Numeric [Pain] -Is Patient Pain Free? Yes Debridement Note Post-Debridement Measurements/Treatment - Nurse 2 - General Ulcer Notes Start: 04/15/18 11:21 Freq: Status: Active Protocol: Activity Type Activity Date Activity User E-Sign Co-Sign Detail Recorded Client Recorded Date Recorded By Document 04/15/18 11:51 MW [id number] 04/15/18 11:57 MW Document 04/29/18 11:43 MW [id number] 04/29/18 11:44 MW 04/15/18 04/29/18 11:51 11:43 Wound Center Nurse 2 #4- RT FOOT PLANTAR ASPECT -Time 11:51 11:43 -Correct Patient Yes Yes -Correct Side, Site, Position Yes Yes -Correct Procedure Yes Yes -Procedure Performed Yes No -Type of Procedure Debridement -Clinical Debridement Subcutaneous -Post Debridement Size (cm) - Length 0.5 -Post Debridement Size (cm) - Width 0.7 -Post Debridement Size (cm) - Depth 0.1 -Total Square Cm 0.35 -Wound/Ulcer Outcome Not Healed Healed- Epithelialized -Ulcer Cleansing Rinsed/ Rinsed/ Irrigated with Irrigated with Saline Saline -Foul Odor after Cleansing No No -Bioengineered Tissue No No -Bleeding Controlled with Pressure NA -Other FELT PAD AROUND WOUND -Offloading Yes No -Treatment Response Procedure Procedure Tolerated Well Tolerated Well Pain Scale: 0-10 Numeric Is Patient Pain Free? Yes Yes Assessment/Plan Active Problems Diabetes 1.5, managed as type 2 (Chronic) Diabetic ulcer of right foot associated with diabetes mellitus due to underlying condition (Chronic) Edema of lower extremity (Chronic) Non-pressure chronic ulcer of other part of right foot with fat layer exposed (Chronic) Lumbar back pain with radiculopathy affecting right lower extremity (Chronic) Hammer toe of right foot (Chronic) Ulcer of right foot with fat layer exposed (Acute) Multiple sclerosis (Chronic) Assessment: Foot DFU right - grade 2. MS. DM II uncontrolled with neuropathy. Right foot hammertoe. Suspected malnutrition. Plan: wash right foot with Hibiclens.'s Then Start Promogran in the wound base cover ball of foot wilth thick pad with gauze on the inner perimeter of the ulcer every other day. Cover with gauze abd to top of foot. Continue to wear her Darco shoe. Follow up 1 week
== END 2018-05-09 23:59 ==
LOC: WC 11:30
PROVIDERS: Family Provider Family Medicine; PCP Family Medicine; Visit Provider Nurse Practitioner
DX: E13.621 Other specified diabetes mellitus with foot ulcer (principal); L97.511 Non-pressure chronic ulcer of other part of right foot limited to breakdown of skin; G35 Multiple sclerosis; R60.0 Localized edema; M54.17 Radiculopathy, lumbosacral region; M20.41 Other hammer toe(s) (acquired), right foot; E13.65 Other specified diabetes mellitus with hyperglycemia; E13.40 Other specified diabetes mellitus with diabetic neuropathy, unspecified
CPT/HCPCS: 11042; 99212; G0463

== ENCOUNTER 2018-06-09 14:07 | Outpatient (RCR) | payer MEDICARE, OTHER, SELFPAY ==
[2018-05-10 01:09] VITALS: BP 137/111; PULSE 93; RESP 16; TEMP 36
--- NOTE | 2018-06-09 16:44 | PCM.WC.HP ---
(1) Diabetic ulcer of right foot associated with diabetes mellitus due to underlying condition Status: Chronic Current Visit: Yes Qualifiers: Code(s): E08.621 - Diabetes mellitus due to underlying condition with foot ulcer; L97.519 - Non-pressure chronic ulcer of other part of right foot with unspecified severity Comment: gerard 2 right plantar surface (2) Edema of lower extremity Status: Chronic Current Visit: Yes Code(s): R60.0 - Localized edema (3) Hammer toe of right foot Status: Chronic Current Visit: Yes Code(s): M20.41 - Other hammer toe(s) (acquired), right foot (4) Multiple sclerosis Status: Chronic Current Visit: Yes Code(s): G35 - Multiple sclerosis (5) Type 2 diabetes mellitus with diabetic polyneuropathy Status: Chronic Current Visit: Yes Code(s): E11.42 - Type 2 diabetes mellitus with diabetic polyneuropathy (6) Decreased pedal pulses Status: Acute Current Visit: Yes Code(s): R09.89 - Other specified symptoms and signs involving the circulatory and respiratory systems History of Present Illness Date of Service: 06/09/18 Chief Complaint: right foot ulcer History of Wound: This is a 77-year-old white female who presents to the wound healing center today with an ongoing complaint of a ulcer and callus on her right foot that has been intermittently reopening for the past 3 years. She was previously seen in April 2018 for the diabetic ulcer of the right foot which had healed. 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 The patient states that her foot ulceration opened up about 10 days after being discharged in April 2018. She has been utilizing leftover Payton to the site and foam dressing as well. She has diabetic shoes and an offloading Darco shoe and an offloading boot, however she remains noncompliant with offloading therapy. She has compression stockings at home as well, however is noncompliant with compression as well. She denies any use of protein supplementation. She has noted a foul smell and some serosanguineous drainage coming from the site. Otherwise denies any signs and symptoms of systemic infection such as fever, chills, nausea, vomiting, malaise fatigue. The patient otherwise denies any fever, chills, nausea, vomiting, shortness of breath, chest pain or pressure, palpitations, orthopnea, lower extremity edema, syncope or presyncopal episodes. 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) Type 2 diabetes mellitus with foot ulcer (Chronic) Type 2 diabetes mellitus with diabetic polyneuropathy (Chronic) Lumbar back pain with radiculopathy affecting right lower extremity (Chronic) Hammer toe of right foot (Chronic) Multiple sclerosis (Chronic) Allergies/Adverse Reactions: Allergies banana Allergy (Verified 07/09/17 11:15) Unknown clindamycin Allergy (Verified 06/09/18 14:52) Diarrhea biotin Adverse Reaction (Verified 07/09/17 11:15) Other wine Allergy (Uncoded 07/09/17 11:15) Unknown Home Medications: Ambulatory Orders Medication Instructions Recorded Warfarin [Coumadin ([facility])] 4 mg PO SUTUWETHSA 07/09/17 Warfarin [Coumadin ([facility])] 6 mg PO MOFR 07/09/17 Spironolactone [Aldactone] 50 mg PO DAILY 03/04/18 traMADol [Ultram (G)] 50 mg PO Q4H PRN PRN 03/04/18 Eszopiclone [Lunesta] 2 mg PO UD 06/09/18 Insulin Detemir [Levemir] 64 unit SQ QHS 06/09/18 Insulin Lispro [Humalog] 55 unit SQ UD 06/09/18 Smoking Status: Never smoker Review of Systems Constitutional: Denies: Chills, Fever, Weight Change Eyes: Denies: Pain, Vision Change HEENT: Denies: Difficulty Hearing, Difficulty Swallowing, Sinus Congestion Cardiovascular: Denies: Chest Pain, Palpitations Respiratory: Denies: Cough, Shortness of Breath Gastrointestinal: Denies: Diarrhea, Nausea, Vomiting Genitourinary: Denies: Dysuria, Hematuria Skin: Reports: Wounds - See HPI Endocrine: Denies: Heat/ Cold Intolerance, Polydipsia, Polyuria Hematologic/ Lymphatic: Denies: Easy Bruising, Easy Bleeding - Physical Exam Vital Signs Temp Pulse Resp BP 96.8 F L 93 16 137/111 H 05/10/18 01:09 05/10/18 01:09 05/10/18 01:09 05/10/18 01:09 General: Alert, Oriented x3, Cooperative, No apparent distress HEENT: PERRLA, EOMI Oral: Moist Mucosa Lungs: Clear to auscultation, Normal air movement, No rhonchi, No wheeze, No rales Cardiovascular: Regular rate, Regular Rhythm, Normal S1, Normal S2, No murmurs Abdomen: Soft, Non Tender, Obese Extremities: No clubbing, No cyanosis, Diminished Peripheral Pulses - Diminished bilateral dorsal pedis pulses, Edema - Generalized bilateral lower extremity edema with varicosities present bilateral lower extremities Skin: Ulcer/ Wound - Janee grade 2 diabetic foot ulcer present right plantar surface with callused wound edges and undermining from 3-6 x 1.1 cm, slight foul smell present on exam. No discharge, redness, streaking, or tenderness on exam. Decreased neurovascular sensation present to bilateral lower extremities. Wound Measurements and Assessment WC - Nurse 1 - General Ulcer Measurement Start: 06/09/18 14:35 Freq: Status: Active Protocol: Activity Type Activity Date Activity User E-Sign Co-Sign Detail Recorded Client Recorded Date Recorded By Document 06/09/18 14:45 [email or web address] [id number] 06/09/18 14:51 FRANCESCA 06/09/18 14:45 Wound Center Nurse 1 [Ulcer Assessment] 5-right plantar foot -Combined with other wound No -Current Size (cm) - Length 0.5 -Current Size (cm) - Width 0.9 -Current Size (cm) - Depth 0.5 -Total Square Cm 0.45 -Photo Taken Yes -Epithelialization Small 1-33% -Tunneling No -Undermining/Tunneling No -Circular Undermining No -Exudate Amt Small -Exudate Type Serosanguineous -Wound Margin Flat & Intact -Granulation Amt Small (1-33%) -Granulation Quality [place] -Slough/Fibrin Yes -Necrosis Amt Large (67-100%) -Necrotic Tissue Type Adherent Slough -Structure Exposed N/A -Texture (Faby-wound Skin Appearance) Assessed Callus Friable -Moisture (Faby-wound Skin Appearance Assessed ) Dry/Scaly -Color (Faby-wound Skin Appearance) Assessed -Temperature (Faby-wound Skin No Abnormality Appearance) (Pt Warm) -Tenderness on Palpation (Faby-wound No Skin Appearance) -Ulcer Cleansing Rinsed/ Irrigated with Saline -Foul Odor after Cleansing No -Anesthetic Used 4% Lidocaine Solution [Edema Assessment] -Lower Limb Edema Present Yes -Right Calf (cm) 45.5 -Right Ankle (cm) 26.2 -Left Calf (cm) 44.2 -Left Ankle (cm) 26.5 WC - Nurse 2 - General Ulcer CM Notes Start: 06/09/18 14:35 Freq: Status: Active Protocol: Activity Type Activity Date Activity User E-Sign Co-Sign Detail Recorded Client Recorded Date Recorded By Document 06/09/18 15:11 MW [id number] 06/09/18 15:25 MW 06/09/18 15:11 Wound Center Nurse 2 [Procedure/Treatment] 5-right plantar foot -Time 15:11 -Correct Patient Yes -Correct Side, Site, Position Yes -Correct Procedure Yes -Procedure Performed Yes -Type of Procedure Debridement -Clinical Debridement Subcutaneous -Post Debridement Size (cm) - Length 1.3 -Post Debridement Size (cm) - Width 1.0 -Post Debridement Size (cm) - Depth 0.8 -Total Square Cm 1.30 -Wound/Ulcer Outcome Not Healed -Ulcer Cleansing Rinsed/ Irrigated with Saline -Foul Odor after Cleansing No -Bioengineered Tissue No -Bleeding Controlled with Pressure -Other undermining 3-6 , 1.1cm -Offloading No -Treatment Response Procedure Tolerated Well [See Physician Procedure note for Specifics] Pain Scale: 0-10 Numeric [Pain] -Is Patient Pain Free? Yes Musculoskeletal: - - Generalized muscle weakness Neurological: Neuro grossly intact Psych/Mental Status: Normal Affect, Appropriate, Anxious, Alert and oriented to time, place, person, mood and affect Debridement Note Post-Debridement Measurements/Treatment WC - Nurse 2 - General Ulcer CM Notes Start: 06/09/18 14:35 Freq: Status: Active Protocol: Activity Type Activity Date Activity User E-Sign Co-Sign Detail Recorded Client Recorded Date Recorded By Document 06/09/18 15:11 MW [id number] 06/09/18 15:25 MW 06/09/18 15:11 Wound Center Nurse 2 5-right plantar foot -Time 15:11 -Correct Patient Yes -Correct Side, Site, Position Yes -Correct Procedure Yes -Procedure Performed Yes -Type of Procedure Debridement -Clinical Debridement Subcutaneous -Post Debridement Size (cm) - Length 1.3 -Post Debridement Size (cm) - Width 1.0 -Post Debridement Size (cm) - Depth 0.8 -Total Square Cm 1.30 -Wound/Ulcer Outcome Not Healed -Ulcer Cleansing Rinsed/ Irrigated with Saline -Foul Odor after Cleansing No -Bioengineered Tissue No -Bleeding Controlled with Pressure -Other undermining 3-6 , 1.1cm -Offloading No -Treatment Response Procedure Tolerated Well Pain Scale: 0-10 Numeric Is Patient Pain Free? Yes Wound debrided: Janee grade 2 diabetic foot ulcer right plantar foot Laterality: Right Type of Debridement: Excisional debridement Anesthesia Used: 5% Lidocaine Gel Depth: in the subcutaneous layer Percentage of wound debrided: 100 Instrument Used: 5mm curette, #15 blade Tissue Removed: Slough, devitalized tissue, callused wound edges Severity: Fat Layer Exposed Amount of bleeding with debridement: Mild Bleeding Controlled with: Pressure Patient tolerated procedure well Assessment/Plan Active Problems Diabetic ulcer of right foot associated with diabetes mellitus due to underlying condition (Chronic) gerard 2 right plantar surface Edema of lower extremity (Chronic) Type 2 diabetes mellitus with diabetic polyneuropathy (Chronic) Hammer toe of right foot (Chronic) Multiple sclerosis (Chronic) Decreased pedal pulses (Acute) Assessment: Foot DFU right - grade 2. MS. DM II uncontrolled with neuropathy. Right foot hammertoe. Suspected malnutrition. Plan: The patient was seen and examined at the wound center today and was updated on the plan of care. A subcutaneous debridement was performed today. The patient tolerated the procedure well. The patients wound care will consist of: Payton moistened change daily and cover with gauze and utilize offloading Darco shoe and diabetic shoes. Wound cultures were collected. Baseline bloodwork ordered. Vascular studies ordered. Patient educated on the importance of diet on wound healing and instructed to increase protein and vitamin C intake. Discussed importance of good blood sugar control and the importance of offloading as well, will check A1c, however suspect still high and instructed to follow-up with PCP for management of her diabetic medications. Patient has been noncompliant with compression and offloading. Discussed the importance of remaining compliant with her Tubigrip's for compression. Patient verbalized understanding. Patient will follow up at wound healing center in one week or sooner if needed. Given the recurring ulceration and the length of time and the fact that she has failed standard wound care, will apply for the use of purrapply a.m. This note was generated with [employer] dictation software. It may contain incorrect words, spelling, and punctuation that were not noted in checking the note before signing. Code Visit Office Visits / Consults: [id number] OV L4 Est 111xxx-113xx: [id number] Regina subq tissue 20 sq cm/<
[2018-06-09 18:36] LABS: M R Staph aureus DNA By PCR Negative (Negative); Probe Check PASS; Specimen Processing Control PASS; Staph aureus DNA By PCR NEGATIVE (Negative)
== END 2018-06-09 23:59 ==
LOC: WC 14:07
PROVIDERS: Family Provider Family Medicine; PCP Family Medicine; Referring Provider Nurse Practitioner Family; Visit Provider Nurse Practitioner Family
DX: E13.621 Other specified diabetes mellitus with foot ulcer (principal); L97.511 Non-pressure chronic ulcer of other part of right foot limited to breakdown of skin; G35 Multiple sclerosis; R60.0 Localized edema; M54.17 Radiculopathy, lumbosacral region; M20.41 Other hammer toe(s) (acquired), right foot; E13.65 Other specified diabetes mellitus with hyperglycemia; E13.40 Other specified diabetes mellitus with diabetic neuropathy, unspecified; Z86.718 Personal history of other venous thrombosis and embolism; Z91.19 Patient's noncompliance with other medical treatment and regimen; Z79.01 Long term (current) use of anticoagulants; Z79.4 Long term (current) use of insulin
CPT/HCPCS: 11042; 87070; 87075; 87077; 87186; 87205; 87640; 99213; G0463

== ENCOUNTER 2018-07-07 14:15 | Outpatient (RCR) | payer MEDICARE, OTHER, SELFPAY ==
[2018-06-10 01:19] VITALS: BP 137/111; PULSE 93; RESP 16; TEMP 36
[2018-06-11 11:48] LABS: Erythrocyte Sedimentation Rate 35 mm/hr (0-30)
[2018-06-11 11:50] LABS: Absolute Lymphocyte Count 3.38 X10^3/ul (0.83-4.51); Absolute Neutrophil Count 7.1 X10^3/uL (2.0-7.7); Basophil# 0.07 X10^3/uL; Basophil% 0.6 % (0-1); Eosinophil# 0.21 X10^3/uL; Eosinophils% 1.8 % (0-5); Hematocrit 45.1 % (37-47); Hemoglobin 14.7 g/dl (12.0-15.0); Lymphocyte # 3.38 X10^3/ul (4.0); Lymphocyte % 29.3 % (19-41); Mean Corp Hgb Conc 32.6 g/gl (32-36); Mean Corpuscular Hgb 29.9 pg (27.0-32.0); Mean Corpuscular Volume 91.7 fL (81-99); Mean Platelet Vol. 10.6 fl (6.2-12.0); Monocyte# 0.77 X10^3/uL; Monocyte% 6.7 % (0-10); Neutrophil # 7.07 X10^3/uL (2.7-7.7); Neutrophil % 61.3 % (47-70); Platelet Count 244 K/mm3 (150-450); RBC Distribution Width CV 14.5 % (11.6-14.6); RBC Distribution Width SD 48.7 fl (35.1-43.9); Red Blood Count 4.92 M/mm3 (4.2-5.4); White Blood Count 11.5 K/mm3 (4.4-11.0)
[2018-06-11 11:51] LABS: POSITIVE COUNT NO; POSITIVE DIFFERENTIAL NO; POSITIVE MORPHOLOGY NO
[2018-06-11 12:27] LABS: Hemoglobin A1c 8.9 % (4.2-6.3)
[2018-06-11 12:28] LABS: ALB/GLOB Ratio 0.7 RATIO (0.9-2.4); AST(SGOT) 31 U/L (15-37); Alanine Aminotransfer ALT/SGPT 35 U/L (13-56); Albumin, Serum 2.9 g/dL (3.2-5.0); Alkaline Phosphatase 76 U/L (45-117); Anion Gap 13 (5-15); BUN 14 mg/dL (7-18); BUN/Creat Ratio 16.4 RATIO (10-20); Calcium,Total 9.1 mg/dL (8.5-10.1); Chloride 105 mmol/L (98-107); Creatinine, Serum 0.85 mg/dL (0.55-1.02); EST Glomerular Filtration Rate 69 mL/min (>60); Est Glom Filt Rate - Afr Amer 84 mL/min (>60); Globulin 4.3 g/dL (2.2-4.2); Glucose 247 mg/dL (74-106); Potassium 4.2 mmol/L (3.5-5.1); Protein, Total 7.2 g/dL (6.4-8.2); Sodium Level 140 mmol/L (136-145)
[2018-06-16 16:02] VITALS: BP 184/95; PULSE 86; RESP 18; TEMP 36.1
--- NOTE | 2018-06-21 10:54 | PN.PCM_ITS ---
(1) Diabetic ulcer of right foot associated with diabetes mellitus due to underlying condition Status: Chronic Qualifiers: Diabetic foot ulcer location: midfoot Non-pressure ulcer stage: with fat layer exposed Qualified Code(s): E08.621 - Diabetes mellitus due to underlying condition with foot ulcer; L97.412 - Non-pressure chronic ulcer of right heel and midfoot with fat layer exposed Code(s): E08.621 - Diabetes mellitus due to underlying condition with foot ulcer; L97.519 - Non-pressure chronic ulcer of other part of right foot with unspecified severity Comment: rosales 2 right plantar surface (2) Decreased pedal pulses Status: Acute Code(s): R09.89 - Other specified symptoms and signs involving the circulatory and respiratory systems (3) Infected ulcer of skin Status: Acute Code(s): L98.499 - Non-pressure chronic ulcer of skin of other sites with unspecified severity; L08.9 - Local infection of the skin and subcutaneous tissue, unspecified (4) Edema of lower extremity Status: Chronic Code(s): R60.0 - Localized edema (5) Hammer toe of right foot Status: Chronic Code(s): M20.41 - Other hammer toe(s) (acquired), right foot (6) Multiple sclerosis Status: Chronic Code(s): G35 - Multiple sclerosis Type of Wound Date of Service: 06/16/18 Chief Complaint: right foot ulcer History of Wound: This is a 77-year-old white female who presents to the wound healing center today with an ongoing complaint of a ulcer and callus on her right foot that has been intermittently reopening for the past 3 years. She was previously seen in April 2018 for the diabetic ulcer of the right foot which had healed. 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 The patient states that her foot ulceration opened up about 10 days after being discharged in April 2018. She has been utilizing leftover Payton to the site and foam dressing as well. She has diabetic shoes and an offloading Darco shoe and an offloading boot, however she remains noncompliant with offloading therapy. She has compression stockings at home as well, however is noncompliant with compression as well. She denies any use of protein supplementation. She has noted a foul smell and some serosanguineous drainage coming from the site. Otherwise denies any signs and symptoms of systemic infection such as fever, chills, nausea, vomiting, malaise fatigue. The patient otherwise denies any fever, chills, nausea, vomiting, shortness of breath, chest pain or pressure, palpitations, orthopnea, lower extremity edema, syncope or presyncopal episodes. Progress of Wound: The patient's culture was reviewed and demonstrated Morganella morganii and Serratia marcensens 2+ and therefore patient was started on Levaquin. She was instructed to monitor her PT/INRs closely if not every other day while on this medication. The patient remains noncompliant with offloading and states that she does not want to follow-up weekly and it would be her preference to only follow-up once every 4 weeks and see podiatry to take care of her callus and assess the ulceration for infection. She states that the ulceration has been on and off for 4 years and she does not plan on it healing and would like to only be seen every 4 weeks. The ulceration today does look somewhat improved, the wound bed is moist and pink. Patient denies any drainage and denies any systemic signs of infection at this time. She is tolerating the antibiotic appropriately. - Physical Exam Vital Signs Temp Pulse Resp BP 97 F L 86 18 184/95 H 06/16/18 16:02 06/16/18 16:02 06/16/18 16:02 06/16/18 16:02 General: Alert, Oriented x3, Cooperative, No apparent distress HEENT: Atraumatic Lungs: Clear to auscultation Cardiovascular: Regular rate Abdomen: Obese Extremities: No clubbing, No cyanosis, Diminished Peripheral Pulses, Edema - generalized BLLE edema Skin: Ulcer/ Wound - ulceration to right plantar surface with slough and callused wound edges, no drainage or odor or signs of infection at this time. Neurological: - - decreased nerurvascular sensation BLLE Psych/Mental Status: Normal Affect, Appropriate, Alert and oriented to time, place, person, mood and affect Debridement Note Wound debrided: Rosales grade 2 Right plantar DFU Laterality: Right Type of Debridement: Excisional debridement Anesthesia Used: 5% Lidocaine Gel Depth: in the subcutaneous layer Percentage of wound debrided: 100 Instrument Used: 5mm curette, #12 blade Tissue Removed: slough, devitalized tissue, callused wound edges Severity: Fat Layer Exposed Amount of bleeding with debridement: Mild Bleeding Controlled with: Pressure Patient tolerated procedure well Assessment/Plan Assessment: Foot DFU right - grade 2. MS. DM II uncontrolled with neuropathy. Right foot hammertoe. Suspected malnutrition. Plan: The patient was seen and examined at the wound center today and was updated on the plan of care. A subcutaneous debridement was performed today. The patient tolerated the procedure well. The patients wound care will consist of: Payton moistened change daily and cover with gauze and utilize offloading Darco shoe and diabetic shoes, which she continues to be noncompliant with. Wound cultures were collected prior and demonstrated Morganella morganii and Serratia marcensens 2+ and therefore patient was started on Levaquin. Baseline bloodwork ordered and essentially WNL with the exception of 8.9 A1c and elevated ESR at 35 and crp 12. Vascular studies pending. Patient educated on the importance of diet on wound healing and instructed to increase protein and vitamin C intake. Discussed importance of good blood sugar control and the importance of offloading as well, and instructed to follow-up with PCP for management of her diabetic medications. Patient has been noncompliant with compression and o ffloading. Discussed the importance of remaining compliant with her Tubigrip's for compression. Patient verbalized understanding. Patient will follow up at wound healing center in one week or sooner if needed. Given the recurring ulceration and the length of time and the fact that she has failed standard wound care, will apply for the use of purrapply a.m. this was approved and patient refuses. She is also refusing to be seen weekly and states that she would prefer to be seen once every 4 weeks. This note was generated with [employer] dictation software. It may contain incorrect words, spelling, and punctuation that were not noted in checking the note before signing. Code Visit 111xxx-113xx: [id number] Regina subq tissue 20 sq cm/<
[2018-06-30 14:17] VITALS: BP 132/82; PULSE 86; RESP 20; TEMP 36.8
--- NOTE | 2018-06-30 16:47 | PCM.WC.PN ---
(1) Diabetic ulcer of right foot associated with diabetes mellitus due to underlying condition Status: Chronic Current Visit: Yes Qualifiers: Diabetic foot ulcer location: midfoot Non-pressure ulcer stage: with fat layer exposed Qualified Code(s): E08.621 - Diabetes mellitus due to underlying condition with foot ulcer; L97.412 - Non-pressure chronic ulcer of right heel and midfoot with fat layer exposed Code(s): E08.621 - Diabetes mellitus due to underlying condition with foot ulcer; L97.519 - Non-pressure chronic ulcer of other part of right foot with unspecified severity Comment: gerard 2 right plantar surface (2) Decreased pedal pulses Status: Acute Current Visit: Yes Code(s): R09.89 - Other specified symptoms and signs involving the circulatory and respiratory systems (3) Infected ulcer of skin Status: Acute Current Visit: Yes Code(s): L98.499 - Non-pressure chronic ulcer of skin of other sites with unspecified severity; L08.9 - Local infection of the skin and subcutaneous tissue, unspecified (4) Edema of lower extremity Status: Chronic Current Visit: Yes Code(s): R60.0 - Localized edema (5) Hammer toe of right foot Status: Chronic Current Visit: Yes Code(s): M20.41 - Other hammer toe(s) (acquired), right foot (6) Multiple sclerosis Status: Chronic Current Visit: Yes Code(s): G35 - Multiple sclerosis Type of Wound Date of Service: 06/30/18 Chief Complaint: right foot ulcer History of Wound: This is a 77-year-old white female who presents to the wound healing center today with an ongoing complaint of a ulcer and callus on her right foot that has been intermittently reopening for the past 3 years. She was previously seen in April 2018 for the diabetic ulcer of the right foot which had healed. 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 The patient states that her foot ulceration opened up about 10 days after being discharged in April 2018. She has been utilizing leftover Payton to the site and foam dressing as well. She has diabetic shoes and an offloading Darco shoe and an offloading boot, however she remains noncompliant with offloading therapy. She has compression stockings at home as well, however is noncompliant with compression as well. She denies any use of protein supplementation. She has noted a foul smell and some serosanguineous drainage coming from the site. Otherwise denies any signs and symptoms of systemic infection such as fever, chills, nausea, vomiting, malaise fatigue. The patient otherwise denies any fever, chills, nausea, vomiting, shortness of breath, chest pain or pressure, palpitations, orthopnea, lower extremity edema, syncope or presyncopal episodes. Progress of Wound: The patient's culture was reviewed and demonstrated Morganella morganii and Serratia marcensens 2+ and therefore patient completed course of Levaquin. The patient remains noncompliant with offloading. The ulceration today does look somewhat improved, the wound bed is moist and pink. Patient denies any drainage and denies any systemic signs of infection at this time. She is receptive to trying the purrapply AM - Physical Exam Vital Signs Temp Pulse Resp BP 98.2 F 86 20 H 132/82 H 06/30/18 14:17 06/30/18 14:17 06/30/18 14:17 06/30/18 14:17 General: Alert, Oriented x3, Cooperative, No apparent distress HEENT: Atraumatic Lungs: Clear to auscultation Cardiovascular: Regular rate Abdomen: Soft, Non Tender, Obese Extremities: No clubbing, No cyanosis, Diminished Peripheral Pulses, Edema - Generalized bilateral lower extremity edema Skin: Ulcer/ Wound - Right plantar foot Janee grade 2 DFU with adherent slough and hypercaloric wound edges, no apparent signs of infection at this time Wound Measurements and Assessment WC - Nurse 1 - General Ulcer Measurement Start: 06/14/18 10:22 Freq: Status: Active Protocol: Activity Type Activity Date Activity User E-Sign Co-Sign Detail Recorded Client Recorded Date Recorded By Document 06/30/18 14:17 DL [id number] 06/30/18 14:24 DL 06/30/18 14:17 Wound Center Nurse 1 [Ulcer Assessment] 5-right plantar foot -Current Size (cm) - Length 0.7 -Current Size (cm) - Width 0.5 -Current Size (cm) - Depth 0.5 -Total Square Cm 0.35 -Photo Taken No -Maximum Distance #2 (cm) 0.2 -Circular Undermining Yes -Exudate Amt Small -Exudate Type Serosanguineous -Wound Margin Thickened -Granulation Amt Large (67-100%) -Granulation Quality Red -Necrosis Amt Small (1-33%) -Necrotic Tissue Type Adherent Slough -Structure Exposed N/A -Texture (Faby-wound Skin Appearance) Callus -Moisture (Faby-wound Skin Appearance No Abnormality ) -Temperature (Faby-wound Skin No Abnormality Appearance) (Pt Warm) -Tenderness on Palpation (Faby-wound No Skin Appearance) -Ulcer Cleansing Wound Cleanser -Foul Odor after Cleansing No -Anesthetic Used 5% Lidocaine Gel [Edema Assessment] -Right Calf (cm) 46 -Right Ankle (cm) 25.5 WC - Nurse 2 - General Ulcer CM Notes Start: 06/14/18 10:22 Freq: Status: Active Protocol: Activity Type Activity Date Activity User E-Sign Co-Sign Detail Recorded Client Recorded Date Recorded By Document 06/30/18 14:52 AN [id number] 06/30/18 15:01 AN 06/30/18 14:52 Wound Center Nurse 2 [Procedure/Treatment] 5-right plantar foot -Time 14:52 -Correct Patient Yes -Correct Side, Site, Position Yes -Correct Procedure Yes -Procedure Performed Yes -Type of Procedure Debridement -Clinical Debridement Subcutaneous -Post Debridement Size (cm) - Length 1.4 -Post Debridement Size (cm) - Width 0.7 -Post Debridement Size (cm) - Depth 0.4 -Total Square Cm 0.98 -Wound/Ulcer Outcome Not Healed -Ulcer Cleansing Rinsed/ Irrigated with Saline -Foul Odor after Cleansing No -Bioengineered Tissue Yes -Type of bioengineered Tissue [id number] -Expiration Date 09/21/20 -Product Lot Number [id number] -Percent Used 100 -Saline Lot Number [id number] -Topical Lidocaine (%) 5 -Bleeding Controlled with Pressure -Offloading Yes -Type of Offloading Surgical Shoe -Treatment Response Procedure Tolerated Well [See Physician Procedure note for Specifics] Pain Scale: 0-10 Numeric [Pain] -Is Patient Pain Free? Yes Neurological: Neuro grossly intact, - - Gait instability Psych/Mental Status: Normal Affect, Appropriate, Alert and oriented to time, place, person, mood and affect Debridement Note Post-Debridement Measurements/Treatment WC - Nurse 2 - General Ulcer CM Notes Start: 06/14/18 10:22 Freq: Status: Active Protocol: Activity Type Activity Date Activity User E-Sign Co-Sign Detail Recorded Client Recorded Date Recorded By Document 06/30/18 14:52 AN [id number] 06/30/18 15:01 AN 06/30/18 14:52 Wound Center Nurse 2 5-right plantar foot -Time 14:52 -Correct Patient Yes -Correct Side, Site, Position Yes -Correct Procedure Yes -Procedure Performed Yes -Type of Procedure Debridement -Clinical Debridement Subcutaneous -Post Debridement Size (cm) - Length 1.4 -Post Debridement Size (cm) - Width 0.7 -Post Debridement Size (cm) - Depth 0.4 -Total Square Cm 0.98 -Wound/Ulcer Outcome Not Healed -Ulcer Cleansing Rinsed/ Irrigated with Saline -Foul Odor after Cleansing No -Bioengineered Tissue Yes -Type of bioengineered Tissue [id number] -Expiration Date 09/21/20 -Product Lot Number [id number] -Percent Used 100 -Saline Lot Number [id number] -Topical Lidocaine (%) 5 -Bleeding Controlled with Pressure -Offloading Yes -Type of Offloading Surgical Shoe -Treatment Response Procedure Tolerated Well Pain Scale: 0-10 Numeric Is Patient Pain Free? Yes Wound debrided: Right plantar DFU [place] 2 Laterality: Right Type of Debridement: Excisional debridement Anesthesia Used: 5% Lidocaine Gel Depth: in the subcutaneous layer Percentage of wound debrided: 100 Instrument Used: 5mm curette, #15 blade Tissue Removed: Slough and devitalized tissue and callused wound edges Severity: Fat Layer Exposed Amount of bleeding with debridement: Mild Bleeding Controlled with: Pressure Patient tolerated procedure well Assessment/Plan Active Problems Diabetic ulcer of right foot associated with diabetes mellitus due to underlying condition (Chronic) gerard 2 right plantar surface Infected ulcer of skin (Acute) Edema of lower extremity (Chronic) Hammer toe of right foot (Chronic) Multiple sclerosis (Chronic) Decreased pedal pulses (Acute) Assessment: Foot DFU right - grade 2. MS. DM II uncontrolled with neuropathy. Right foot hammertoe. Suspected malnutrition. Plan: The patient was seen and examined at the wound center today and was updated on the plan of care. A subcutaneous debridement was performed today. The patient tolerated the procedure well. The patients wound care will consist of: Pure apply a.m. #1 was applied after subcutaneous debridement, it was then covered with the wound veil and a thin layer of hydrogel, and secured with Steri-Strips, 100% of the product was used with 0% waste. Patient tolerated the procedure well. And utilize offloading Darco shoe and diabetic shoes, which she continues to be noncompliant with. Wound cultures were collected prior and demonstrated Morganella morganii and Serratia marcensens 2+ and therefore patient completed course of Levaquin. Baseline bloodwork ordered and essentially WNL with the exception of 8.9 A1c and elevated ESR at 35 and crp 12 which I suspect is due to chronic inflammatory state, did discuss following up with her PCP regarding her uncontrolled diabetes. Vascular studies pending. Patient educated on the importance of diet on wound healing and instructed to increase protein and vitamin C intake. Discussed importance of good blood sugar control and the importance of offloading as well, and instructed to follow-up with PCP for management of her diabetic medications. Patient has been noncompliant with compression and offloading. Discussed the importance of remaining compliant with her Tubigrip's for compression. Patient verbalized understanding. Patient will follow up at wound healing center in one week or sooner if needed. Discussed with patient that if she refuses to be seen weekly at the wound healing center that this would be a breach of contract and that she may be asked in the future to be discharged. This note was generated with [employer] software. It may contain incorrect words, spelling, and punctuation that were not noted in checking the note before signing. Code Visit 150xxx-152xx: [id number] Skin sub graft face/nk/hf/g
--- NOTE | 2018-07-01 16:52 | PN.PCM_ITS ---
(1) Diabetic ulcer of right foot associated with diabetes mellitus due to underlying condition Status: Chronic Current Visit: Yes Qualifiers: Diabetic foot ulcer location: midfoot Non-pressure ulcer stage: with fat layer exposed Qualified Code(s): E08.621 - Diabetes mellitus due to underlying condition with foot ulcer; L97.412 - Non-pressure chronic ulcer of right heel and midfoot with fat layer exposed Code(s): E08.621 - Diabetes mellitus due to underlying condition with foot ulcer; L97.519 - Non-pressure chronic ulcer of other part of right foot with unspecified severity Comment: gerard 2 right plantar surface (2) Decreased pedal pulses Status: Acute Current Visit: Yes Code(s): R09.89 - Other specified symptoms and signs involving the circulatory and respiratory systems (3) Infected ulcer of skin Status: Acute Current Visit: Yes Code(s): L98.499 - Non-pressure chronic ulcer of skin of other sites with unspecified severity; L08.9 - Local infection of the skin and subcutaneous tissue, unspecified (4) Edema of lower extremity Status: Chronic Current Visit: Yes Code(s): R60.0 - Localized edema (5) Hammer toe of right foot Status: Chronic Current Visit: Yes Code(s): M20.41 - Other hammer toe(s) (acquired), right foot (6) Multiple sclerosis Status: Chronic Current Visit: Yes Code(s): G35 - Multiple sclerosis Type of Wound Date of Service: 06/30/18 Chief Complaint: right foot ulcer History of Wound: This is a 77-year-old white female who presents to the wound healing center today with an ongoing complaint of a ulcer and callus on her right foot that has been intermittently reopening for the past 3 years. She was previously seen in April 2018 for the diabetic ulcer of the right foot which had healed. 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 The patient states that her foot ulceration opened up about 10 days after being discharged in April 2018. She has been utilizing leftover Payton to the site and foam dressing as well. She has diabetic shoes and an offloading Darco shoe and an offloading boot, however she remains noncompliant with offloading therapy. She has compression stockings at home as well, however is noncompliant with compression as well. She denies any use of protein supplementation. She has noted a foul smell and some serosanguineous drainage coming from the site. Otherwise denies any signs and symptoms of systemic infection such as fever, chills, nausea, vomiting, malaise fatigue. The patient otherwise denies any fever, chills, nausea, vomiting, shortness of breath, chest pain or pressure, palpitations, orthopnea, lower extremity edema, syncope or presyncopal episodes. Progress of Wound: The patient's culture was reviewed and demonstrated Morganella morganii and Serratia marcensens 2+ and therefore patient completed course of Levaquin. The patient remains noncompliant with offloading. The ulceration today does look somewhat improved, the wound bed is moist and pink. Patient denies any drainage and denies any systemic signs of infection at this time. She is receptive to trying the purrapply AM - Physical Exam Vital Signs Temp Pulse Resp BP 98.2 F 86 20 H 132/82 H 06/30/18 14:17 06/30/18 14:17 06/30/18 14:17 06/30/18 14:17 General: Alert, Oriented x3, Cooperative, No apparent distress HEENT: Atraumatic Lungs: Clear to auscultation Cardiovascular: Regular rate Abdomen: Soft, Non Tender, Obese Extremities: No clubbing, No cyanosis, Diminished Peripheral Pulses, Edema - Generalized bilateral lower extremity edema Skin: Ulcer/ Wound - Right plantar foot Janee grade 2 DFU with adherent slough and hypercaloric wound edges, no apparent signs of infection at this time Wound Measurements and Assessment WC - Nurse 1 - General Ulcer Measurement Start: 06/14/18 10:22 Freq: Status: Active Protocol: Activity Type Activity Date Activity User E-Sign Co-Sign Detail Recorded Client Recorded Date Recorded By Document 06/30/18 14:17 DL [id number] 06/30/18 14:24 DL 06/30/18 14:17 Wound Center Nurse 1 [Ulcer Assessment] 5-right plantar foot -Current Size (cm) - Length 0.7 -Current Size (cm) - Width 0.5 -Current Size (cm) - Depth 0.5 -Total Square Cm 0.35 -Photo Taken No -Maximum Distance #2 (cm) 0.2 -Circular Undermining Yes -Exudate Amt Small -Exudate Type Serosanguineous -Wound Margin Thickened -Granulation Amt Large (67-100%) -Granulation Quality Red -Necrosis Amt Small (1-33%) -Necrotic Tissue Type Adherent Slough -Structure Exposed N/A -Texture (Faby-wound Skin Appearance) Callus -Moisture (Faby-wound Skin Appearance No Abnormality ) -Temperature (Faby-wound Skin No Abnormality Appearance) (Pt Warm) -Tenderness on Palpation (Faby-wound No Skin Appearance) -Ulcer Cleansing Wound Cleanser -Foul Odor after Cleansing No -Anesthetic Used 5% Lidocaine Gel [Edema Assessment] -Right Calf (cm) 46 -Right Ankle (cm) 25.5 WC - Nurse 2 - General Ulcer CM Notes Start: 06/14/18 10:22 Freq: Status: Active Protocol: Activity Type Activity Date Activity User E-Sign Co-Sign Detail Recorded Client Recorded Date Recorded By Document 06/30/18 14:52 AN [id number] 06/30/18 15:01 AN 06/30/18 14:52 Wound Center Nurse 2 [Procedure/Treatment] 5-right plantar foot -Time 14:52 -Correct Patient Yes -Correct Side, Site, Position Yes -Correct Procedure Yes -Procedure Performed Yes -Type of Procedure Debridement -Clinical Debridement Subcutaneous -Post Debridement Size (cm) - Length 1.4 -Post Debridement Size (cm) - Width 0.7 -Post Debridement Size (cm) - Depth 0.4 -Total Square Cm 0.98 -Wound/Ulcer Outcome Not Healed -Ulcer Cleansing Rinsed/ Irrigated with Saline -Foul Odor after Cleansing No -Bioengineered Tissue Yes -Type of bioengineered Tissue [id number] -Expiration Date 09/21/20 -Product Lot Number [id number] -Percent Used 100 -Saline Lot Number [id number] -Topical Lidocaine (%) 5 -Bleeding Controlled with Pressure -Offloading Yes -Type of Offloading Surgical Shoe -Treatment Response Procedure Tolerated Well [See Physician Procedure note for Specifics] Pain Scale: 0-10 Numeric [Pain] -Is Patient Pain Free? Yes Neurological: Neuro grossly intact, - - Gait instability Psych/Mental Status: Normal Affect, Appropriate, Alert and oriented to time, place, person, mood and affect Debridement Note Post-Debridement Measurements/Treatment WC - Nurse 2 - General Ulcer CM Notes Start: 06/14/18 10:22 Freq: Status: Active Protocol: Activity Type Activity Date Activity User E-Sign Co-Sign Detail Recorded Client Recorded Date Recorded By Document 06/30/18 14:52 AN [id number] 06/30/18 15:01 AN 06/30/18 14:52 Wound Center Nurse 2 5-right plantar foot -Time 14:52 -Correct Patient Yes -Correct Side, Site, Position Yes -Correct Procedure Yes -Procedure Performed Yes -Type of Procedure Debridement -Clinical Debridement Subcutaneous -Post Debridement Size (cm) - Length 1.4 -Post Debridement Size (cm) - Width 0.7 -Post Debridement Size (cm) - Depth 0.4 -Total Square Cm 0.98 -Wound/Ulcer Outcome Not Healed -Ulcer Cleansing Rinsed/ Irrigated with Saline -Foul Odor after Cleansing No -Bioengineered Tissue Yes -Type of bioengineered Tissue [id number] -Expiration Date 09/21/20 -Product Lot Number [id number] -Percent Used 100 -Saline Lot Number [id number] -Topical Lidocaine (%) 5 -Bleeding Controlled with Pressure -Offloading Yes -Type of Offloading Surgical Shoe -Treatment Response Procedure Tolerated Well Pain Scale: 0-10 Numeric Is Patient Pain Free? Yes Wound debrided: Right plantar DFU [place] 2 Laterality: Right Type of Debridement: Excisional debridement Anesthesia Used: 5% Lidocaine Gel Depth: in the subcutaneous layer Percentage of wound debrided: 100 Instrument Used: 5mm curette, #15 blade Tissue Removed: Slough and devitalized tissue and callused wound edges Severity: Fat Layer Exposed Amount of bleeding with debridement: Mild Bleeding Controlled with: Pressure Patient tolerated procedure well Assessment/Plan Active Problems Diabetic ulcer of right foot associated with diabetes mellitus due to underlying condition (Chronic) gerard 2 right plantar surface Infected ulcer of skin (Acute) Edema of lower extremity (Chronic) Hammer toe of right foot (Chronic) Multiple sclerosis (Chronic) Decreased pedal pulses (Acute) Assessment: Foot DFU right - grade 2. MS. DM II uncontrolled with neuropathy. Right foot hammertoe. Suspected malnutrition. Plan: The patient was seen and examined at the wound center today and was updated on the plan of care. A subcutaneous debridement was performed today. The patient tolerated the procedure well. The patients wound care will consist of: Pure apply a.m. #1 was applied after subcutaneous debridement, it was then covered with the wound veil and a thin layer of hydrogel, and secured with Steri-Strips, 100% of the product was used with 0% waste. Patient tolerated the procedure well. And utilize offloading Darco shoe and diabetic shoes, which she continues to be noncompliant with. Wound cultures were collected prior and demonstrated Morganella morganii and Serratia marcensens 2+ and therefore patient completed course of Levaquin. Baseline bloodwork ordered and essentially WNL with the exception of 8.9 A1c and elevated ESR at 35 and crp 12 which I suspect is due to chronic inflammatory state, did discuss following up with her PCP regarding her uncontrolled diabetes. Vascular studies pending. Patient edu cated on the importance of diet on wound healing and instructed to increase protein and vitamin C intake. Discussed importance of good blood sugar control and the importance of offloading as well, and instructed to follow-up with PCP for management of her diabetic medications. Patient has been noncompliant with compression and offloading. Discussed the importance of remaining compliant with her Tubigrip's for compression. Patient verbalized understanding. Patient will follow up at wound healing center in one week or sooner if needed. Discussed with patient that if she refuses to be seen weekly at the wound healing center that this would be a breach of contract and that she may be asked in the future to be discharged. This note was generated with [employer] software. It may contain incorrect words, spelling, and punctuation that were not noted in checking the note before signing. Code Visit 150xxx-152xx: [id number] Skin sub graft face/nk/hf/g
[2018-07-07 14:34] VITALS: BP 132/70; PULSE 88; RESP 18; TEMP 36.6
--- NOTE | 2018-07-07 19:48 | PCM.WC.PN ---
(1) Diabetic ulcer of right foot associated with diabetes mellitus due to underlying condition Status: Chronic Qualifiers: Diabetic foot ulcer location: midfoot Non-pressure ulcer stage: with fat layer exposed Qualified Code(s): E08.621 - Diabetes mellitus due to underlying condition with foot ulcer; L97.412 - Non-pressure chronic ulcer of right heel and midfoot with fat layer exposed Code(s): E08.621 - Diabetes mellitus due to underlying condition with foot ulcer; L97.519 - Non-pressure chronic ulcer of other part of right foot with unspecified severity Comment: gerard 2 right plantar surface (2) Decreased pedal pulses Status: Acute Code(s): R09.89 - Other specified symptoms and signs involving the circulatory and respiratory systems (3) Infected ulcer of skin Status: Acute Code(s): L98.499 - Non-pressure chronic ulcer of skin of other sites with unspecified severity; L08.9 - Local infection of the skin and subcutaneous tissue, unspecified (4) Edema of lower extremity Status: Chronic Code(s): R60.0 - Localized edema (5) Hammer toe of right foot Status: Chronic Code(s): M20.41 - Other hammer toe(s) (acquired), right foot (6) Multiple sclerosis Status: Chronic Code(s): G35 - Multiple sclerosis Type of Wound Date of Service: 07/07/18 Chief Complaint: right foot ulcer History of Wound: This is a 77-year-old white female who presents to the wound healing center today with an ongoing complaint of a ulcer and callus on her right foot that has been intermittently reopening for the past 3 years. She was previously seen in April 2018 for the diabetic ulcer of the right foot which had healed. 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 The patient states that her foot ulceration opened up about 10 days after being discharged in April 2018. She has been utilizing leftover Payton to the site and foam dressing as well. She has diabetic shoes and an offloading Darco shoe and an offloading boot, however she remains noncompliant with offloading therapy. She has compression stockings at home as well, however is noncompliant with compression as well. She denies any use of protein supplementation. She has noted a foul smell and some serosanguineous drainage coming from the site. Otherwise denies any signs and symptoms of systemic infection such as fever, chills, nausea, vomiting, malaise fatigue. The patient otherwise denies any fever, chills, nausea, vomiting, shortness of breath, chest pain or pressure, palpitations, orthopnea, lower extremity edema, syncope or presyncopal episodes. Progress of Wound: The patient's culture was reviewed and demonstrated Morganella morganii and Serratia marcensens 2+ and therefore patient completed course of Levaquin. The patient remains noncompliant with offloading. The ulceration today has improved by close to 50% after the use of 1 application of purapply a.m., the wound bed is moist and pink. Patient denies any drainage and denies any systemic signs of infection at this time. The patient does state that even though the size has improved, she does not wish to go forward with any more applications of the pure apply and does not wish to follow-up weekly and would only like to follow-up every 4 weeks to have the callus surrounding the ulceration addressed. - Physical Exam Vital Signs Temp Pulse Resp BP 97.8 F 88 18 132/70 H 07/07/18 14:34 07/07/18 14:34 07/07/18 14:34 07/07/18 14:34 General: Alert, Oriented x3, Cooperative, No apparent distress HEENT: Atraumatic Lungs: Clear to auscultation Cardiovascular: Regular rate Abdomen: Soft, Non Tender, Obese Extremities: Edema - General bilateral lower extremity edema Skin: Ulcer/ Wound - Ulceration to right plantar foot Janee 2, wound bed is moist and pink, no signs of obvious infection at this time. No redness, streaking, or purulent discharge. Psych/Mental Status: Normal Affect, Appropriate, Alert and oriented to time, place, person, mood and affect Debridement Note Post-Debridement Measurements/Treatment WC - Nurse 2 - General Ulcer CM Notes Start: 06/14/18 10:22 Freq: Status: Active Protocol: Activity Type Activity Date Activity User E-Sign Co-Sign Detail Recorded Client Recorded Date Recorded By Document 06/30/18 14:52 AN [id number] 06/30/18 15:01 AN Document 07/07/18 14:44 MW [id number] 07/07/18 14:48 MW 06/30/18 07/07/18 14:52 14:44 Wound Center Nurse 2 5-right plantar foot -Time 14:52 14:45 -Correct Patient Yes Yes -Correct Side, Site, Position Yes Yes -Correct Procedure Yes Yes -Procedure Performed Yes Yes -Type of Procedure Debridement Debridement -Clinical Debridement Subcutaneous Subcutaneous -Post Debridement Size (cm) - Length 1.4 0.8 -Post Debridement Size (cm) - Width 0.7 0.4 -Post Debridement Size (cm) - Depth 0.4 0.2 -Total Square Cm 0.98 0.32 -Wound/Ulcer Outcome Not Healed Not Healed -Ulcer Cleansing Rinsed/ Rinsed/ Irrigated with Irrigated with Saline Saline -Foul Odor after Cleansing No No -Bioengineered Tissue Yes No -Type of bioengineered Tissue [id number] -Expiration Date 09/21/20 -Product Lot Number [id number] -Percent Used 100 -Saline Lot Number [id number] -Topical Lidocaine (%) 5 -Bleeding Controlled with Pressure Pressure -Offloading Yes No -Type of Offloading Surgical Shoe -Treatment Response Procedure Procedure Tolerated Well Tolerated Well Pain Scale: 0-10 Numeric Is Patient Pain Free? Yes Yes Wound debrided: Right plantar DFU [place] 2 Laterality: Right Type of Debridement: Excisional debridement Anesthesia Used: 5% Lidocaine Gel Depth: in the subcutaneous layer Percentage of wound debrided: 100 Instrument Used: 5mm curette, #12 blade Tissue Removed: Slough, devitalized tissue, callused wound edges Severity: Fat Layer Exposed Amount of bleeding with debridement: Mild Bleeding Controlled with: Pressure Patient tolerated procedure well Assessment/Plan Assessment: Foot DFU right - grade 2. MS. DM II uncontrolled with neuropathy. Right foot hammertoe. Suspected malnutrition. Plan: The patient was seen and examined at the wound center today and was updated on the plan of care. A subcutaneous debridement was performed today. The patient tolerated the procedure well. The patients wound care will consist of: Applying Payton and gauze daily. And utilize offloading Darco shoe and diabetic shoes, which she continues to be noncompliant with. Wound cultures were collected prior and demonstrated Morganella morganii and Serratia marcensens 2+ and therefore patient completed course of Levaquin. Baseline bloodwork ordered and essentially WNL with the exception of 8.9 A1c and elevated ESR at 35 and crp 12 which I suspect is due to her chronic inflammatory state, did discuss following up with her PCP regarding her uncontrolled diabetes. Vascular studies pending. Patient educated on the importance of diet on wound healing and instructed to increase protein and vitamin C intake. Discussed importance of good blood sugar control and the importance of offloading as well, and instructed to follow-up with PCP for management of her diabetic medications. Patient has been noncompliant with compression and offloading. Discussed the importance of remaining compliant with her Tubigrip's for compression. Patient verbalized understanding. Discussed with patient that she will be discharged from the wound healing center as she refuses to come weekly and states that she only wants to follow-up with someone every 4 weeks. Educated patient that advanced wound healing takes weekly serial debridements. She still refuses and states she will follow-up with her instructional support services director every 4 weeks for management of the callus on her foot surrounding the ulceration. This note was generated with [employer] dictation software. It may contain incorrect words, spelling, and punctuation that were not noted in checking the note before signing. Code Visit 111xxx-113xx: 00708 Regina subq tissue 20 sq cm/<
--- NOTE | 2018-07-12 11:54 | PN.PCM_ITS ---
(1) Diabetic ulcer of right foot associated with diabetes mellitus due to underlying condition Status: Chronic Qualifiers: Diabetic foot ulcer location: midfoot Non-pressure ulcer stage: with fat layer exposed Qualified Code(s): E08.621 - Diabetes mellitus due to underlying condition with foot ulcer; L97.412 - Non-pressure chronic ulcer of right heel and midfoot with fat layer exposed Code(s): E08.621 - Diabetes mellitus due to underlying condition with foot ulcer; L97.519 - Non-pressure chronic ulcer of other part of right foot with unspecified severity Comment: gerard 2 right plantar surface (2) Decreased pedal pulses Status: Acute Code(s): R09.89 - Other specified symptoms and signs involving the circulatory and respiratory systems (3) Infected ulcer of skin Status: Acute Code(s): L98.499 - Non-pressure chronic ulcer of skin of other sites with unspecified severity; L08.9 - Local infection of the skin and subcutaneous tissue, unspecified (4) Edema of lower extremity Status: Chronic Code(s): R60.0 - Localized edema (5) Hammer toe of right foot Status: Chronic Code(s): M20.41 - Other hammer toe(s) (acquired), right foot (6) Multiple sclerosis Status: Chronic Code(s): G35 - Multiple sclerosis Type of Wound Date of Service: 07/07/18 Chief Complaint: right foot ulcer History of Wound: This is a 77-year-old white female who presents to the wound healing center today with an ongoing complaint of a ulcer and callus on her right foot that has been intermittently reopening for the past 3 years. She was previously seen in April 2018 for the diabetic ulcer of the right foot which had healed. 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 The patient states that her foot ulceration opened up about 10 days after being discharged in April 2018. She has been utilizing leftover Payton to the site and foam dressing as well. She has diabetic shoes and an offloading Darco shoe and an offloading boot, however she remains noncompliant with offloading therapy. She has compression stockings at home as well, however is noncompliant with compression as well. She denies any use of protein supplementation. She has noted a foul smell and some serosanguineous drainage coming from the site. Otherwise denies any signs and symptoms of systemic infection such as fever, chills, nausea, vomiting, malaise fatigue. The patient otherwise denies any fever, chills, nausea, vomiting, shortness of breath, chest pain or pressure, palpitations, orthopnea, lower extremity edema, syncope or presyncopal episodes. Progress of Wound: The patient's culture was reviewed and demonstrated Morganella morganii and Serratia marcensens 2+ and therefore patient completed course of Levaquin. The patient remains noncompliant with offloading. The ulceration today has improved by close to 50% after the use of 1 application of purapply a.m., the wound bed is moist and pink. Patient denies any drainage and denies any systemic signs of infection at this time. The patient does state that even though the size has improved, she does not wish to go forward with any more applications of the pure apply and does not wish to follow-up weekly and would only like to follow-up every 4 weeks to have the callus surrounding the ulceration addressed. - Physical Exam Vital Signs Temp Pulse Resp BP 97.8 F 88 18 132/70 H 07/07/18 14:34 07/07/18 14:34 07/07/18 14:34 07/07/18 14:34 General: Alert, Oriented x3, Cooperative, No apparent distress HEENT: Atraumatic Lungs: Clear to auscultation Cardiovascular: Regular rate Abdomen: Soft, Non Tender, Obese Extremities: Edema - General bilateral lower extremity edema Skin: Ulcer/ Wound - Ulceration to right plantar foot Janee 2, wound bed is moist and pink, no signs of obvious infection at this time. No redness, streaking, or purulent discharge. Psych/Mental Status: Normal Affect, Appropriate, Alert and oriented to time, place, person, mood and affect Debridement Note Post-Debridement Measurements/Treatment WC - Nurse 2 - General Ulcer CM Notes Start: 06/14/18 10:22 Freq: Status: Active Protocol: Activity Type Activity Date Activity User E-Sign Co-Sign Detail Recorded Client Recorded Date Recorded By Document 06/30/18 14:52 AN [id number] 06/30/18 15:01 AN Document 07/07/18 14:44 MW [id number] 07/07/18 14:48 MW 06/30/18 07/07/18 14:52 14:44 Wound Center Nurse 2 5-right plantar foot -Time 14:52 14:45 -Correct Patient Yes Yes -Correct Side, Site, Position Yes Yes -Correct Procedure Yes Yes -Procedure Performed Yes Yes -Type of Procedure Debridement Debridement -Clinical Debridement Subcutaneous Subcutaneous -Post Debridement Size (cm) - Length 1.4 0.8 -Post Debridement Size (cm) - Width 0.7 0.4 -Post Debridement Size (cm) - Depth 0.4 0.2 -Total Square Cm 0.98 0.32 -Wound/Ulcer Outcome Not Healed Not Healed -Ulcer Cleansing Rinsed/ Rinsed/ Irrigated with Irrigated with Saline Saline -Foul Odor after Cleansing No No -Bioengineered Tissue Yes No -Type of bioengineered Tissue [id number] -Expiration Date 09/21/20 -Product Lot Number [id number] -Percent Used 100 -Saline Lot Number [id number] -Topical Lidocaine (%) 5 -Bleeding Controlled with Pressure Pressure -Offloading Yes No -Type of Offloading Surgical Shoe -Treatment Response Procedure Procedure Tolerated Well Tolerated Well Pain Scale: 0-10 Numeric Is Patient Pain Free? Yes Yes Wound debrided: Right plantar DFU [place] 2 Laterality: Right Type of Debridement: Excisional debridement Anesthesia Used: 5% Lidocaine Gel Depth: in the subcutaneous layer Percentage of wound debrided: 100 Instrument Used: 5mm curette, #12 blade Tissue Removed: Slough, devitalized tissue, callused wound edges Severity: Fat Layer Exposed Amount of bleeding with debridement: Mild Bleeding Controlled with: Pressure Patient tolerated procedure well Assessment/Plan Assessment: Foot DFU right - grade 2. MS. DM II uncontrolled with neuropathy. Right foot hammertoe. Suspected malnutrition. Plan: The patient was seen and examined at the wound center today and was updated on the plan of care. A subcutaneous debridement was performed today. The patient tolerated the procedure well. The patients wound care will consist of: Applying Payton and gauze daily. And utilize offloading Darco shoe and diabetic shoes, which she continues to be noncompliant with. Wound cultures were collected prior and demonstrated Morganella morganii and Serratia marcensens 2+ and therefore patient completed course of Levaquin. Baseline bloodwork ordered and essentially WNL with the exception of 8.9 A1c and elevated ESR at 35 and crp 12 which I suspect is due to her chronic inflammatory state, did discuss following up with her PCP regarding her uncontrolled diabetes. Vascular studies pending. Patient educated on the importance of diet on wound healing and instructed to increase protein and vitamin C intake. Discussed importance of good blood sugar control and the importance of offloading as well, and instructed to follow-up with PCP for management of her diabetic medications. Patient has been noncompliant with compression and offloading. Discussed the importance of remaining compliant with her Tubigrip's for compression. Patient verbalized understanding. Discussed with patient that she will be discharged from the wound healing center as she refuses to come weekly and states that she only wants to follow-up with someone every 4 weeks. Educated patient that advanced wound healing takes weekly serial debridements. She still refuses and states she will follow-up with her conveyor feeder offbearer every 4 weeks for management of the callus on her foot surrounding the ulceration. This note was generated with [employer] dictation software. It may contain incorrect words, spelling, and punctuation that were not noted in checking the note before signing. Code Visit 111xxx-113xx: [id number] Regina subq tissue 20 sq cm/<
== END 2018-07-07 23:59 ==
LOC: WC 14:15
PROVIDERS: Family Provider Family Medicine; PCP Family Medicine; Referring Provider Family Medicine; Visit Provider Nurse Practitioner Family
DX: E11.621 Type 2 diabetes mellitus with foot ulcer (principal); L97.412 Non-pressure chronic ulcer of right heel and midfoot with fat layer exposed; E11.40 Type 2 diabetes mellitus with diabetic neuropathy, unspecified; E11.65 Type 2 diabetes mellitus with hyperglycemia; G35 Multiple sclerosis; R60.0 Localized edema; M54.17 Radiculopathy, lumbosacral region; M20.41 Other hammer toe(s) (acquired), right foot; Z86.718 Personal history of other venous thrombosis and embolism; Z91.19 Patient's noncompliance with other medical treatment and regimen; Z79.01 Long term (current) use of anticoagulants; Z79.4 Long term (current) use of insulin
CPT/HCPCS: 11042; 11043; 15275; 17250; 80053; 83036; 84134; 85025; 85652; 86140; Q4196

== ENCOUNTER → 2019-05-17 15:00 | Outpatient (CLI) | payer MEDICARE, OTHER, SELFPAY ==
--- NOTE | 2019-05-17 15:10 | RAD_ITS ---
STUDY: X-RAY - RIGHT FOOT CLINICAL: Female, 78 years old. Pain TECHNIQUE: 3 view(s) of the foot. COMPARISON: 11/29/2017 FINDINGS: There is a plantar calcaneal spur and enthesophyte. There is demineralization of osseous structures. Normal visualized subtalar, talonavicular, calcaneocuboid, tarsal and tarsometatarsal articulations. Stable flattening and sclerosis of the third metatarsal head, deformity of the second metatarsal head, cortical thickening third metatarsus with otherwise normal metatarsi. There is degenerative arthrosis of the metatarsophalangeal joint of the hallux with a hallux valgus deformity. Normal tibial and fibular sesamoid bones. Normal interphalangeal joint of the great toe. Normal phalanges of the great toe. Normal second through fifth metatarsophalangeal joints. Normal interphalangeal joints and phalanges of the lesser toes. Soft tissue prominence along the ankle and forefoot level. RAD/Foot min 3 Views IMPRESSION: Degenerative changes, osteoporosis and soft tissue swelling. Stable flattening of the third metatarsal head and cortical thickening possible posttraumatic in nature, possible [place] avascular necrosis. Electronically Signed: Adamaris Deutsch MD at 4:17 EST , Service support ,
== END ==
PROVIDERS: Family Provider Family Medicine; PCP Family Medicine; Referring Provider Podiatrist; Visit Provider Podiatrist
DX: L97.512 Non-pressure chronic ulcer of other part of right foot with fat layer exposed (principal); L03.115 Cellulitis of right lower limb
CPT/HCPCS: 73630; 87070; 87075; 87077; 87186; 87205